=== PATIENT | male | born 1955 | race Caucasian/White ===

== ENCOUNTER 2016-05-04 16:26 | Inpatient (IN) | payer OTHER ==
[2016-05-04] VITALS (7 sets, daily range): BP systolic 156–194; BP diastolic 72–94; PULSE 95–110; RESP 16–32; TEMP 97.7–99.5; O2SAT 78–100
[~2016-05-04] VITALS: Ht 182.9 cm; Wt 89.9 kg
[~2016-05-04 16:26] MED LIST: BENA25TA3 PO; BUPR150CR PO; HYDR-2376 PO; IBUP-988 PO; NAPR220T95 PO; ZYRT10CA PO
--- NOTE | 2016-05-04 16:38 | PD ---
HPI Chief Complaint: Respiratory Distress Time Seen by Provider: 16:35 Travel History International Travel<30 days: No Contact w/Intl Traveler<30days: No History of Present Illness HPI This is a 60-year-old male who has an [id number] smoking history who presents to the emergency department with increasing shortness of breath over the past week, constant, severe, worse with exertion, improved with rest. He says he has some chest pain in the center of his chest. He denies any fevers or chills. He has had a cough that has been mostly dry. He says this feels similar to when he had pneumonia in the past. He tried to use his albuterol at home but it didn't help him. PFSH Past Medical History Arthritis: Yes Depression: Yes Cancer: Yes (AGE 3) Cardiovascular Problems: No Diminished Hearing: No Gastrointestinal Disorders: Yes Genitourinary: No Implanted Vascular Access Dvce: No Musculoskeletal: Yes (SEVERAL DISC'S INJURED) Neurologic: Yes Psychiatric: Yes Reproductive: No Respiratory: No Migraines: Yes Ulcer: Yes (DUODENAL ) Past Surgical History Abdominal Surgery: Yes (AT AGE 3 FOR CANCER MASS) Eye Surgery: Yes (METAL REMOVED) Other Surgery: Yes Social History Alcohol Use: No Tobacco Use: Yes (SMOKES C-CIGS) Substance Use: No Allergies-Medications (Allergen,Severity, Reaction): Coded Allergies: Novocain (Verified Allergy, Intermediate, VOMITING, 05/04/16) VOMITING AND DIZZINESS Reported Meds & Prescriptions Reported Meds & Active Scripts Active Reported Lisinopril 10 Mg Tab 10 Mg PO BID Sumatriptan (Sumatriptan Succinate) 50 Mg Tab 50 Mg PO ONCE PRN If a satisfactory response has not been obtained at 2 hours, a second dose may be administered Amoxicillin-Clavulanate 875-125 mg Tab 875 Mg PO BID not for use in CrCl <30 mL/minute Furosemide 20 Mg Tab 20 Mg PO DAILY Zofran (Ondansetron HCl) 4 Mg Tab 4 Mg PO Q12HR PRN Gabapentin 300 Mg Cap 300 Mg PO TID Omeprazole 40 Mg Cap 40 Mg PO DAILY Ferrous Sulfate 325 Mg Tab 325 Mg PO DAILY Tizanidine (Tizanidine HCl) 4 Mg Cap 4 Mg PO TID Folate (Folic Acid) 1 Mg Tab 1 Mg PO DAILY Ventolin Hfa 18 GM Inh (Albuterol Sulfate) 90 Mcg/Act Aer 1 Puff INH Q4H PRN Symbicort Inh (Budesonide/Formoterol Fumarate) 80-4.5 Mcg/Act Aero 2 Puff INH Q12HR Zyrtec Allergy (Cetirizine HCl) 10 Mg Cap 10 Mg PO DAILY Aleve (Naproxen Sodium) 220 Mg Tab 220 Mg PO BID PRN Hydrocodone-Acetaminophen 7.5-300 Mg Tab 1 Tab PO Q4H PRN Advil (Ibuprofen) 200 Mg Tab 200 Mg PO TID Benadryl Allergy (Diphenhydramine HCl) 25 Mg Tab 25 Mg PO Q6H PRN Wellbutrin SR 12 HR (Bupropion HCl) 150 Mg Tab 150 Mg PO Q12HR Review of Systems Except as stated in HPI: all other systems reviewed are Neg Physical Exam Narrative GENERAL: Uncomfortable appearing, moderate respiratory distress SKIN: Warm and dry. HEAD: Atraumatic. Normocephalic. EYES: Pupils equal and round. No injection or drainage. ENT: Moist mucous membranes NECK: Trachea midline. CARDIOVASCULAR: Regular rate and rhythm. No murmur appreciated. RESPIRATORY: Rales in the bilateral lung bases, tachypnea, increased work of breathing, speaking 3-4 word sentences GASTROINTESTINAL: Abdomen soft, non-tender, nondistended. MUSCULOSKELETAL: No obvious deformities. NEUROLOGICAL: Awake and alert. No obvious cranial nerve deficits. Moving all extremities. PSYCHIATRIC: Appropriate mood and affect; insight and judgment normal. Data Data Last Documented VS Vital Signs Date Time Temp Pulse Resp B/P Pulse Ox O2 Delivery O2 Flow Rate FiO2 05/04/16 17:03 95 182/86 184/87 05/04/16 16:50 93 Nasal Cannula 6.00 05/04/16 16:41 32 05/04/16 16:38 97.7 Orders Electrocardiogram (05/04/16 16:35) B-Type Natriuretic Peptide (05/04/16 16:35) Complete Blood Count With Diff (05/04/16 16:35) Comprehensive Metabolic Panel (05/04/16 16:35) Prothrombin Time / Inr (Pt) (05/04/16 16:35) Act Partial Throm Time (Ptt) (05/04/16 16:35) Troponin I (05/04/16 16:35) Chest, Single Ap (05/04/16 16:35) Ecg Monitoring (05/04/16 16:35) Bilateral Bp Monitoring (05/04/16 16:35) Iv Access Insert/Monitor (05/04/16 16:35) Oximetry (05/04/16 16:35) Oxygen Administration (05/04/16 16:35) Sodium Chloride 0.9% Flush (Ns Flush) (05/04/16 16:45) Methylprednisolone So Succ Inj (Solumedr (05/04/16 16:45) Albuterol-Ipratropium Neb (Duoneb Neb) (05/04/16 16:45) Lactic Acid (05/04/16 16:39) Aspirin Chew (Aspirin Chew) (05/04/16 17:45) Furosemide Inj (Lasix Inj) (05/04/16 17:45) Nitroglycerin-Dextrose Inj (Nitroglyceri (05/04/16 18:00) Nitroglycerin 2% Oint (Nitroglycerin 2% (05/04/16 18:00) Enoxaparin Inj (Lovenox Inj) (05/04/16 18:00) Consult Cardiology (05/04/16 ) Admit Order (Ed Use Only) (05/04/16 18:02) Labs Laboratory Tests Test 05/04/16 16:50 White Blood Count 8.6 TH/MM3 Red Blood Count 3.85 MIL/MM3 Hemoglobin 11.5 GM/DL Hematocrit 33.0 % Mean Corpuscular Volume 85.8 FL Mean Corpuscular Hemoglobin 29.8 PG Mean Corpuscular Hemoglobin 34.8 % Concent Red Cell Distribution Width 13.1 % Platelet Count 347 TH/MM3 Mean Platelet Volume 6.9 FL Neutrophils (%) (Auto) 81.0 % Lymphocytes (%) (Auto) 9.1 % Monocytes (%) (Auto) 5.6 % Eosinophils (%) (Auto) 3.8 % Basophils (%) (Auto) 0.5 % Neutrophils # (Auto) 7.0 TH/MM3 Lymphocytes # (Auto) 0.8 TH/MM3 Monocytes # (Auto) 0.5 TH/MM3 Eosinophils # (Auto) 0.3 TH/MM3 Basophils # (Auto) 0.0 TH/MM3 CBC Comment DIFF FINAL Differential Comment Prothrombin Time 10.1 SEC Prothromb Time International 0.9 RATIO Ratio Activated Partial 30.6 SEC Thromboplast Time Sodium Level 137 MEQ/L Potassium Level 3.5 MEQ/L Chloride Level 101 MEQ/L Carbon Dioxide Level 25.0 MEQ/L Anion Gap 11 MEQ/L Blood Urea Nitrogen 14 MG/DL Creatinine 1.00 MG/DL Estimat Glomerular Filtration 76 ML/MIN Rate Random Glucose 127 MG/DL Lactic Acid Level 1.6 mmol/L Calcium Level 8.5 MG/DL Total Bilirubin 0.3 MG/DL Aspartate Amino Transf 20 U/L (AST/SGOT) Alanine Aminotransferase 17 U/L (ALT/SGPT) Alkaline Phosphatase 121 U/L Troponin I 0.24 NG/ML B-Type Natriuretic Peptide 697 PG/ML Total Protein 7.5 GM/DL Albumin 3.5 GM/DL MDM Medical Decision Making Medical Screen Exam Complete: Yes Emergency Medical Condition: Yes Interpretation(s) Afebrile, tachycardic, tachypneic, hypertensive, hypoxic on room air Anemia Troponin is 0.24 BNP is 697 Lactic acid is 1.6 ABG: PO2 is 60 Differential Diagnosis Pneumonia, congestive heart failure, pulmonary embolism, pleural effusion No leukocytosis Anemia Electrolytes are reassuring Troponin is 0.24 BNP is 697 Lactic acid is 1.6 Hypoxia Chest x-ray: Congestive heart failure Narrative Course This is a 60-year-old male who presents to the emergency department with shortness of breath it's been progressing over the past week. He is placed on a monitor and an IV was established. He was hypoxic on room air to 70%. He was placed on supplemental oxygen. Labs demonstrate an elevated BNP and the troponin of .24. He was given 40 mg of IV Lasix. Chest x-ray is consistent with congestive heart failure. I spoke to Dr. Johnson who agrees with anticoagulating the patient and transferring him to the [facility] for possible catheterization tomorrow in the setting of a new diagnosis of congestive heart failure. I spoke to Dr. Allen regarding the patient initially. She was concerned about the patient's hypoxia and requested an ABG. ABG came back demonstrating a significant oxygen deficit. Patient was titrated up and tried on the 50% Ventimask that we could only maintain his oxygenation on a nonrebreather. I do think the patient requires placement and the intensive care unit for close monitoring overnight. I spoke to Dr. Dr. Marcum and Dr. Rowell. Dr. Rowell feels comfortable keeping the patient on the [facility] service with an store warehouse associate consultation. I think this is reasonable as the patient is not in respiratory distress and is actively diuresing here in the ER and I expect his respiratory status to improve significantly in the next 24 hours. Diagnosis Primary Impression: Congestive heart failure Qualified Code: I50.9 - Acute congestive heart failure, unspecified congestive heart failure type Admitting Information Admitting Physician Requests: Admit Freida Stephenson MD May 04, 2016 16:38
[2016-05-04] MEDS ORDERED: SODIUM CHLORIDE 0.9% FLUSH 5 ML FLUSH IVF PRN (16:45)
[2016-05-04] MEDS ORDERED: methylPREDNISolone SOD SUCC 125 MG/2 ML VIAL IV PUSH ONE (16:45)
[2016-05-04] MEDS: RESP: ALBUTEROL 2.5 MG/IPRATROPIUM 0.5 MG NEB (SCH) INH (16:50)
--- NOTE | 2016-05-04 17:00 | RADHPO ---
EXAM DATE/TIME: 05/04/2016 16:45 [place] COMPARISON: CHEST SINGLE AP, April 01, 2014, 17:54. INDICATIONS : Short of breath, chest pains MEDICAL HISTORY : None. SURGICAL HISTORY : None. ENCOUNTER: Initial ACUITY: 2 weeks PAIN SCORE: 1/10 LOCATION: Bilateral chest FINDINGS: The heart size is normal. The lungs demonstrate diffuse increased interstitial markings. A focal co nsolidation is not seen. A significant effusion is not seen. CONCLUSION: Diffuse increased interstitial markings likely representing diffuse processes such as pulmonary edema . Vito Cordova MD on May 04, 2016 at 16:56 Board Certified Radiologist. This report was verified electronically.
[2016-05-04 17:09] LABS: BASOPHIL % 0.5 % (0.0-2.0); EOSINOPHIL # 0.3 TH/MM3 (0-0.4); EOSINOPHIL % 3.8 % (0.0-4.0); HEMO FLAGS DIFF FINAL; LYMPH % 9.1 % (9.0-44.0); LYMPHOCYTE # 0.8 TH/MM3 (1.0-4.8); MEAN CELL VOLUME 85.8 FL (80.0-100.0); MEAN CORPUSCULAR HEMOGLOBIN 29.8 PG (27.0-34.0); MEAN CORPUSCULAR HGB CONC 34.8 % (32.0-36.0); MONO % 5.6 % (0.0-8.0); PLATELET COUNT 347 TH/MM3 (150-450); RED BLOOD COUNT 3.85 MIL/MM3 (4.50-5.90); RED CELL DISTRIBUTION WIDTH 13.1 % (11.6-17.2); WHITE BLOOD COUNT 8.6 TH/MM3 (4.0-11.0)
[2016-05-04 17:15] LABS: CHLORIDE 101 MEQ/L (98-107); POTASSIUM 3.5 MEQ/L (3.5-5.1); SODIUM (NA) 137 MEQ/L (136-145)
[2016-05-04] MEDS ORDERED: LISI10TA3 PO (17:15)
[2016-05-04] MEDS ORDERED: FURO20TA PO (17:15)
[2016-05-04] MEDS ORDERED: TIZA4CAP3 PO (17:15)
[2016-05-04] MEDS ORDERED: SUMA50TA2 PO (17:15)
[2016-05-04] MEDS ORDERED: FOLI1TAB4 PO (17:15)
[2016-05-04] MEDS ORDERED: OMEP40CA2 PO (17:15)
[2016-05-04] MEDS ORDERED: FERR325T PO (17:15)
[2016-05-04] MEDS ORDERED: AMOX875T2 PO (17:15)
[2016-05-04] MEDS ORDERED: GABA300C5 PO (17:15)
[2016-05-04] MEDS ORDERED: SYMB80AE INH (17:15)
[2016-05-04] MEDS ORDERED: ZOFR4TAB PO (17:15)
[2016-05-04] MEDS ORDERED: VENTAER INH (17:15)
[2016-05-04 17:18] LABS: ANION GAP 11 MEQ/L (5-15)
[2016-05-04 17:19] LABS: BLOOD UREA NITROGEN 14 MG/DL (7-18)
[2016-05-04 17:20] LABS: APTT (PATIENT) 30.6 SEC (24.3-30.1); INTERNATIONAL NORMALIZED RATIO 0.9 RATIO; PROTHROMBIN TIME - PATIENT 10.1 SEC (9.8-11.6)
[2016-05-04 17:22] LABS: ALT (GPT) 17 U/L (12-78); AST (GOT) 20 U/L (15-37); GLOMERULAR FILTRATION RATE 76 ML/MIN (>89)
[2016-05-04 17:23] LABS: TOTAL BILIRUBIN ADULT 0.3 MG/DL (0.2-1.0)
[2016-05-04 17:24] LABS: ALKALINE PHOSPHATASE 121 U/L (45-117)
[2016-05-04] MEDS ORDERED: FUROSEMIDE 40 MG/4 ML VIAL IV PUSH ONE (17:45)
[2016-05-04] MEDS ORDERED: ASPIRIN 81 MG CHEW TAB CHEW ONE (17:45)
[2016-05-04] MEDS ORDERED: NITROGLYCERIN 2% OINT 1 GM PACKET TOPICAL ONE (18:00)
[2016-05-04] MEDS ORDERED: NITROGLYCERIN-DEXTROSE INJ 250 ML IV ONE (18:00)
[2016-05-04] MEDS ORDERED: ENOXAPARIN SODIUM 100 MG/ML SYRINGE SQ ONE (18:00)
[2016-05-04 18:27] LABS: BLOOD GAS BASE EXCESS -1.3 mmol/L (-2-2); BLOOD GAS CARBOXYHEMOGLOBIN 2.3 % (0-4); BLOOD GAS HCO3 22 mmol/L (22-26); BLOOD GAS METHEMOGLOBIN 1.1 % (0-2); BLOOD GAS O2 HGB SATURATION 86 % (90-100); BLOOD GAS OXYGEN CONTENT 13.2 Vol % (12.0-20.0); BLOOD GAS PCO2 32 mmHG (38-42); BLOOD GAS PO2 60 mmHG (61-120); BLOOD GAS TOTAL HGB 10.9 G/DL (12.0-16.0); TEMP CORR TO 98.6
[2016-05-04 18:28] LABS: CRITICAL VALUE YES; DRAW SITE LT RADIAL; LITER FLOW 5 L/M; NUMBER OF ARTERIAL PUNCTURES 1; OXYGEN DEVICE NASAL CANNULA; STAT YES; ULNAR PULSE PRESENT
[2016-05-04] MEDS ORDERED: ACETAMINOPHEN 325 MG TAB PO PRN (19:15)
[2016-05-04] MEDS ORDERED: MISCELLANEOUS NURSING INFORMATION XX SCH (19:15)
[2016-05-04] MEDS ORDERED: CHLORHEXIDINE GLUCONATE 2 % 1 PACK (2 CLOTHS) TOP PRN (19:15)
[2016-05-04] MEDS ORDERED: BISACODYL 10 MG SUPP PR PRN (19:15)
[2016-05-04] MEDS ORDERED: ALBUTEROL SULFATE 90 MCG/ACT HFA 8 GM INHALER INH PRN (19:15)
[2016-05-04] MEDS ORDERED: SODIUM CHLORIDE 0.9% FLUSH 5 ML FLUSH FLUSH PRN (19:15)
[2016-05-04] MEDS ORDERED: ONDANSETRON HCL 4 MG/2 ML VIAL IVP PRN (19:15)
[2016-05-04] MEDS: ACETAMINOPHEN/HYDROcodone 325 MG/5 MG TAB PO PRN (22:24)
[2016-05-04] MEDS: buPROPion HCL 150 MG SUSTAINED RELEASE TAB PO SCH (22:25)
[2016-05-04] MEDS: BUDESONIDE-FORMOTEROL 80/4.5 MCG INHALER INH SCH (23:00)
[2016-05-04] MEDS: SODIUM CHLORIDE 0.9% FLUSH 5 ML FLUSH FLUSH SCH (23:01)
--- NOTE | 2016-05-04 23:49 | HHI.HP ---
[facility] Bhavin Schuster MD Admission Diagnosis congestive heart failure Diagnoses: Chief Complaint: Shortness of breath Travel History International Travel<30 Days: No Contact w/Intl Traveler <30 Da: No Traveled to Known Affected Are: No History of Present Illness 60-year-old male with a history of COPD, depression, neuropathy, chronic back pain, and hypertension presented to the emergency room with increasing shortness of breath over the last week. He states the shortness of breath has gotten so severe that even walking to the bathroom he is unable to breathe. He states he does have a slight chest pressure when he does have shortness of breath but it does not radiate to his jaw or arm. He is also complaining of fever and chills at home, with an unknown temperature. He stopped smoking 8 months ago and was just recently diagnosed with hypertension in late March. He states he has had a dry cough since starting on lisinopril 3 weeks ago. He denies any abdominal pain, nausea, vomiting, dysuria or diarrhea. No history of DVTs, MIs or strokes. Patient states he has also never been diagnosed with congestive heart failure. And no history of an echocardiogram. Past Family Social History Past Medical History COPD Chronic back pain due to herniated disks Iron deficiency anemia Hypertension Cancer at age 3 Depression/anxiety Past Surgical History Abdominal cancer mass removed Reported Medications Reported Meds & Active Scripts Active Reported Lisinopril 10 Mg Tab 10 Mg PO BID Sumatriptan (Sumatriptan Succinate) 50 Mg Tab 50 Mg PO ONCE PRN If a satisfactory response has not been obtained at 2 hours, a second dose may be administered Amoxicillin-Clavulanate 875-125 mg Tab 875 Mg PO BID not for use in CrCl <30 mL/minute Furosemide 20 Mg Tab 20 Mg PO DAILY Zofran (Ondansetron HCl) 4 Mg Tab 4 Mg PO Q12HR PRN Gabapentin 300 Mg Cap 300 Mg PO TID Omeprazole 40 Mg Cap 40 Mg PO DAILY Ferrous Sulfate 325 Mg Tab 325 Mg PO DAILY Tizanidine (Tizanidine HCl) 4 Mg Cap 4 Mg PO TID Folate (Folic Acid) 1 Mg Tab 1 Mg PO DAILY Ventolin Hfa 18 GM Inh (Albuterol Sulfate) 90 Mcg/Act Aer 1 Puff INH Q4H PRN Symbicort Inh (Budesonide/Formoterol Fumarate) 80-4.5 Mcg/Act Aero 2 Puff INH Q12HR Zyrtec Allergy (Cetirizine HCl) 10 Mg Cap 10 Mg PO DAILY Aleve (Naproxen Sodium) 220 Mg Tab 220 Mg PO BID PRN Hydrocodone-Acetaminophen 7.5-300 Mg Tab 1 Tab PO Q4H PRN Advil (Ibuprofen) 200 Mg Tab 200 Mg PO TID Benadryl Allergy (Diphenhydramine HCl) 25 Mg Tab 25 Mg PO Q6H PRN Wellbutrin SR 12 HR (Bupropion HCl) 150 Mg Tab 150 Mg PO Q12HR Allergies: Coded Allergies: Novocain (Verified Allergy, Intermediate, VOMITING, 05/04/16) VOMITING AND DIZZINESS Active Ordered Medications Current Medications Medications (Trade) Dose Ordered Sig/Misa Route Start Time Stop Time Status Last Admin Miscellaneous Information 1 [id number] XX 05/04/16 19:15 (Chlorhexidine 2% Cloth) 3 pack Taper DAILY@04 TOP 05/05/16 04:00 05/01/17 03:59 (Chlorhexidine 2% Cloth) 3 pack UNSCH PRN TOP 05/04/16 19:15 (NS Flush) 2 ml UNSCH PRN FLUSH 05/04/16 19:15 (NS Flush) 2 ml BID FLUSH 05/04/16 21:00 05/04/16 23:01 (Zofran Inj) 4 mg Q6H PRN IVP 05/04/16 19:15 (Dulcolax Supp) 10 mg DAILY PRN MN 05/04/16 19:15 (Tylenol) 650 mg Q6H PRN PO 05/04/16 19:15 ([place] 5-325 Mg) 1 tab Q4H PRN PO 05/04/16 19:15 05/04/16 22:24 (Morphine Inj) 2 mg Q3H PRN IV 05/04/16 19:15 (Lasix Inj) 40 mg BID@,18 IV PUSH 05/05/16 09:00 (Proair Hfa Inh) 1 puff Q4H PRN INH 05/04/16 19:15 (Symbicort 80-4.5 Mcg Inh) 2 puff Q12HR INH 05/04/16 21:00 05/04/16 23:00 (Wellbutrin Sr) 150 mg Q12HR PO 05/04/16 21:00 05/04/16 22:25 (Ferrous Sulfate) 325 mg DAILY PO 05/05/16 09:00 (Folate) 1 mg DAILY PO 05/05/16 09:00 (Neurontin) 300 mg TID PO 05/05/16 09:00 Family History Family history of significant heart disease and cancer Social History Tobacco use: Quit 8 months ago prior to this 2 ppd for 40 years Alcohol use: Denies Illicit drug use: Denies Physical Exam Vital Signs Vital Signs Date Time Temp Pulse Resp B/P Pulse Ox O2 Delivery O2 Flow Rate FiO2 05/04/16 22:19 99.5 95 28 164/86 100 05/04/16 21:39 92 16 156/80 100 Non-Rebreather 5 05/04/16 19:41 96 16 165/72 100 Non-Rebreather 5 05/04/16 19:41 100 Non-Rebreather 5 05/04/16 19:41 16 100 Non-Rebreather 5 05/04/16 17:03 95 182/86 184/87 05/04/16 16:50 93 Nasal Cannula 6.00 05/04/16 16:41 110 32 92 Nasal Cannula 4 05/04/16 16:41 93 Nasal Cannula 4 05/04/16 16:41 93 Nasal Cannula 4 05/04/16 16:38 97.7 110 32 194/94 78 Physical Exam GENERAL: This is a well-nourished, well-developed patient, with some breathing difficulty currently on a nonrebreather SKIN: No rashes, ecchymoses or lesions. Cool and dry. HEAD: Atraumatic. Normocephalic EYES: Pupils equal round and reactive. ENT: Nose without bleeding, purulent drainage or septal hematoma. Airway patent. NECK: Trachea midline. No JVD. CARDIOVASCULAR: Regular rate and rhythm without murmurs, gallops, or rubs. RESPIRATORY: Crackles noted bilateral bases worse and right lower lobe, no wheezes GASTROINTESTINAL: Abdomen soft, non-tender, nondistended. No guarding. MUSCULOSKELETAL: Extremities without clubbing, cyanosis, or edema. No joint tenderness, effusion, or edema noted. No calf tenderness. NEUROLOGICAL: Awake and alert. Motor and sensory grossly within normal limits. Normal speech. Laboratory Laboratory Tests Test 05/04/16 05/04/16 16:50 18:22 White Blood Count 8.6 Red Blood Count 3.85 Hemoglobin 11.5 Hematocrit 33.0 Mean Corpuscular Volume 85.8 Mean Corpuscular Hemoglobin 29.8 Mean Corpuscular Hemoglobin 34.8 Concent Red Cell Distribution Width 13.1 Platelet Count 347 Mean Platelet Volume 6.9 Neutrophils (%) (Auto) 81.0 Lymphocytes (%) (Auto) 9.1 Monocytes (%) (Auto) 5.6 Eosinophils (%) (Auto) 3.8 Basophils (%) (Auto) 0.5 Neutrophils # (Auto) 7.0 Lymphocytes # (Auto) 0.8 Monocytes # (Auto) 0.5 Eosinophils # (Auto) 0.3 Basophils # (Auto) 0.0 CBC Comment DIFF FINAL Differential Comment Prothrombin Time 10.1 Prothromb Time International 0.9 Ratio Activated Partial 30.6 Thromboplast Time Sodium Level 137 Potassium Level 3.5 Chloride Level 101 Carbon Dioxide Level 25.0 Anion Gap 11 Blood Urea Nitrogen 14 Creatinine 1.00 Estimat Glomerular Filtration 76 Rate Random Glucose 127 Lactic Acid Level 1.6 Calcium Level 8.5 Total Bilirubin 0.3 Aspartate Amino Transf 20 (AST/SGOT) Alanine Aminotransferase 17 (ALT/SGPT) Alkaline Phosphatase 121 Troponin I 0.24 B-Type Natriuretic Peptide 697 Total Protein 7.5 Albumin 3.5 Blood Gas Puncture Site LT RADIAL Blood Gas Patient Temperature 98.6 Blood Gas HCO3 22 Blood Gas Base Excess -1.3 Blood Gas Oxygen Saturation 86 Arterial Blood pH 7.45 Arterial Blood Partial 32 Pressure CO2 Arterial Blood Partial 60 Pressure O2 Arterial Blood Oxygen Content 13.2 Arterial Blood 2.3 Carboxyhemoglobin Arterial Blood Methemoglobin 1.1 Blood Gas Hemoglobin 10.9 Oxygen Delivery Device NASAL CANNULA Blood Gas Liter Flow 5 Result Diagram: 05/04/16 1650 05/04/16 1650 Imaging Last Impressions Chest X-Ray 05/04/16 1635 Signed Impressions: Service Date/Time: Wednesday, May 04, 2016 16:45 - CONCLUSION: Diffuse increased interstitial markings likely representing diffuse processes such as pulmonary edema. Vito Cordova MD Assessment and Plan Problem List: (1) Congestive heart failure ICD Code: I50.9 Status: Acute (2) HTN (hypertension) ICD Code: I10 Status: Chronic (3) COPD (chronic obstructive pulmonary disease) ICD Code: J44.9 Status: Chronic (4) Back pain ICD Code: M54.9 Status: Chronic Assessment and Plan 50-year-old male with a history of COPD, hypertension, neuropathy, depression presented with: Congestive heart failure, new onset Chest x-ray revealed diffuse increased interstitial markings likely representing pulmonary edema -Lasix 40 mg given an ED, additional 20 mg IV given upon assessment, then 40mg scheduled twice a day -Cardiac consult: Dr. Johnson is planning cardiac catheter in a.m. -2-D echo pending -DuoNeb's Q4 Hypertension, chronic -Hold lisinopril due to cough -Monitor vitals -Clonidine as needed COPD, chronic -Reorder home medications Symbicort Chronic back pain -Pain management with [place] PO, and IV morphine [id number] interaction performed by me at 2355 on 05/04/16 Discussed Condition With Patient and Dr. Osborne Attestation Pt seen and examined. Agree w/ above A/P 60yo male w/ PMH COPD and HTN, now w/ New-Onset CHF and elevated trop. Continue w/ diuresis, check Echo, serial cardiac enzymes, plan for Cardiac Cath in am by Dr. Johnson. Physician Certification 2 Midnight Certification Type: Admission for Inpatient Services Order for Inpatient Services The services are ordered in accordance with Medicare regulations or non- Medicare payer requirements, as applicable. In the case of services not specified as inpatient-only, they are appropriately provided as inpatient services in accordance with the 2-midnight benchmark. Estimated LOS (days): 3 days is the estimated time the patient will need to remain in the hospital, assuming treatment plan goals are met and no additional complications. Post-Hospital Plan: Home Problem Qualifiers (1) Congestive heart failure: Qualified Code: I50.9 - Acute congestive heart failure, unspecified congestive heart failure type Nakia Davalos May 04, 2016 23:49 Nani Osborne MD May 05, 2016 04:33
[2016-05-05] VITALS (21 sets, daily range): BP systolic 133–179; BP diastolic 65–87; PULSE 65–94; RESP 16–32; TEMP 98–99.7; O2SAT 89–100
[2016-05-05] MEDS: MORPHINE SULFATE 4 MG/ML INJ IV PRN ×5 (00:52→21:21)
[2016-05-05] MEDS ORDERED: RESP: ALBUTEROL 2.5 MG/IPRATROPIUM 0.5 MG NEB (PRN) NEB (01:00)
[2016-05-05] MEDS ORDERED: FUROSEMIDE 20 MG/2 ML VIAL IV PUSH ONE (01:15)
[2016-05-05] MEDS: CHLORHEXIDINE GLUCONATE 2 % 1 PACK (2 CLOTHS) TOP SCH (03:31)
[2016-05-05] MEDS: ACETAMINOPHEN/HYDROcodone 325 MG/5 MG TAB PO PRN ×3 (03:35→20:06)
[2016-05-05] MEDS: cloNIDine HCL 0.1 MG TAB PO PRN (03:35)
[2016-05-05 05:28] LABS: AUTOMATED NEUTROPHIL # 4.3 TH/MM3 (1.8-7.7); BASOPHIL % 0.5 % (0.0-2.0); EOSINOPHIL % 0.1 % (0.0-4.0); HEMATOCRIT 33.3 % (39.0-51.0); HEMO FLAGS DIFF FINAL; LYMPH % 9.1 % (9.0-44.0); LYMPHOCYTE # 0.5 TH/MM3 (1.0-4.8); MEAN CELL VOLUME 86.1 FL (80.0-100.0); MEAN CORPUSCULAR HEMOGLOBIN 28.6 PG (27.0-34.0); MEAN CORPUSCULAR HGB CONC 33.3 % (32.0-36.0); NEUT % 85.3 % (16.0-70.0); PLATELET COUNT 342 TH/MM3 (150-450); RED BLOOD COUNT 3.87 MIL/MM3 (4.50-5.90); RED CELL DISTRIBUTION WIDTH 13.7 % (11.6-17.2)
[2016-05-05 05:45] LABS: ALKALINE PHOSPHATASE 126 U/L (45-117); ALT (GPT) 19 U/L (12-78); ANION GAP 13 MEQ/L (5-15); AST (GOT) 18 U/L (15-37); BICARBONATE 25.2 MEQ/L (21.0-32.0); BLOOD UREA NITROGEN 12 MG/DL (7-18); CHLORIDE 97 MEQ/L (98-107); GLOMERULAR FILTRATION RATE 89 ML/MIN (>89); POTASSIUM 3.7 MEQ/L (3.5-5.1); SODIUM (NA) 135 MEQ/L (136-145); TOTAL BILIRUBIN ADULT 0.4 MG/DL (0.2-1.0)
[2016-05-05] MEDS: FOLIC ACID 1 MG TAB PO SCH (08:28)
[2016-05-05] MEDS: buPROPion HCL 150 MG SUSTAINED RELEASE TAB PO SCH ×2 (08:28→20:06)
[2016-05-05] MEDS: FERROUS SULFATE 325 MG (65 MG ELEMENTAL IRON) TAB PO SCH (08:28)
[2016-05-05] MEDS: GABAPENTIN 300 MG CAP PO SCH ×3 (08:28→18:00)
[2016-05-05] MEDS: FUROSEMIDE 40 MG/4 ML VIAL IV PUSH SCH ×2 (08:29→18:23)
[2016-05-05] MEDS: BUDESONIDE-FORMOTEROL 80/4.5 MCG INHALER INH SCH ×2 (08:40→20:07)
[2016-05-05] MEDS: SODIUM CHLORIDE 0.9% FLUSH 5 ML FLUSH FLUSH SCH ×2 (09:00→20:06)
--- NOTE | 2016-05-05 09:17 | HHI.PR ---
Subjective Remarks Follow up CHF, hypertension. Patient denies chest pain. States that his breathing is stable. No nausea or vomiting. Objective Vitals Vital Signs Date Time Temp Pulse Resp B/P Pulse Ox O2 Delivery O2 Flow Rate FiO2 05/05/16 08:00 98.0 82 26 156/82 99 05/05/16 06:00 94 05/05/16 04:00 79 05/05/16 04:00 98.5 81 17 155/77 100 05/05/16 02:00 85 05/05/16 00:00 90 05/05/16 00:00 98.9 90 29 159/74 99 05/04/16 22:19 99.5 95 28 164/86 100 05/04/16 21:39 92 16 156/80 100 Non-Rebreather 5 05/04/16 19:41 96 16 165/72 100 Non-Rebreather 5 05/04/16 19:41 100 Non-Rebreather 5 05/04/16 19:41 16 100 Non-Rebreather 5 05/04/16 17:03 95 182/86 184/87 05/04/16 16:50 93 Nasal Cannula 6.00 05/04/16 16:41 110 32 92 Nasal Cannula 4 05/04/16 16:41 93 Nasal Cannula 4 05/04/16 16:41 93 Nasal Cannula 4 05/04/16 16:38 97.7 110 32 194/94 78 I/O 05/04/16 05/04/16 05/04/16 05/05/16 05/05/16 05/05/16 07:00 15:00 23:00 07:00 15:00 23:00 Intake Total 480 ml Output Total 1700 ml 2600 ml Balance -1700 ml -2120 ml Intake Oral 480 ml Output Urine Total 1700 ml 2600 ml Stool Total 0 ml # Voids 5 Result Diagram: 05/05/16 0414 05/05/164 Imaging Last Impressions Chest X-Ray 05/04/16 1635 Signed Impressions: Service Date/Time: Wednesday, May 04, 2016 16:45 - CONCLUSION: Diffuse increased interstitial markings likely representing diffuse processes such as pulmonary edema. Vito Cordova MD Objective Remarks General: No acute distress. On non-rebreather. Heart: Regular rate and rhythm. No murmur. Lungs: Mild scattered wheeze. Breathing is nonlabored. Abdomen: Soft, nontender, nondistended. Extremities: No lower extremity edema. SCDs. Psych: Alert and oriented. Urinary Catheter: No Vascular Central Line Catheter: No A/P Problem List: (1) Congestive heart failure ICD Code: I50.9 Status: Acute (2) HTN (hypertension) ICD Code: I10 Status: Chronic (3) COPD (chronic obstructive pulmonary disease) ICD Code: J44.9 Status: Chronic (4) Back pain ICD Code: M54.9 Status: Chronic Assessment and Plan 1. New onset CHF: 2-D echocardiogram pending. Cardiology consult. Dr. Johnson planning for cardiac catheterization this morning. Continue diuresis with Lasix. 2. Hypertension: Chronic. Clonidine as needed. 3. COPD: Continue Symbicort. DuoNeb's as needed. Supplemental oxygen. 4. Chronic back pain: Continue pain control. 5. Elevated troponin: Cardiac catheterization today per Dr. Johnson. 6. DVT prophylaxis: Received Lovenox. Problem Qualifiers (1) Congestive heart failure: Qualified Code: I50.9 - Acute congestive heart failure, unspecified congestive heart failure type Kevin Madison MD May 05, 2016 09:17
[2016-05-05] MEDS ORDERED: diphenhydrAMINE HCL 50 MG/ML VIAL ONE (10:29)
[2016-05-05] MEDS ORDERED: HYDROCORTISONE SOD SUCCINATE 100 MG VIAL ONE (10:29)
[2016-05-05] MEDS ORDERED: HEPARIN-NS/PF INJ 500 ML ONE (10:30)
[2016-05-05] MEDS ORDERED: FAMOTIDINE 20 MG/2 ML VIAL ONE (10:34)
[2016-05-05] MEDS ORDERED: IOHEXOL 350 MG/ML 100 ML BTL (for Cath Lab) OTHER ONE (10:57)
[2016-05-05] MEDS ORDERED: HEPARIN SODIUM - IV 10,000 UNITS/10 ML VIAL ONE (11:16)
[2016-05-05] MEDS ORDERED: SODIUM NITROPRUSSIDE 50 MG/2 ML VIAL ONE (11:19)
[2016-05-05] MEDS ORDERED: NITROGLYCERIN 2% OINT 1 GM PACKET ONE (11:27)
[2016-05-05] MEDS ORDERED: PRASUGREL 10 MG TAB ONE (11:29)
[2016-05-05] MEDS ORDERED: TIROFIBAN INFUSION INJ 250 ML IV ONE (11:29)
[2016-05-05] MEDS ORDERED: FUROSEMIDE 40 MG/4 ML VIAL ONE (11:30)
[2016-05-05] MEDS: TIROFIBAN INFUSION INJ 250 ML IV SCH ×2 (11:34→23:31)
[2016-05-05] MEDS ORDERED: SODIUM CHLORIDE 0.9% FLUSH 5 ML FLUSH IVF PRN (11:45)
[2016-05-05] MEDS ORDERED: PRASUGREL 10 MG TAB PO ONE (11:45)
[2016-05-05] MEDS ORDERED: MISC INFORMATION XX ONE (11:45)
--- NOTE | 2016-05-05 14:02 | MB ---
cc: DUNCAN OTT M.D. DATE OF CONSULTATION: 05/05/2016. HISTORY OF PRESENT ILLNESS: Julio is a very pleasant 60-year-old gentleman admitted with congestive heart failure and chief complaint of shortness of breath. He was admitted to the intensive care unit. He has an 80 pack/year smoking history and has a diagnosis of COPD in the past. His chief complaint was shortness of breath occurring at rest and worse with exertion associated with chest pain in the center of the chest, dry cough. He otherwise denies any fevers, chills, GI or bleeding, paroxysmal nocturnal dyspnea, orthopnea, syncope or dizziness. PAST MEDICAL HISTORY: His past medical history is per the history of present illness. 1. Cervical disc injury. 2. Cancer at the age of 3. 3. Depression. 4. Arthritis. 5. Migraines. 6. Status post abdominal postsurgery for malignant mass in the abdomen. SOCIAL HISTORY: He smokes E-cigs. Denies alcohol use. ALLERGIES: Novocain. MEDICATIONS PRIOR TO ADMISSION: 1. Lisinopril. 2. Sumatriptan. 3. Amoxicillin. 4. . 5. Furosemide 20 daily. 6. Zofran. 7. Gabapentin. 8. Omeprazole. 9. Ferrous sulfate. 10. Tizanidine. 11. Folate. 12. Ventolin. 13. Symbicort. 14. Zyrtec. 15. Aleve. 16. Hydrocodone. 17. Acetaminophen. 18. Advil. 19. Benadryl. 20. Wellbutrin. MEDICATIONS IN THE HOSPITAL: 1. Lasix 40 IV twice a day. 2. Ferrous sulfate 325 daily. 3. Folic acid 1 milligram daily. 4. Gabapentin 300 three times a day. 5. Symbicort. 6. Wellbutrin. 7. Lovenox 100 milligrams subcutaneous x1. 8. One inch of nitro paste x1. 9. Methylprednisolone 125 x1 IV. PHYSICAL EXAMINATION: VITAL SIGNS: Blood pressure 156/82, pulse 94, temperature 98.0. GENERAL: He is alert and oriented times three and in mild distress with oxygen face mask in place. NECK: The neck is supple. No jugular venous distention. No bruits. CARDIOVASCULAR EXAM: S1 and S2. No murmurs, rubs or gallops. LUNGS: Notable for decreased air movement bilaterally. ABDOMEN: The abdomen is soft, nontender and nondistended with positive bowel sounds. EXTREMITIES: No lower extremity edema. IMAGING STUDIES: Chest x-ray shows diffuse increased interstitial markings likely representing diffuse process such as pulmonary edema. EKGS: An EKG shows normal sinus rhythm at 94 beats per minute, 4 to 5 mm of T wave inversion, which are symmetric T wave inversions, in V3, V4, V5, V6 and also in lead III. Prolonged Q-T interval. LABORATORY DATA: White count 5.0, hemoglobin 11.1, hematocrit 33.3, platelet count 342,000. Sodium 135, potassium 3.7, chloride 97, bicarbonate 25, BUN 12, creatinine 0.88. Troponin is 0.24, 0.19 and 0.19. BNP is 697. INR is 0.9. Blood gas shows pH 7.45, pC02 of 32, p02 of 60 on five liters nasal cannula. DIAGNOSES: He has the following diagnoses: 1. NSTEMI. 2. COPD. 3. Decompensated congestive heart failure. 4. COPD. 5. Tobacco use. 6. Hypoxia. 7. Hyponatremia. 8. Hyperglycemia. 9. Anemia. DISCUSSION: At this point time, the EKG suggests significant left anterior descending stenosis. Given the patient's decompensated congestive heart failure and elevated troponin, he is high risk for an ischemic etiology and is high risk for an ischemic outcome without revascularization. Therefore, I do think left heart catheterization is urgently indicated. I have explained to the patient the risk of heart catheterization / percutaneous coronary intervention has a 10% chance of , stroke, heart attack, bleeding, need for emergency bypass, need for emergency surgery, need for dialysis, need for blood transfusion, anaphylaxis, bleeding, infection, and arrhythmia. I strongly recommend smoking cessation. Further recommendations based on the coronary anatomy and physiology. MD LENORA Jensen/EMMANUEL /10:59 AM /1:49 PM
[2016-05-05] MEDS ORDERED: [UNRECOGNIZED DRUG - REMARK] XX PRN (16:15)
[2016-05-05] MEDS ORDERED: LORazepam 2 MG/ML VIAL IVP PRN (16:15)
[2016-05-05] MEDS ORDERED: ATROPINE SULFATE 1 MG/ML VIAL IV PUSH PRN (16:15)
[2016-05-05] MEDS ORDERED: ONDANSETRON HCL 4 MG/2 ML VIAL IVP PRN (16:15)
[2016-05-05] MEDS ORDERED: SODIUM CHLOR 0.9% 250 ML IV PRN (16:15)
[2016-05-05] MEDS: ATORVASTATIN 10 MG TAB PO SCH (20:06)
[2016-05-05] MEDS: SODIUM CHLORIDE 0.9% FLUSH 5 ML FLUSH IVF SCH (20:07)
[2016-05-06] VITALS (12 sets, daily range): BP systolic 123–155; BP diastolic 63–87; PULSE 67–91; RESP 15–25; TEMP 98–98.9; O2SAT 90–96
[2016-05-06] MEDS: CHLORHEXIDINE GLUCONATE 2 % 1 PACK (2 CLOTHS) TOP SCH (04:00)
[2016-05-06 05:09] LABS: AUTOMATED NEUTROPHIL # 7.3 TH/MM3 (1.8-7.7); BASOPHIL # 0.1 TH/MM3 (0-0.2); BASOPHIL % 0.8 % (0.0-2.0); EOSINOPHIL # 0.1 TH/MM3 (0-0.4); EOSINOPHIL % 0.9 % (0.0-4.0); HEMATOCRIT 35.6 % (39.0-51.0); HEMO FLAGS DIFF FINAL; LYMPH % 11.7 % (9.0-44.0); LYMPHOCYTE # 1.1 TH/MM3 (1.0-4.8); MEAN CELL VOLUME 86.2 FL (80.0-100.0); MEAN CORPUSCULAR HEMOGLOBIN 28.7 PG (27.0-34.0); MEAN CORPUSCULAR HGB CONC 33.3 % (32.0-36.0); MONO % 8.6 % (0.0-8.0); PLATELET COUNT 473 TH/MM3 (150-450); RED BLOOD COUNT 4.13 MIL/MM3 (4.50-5.90); RED CELL DISTRIBUTION WIDTH 13.7 % (11.6-17.2); WHITE BLOOD COUNT 9.4 TH/MM3 (4.0-11.0)
[2016-05-06 05:32] LABS: BICARBONATE 29.2 MEQ/L (21.0-32.0); POTASSIUM 3.3 MEQ/L (3.5-5.1)
[2016-05-06 05:36] LABS: HDL CHOLESTEROL 42.5 MG/DL (40.0-60.0)
[2016-05-06 05:54] LABS: CKMB 8.1 NG/ML (0.5-3.6)
[2016-05-06] MEDS: FUROSEMIDE 40 MG/4 ML VIAL IV PUSH SCH (08:41)
[2016-05-06] MEDS: FERROUS SULFATE 325 MG (65 MG ELEMENTAL IRON) TAB PO SCH (08:42)
[2016-05-06] MEDS: GABAPENTIN 300 MG CAP PO SCH ×3 (08:42→18:33)
[2016-05-06] MEDS: buPROPion HCL 150 MG SUSTAINED RELEASE TAB PO SCH ×2 (08:42→20:24)
[2016-05-06] MEDS: ASPIRIN 81 MG CHEW TAB PO SCH (08:42)
[2016-05-06] MEDS: FOLIC ACID 1 MG TAB PO SCH (08:43)
[2016-05-06] MEDS: SODIUM CHLORIDE 0.9% FLUSH 5 ML FLUSH FLUSH SCH (08:44)
[2016-05-06] MEDS: PRASUGREL 10 MG TAB PO SCH (08:44)
[2016-05-06] MEDS: SODIUM CHLORIDE 0.9% FLUSH 5 ML FLUSH IVF SCH ×2 (08:45→20:24)
[2016-05-06] MEDS: BUDESONIDE-FORMOTEROL 80/4.5 MCG INHALER INH SCH ×2 (08:45→20:23)
[2016-05-06] MEDS: MORPHINE SULFATE 4 MG/ML INJ IV PRN ×5 (08:54→23:11)
[2016-05-06] MEDS ORDERED: RAMIPRIL 2.5 MG CAP PO SCH (09:00)
[2016-05-06] MEDS ORDERED: POTASSIUM CHLORIDE 20 MEQ CONTROLLED RELEASE TAB PO ONE (09:15)
--- NOTE | 2016-05-06 09:16 | HHI.PR ---
Subjective Remarks Follow up CHF, hypertension, hypokalemia. He is refusing ramipril. He states that he was started on an SUMAN inhibitor or a couple weeks ago and developed a dry cough. Cough has now progressed and is productive today. Denies chest pain or dyspnea. Objective Vitals Vital Signs Date Time Temp Pulse Resp B/P Pulse Ox O2 Delivery O2 Flow Rate FiO2 05/06/16 04:00 67 05/06/16 04:00 98.7 67 15 136/75 96 05/06/16 00:00 98.9 71 19 123/63 95 05/06/16 00:00 71 05/05/16 20:58 93 Nasal Cannula 5.00 05/05/16 20:00 98.7 81 20 133/67 97 05/05/16 20:00 81 05/05/16 18:17 16 05/05/16 16:00 89 05/05/16 16:00 98.1 83 18 138/67 91 05/05/16 15:21 16 05/05/16 15:00 98.1 82 28 145/67 05/05/16 15:00 85 20 137/65 96 05/05/16 14:00 98.1 83 20 145/67 92 05/05/16 13:56 68 20 145/69 96 05/05/16 13:26 65 22 150/78 96 05/05/16 13:00 32 179/87 89 05/05/16 12:56 90 22 152/76 96 05/05/16 12:26 79 16 140/78 92 05/05/16 12:14 93 Nasal Cannula 5.00 05/05/16 12:11 172/86 05/05/16 12:00 82 05/05/16 12:00 98.0 82 18 156/82 99 05/05/16 12:00 98.0 65 20 172/86 96 05/05/16 11:56 99.7 84 22 138/73 91 05/05/16 11:50 80 140/78 98 05/05/16 10:00 82 05/05/16 10:00 94 I/O 05/05/16 05/05/16 05/05/16 05/06/16 05/06/16 05/06/16 07:00 15:00 23:00 07:00 15:00 23:00 Intake Total 480 ml 1086 ml 610 ml 300 ml Output Total 2600 ml 1325 ml 400 ml 850 ml Balance -2120 ml -239 ml 210 ml -550 ml Intake Oral 480 ml 480 ml 200 ml IV Total 1086 ml 130 ml 100 ml Output Urine Total 2600 ml 1325 ml 400 ml 850 ml Stool Total 0 ml 0 ml Result Diagram: 05/06/16 0418 05/06/16 0418 Imaging Last Impressions Chest X-Ray 05/04/16 1635 Signed Impressions: Service Date/Time: Wednesday, May 04, 2016 16:45 - CONCLUSION: Diffuse increased interstitial markings likely representing diffuse processes such as pulmonary edema. Vito Cordova MD Objective Remarks General: No acute distress. Heart: Regular rate and rhythm. No murmur. Lungs: Mild scattered wheeze. Breathing is nonlabored. Abdomen: Soft, nontender, nondistended. Extremities: No lower extremity edema. SCDs. Psych: Alert and oriented. Procedures 05/05/16 cardiac catheterization Urinary Catheter: No Vascular Central Line Catheter: No A/P Problem List: (1) Congestive heart failure ICD Code: I50.9 Status: Acute (2) HTN (hypertension) ICD Code: I10 Status: Chronic (3) COPD (chronic obstructive pulmonary disease) ICD Code: J44.9 Status: Chronic (4) Back pain ICD Code: M54.9 Status: Chronic Assessment and Plan 1. New onset CHF: 2-D echocardiogram pending. Continue diuresis with Lasix. Appreciate cardiology recommendations. Status post cardiac catheterization yesterday. Cardiology recommended SUMAN inhibitor. Patient states that he gets cough with SUMAN inhibitor, so we will switch to ARB. 2. Hypertension: Chronic. Clonidine as needed. 3. COPD: Continue Symbicort. DuoNeb's as needed. Supplemental oxygen. 4. Chronic back pain: Continue pain control. 5. Elevated troponin: Status post cardiac catheterization. Continue aspirin, Effient. 6. DVT prophylaxis: Received Lovenox. 7. Hypokalemia: Supplement potassium. 8. Cough: Stop SUMAN inhibitor. Start losartan. Check chest x-ray. Problem Qualifiers (1) Congestive heart failure: Qualified Code: I50.9 - Acute congestive heart failure, unspecified congestive heart failure type Kevin Madison MD May 06, 2016 09:16
[2016-05-06] MEDS: LOSARTAN 25 MG TAB PO SCH (10:09)
[2016-05-06] MEDS: ACETAMINOPHEN/HYDROcodone 325 MG/5 MG TAB PO PRN ×2 (10:21→14:36)
--- NOTE | 2016-05-06 11:27 | RADRPT ---
EXAM DATE/TIME: 05/06/2016 10:28 [facility] COMPARISON: CHEST SINGLE AP, May 04, 2016, 16:45. INDICATIONS : Cough. MEDICAL HISTORY : None. SURGICAL HISTORY : None. ENCOUNTER: Initial ACUITY: 2 days PAIN SCORE: 0/10 LOCATION: Bilateral chest FINDINGS: There has been interval improvement with less interstitial changes. The heart remains minimally enla rged. There is no evidence of consolidation, pleural effusion or pneumothorax. The portion of the [place] skeleton visualized is unremarkable. CONCLUSION: Interval improvement. Maldonado Sanabria MD FACR on May 06, 2016 at 11:25 Board Certified Radiologist. This report was verified electronically.
--- NOTE | 2016-05-06 14:49 | PD.CARD.PN ---
Subjective Subjective Remarks feels much better, down to 5l nc Objective Vital Signs / I&O Vital Signs Date Time Temp Pulse Resp B/P Pulse Ox O2 Delivery O2 Flow Rate FiO2 05/06/16 14:00 91 05/06/16 12:00 86 05/06/16 12:00 98.0 86 20 153/82 91 05/06/16 10:00 81 05/06/16 08:00 98.2 71 18 153/71 94 05/06/16 08:00 71 05/06/16 04:00 67 05/06/16 04:00 98.7 67 15 136/75 96 05/06/16 00:00 98.9 71 19 123/63 95 05/06/16 00:00 71 05/05/16 20:58 93 Nasal Cannula 5.00 05/05/16 20:00 98.7 81 20 133/67 97 05/05/16 20:00 81 05/05/16 18:17 16 05/05/16 16:00 89 05/05/16 16:00 98.1 83 18 138/67 91 05/05/16 15:21 16 05/05/16 15:00 98.1 82 28 145/67 05/05/16 15:00 85 20 137/65 96 I/O 05/05/16 05/05/16 05/05/16 05/06/16 05/06/16 05/06/16 07:00 15:00 23:00 07:00 15:00 23:00 Intake Total 480 ml 1086 ml 610 ml 300 ml 920 ml Output Total 2600 ml 1325 ml 400 ml 850 ml 1850 ml Balance -2120 ml -239 ml 210 ml -550 ml -930 ml Intake Oral 480 ml 480 ml 200 ml 920 ml IV Total 1086 ml 130 ml 100 ml Output Urine Total 2600 ml 1325 ml 400 ml 850 ml 1850 ml Stool Total 0 ml 0 ml # Voids 2 Laboratory GENERAL: SKIN: Warm and dry. HEAD: Normocephalic. EYES: No scleral icterus. No injection or drainage. NECK: Supple, trachea midline. No JVD or lymphadenopathy. CARDIOVASCULAR: Regular rate and rhythm without murmurs, gallops, or rubs. RESPIRATORY: Breath sounds equal bilaterally. No accessory muscle use. GASTROINTESTINAL: Abdomen soft, non-tender, nondistended. MUSCULOSKELETAL: No cyanosis, or edema. BACK: Nontender without obvious deformity. No CVA tenderness. Laboratory Tests Test 05/06/16 04:18 White Blood Count 9.4 TH/MM3 Red Blood Count 4.13 MIL/MM3 Hemoglobin 11.9 GM/DL Hematocrit 35.6 % Mean Corpuscular Volume 86.2 FL Mean Corpuscular Hemoglobin 28.7 PG Mean Corpuscular Hemoglobin 33.3 % Concent Red Cell Distribution Width 13.7 % Platelet Count 473 TH/MM3 Mean Platelet Volume 7.1 FL Neutrophils (%) (Auto) 78.0 % Lymphocytes (%) (Auto) 11.7 % Monocytes (%) (Auto) 8.6 % Eosinophils (%) (Auto) 0.9 % Basophils (%) (Auto) 0.8 % Neutrophils # (Auto) 7.3 TH/MM3 Lymphocytes # (Auto) 1.1 TH/MM3 Monocytes # (Auto) 0.8 TH/MM3 Eosinophils # (Auto) 0.1 TH/MM3 Basophils # (Auto) 0.1 TH/MM3 CBC Comment DIFF FINAL Differential Comment Sodium Level 137 MEQ/L Potassium Level 3.3 MEQ/L Chloride Level 99 MEQ/L Carbon Dioxide Level 29.2 MEQ/L Anion Gap 9 MEQ/L Blood Urea Nitrogen 22 MG/DL Creatinine 1.00 MG/DL Estimat Glomerular Filtration 76 ML/MIN Rate Random Glucose 119 MG/DL Calcium Level 8.9 MG/DL Total Creatine Kinase 318 U/L Creatine Kinase MB 8.1 NG/ML Creatine Kinase MB % 2.5 % B-Type Natriuretic Peptide 173 PG/ML Triglycerides Level 143 MG/DL Cholesterol Level 185 MG/DL LDL Cholesterol 114 MG/DL HDL Cholesterol 42.5 MG/DL Cholesterol/HDL Ratio 4.35 RATIO Assessment and Plan Problem List: (1) Tobacco abuse (2) HTN (hypertension) (3) CAD (coronary artery disease) (4) NSTEMI (non-ST elevated myocardial infarction) Assessment and Plan 1.) NSTEMI - much improved s/p pci bms mid to distal lad, continue aspirin, effient, altace. lipitor, ok to transfer to [facility] from cv standpoint, d/w patient, his and nurse at bedside Dionicio Johnson MD May 06, 2016 14:49
--- NOTE | 2016-05-06 16:37 | EC ---
Study Study Date:05/06/2016 STUDY CONCLUSIONS SUMMARY - Left ventricle: The cavity size was normal. Wall thickness was normal. Systolic function was mildly reduced. The estimated ejection fraction was 45%. Wall motion was normal; there were no regional wall motion abnormalities. - Mitral valve: Mild regurgitation. - Right ventricle: The cavity size was moderately dilated. Wall thickness was normal. If LV function is below 40, please consider prescribing an ACEI or ARB or document rationale for non-use. PROCEDURE DATA STUDY STATUS: Elective. Procedure: Transthoracic echocardiography. Image quality was good. Scanning was performed from the parasternal, apical, and subcostal acoustic windows. Study completion: The patient tolerated the procedure well. Transthoracic echocardiography. M-mode, complete 2D, complete spectral Doppler, and color Doppler. Patient status: Inpatient. CARDIAC ANATOMY LEFT VENTRICLE: The cavity size was normal. Wall thickness was normal. Systolic function was mildly reduced. The estimated ejection fraction was 45%. Wall motion was normal; there were no regional wall motion abnormalities. AORTIC VALVE: Trileaflet; normal thickness leaflets. Doppler: Transvalvular velocity was within the normal range. There was no stenosis. No regurgitation. AORTA: Aortic root: The aortic root was normal in size. MITRAL VALVE: Structurally normal valve. Doppler: Transvalvular velocity was within the normal range. There was no evidence for stenosis. Mild regurgitation. LEFT ATRIUM: The atrium was normal in size. RIGHT VENTRICLE: The cavity size was moderately dilated. Wall thickness was normal. PULMONIC VALVE: Doppler: Transvalvular velocity was within the normal range. There was no evidence for stenosis. No regurgitation. TRICUSPID VALVE: Structurally normal valve. Doppler: Transvalvular velocity was within the normal range. Trace regurgitation. PULMONARY ARTERY: The main pulmonary artery was normal-sized. Systolic pressure was within the normal range. RIGHT ATRIUM: The atrium was normal in size. PERICARDIUM: There was no pericardial effusion. SYSTEMIC VEINS: Inferior vena cava: The vessel was normal in size. BASIC MEASUREMENTS ADULT NORMAL Left ventricle LV internal dimension, ED, chordal level, 47.4 mm 43-52 PLAX LV internal dimension, ES, chordal level, *38.2 mm 23-38 PLAX Fractional shortening, chordal level, PLAX *19 % >29 LV posterior wall thickness, ED 8.5 mm IVS/LVPW ratio, ED 1.17 <1.3 Ventricular septum Septal thickness, ED 9.91 mm Aortic valve Leaflet separation 21 mm 15-26 Right ventricle RV internal dimension, ED, PLAX 34.4 mm 19-38 BASIC MEASUREMENTS ADULT NORMAL Aortic valve Leaflet separation 21 mm 15-26 Aorta Root diameter, ED *38 mm 20-37 Left atrium Anterior-posterior dimension, ES 39 mm 19-40 LA/aortic root ratio 1.03 LEGEND: Mean values are shown as u=mean value. Asterisk (*) toscano values outside specified normal range. Jaxon PenaJacquelyn interianobradley [id number]
--- NOTE | 2016-05-06 17:20 | EKG ---
Date Performed: 05/05/2016 Time Performed: 13:52:34 PTAGE: 60 years EKG: Sinus rhythm Prolonged QT interval Possible anterior infarct - age undetermined Inferior/lateral T wave changes a re nonspecific Compared to prior tracing no significant change Abnormal ECGPREVIOUS TRACING : 0 05/04/2016 16.43 DOCTOR: Nabil Harry Interpretating Date/Time 05/06/2016 17:19:06
--- NOTE | 2016-05-06 17:20 | EKG ---
Date Performed: 05/06/2016 Time Performed: 06:23:20 PTAGE: 60 years EKG: Sinus rhythm Prolonged QT interval Leftward axis Possible anterior infarct - age undetermined Inferior/lateral T wave changes may be due to myocardial ischemia Compared to prior tracing no significant change Abnorm al ECG PREVIOUS TRACING 05/05/16 @13.52.34 DOCTOR: Nabil Harry Interpretating Date/Time 05/06/2016 17:19:54
[2016-05-06] MEDS: ATORVASTATIN 10 MG TAB PO SCH (20:15)
[2016-05-06] MEDS: cloNIDine HCL 0.1 MG TAB PO PRN (21:16)
--- NOTE | 2016-05-06 21:16 | EKG ---
Date Performed: 05/04/2016 Time Performed: 16:43:44 PTAGE: 60 years EKG: Sinus rhythm Prolonged QT interval Possible left atrial abnormality Left axis deviation Incomplete RBBB Possible inferior infarct - age undetermined Possible anterior infarct - age undetermined Lateral T wave torres es may be due to myocardial ischemia Abnormal ECG PREVIOUS TRACING : 03/27/2016 21.42 Compared to the previous tracing, T wave changes laterally are new. DOCTOR: Roscoe Ponce Interpretating Date/Time 05/06/2016 21:16:09
[2016-05-07] VITALS (15 sets, daily range): BP systolic 115–160; BP diastolic 60–76; PULSE 62–92; RESP 14–24; TEMP 97.6–98.5; O2SAT 92–97
[2016-05-07] MEDS: ACETAMINOPHEN/HYDROcodone 325 MG/5 MG TAB PO PRN ×3 (01:11→11:07)
[2016-05-07] MEDS: CHLORHEXIDINE GLUCONATE 2 % 1 PACK (2 CLOTHS) TOP SCH (04:00)
[2016-05-07] MEDS: MORPHINE SULFATE 4 MG/ML INJ IV PRN ×5 (04:34→20:48)
[2016-05-07 04:42] LABS: BICARBONATE 29.4 MEQ/L (21.0-32.0); POTASSIUM 3.7 MEQ/L (3.5-5.1)
[2016-05-07] MEDS: ASPIRIN 81 MG CHEW TAB PO SCH (08:18)
[2016-05-07] MEDS: FUROSEMIDE 40 MG TAB PO SCH (08:19)
[2016-05-07] MEDS: FERROUS SULFATE 325 MG (65 MG ELEMENTAL IRON) TAB PO SCH (08:19)
[2016-05-07] MEDS: FOLIC ACID 1 MG TAB PO SCH (08:19)
[2016-05-07] MEDS: POTASSIUM CHLORIDE 20 MEQ CONTROLLED RELEASE TAB PO SCH (08:19)
[2016-05-07] MEDS: LOSARTAN 25 MG TAB PO SCH (08:19)
[2016-05-07] MEDS: GABAPENTIN 300 MG CAP PO SCH ×3 (08:19→17:04)
[2016-05-07] MEDS: buPROPion HCL 150 MG SUSTAINED RELEASE TAB PO SCH ×2 (08:20→20:49)
[2016-05-07] MEDS: SODIUM CHLORIDE 0.9% FLUSH 5 ML FLUSH IVF SCH ×2 (08:20→20:49)
[2016-05-07] MEDS: PRASUGREL 10 MG TAB PO SCH (08:20)
[2016-05-07] MEDS: BUDESONIDE-FORMOTEROL 80/4.5 MCG INHALER INH SCH (08:26)
--- NOTE | 2016-05-07 09:37 | HHI.PR ---
Subjective Remarks Follow up CHF, hypertension, hypokalemia. Patient denies chest pain. Did have some dyspnea when ambulating today. No nausea or vomiting. Objective Vitals Vital Signs Date Time Temp Pulse Resp B/P Pulse Ox O2 Delivery O2 Flow Rate FiO2 05/07/16 08:02 93 Nasal Cannula 6.00 05/07/16 08:00 68 05/07/16 08:00 98.2 68 18 134/65 92 05/07/16 06:00 69 05/07/16 04:00 98.0 62 16 115/60 97 05/07/16 04:00 62 05/07/16 02:00 66 05/07/16 00:00 66 05/07/16 00:00 98.4 66 14 119/60 97 05/06/16 23:30 96 Nasal Cannula 5.00 05/06/16 22:00 74 05/06/16 21:06 92 Nasal Cannula 5.00 05/06/16 20:00 98.2 84 25 155/87 90 05/06/16 20:00 84 05/06/16 18:00 80 05/06/16 16:00 98.5 73 16 130/75 95 05/06/16 16:00 73 05/06/16 14:00 91 05/06/16 12:00 86 05/06/16 12:00 98.0 86 20 153/82 91 05/06/16 10:00 81 I/O 05/06/16 05/06/16 05/06/16 05/07/16 05/07/16 05/07/16 07:00 15:00 23:00 07:00 15:00 23:00 Intake Total 300 ml 920 ml 480 ml 240 ml Output Total 850 ml 1850 ml 700 ml 500 ml Balance -550 ml -930 ml -220 ml -260 ml Intake Oral 200 ml 920 ml 480 ml 240 ml IV Total 100 ml 0 ml 0 ml Output Urine Total 850 ml 1850 ml 700 ml 500 ml Stool Total 0 ml # Voids 2 # Bowel Movements 0 0 Result Diagram: 05/06/16 0418 05/07/16 0325 Imaging Last Impressions Chest X-Ray 05/06/16 0000 Signed Impressions: Service Date/Time: Friday, May 06, 2016 10:28 - CONCLUSION: Interval improvement. Maldonado Sanabria MD FACR Objective Remarks General: No acute distress. Heart: Regular rate and rhythm. No murmur. Lungs: Mild scattered wheeze. Breathing is nonlabored. Abdomen: Soft, nontender, nondistended. Extremities: No lower extremity edema. SCDs. Psych: Alert and oriented. Procedures 05/05/16 cardiac catheterization Urinary Catheter: No Vascular Central Line Catheter: No A/P Problem List: (1) Congestive heart failure ICD Code: I50.9 Status: Acute (2) HTN (hypertension) ICD Code: I10 Status: Chronic (3) COPD (chronic obstructive pulmonary disease) ICD Code: J44.9 Status: Chronic (4) Back pain ICD Code: M54.9 Status: Chronic Assessment and Plan 1. New onset CHF: 2-D echocardiogram pending. Continue diuresis with Lasix. Appreciate cardiology recommendations. Status post cardiac catheterization yesterday. Cardiology recommended SUMAN inhibitor. Patient states that he gets cough with SUMAN inhibitor. Continue ARB. 2. Hypertension: Chronic. Clonidine as needed. 3. COPD: Patient refusing Symbicort. DuoNeb's as needed. Supplemental oxygen. Consult pulmonology. 4. Chronic back pain: Continue pain control. 5. Elevated troponin: Status post cardiac catheterization. Continue aspirin, Effient. 6. DVT prophylaxis: Received Lovenox. 7. Hypokalemia: Improved. 8. Cough: Stop SUMAN inhibitor. Start losartan. Chest x-ray shows improvement. Discharge Planning Transfer to [facility] when a bed is available. Problem Qualifiers (1) Congestive heart failure: Qualified Code: I50.9 - Acute congestive heart failure, unspecified congestive heart failure type Kevin Madison MD May 07, 2016 09:37
--- NOTE | 2016-05-07 14:34 | PD.CARD.PN ---
Subjective Subjective Remarks alert in nad Objective Vital Signs / I&O Vital Signs Date Time Temp Pulse Resp B/P Pulse Ox O2 Delivery O2 Flow Rate FiO2 05/07/16 13:00 98.5 66 14 127/73 97 05/07/16 12:00 72 05/07/16 10:00 92 05/07/16 08:02 93 Nasal Cannula 6.00 05/07/16 08:00 68 05/07/16 08:00 98.2 68 18 134/65 92 05/07/16 06:00 69 05/07/16 04:00 98.0 62 16 115/60 97 05/07/16 04:00 62 05/07/16 02:00 66 05/07/16 00:00 66 05/07/16 00:00 98.4 66 14 119/60 97 05/06/16 23:30 96 Nasal Cannula 5.00 05/06/16 22:00 74 05/06/16 21:06 92 Nasal Cannula 5.00 05/06/16 20:00 98.2 84 25 155/87 90 05/06/16 20:00 84 05/06/16 18:00 80 05/06/16 16:00 98.5 73 16 130/75 95 05/06/16 16:00 73 I/O 05/06/16 05/06/16 05/06/16 05/07/16 05/07/16 05/07/16 07:00 15:00 23:00 07:00 15:00 23:00 Intake Total 300 ml 920 ml 480 ml 240 ml 680 ml Output Total 850 ml 1850 ml 700 ml 500 ml 550 ml Balance -550 ml -930 ml -220 ml -260 ml 130 ml Intake Oral 200 ml 920 ml 480 ml 240 ml 680 ml IV Total 100 ml 0 ml 0 ml Output Urine Total 850 ml 1850 ml 700 ml 500 ml 550 ml Stool Total 0 ml # Voids 2 # Bowel Movements 0 0 0 Laboratory Laboratory Tests Test 05/07/16 03:25 Sodium Level 135 MEQ/L Potassium Level 3.7 MEQ/L Chloride Level 95 MEQ/L Carbon Dioxide Level 29.4 MEQ/L Anion Gap 11 MEQ/L Blood Urea Nitrogen 23 MG/DL Creatinine 0.91 MG/DL Estimat Glomerular Filtration 85 ML/MIN Rate Random Glucose 93 MG/DL Calcium Level 8.7 MG/DL B-Type Natriuretic Peptide 79 PG/ML Imaging GENERAL: SKIN: Warm and dry. HEAD: Normocephalic. EYES: No scleral icterus. No injection or drainage. NECK: Supple, trachea midline. No JVD or lymphadenopathy. CARDIOVASCULAR: Regular rate and rhythm without murmurs, gallops, or rubs. RESPIRATORY: Breath sounds equal bilaterally. No accessory muscle use. GASTROINTESTINAL: Abdomen soft, non-tender, nondistended. MUSCULOSKELETAL: No cyanosis, or edema. BACK: Nontender without obvious deformity. No CVA tenderness. Assessment and Plan Problem List: (1) Tobacco abuse (2) HTN (hypertension) (3) CAD (coronary artery disease) (4) NSTEMI (non-ST elevated myocardial infarction) Assessment and Plan 1.) NSTEMI - much improved s/p pci bms mid to distal lad, continue aspirin, effient, altace. lipitor, ok to transfer to [facility] from cv standpoint, Dionicio Johnson MD May 07, 2016 14:34
--- NOTE | 2016-05-07 17:09 | MB ---
cc: Emerson BUTLER DATE OF CONSULTATION: 05/07/2016 REASON FOR CONSULTATION: HISTORY Mr. Dugan is a 60 year-old white male who has had progressive dyspnea recently with some atypical chest pain, came into the emergency room and was noted to be hypoxic and a chest x-ray revealed heart failure. Troponins and CPKs were also elevated and he was taken to the garage laborer by Dr. Johnson and a stent was placed in his LAD. He was diuresed and was feeling better. I am asked to see him because he continues to be hypoxic requiring high flow oxygen. The patient was a former smoker of one to two packs per day for about 40 years. He quit smoking entirely 8 months ago. He denies using any tobacco products including the E-cigarette at this point. He is also a retired maintenance supervisor mechanical, used to do break linings, probably had some asbestos exposure at some point. He has been told he has COPD. He has a Symbicort inhaler but rarely uses it and until more recently had not really complained of shortness of breath. It does not sound like he had pulmonary functions. He has had prior pneumonia, the last time was in 2013 when he was hospitalized here, none since. He has had no purulent sputum. No hemoptysis but he has had cough associated with this shortness of breath. He does not wheeze. PRIOR HISTORY: 1. Chronic back pain due to herniated disc and degenerative arthritis particularly in the lumbosacral spine. 2. Hypertension. 3. 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 4. History of depression and anxiety. MEDICATIONS: Reviewed in the EMR. ALLERGIES: NOVOCAIN which caused nausea and vomiting. SOCIAL HISTORY: He is , living with his of 40 years. One of his daughter's is at the bedside. He has several children, all of whom were in good health. Smoking noted. He does not abuse alcohol or other drugs. FAMILY HISTORY: Positive for lung cancer and heart disease. REVIEW OF SYSTEMS: As noted above. He has had no nausea or vomiting recently. No change in bowel habits. No increased edema. PHYSICAL EXAMINATION: The patient is awake, alert, comfortable at rest. VITAL SIGNS: 98 degrees temperature, pulse 80, respiratory rate 16 to 18, sat 97% on six liters. HEENT: Sclerae anicteric. Mucous membranes are moist. Neck veins are flat. He has some very fine basilar rales dry. No congestion. No wheezes. Regular heart rhythm. No audible S3. No harsh murmur. Abdomen is soft. No peripheral edema. Extremities: No cyanosis or clubbing. LABORATORY DATA: Arterial blood gas on admission on 5 liters, his pO2 was 60. The pH 7.4, pCO2 32, BUN 23, creatinine 0.9. BNP was 700 on admission, it is down to 79. White count is 9400. DISCUSSION Mr. Dugan presents with dyspnea related to heart failure and ischemic heart disease. He is doing better. He remains hypoxic and probably does have underlying lung disease, maybe have some interstitial lung disease based on exam. I have ordered a noncontrast CT and when things are more stable we will do a spirometry to make an assessment of his lung capacities. In the meantime will leave him on aerosol treatments and oxygen. He prefers not to use the meter dose inhaler which is fine. Further diagnostic and/or therapeutic intervention will depend on his ongoing clinical course and response to therapy. RMD BRENDA Francois/BLAIRE /3:12 PM /4:43 PM
[2016-05-07] MEDS: RESP: ALBUTEROL 2.5 MG/IPRATROPIUM 0.5 MG NEB (SCH) INH (20:40)
[2016-05-07] MEDS: ATORVASTATIN 10 MG TAB PO SCH (20:49)
[2016-05-08] VITALS (19 sets, daily range): BP systolic 115–149; BP diastolic 67–81; PULSE 65–99; RESP 14–29; TEMP 96.8–98.3; O2SAT 92–98
[2016-05-08] MEDS: MORPHINE SULFATE 4 MG/ML INJ IV PRN ×4 (01:11→13:17)
[2016-05-08] MEDS: CHLORHEXIDINE GLUCONATE 2 % 1 PACK (2 CLOTHS) TOP SCH (04:00)
[2016-05-08] MEDS: ACETAMINOPHEN/HYDROcodone 325 MG/5 MG TAB PO PRN ×4 (05:50→21:06)
[2016-05-08] MEDS: RESP: ALBUTEROL 2.5 MG/IPRATROPIUM 0.5 MG NEB (SCH) INH ×2 (08:14→19:38)
[2016-05-08] MEDS: buPROPion HCL 150 MG SUSTAINED RELEASE TAB PO SCH ×2 (08:33→21:06)
[2016-05-08] MEDS: FUROSEMIDE 40 MG TAB PO SCH (08:34)
[2016-05-08] MEDS: PRASUGREL 10 MG TAB PO SCH (08:34)
[2016-05-08] MEDS: FERROUS SULFATE 325 MG (65 MG ELEMENTAL IRON) TAB PO SCH (08:34)
[2016-05-08] MEDS: LOSARTAN 25 MG TAB PO SCH (08:34)
[2016-05-08] MEDS: GABAPENTIN 300 MG CAP PO SCH ×3 (08:34→17:40)
[2016-05-08] MEDS: POTASSIUM CHLORIDE 20 MEQ CONTROLLED RELEASE TAB PO SCH (08:34)
[2016-05-08] MEDS: ASPIRIN 81 MG CHEW TAB PO SCH (08:34)
[2016-05-08] MEDS: SODIUM CHLORIDE 0.9% FLUSH 5 ML FLUSH IVF SCH ×2 (08:35→21:07)
[2016-05-08] MEDS: FOLIC ACID 1 MG TAB PO SCH (09:00)
--- NOTE | 2016-05-08 09:58 | HHI.PR ---
Subjective Remarks Follow up NSTEMI, dyspnea. Patient states that he feels much better today. No chest pain. Does get short of breath with activity. Objective Vitals Vital Signs Date Time Temp Pulse Resp B/P Pulse Ox O2 Delivery O2 Flow Rate FiO2 05/08/16 06:00 83 05/08/16 04:00 98.2 84 29 149/74 93 05/08/16 04:00 84 05/08/16 02:00 73 05/08/16 00:00 98.0 65 14 119/67 97 05/08/16 00:00 65 05/07/16 22:00 76 05/07/16 20:40 92 Nasal Cannula 6.00 05/07/16 20:00 78 05/07/16 20:00 98.4 78 24 160/76 94 05/07/16 18:00 79 05/07/16 16:00 70 05/07/16 16:00 97.6 70 18 120/68 96 05/07/16 14:00 82 05/07/16 13:00 98.5 66 14 127/73 97 05/07/16 12:00 72 05/07/16 10:00 92 I/O 05/07/16 05/07/16 05/07/16 05/08/16 05/08/16 05/08/16 07:00 15:00 23:00 07:00 15:00 23:00 Intake Total 240 ml 680 ml 480 ml 240 ml Output Total 500 ml 550 ml 600 ml 400 ml Balance -260 ml 130 ml -120 ml -160 ml Intake Oral 240 ml 680 ml 480 ml 240 ml IV Total 0 ml 0 ml 0 ml Output Urine Total 500 ml 550 ml 600 ml 400 ml # Bowel Movements 0 0 0 0 Result Diagram: 05/06/16 0418 05/07/16 0325 Imaging Last Impressions Chest X-Ray 05/06/16 0000 Signed Impressions: Service Date/Time: Friday, May 06, 2016 10:28 - CONCLUSION: Interval improvement. Maldonado Sanabria MD FACR Objective Remarks General: No acute distress. Heart: Regular rate and rhythm. No murmur. Lungs: Mild scattered wheeze. Breathing is nonlabored. Abdomen: Soft, nontender, nondistended. Extremities: No lower extremity edema. SCDs. Psych: Alert and oriented. Procedures 05/05/16 cardiac catheterization Urinary Catheter: No Vascular Central Line Catheter: No A/P Problem List: (1) Congestive heart failure ICD Code: I50.9 Status: Acute (2) HTN (hypertension) ICD Code: I10 Status: Chronic (3) COPD (chronic obstructive pulmonary disease) ICD Code: J44.9 Status: Chronic (4) Back pain ICD Code: M54.9 Status: Chronic Assessment and Plan 1. New onset CHF: 2-D echocardiogram shows EF of 45%. Continue diuresis with Lasix. Appreciate cardiology recommendations. Status post cardiac catheterization with stent placement. Cardiology recommended SUMAN inhibitor. Patient states that he gets cough with SUMAN inhibitor. Continue ARB. 2. Hypertension: Chronic. Clonidine as needed. 3. COPD: Patient refusing Symbicort. DuoNeb's as needed. Supplemental oxygen. Appreciate pulmonology recommendations. Symptoms possibly secondary to interstitial lung disease. Chest CT pending. 4. Chronic back pain: Continue pain control. 5. Elevated troponin: Status post cardiac catheterization. Continue aspirin, Effient, Lipitor. 6. DVT prophylaxis: Received Lovenox. 7. Hypokalemia: Improved. 8. Cough: SUMAN inhibitor discontinued. Continue losartan. Chest x-ray shows improvement. Discharge Planning Transfer to [facility] when a bed is available. Problem Qualifiers (1) Congestive heart failure: Qualified Code: I50.9 - Acute congestive heart failure, unspecified congestive heart failure type Kevin Madison MD May 08, 2016 09:58
--- NOTE | 2016-05-08 16:43 | PD.CARD.PN ---
Subjective Subjective Remarks alert in nad Objective Vital Signs / I&O Vital Signs Date Time Temp Pulse Resp B/P Pulse Ox O2 Delivery O2 Flow Rate FiO2 05/08/16 14:00 83 05/08/16 13:06 96.8 76 17 132/81 96 05/08/16 13:00 77 05/08/16 12:00 76 05/08/16 10:00 77 05/08/16 08:10 95 Nasal Cannula 5.00 05/08/16 08:00 83 05/08/16 06:00 83 05/08/16 04:00 98.2 84 29 149/74 93 05/08/16 04:00 84 05/08/16 02:00 73 05/08/16 00:00 98.0 65 14 119/67 97 05/08/16 00:00 65 05/07/16 22:00 76 05/07/16 20:40 92 Nasal Cannula 6.00 05/07/16 20:00 78 05/07/16 20:00 98.4 78 24 160/76 94 05/07/16 18:00 79 I/O 05/07/16 05/07/16 05/07/16 05/08/16 05/08/16 05/08/16 07:00 15:00 23:00 07:00 15:00 23:00 Intake Total 240 ml 680 ml 480 ml 240 ml 360 ml Output Total 500 ml 550 ml 600 ml 400 ml 1800 ml Balance -260 ml 130 ml -120 ml -160 ml -1440 ml Intake Oral 240 ml 680 ml 480 ml 240 ml 360 ml IV Total 0 ml 0 ml 0 ml Output Urine Total 500 ml 550 ml 600 ml 400 ml 1800 ml # Bowel Movements 0 0 0 0 Laboratory GENERAL: SKIN: Warm and dry. HEAD: Normocephalic. EYES: No scleral icterus. No injection or drainage. NECK: Supple, trachea midline. No JVD or lymphadenopathy. CARDIOVASCULAR: Regular rate and rhythm without murmurs, gallops, or rubs. RESPIRATORY: Breath sounds equal bilaterally. No accessory muscle use. GASTROINTESTINAL: Abdomen soft, non-tender, nondistended. MUSCULOSKELETAL: No cyanosis, or edema. BACK: Nontender without obvious deformity. No CVA tenderness. Assessment and Plan Problem List: (1) Tobacco abuse (2) HTN (hypertension) (3) CAD (coronary artery disease) (4) NSTEMI (non-ST elevated myocardial infarction) Assessment and Plan 1.) NSTEMI - much improved s/p pci bms mid to distal lad, continue aspirin, effient, altace. lipitor, ok to transfer to [facility] from cv standpoint, Dionicio Johnson MD May 08, 2016 16:42
--- NOTE | 2016-05-08 17:41 | RADRPT ---
EXAM DATE/TIME: 05/08/2016 16:03 [place] COMPARISON: No previous studies available for comparison. INDICATIONS: Shortness of breath and lung disease. RADIATION DOSE: 6.13 CTDIvol (mGy) MEDICAL HISTORY: Chronic obstructive pulmonary disease. Congestive heart failure. SURGICAL HISTORY: None. ENCOUNTER: Subsequent ACUITY: 2 days PAIN SCALE: 0/10 LOCATION: Chest TECHNIQUE: Volumetric scanning of the chest was performed. Using automated exposure control and adjustment of t he mA and/or kV according to patient size, radiation dose was kept as low as reasonably achievable to obtain optimal diagnostic quality images. FINDINGS: Coarse interstitial changes are present in both lungs with scattered bulla and blebs. There is no axillary adenopathy. There is no radiographically significant mediastinal adenopathy. Moderate coronary artery calcifications seen in the LAD and circumflex. Portion of the liver and spleen identified are free of focal defects. Bilateral renal cysts are note d with the largest on the left measuring 4.5 cm. 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 Maldonado Sanabria MD FACR on May 08, 2016 at 16:56 Board Certified Radiologist. This report was verified electronically.
[2016-05-08] MEDS: ATORVASTATIN 10 MG TAB PO SCH ×3 (21:00→21:08)
[2016-05-09] VITALS (25 sets, daily range): BP systolic 131–157; BP diastolic 66–89; PULSE 64–89; RESP 18–24; TEMP 98–98.8; O2SAT 92–95
[2016-05-09] MEDS: ACETAMINOPHEN/HYDROcodone 325 MG/5 MG TAB PO PRN ×4 (03:17→23:18)
[2016-05-09] MEDS: MORPHINE SULFATE 4 MG/ML INJ IV PRN ×3 (03:26→17:09)
[2016-05-09] MEDS: CHLORHEXIDINE GLUCONATE 2 % 1 PACK (2 CLOTHS) TOP SCH (04:00)
[2016-05-09] MEDS: RESP: ALBUTEROL 2.5 MG/IPRATROPIUM 0.5 MG NEB (SCH) INH ×2 (07:25→19:02)
--- NOTE | 2016-05-09 08:23 | HHI.PR ---
Subjective Remarks Follow up hypoxia, NSTEMI. The patient is having worsening neck and right shoulder pain this morning. Currently 8/10. Better after receiving morphine. Denies chest pain. Still requiring 4 L of oxygen. Reports large blood clots from his nose periodically. Objective Vitals Vital Signs Date Time Temp Pulse Resp B/P Pulse Ox O2 Delivery O2 Flow Rate FiO2 05/09/16 06:00 64 05/09/16 05:00 68 05/09/16 04:00 68 05/09/16 03:31 22 05/09/16 03:00 79 05/09/16 03:00 98.3 77 18 142/84 95 05/09/16 02:00 72 05/09/16 01:00 77 05/09/16 00:00 80 05/08/16 22:00 85 05/08/16 21:00 84 05/08/16 20:00 95 05/08/16 20:00 98.3 94 18 115/74 94 05/08/16 19:39 92 Nasal Cannula 5.00 05/08/16 19:00 93 05/08/16 18:00 99 05/08/16 17:00 83 05/08/16 16:59 98.1 81 17 123/74 98 05/08/16 14:00 83 05/08/16 13:06 96.8 76 17 132/81 96 05/08/16 13:00 77 05/08/16 12:00 76 05/08/16 10:00 77 I/O 05/08/16 05/08/16 05/08/16 05/09/16 05/09/16 05/09/16 07:00 15:00 23:00 07:00 15:00 23:00 Intake Total 240 ml 360 ml 480 ml Output Total 400 ml 1800 ml 700 ml Balance -160 ml -1440 ml -220 ml Intake Oral 240 ml 360 ml 480 ml IV Total 0 ml Output Urine Total 400 ml 1800 ml 700 ml # Bowel Movements 0 Result Diagram: 05/06/16 0418 05/07/16 0325 Imaging Last Impressions Chest CT 05/08/16 0900 Signed Impressions: Service Date/Time: Sunday, May 08, 2016 16:03 - CONCLUSION: Coarse interstitial changes with near complete honeycomb lung worse in the apices and the bases without significant ground glass opacity or adenopathy. Maldonado Sanabria MD FACR Chest X-Ray 05/06/16 0000 Signed Impressions: Service Date/Time: Friday, May 06, 2016 10:28 - CONCLUSION: Interval improvement. Maldonado Sanabria MD FACR Objective Remarks General: No acute distress. Heart: Regular rate and rhythm. No murmur. Lungs: Mild scattered wheeze. Breathing is nonlabored. Abdomen: Soft, nontender, nondistended. Extremities: No lower extremity edema. SCDs. Psych: Alert and oriented. Procedures 05/05/16 cardiac catheterization Urinary Catheter: No Vascular Central Line Catheter: No A/P Problem List: (1) Congestive heart failure ICD Code: I50.9 Status: Acute (2) HTN (hypertension) ICD Code: I10 Status: Chronic (3) COPD (chronic obstructive pulmonary disease) ICD Code: J44.9 Status: Chronic (4) Back pain ICD Code: M54.9 Status: Chronic Assessment and Plan 1. New onset CHF: 2-D echocardiogram shows EF of 45%. Continue diuresis with Lasix. Appreciate cardiology recommendations. Status post cardiac catheterization with stent placement. Cardiology recommended SUMAN inhibitor. Patient states that he gets cough with SUMAN inhibitor. Continue ARB. 2. Hypertension: Chronic. Clonidine as needed. 3. COPD: Patient refusing Symbicort. DuoNeb's as needed. Supplemental oxygen ( still requiring 4 L). Appreciate pulmonology recommendations. Chest CT shows coarse interstitial changes throughout. Add steroids. 4. Chronic back pain: Continue pain control. 5. Elevated troponin: Appreciate cardiology recommendations. Status post cardiac catheterization. Continue aspirin, Effient. Patient refusing Lipitor. He has a history of statin-induced liver disease. 6. DVT prophylaxis: On Effient. 7. Hypokalemia: Improved. 8. Cough: SUMAN inhibitor discontinued. Continue losartan. 9. Neck, right shoulder pain: Possible muscle spasm. Add Flexeril. Continue pain control. Problem Qualifiers (1) Congestive heart failure: Qualified Code: I50.9 - Acute congestive heart failure, unspecified congestive heart failure type Kevin Madison MD May 09, 2016 08:23
--- NOTE | 2016-05-09 08:43 | MA ---
cc: DUNCAN OTT M.D. DATE: 05/05/2016 PROCEDURE PERFORMED: 1. Right heart catheterization. 2. Left heart catheterization. 3. Left ventriculography. 4. Coronary angiography. 5. Direct PCI with bare metal stent of the mid to distal LAD. INDICATIONS: Decompensated congestive heart failure, coronary artery disease, non-STEMI, hypoxia. Tobacco use. Multiple cardiac risk factors. Ischemic EKG changes in the anterior precordial leads with 4-5-mm deep T-wave inversions in the anterior precordial leads on the resting EKG. [place] [employer] Class IV angina, resting angina. PROCEDURE: The patient was brought to the Cardiac Catheterization Laboratory, prepped and draped in the usual sterile fashion. 10 cc of 1% lidocaine was used to locally anesthetize the right common femoral artery. A 4-Bahamian sheath was placed in the right common femoral artery, a 7-Bahamian sheath in the right common femoral vein. Right heart catheterization was performed first with the following findings on 100% non-rebreather: The pulmonary capillary wedge pressure was 30/30-26. PA pressure 30/19-30. PA sat was 69.2%. RV pressure 39/2-9. RA pressure 8/5-3. RA sat was 72.5%. Femoral artery sat 97.4 % on 100% non-rebreather. The cardiac output by Cristina is 6.3 liters/minute. Cardiac index by Cristina is 2.9 liters/minute/meter-2. SVR is 1178 dynes. Left heart catheterization was then performed with a 4-Bahamian JR4 and JL4 catheter with the following findings - LV pressures were 140/5-7. EF was 45%. The posterior wall was at least moderately hypokinetic. CORONARY ANGIOGRAPHY The right coronary artery is dominant and has a long 70% stenosis in the proximal mid-segment and a long 70% stenosis in the distal segment. The left main coronary artery has no significant disease angiographically. The left circumflex vessel has a 90% stenosis up to the second obtuse marginal vessel. It is a small vessel at this point, probably 1 mm in diameter. There is a ramus intermedius vessel which is a small to medium-sized vessel, tortuous in the proximal segment. Mild disease in the proximal segment up to 10% angiographically. The first obtuse marginal vessel is a small to medium-sized vessel with an ostial 40-50% stenosis. The LAD has an ostial proximal 50% stenosis. The mid to distal segment has a long, tortuous 80% stenosis. This is best appreciated in the caudal views. The first diagonal artery is a small to medium-sized vessel with a proximal 50-60% stenosis. DISCUSSION: I kind of planned to do an FFR on the mid to distal LAD; however, the patient had deep ischemic T-wave inversions in the anterior precordial leads, severe COPD requiring 100% oxygen due to severe hypoxia disproportionate to the LVEDP pressure. Therefore I thought that the FFR would be high risk, was also concerned about the lack of sensitivity with Nipride. Again, given the ischemic changes, decompensated congestive heart failure, it was my clinical judgment that the mid and distal LAD was the culprit lesion. Certainly would have to consider the right coronary lesion significant as well due to the wall motion abnormality of the posterior wall. INTERVENTION: A 6-Bahamian sheath was exchanged for the 4-Bahamian sheath. An XB-3.5 guide, a 0.014 [place]ater guidewire and a 3.0/18 Integrity stent were used to directly stent the mid to distal LAD lesion with one inflation to 14 atmospheres for 20 seconds. The stent was still not completely deployed but I was concerned about perforation. The vessel was very noncompliant obviously and stenosis went from approximately 75-80% to residual 10% with CRISTINA-3 flow. The patient did experience infrascapular pain during stent deployment. CONCLUSION: 1. Non-STEMI, decompensated congestive heart failure, deep T-wave inversions in the anterior precordial leads consistent with anterior wall ischemic, culprit 80% mid to distal LAD lesion as detailed above with a large wraparound LAD supplying the distal one-third of the inferior wall. 2. Otherwise collectively moderate to severe three-vessel coronary artery disease in a right dominant system. 3. Mild LV systolic dysfunction, ejection fraction 45% with at least mild to moderate hypokinesis of the posterior wall. 4. Successful direct PCI with bare metal stent of the mid to distal LAD from 80% to 10% with CRISTINA-3 flow. RECOMMENDATIONS: 1. Recommend Prasugrel 60 mg p.o. load and then 10 mg daily for 12-15 months. 2. Aspirin 162 mg daily. 3. Aggrastat drip per protocol given the patient's 4. I have given the patient 20 mg Lasix in the [employer]. 5. Given his much higher wedge pressure compared to his LVDP, mitral stenosis had to be considered; however, this pulmonary capillary wedge pressure was inaccurate I believe. I cannot wedge the balloon into the wedge position. This is probably more of a partially dampened PA pressure. 6. He will also need follow-up with 2-D echo. 7. Recommend smoking cessation. Beta-blockers will have to be held due to severe COPD with severe hypoxia requiring 100% non-rebreather. We will start SUMAN inhibitor if hemodynamically tolerated. 8. Follow up daily BNP. 9. Also start statin. MD LENORA Jensen/SSB /11:34 AM /7:44 AM
--- NOTE | 2016-05-09 08:48 | PD.CARD.PN ---
Subjective Subjective Remarks alert in nad Objective Vital Signs / I&O Vital Signs Date Time Temp Pulse Resp B/P Pulse Ox O2 Delivery O2 Flow Rate FiO2 05/09/16 06:00 64 05/09/16 05:00 68 05/09/16 04:00 68 05/09/16 03:31 22 05/09/16 03:00 79 05/09/16 03:00 98.3 77 18 142/84 95 05/09/16 02:00 72 05/09/16 01:00 77 05/09/16 00:00 80 05/08/16 22:00 85 05/08/16 21:00 84 05/08/16 20:00 95 05/08/16 20:00 98.3 94 18 115/74 94 05/08/16 19:39 92 Nasal Cannula 5.00 05/08/16 19:00 93 05/08/16 18:00 99 05/08/16 17:00 83 05/08/16 16:59 98.1 81 17 123/74 98 05/08/16 14:00 83 05/08/16 13:06 96.8 76 17 132/81 96 05/08/16 13:00 77 05/08/16 12:00 76 05/08/16 10:00 77 I/O 05/08/16 05/08/16 05/08/16 05/09/16 05/09/16 05/09/16 07:00 15:00 23:00 07:00 15:00 23:00 Intake Total 240 ml 360 ml 480 ml Output Total 400 ml 1800 ml 700 ml Balance -160 ml -1440 ml -220 ml Intake Oral 240 ml 360 ml 480 ml IV Total 0 ml Output Urine Total 400 ml 1800 ml 700 ml # Bowel Movements 0 Laboratory GENERAL: SKIN: Warm and dry. HEAD: Normocephalic. EYES: No scleral icterus. No injection or drainage. NECK: Supple, trachea midline. No JVD or lymphadenopathy. CARDIOVASCULAR: Regular rate and rhythm without murmurs, gallops, or rubs. RESPIRATORY: Breath sounds equal bilaterally. No accessory muscle use. GASTROINTESTINAL: Abdomen soft, non-tender, nondistended. MUSCULOSKELETAL: No cyanosis, or edema. BACK: Nontender without obvious deformity. No CVA tenderness. Assessment and Plan Problem List: (1) Tobacco abuse (2) HTN (hypertension) (3) CAD (coronary artery disease) (4) NSTEMI (non-ST elevated myocardial infarction) Assessment and Plan 1.) NSTEMI - much improved s/p pci bms mid to distal lad, continue aspirin, effient, altace. lipitor, losarta, bete aissatou held d/t severe copd requiring oxygen Dionicio Johnson MD May 09, 2016 08:48
[2016-05-09] MEDS ORDERED: MORPHINE SULFATE 4 MG/ML INJ IV PUSH ONE (09:00)
[2016-05-09] MEDS ORDERED: methylPREDNISolone SOD SUCC 40 MG/1 ML VIAL IV PUSH SCH (10:00)
[2016-05-09] MEDS: FOLIC ACID 1 MG TAB PO SCH (10:12)
[2016-05-09] MEDS: SODIUM CHLORIDE 0.9% FLUSH 5 ML FLUSH IVF SCH ×2 (10:12→20:43)
[2016-05-09] MEDS: GABAPENTIN 300 MG CAP PO SCH ×3 (10:12→17:09)
[2016-05-09] MEDS: ASPIRIN 81 MG CHEW TAB PO SCH (10:12)
[2016-05-09] MEDS: PRASUGREL 10 MG TAB PO SCH (10:13)
[2016-05-09] MEDS: LOSARTAN 25 MG TAB PO SCH (10:13)
[2016-05-09] MEDS: FERROUS SULFATE 325 MG (65 MG ELEMENTAL IRON) TAB PO SCH (10:13)
[2016-05-09] MEDS: buPROPion HCL 150 MG SUSTAINED RELEASE TAB PO SCH ×2 (10:15→20:43)
[2016-05-09] MEDS: FUROSEMIDE 40 MG TAB PO SCH (10:15)
[2016-05-09] MEDS: POTASSIUM CHLORIDE 20 MEQ CONTROLLED RELEASE TAB PO SCH (10:15)
[2016-05-10] VITALS (17 sets, daily range): BP systolic 127–158; BP diastolic 79–87; PULSE 57–101; RESP 18–22; TEMP 97.1–98.3; O2SAT 92–96
[2016-05-10] MEDS: MORPHINE SULFATE 4 MG/ML INJ IV PRN ×6 (00:20→19:53)
[2016-05-10] MEDS: CHLORHEXIDINE GLUCONATE 2 % 1 PACK (2 CLOTHS) TOP SCH ×2 (03:41→18:52)
[2016-05-10] MEDS: ACETAMINOPHEN/HYDROcodone 325 MG/5 MG TAB PO PRN ×2 (06:11→20:49)
[2016-05-10 06:52] LABS: AUTOMATED NEUTROPHIL # 5.1 TH/MM3 (1.8-7.7); BASOPHIL % 0.5 % (0.0-2.0); EOSINOPHIL # 0.4 TH/MM3 (0-0.4); EOSINOPHIL % 5.7 % (0.0-4.0); HEMATOCRIT 34.6 % (39.0-51.0); HEMO FLAGS DIFF FINAL; LYMPH % 10.9 % (9.0-44.0); LYMPHOCYTE # 0.8 TH/MM3 (1.0-4.8); MEAN CELL VOLUME 84.8 FL (80.0-100.0); MEAN CORPUSCULAR HEMOGLOBIN 29.2 PG (27.0-34.0); MEAN CORPUSCULAR HGB CONC 34.5 % (32.0-36.0); MONO % 13.2 % (0.0-8.0); NEUT % 69.7 % (16.0-70.0); PLATELET COUNT 338 TH/MM3 (150-450); RED BLOOD COUNT 4.08 MIL/MM3 (4.50-5.90); RED CELL DISTRIBUTION WIDTH 13.3 % (11.6-17.2); WHITE BLOOD COUNT 7.4 TH/MM3 (4.0-11.0)
[2016-05-10 07:15] LABS: BICARBONATE 27.3 MEQ/L (21.0-32.0); POTASSIUM 4.2 MEQ/L (3.5-5.1)
--- NOTE | 2016-05-10 08:16 | HHI.PR ---
Subjective Remarks Follow up interstitial lung disease, hypoxia. The patient states that his breathing feels better today. He is still having right shoulder and neck pain, but less than yesterday. No chest pain. Has been minimally active, and relating from the bed to the bedside commode. States that his oxygen saturations dropped to the mid 80s instead of the 70s as they had been the last couple days. Objective Vitals Vital Signs Date Time Temp Pulse Resp B/P Pulse Ox O2 Delivery O2 Flow Rate FiO2 05/10/16 06:00 61 05/10/16 05:00 57 05/10/16 04:00 57 05/10/16 04:00 98.0 59 18 135/81 96 05/10/16 03:00 62 05/10/16 02:00 64 05/10/16 01:00 71 05/10/16 00:00 74 05/10/16 00:00 97.1 69 18 127/80 96 05/09/16 23:00 81 05/09/16 22:00 81 05/09/16 21:00 79 05/09/16 20:00 84 05/09/16 20:00 98.4 84 18 151/89 94 05/09/16 19:02 92 Nasal Cannula 5.00 05/09/16 19:00 88 05/09/16 18:00 78 05/09/16 17:00 86 05/09/16 16:00 79 05/09/16 16:00 98.8 89 24 131/82 94 05/09/16 15:00 80 05/09/16 14:00 75 05/09/16 13:00 77 05/09/16 12:00 80 05/09/16 12:00 98.1 88 20 141/66 94 05/09/16 11:00 74 05/09/16 10:00 69 05/09/16 09:00 75 I/O 05/09/16 05/09/16 05/09/16 05/10/16 05/10/16 05/10/16 07:00 15:00 23:00 07:00 15:00 23:00 Intake Total 480 ml 480 ml 750 ml Output Total 700 ml 650 ml Balance -220 ml -170 ml 750 ml Intake Oral 480 ml 480 ml 750 ml Output Urine Total 700 ml 650 ml # Voids 1 # Bowel Movements 0 0 Result Diagram: 05/10/16 0603 05/10/16 0603 Imaging Last Impressions Chest CT 05/08/16 0900 Signed Impressions: Service Date/Time: Sunday, May 08, 2016 16:03 - CONCLUSION: Coarse interstitial changes with near complete honeycomb lung worse in the apices and the bases without significant ground glass opacity or adenopathy. Maldonado Sanabria MD FACR Chest X-Ray 05/06/16 0000 Signed Impressions: Service Date/Time: Friday, May 06, 2016 10:28 - CONCLUSION: Interval improvement. Maldonado Sanabria MD FACR Objective Remarks General: No acute distress. Heart: Regular rate and rhythm. No murmur. Lungs: Mild scattered wheeze. Breathing is nonlabored. Abdomen: Soft, nontender, nondistended. Extremities: No lower extremity edema. SCDs. Psych: Alert and oriented. Procedures 05/05/16 cardiac catheterization Urinary Catheter: No Vascular Central Line Catheter: No A/P Problem List: (1) Congestive heart failure ICD Code: I50.9 Status: Acute (2) HTN (hypertension) ICD Code: I10 Status: Chronic (3) COPD (chronic obstructive pulmonary disease) ICD Code: J44.9 Status: Chronic (4) Back pain ICD Code: M54.9 Status: Chronic (5) Interstitial lung disease ICD Code: J84.9 Status: Acute (6) NSTEMI (non-ST elevated myocardial infarction) ICD Code: I21.4 Status: Acute (7) CAD (coronary artery disease) ICD Code: I25.10 Status: Chronic Assessment and Plan 1. New onset CHF: 2-D echocardiogram shows EF of 45%. Continue diuresis with Lasix. Appreciate cardiology recommendations. Status post cardiac catheterization with stent placement. Cardiology recommended SUMAN inhibitor. Patient states that he gets cough with SUMAN inhibitor. Continue ARB. 2. Hypertension: Chronic. Clonidine as needed. 3. COPD, interstitial lung disease: Patient refusing Symbicort. DuoNeb's as needed. Supplemental oxygen (still requiring 4 L). Appreciate pulmonology recommendations. Chest CT shows coarse interstitial changes throughout. Continue steroids. 4. Chronic back pain: Continue pain control. 5. Elevated troponin: Appreciate cardiology recommendations. Status post cardiac catheterization. Continue aspirin, Effient. Patient refusing Lipitor. He has a history of statin-induced liver disease. 6. DVT prophylaxis: On Effient. 7. Hypokalemia: Improved. 8. Cough: SUMAN inhibitor discontinued. Continue losartan. 9. Neck, right shoulder pain: Slightly improved. Decreased range of motion of the right upper extremity. Continue pain control. Check x-ray of the right shoulder. 10. Physical therapy evaluation. Problem Qualifiers (1) Congestive heart failure: Qualified Code: I50.9 - Acute congestive heart failure, unspecified congestive heart failure type Kevin Madison MD May 10, 2016 08:16
[2016-05-10] MEDS: RESP: ALBUTEROL 2.5 MG/IPRATROPIUM 0.5 MG NEB (SCH) INH ×2 (08:18→19:03)
[2016-05-10] MEDS ORDERED: methylPREDNISolone SOD SUCC 40 MG/1 ML VIAL IV PUSH SCH (09:00)
[2016-05-10] MEDS: POTASSIUM CHLORIDE 20 MEQ CONTROLLED RELEASE TAB PO SCH (09:38)
[2016-05-10] MEDS: GABAPENTIN 300 MG CAP PO SCH ×3 (09:38→17:10)
[2016-05-10] MEDS: ASPIRIN 81 MG CHEW TAB PO SCH (09:38)
[2016-05-10] MEDS: LOSARTAN 25 MG TAB PO SCH (09:38)
[2016-05-10] MEDS: SODIUM CHLORIDE 0.9% FLUSH 5 ML FLUSH IVF SCH ×2 (09:39→20:50)
[2016-05-10] MEDS: buPROPion HCL 150 MG SUSTAINED RELEASE TAB PO SCH ×2 (09:39→20:49)
[2016-05-10] MEDS: FERROUS SULFATE 325 MG (65 MG ELEMENTAL IRON) TAB PO SCH (09:39)
[2016-05-10] MEDS: FUROSEMIDE 40 MG TAB PO SCH (09:39)
[2016-05-10] MEDS: PRASUGREL 10 MG TAB PO SCH (09:39)
[2016-05-10] MEDS: FOLIC ACID 1 MG TAB PO SCH (09:39)
--- NOTE | 2016-05-10 12:44 | RADRPT ---
EXAM DATE/TIME: 05/10/2016 11:47 [facility] COMPARISON: No previous studies available for comparison. INDICATIONS : Severe pain in right shoulder, denies recent trauma but states many injuries in the past. MEDICAL HISTORY : Chronic obstructive pulmonary disease. Cardiovascular disease. Congestive heart failure. SURGICAL HISTORY : None. ENCOUNTER: Subsequent ACUITY: 3 days PAIN SCORE: 10/10 LOCATION: Right shoulder FINDINGS: Multiple view examination of the right shoulder demonstrates no evidence of fracture or dislocation. The glenohumeral and acromioclavicular joints are maintained. There is normal range of motion betwe en internal and external rotation. Bony mineralization is normal. CONCLUSION: Unremarkable examination of the right shoulder. Fernando Rubin MD on May 10, 2016 at 12:42 Board Certified Radiologist. This report was verified electronically.
[2016-05-10] MEDS ORDERED: CALCIUM CARBONATE 500 MG CHEWABLE TAB CHEW PRN (14:00)
[2016-05-10] MEDS: PANTOPRAZOLE SOD 40 MG DELAYED RELEASE TAB PO SCH (14:10)
[2016-05-11] VITALS (25 sets, daily range): BP systolic 128–148; BP diastolic 71–80; PULSE 58–90; RESP 20; TEMP 97.6–98.5; O2SAT 92–100
[2016-05-11] MEDS: MORPHINE SULFATE 4 MG/ML INJ IV PRN ×4 (04:56→21:04)
[2016-05-11] MEDS: RESP: ALBUTEROL 2.5 MG/IPRATROPIUM 0.5 MG NEB (SCH) INH (07:20)
[2016-05-11 07:22] LABS: BICARBONATE 27.6 MEQ/L (21.0-32.0); POTASSIUM 4.4 MEQ/L (3.5-5.1)
--- NOTE | 2016-05-11 08:45 | HHI.PR ---
Subjective Remarks Follow up hypoxia, hyponatremia. Patient still reporting pain in the right shoulder, worse with movement. No chest pain. Denies dyspnea. Objective Vitals Vital Signs Date Time Temp Pulse Resp B/P Pulse Ox O2 Delivery O2 Flow Rate FiO2 05/11/16 06:00 65 05/11/16 05:00 81 05/11/16 04:00 62 05/11/16 03:00 58 05/11/16 03:00 98.5 58 20 148/79 100 05/11/16 02:00 62 05/11/16 01:00 62 05/11/16 00:00 68 05/10/16 23:00 97.5 69 22 136/79 95 05/10/16 23:00 70 05/10/16 22:00 78 05/10/16 21:00 85 05/10/16 20:00 89 05/10/16 19:03 93 Nasal Cannula 3.00 05/10/16 19:00 101 05/10/16 19:00 97.9 90 20 158/82 93 05/10/16 16:00 95 05/10/16 16:00 95 05/10/16 16:00 97.9 82 18 143/79 94 05/10/16 12:00 98.3 85 18 137/82 95 05/10/16 12:00 88 05/10/16 09:45 75 05/10/16 09:45 75 I/O 05/10/16 05/10/16 05/10/16 05/11/16 05/11/16 05/11/16 07:00 15:00 23:00 07:00 15:00 23:00 Intake Total 750 ml 0 ml 400 ml Output Total 525 ml Balance 750 ml 0 ml -125 ml Intake Oral 750 ml 400 ml IV Total 0 ml Output Urine Total 525 ml # Voids 1 # Bowel Movements 0 Result Diagram: 05/10/16 0603 05/11/16 0636 Imaging Last Impressions Shoulder X-Ray 05/10/16 0000 Signed Impressions: Service Date/Time: Tuesday, May 10, 2016 11:47 - CONCLUSION: Unremarkable examination of the right shoulder. Fernando Rubin MD Chest CT 05/08/16 0900 Signed Impressions: Service Date/Time: Sunday, May 08, 2016 16:03 - CONCLUSION: Coarse interstitial changes with near complete honeycomb lung worse in the apices and the bases without significant ground glass opacity or adenopathy. Maldonado Sanabria MD FACR Chest X-Ray 05/06/16 0000 Signed Impressions: Service Date/Time: Friday, May 06, 2016 10:28 - CONCLUSION: Interval improvement. Maldonado Sanabria MD FACR Objective Remarks General: No acute distress. Heart: Regular rate and rhythm. No murmur. Lungs: Mild scattered wheeze. Breathing is nonlabored. Abdomen: Soft, nontender, nondistended. Extremities: No lower extremity edema. SCDs. Tenderness over the lateral right shoulder. Psych: Alert and oriented. Procedures 05/05/16 cardiac catheterization Urinary Catheter: No Vascular Central Line Catheter: No A/P Problem List: (1) Congestive heart failure ICD Code: I50.9 Status: Acute (2) HTN (hypertension) ICD Code: I10 Status: Chronic (3) COPD (chronic obstructive pulmonary disease) ICD Code: J44.9 Status: Chronic (4) Back pain ICD Code: M54.9 Status: Chronic (5) Interstitial lung disease ICD Code: J84.9 Status: Acute (6) NSTEMI (non-ST elevated myocardial infarction) ICD Code: I21.4 Status: Acute (7) CAD (coronary artery disease) ICD Code: I25.10 Status: Chronic (8) Hyponatremia ICD Code: E87.1 Status: Acute Assessment and Plan 1. New onset CHF: 2-D echocardiogram shows EF of 45%. Continue diuresis with Lasix. Appreciate cardiology recommendations. Status post cardiac catheterization with stent placement. Cardiology recommended SUMAN inhibitor. Patient states that he gets cough with SUMAN inhibitor. Continue ARB. 2. Hypertension: Chronic. Clonidine as needed. 3. COPD, interstitial lung disease: Patient refusing Symbicort. DuoNeb's as needed. Supplemental oxygen. Appreciate pulmonology recommendations. Chest CT shows coarse interstitial changes throughout. Continue steroids; transitioned to prednisone. Home O2 walk test. 4. Chronic back pain: Continue pain control. 5. Elevated troponin: Appreciate cardiology recommendations. Status post cardiac catheterization. Continue aspirin, Effient. Patient refusing Lipitor. He has a history of statin-induced liver disease. 6. DVT prophylaxis: On Effient. 7. Hypokalemia: Improved. 8. Cough: SUMAN inhibitor discontinued. Continue losartan. 9. Neck, right shoulder pain: Still painful. Decreased range of motion of the right upper extremity. Continue pain control. Xray is negative. OT eval. 10. Hyponatremia: Fluid restriction. Monitor labs. Problem Qualifiers (1) Congestive heart failure: Qualified Code: I50.9 - Acute congestive heart failure, unspecified congestive heart failure type Kevin Madison MD May 11, 2016 08:45
[2016-05-11] MEDS: FERROUS SULFATE 325 MG (65 MG ELEMENTAL IRON) TAB PO SCH (09:00)
[2016-05-11] MEDS: FUROSEMIDE 40 MG TAB PO SCH (09:00)
[2016-05-11] MEDS: predniSONE 10 MG TAB PO SCH (09:00)
[2016-05-11] MEDS: PRASUGREL 10 MG TAB PO SCH (09:00)
[2016-05-11] MEDS: SODIUM CHLORIDE 0.9% FLUSH 5 ML FLUSH IVF SCH ×2 (09:00→21:04)
[2016-05-11] MEDS: ASPIRIN 81 MG CHEW TAB PO SCH (09:00)
[2016-05-11] MEDS: FOLIC ACID 1 MG TAB PO SCH (09:00)
[2016-05-11] MEDS: GABAPENTIN 300 MG CAP PO SCH ×3 (09:00→16:34)
[2016-05-11] MEDS: buPROPion HCL 150 MG SUSTAINED RELEASE TAB PO SCH ×2 (09:00→21:04)
[2016-05-11] MEDS: PANTOPRAZOLE SOD 40 MG DELAYED RELEASE TAB PO SCH (09:00)
[2016-05-11] MEDS: LOSARTAN 25 MG TAB PO SCH (09:00)
[2016-05-11] MEDS: POTASSIUM CHLORIDE 20 MEQ CONTROLLED RELEASE TAB PO SCH (09:00)
[2016-05-11] MEDS: ACETAMINOPHEN/HYDROcodone 325 MG/5 MG TAB PO PRN (10:45)
[2016-05-12] VITALS (26 sets, daily range): BP systolic 138–158; BP diastolic 71–95; PULSE 62–97; RESP 18–20; TEMP 97.8–98; O2SAT 93–99
[2016-05-12] MEDS: CHLORHEXIDINE GLUCONATE 2 % 1 PACK (2 CLOTHS) TOP SCH (04:00)
[2016-05-12] MEDS: ACETAMINOPHEN/HYDROcodone 325 MG/5 MG TAB PO PRN ×4 (05:39→22:30)
--- NOTE | 2016-05-12 08:02 | HHI.PR ---
Subjective Remarks Follow up hypoxia/dyspnea, right shoulder pain. Shortness of breath is about the same. Still reporting significant pain in the right shoulder. Denies chest pain. Objective Vitals Vital Signs Date Time Temp Pulse Resp B/P Pulse Ox O2 Delivery O2 Flow Rate FiO2 05/12/16 06:00 97 05/12/16 05:00 96 05/12/16 04:00 67 05/12/16 04:00 97.8 62 20 144/71 97 05/12/16 03:00 62 05/12/16 02:00 66 05/12/16 01:00 87 05/12/16 00:00 68 05/12/16 00:00 98.0 67 20 148/80 97 05/11/16 23:00 75 05/11/16 22:00 75 05/11/16 21:00 76 05/11/16 20:00 85 05/11/16 19:00 83 05/11/16 19:00 97.6 85 20 148/80 97 05/11/16 18:00 89 05/11/16 17:00 74 05/11/16 16:47 20 05/11/16 16:00 69 05/11/16 15:00 97.9 72 20 128/71 96 05/11/16 15:00 70 05/11/16 14:00 78 05/11/16 13:09 18 05/11/16 13:00 90 05/11/16 12:00 90 05/11/16 11:00 98.5 81 20 142/77 95 05/11/16 11:00 75 05/11/16 10:00 85 05/11/16 09:00 76 I/O 05/11/16 05/11/16 05/11/16 05/12/16 05/12/16 05/12/16 07:00 15:00 23:00 07:00 15:00 23:00 Intake Total 400 ml 1440 ml 650 ml Output Total 525 ml 2100 ml 750 ml Balance -125 ml -660 ml -100 ml Intake Oral 400 ml 1440 ml 650 ml Output Urine Total 525 ml 2100 ml 750 ml # Bowel Movements 1 Result Diagram: 05/10/16 0603 05/11/16 0636 Imaging Last Impressions Shoulder X-Ray 05/10/16 0000 Signed Impressions: Service Date/Time: Tuesday, May 10, 2016 11:47 - CONCLUSION: Unremarkable examination of the right shoulder. Fernando Rubin MD Chest CT 05/08/16 0900 Signed Impressions: Service Date/Time: Sunday, May 08, 2016 16:03 - CONCLUSION: Coarse interstitial changes with near complete honeycomb lung worse in the apices and the bases without significant ground glass opacity or adenopathy. Maldonado Sanabria MD FACR Chest X-Ray 05/06/16 0000 Signed Impressions: Service Date/Time: Friday, May 06, 2016 10:28 - CONCLUSION: Interval improvement. Maldonado Sanabria MD FACR Objective Remarks General: No acute distress. Heart: Regular rate and rhythm. No murmur. Lungs: Mild scattered wheeze. Breathing is nonlabored. Abdomen: Soft, nontender, nondistended. Extremities: No lower extremity edema. SCDs. Psych: Alert and oriented. Procedures 05/05/16 cardiac catheterization Urinary Catheter: No Vascular Central Line Catheter: No A/P Problem List: (1) Congestive heart failure ICD Code: I50.9 Status: Acute (2) HTN (hypertension) ICD Code: I10 Status: Chronic (3) COPD (chronic obstructive pulmonary disease) ICD Code: J44.9 Status: Chronic (4) Back pain ICD Code: M54.9 Status: Chronic (5) Interstitial lung disease ICD Code: J84.9 Status: Acute (6) NSTEMI (non-ST elevated myocardial infarction) ICD Code: I21.4 Status: Acute (7) CAD (coronary artery disease) ICD Code: I25.10 Status: Chronic (8) Hyponatremia ICD Code: E87.1 Status: Acute Assessment and Plan 1. New onset CHF: 2-D echocardiogram shows EF of 45%. Continue diuresis with Lasix. Appreciate cardiology recommendations. Status post cardiac catheterization with stent placement. Cardiology recommended SUMAN inhibitor. Patient states that he gets cough with SUMAN inhibitor. Continue ARB. 2. Hypertension: Chronic. Clonidine as needed. 3. COPD, interstitial lung disease: Patient refusing Symbicort. DuoNeb's as needed. Supplemental oxygen. Appreciate pulmonology recommendations. Chest CT shows coarse interstitial changes throughout. Continue steroids; transitioned to prednisone. Home O2 walk test done. Patient will need home oxygen. 4. Chronic back pain: Continue pain control. 5. Elevated troponin: Appreciate cardiology recommendations. Status post cardiac catheterization. Continue aspirin, Effient. Patient refusing Lipitor. He has a history of statin-induced liver disease. 6. DVT prophylaxis: On Effient. 7. Hypokalemia: Improved. 8. Cough: SUMAN inhibitor discontinued. Continue losartan. 9. Neck, right shoulder pain: Still painful. Continue pain control. Xray is negative. Appreciate OT eval. 10. Hyponatremia: Fluid restriction. Labs are pending this morning. Problem Qualifiers (1) Congestive heart failure: Qualified Code: I50.9 - Acute congestive heart failure, unspecified congestive heart failure type Kevin Madison MD May 12, 2016 08:01
[2016-05-12] MEDS: buPROPion HCL 150 MG SUSTAINED RELEASE TAB PO SCH ×2 (08:05→22:26)
[2016-05-12] MEDS: LOSARTAN 25 MG TAB PO SCH (08:05)
[2016-05-12] MEDS: FOLIC ACID 1 MG TAB PO SCH (08:05)
[2016-05-12] MEDS: FUROSEMIDE 40 MG TAB PO SCH (08:05)
[2016-05-12] MEDS: predniSONE 10 MG TAB PO SCH (08:05)
[2016-05-12] MEDS: FERROUS SULFATE 325 MG (65 MG ELEMENTAL IRON) TAB PO SCH (08:05)
[2016-05-12] MEDS: GABAPENTIN 300 MG CAP PO SCH ×3 (08:06→17:12)
[2016-05-12] MEDS: POTASSIUM CHLORIDE 20 MEQ CONTROLLED RELEASE TAB PO SCH (08:06)
[2016-05-12] MEDS: PRASUGREL 10 MG TAB PO SCH (08:06)
[2016-05-12] MEDS: ASPIRIN 81 MG CHEW TAB PO SCH (08:11)
[2016-05-12] MEDS: MORPHINE SULFATE 4 MG/ML INJ IV PRN ×4 (08:12→22:30)
[2016-05-12 08:24] LABS: BICARBONATE 28.4 MEQ/L (21.0-32.0); POTASSIUM 4.2 MEQ/L (3.5-5.1)
[2016-05-12] MEDS: PANTOPRAZOLE SOD 40 MG DELAYED RELEASE TAB PO SCH (09:00)
[2016-05-12] MEDS: SODIUM CHLORIDE 0.9% FLUSH 5 ML FLUSH IVF SCH ×2 (09:00→22:26)
[2016-05-12] MEDS ORDERED: SODIUM CHLORID 0.9% 500 ML INJ 500 ML IV SCH (14:45)
[2016-05-12] MEDS: diphenhydrAMINE HCL 25 MG CAP PO PRN (14:55)
[2016-05-13] VITALS (24 sets, daily range): BP systolic 116–153; BP diastolic 68–81; PULSE 60–102; RESP 17–24; TEMP 96.9–98.7; O2SAT 91–95
[2016-05-13] MEDS: CHLORHEXIDINE GLUCONATE 2 % 1 PACK (2 CLOTHS) TOP SCH (04:00)
[2016-05-13] MEDS: MORPHINE SULFATE 4 MG/ML INJ IV PRN ×4 (04:23→19:51)
[2016-05-13] MEDS: ACETAMINOPHEN/HYDROcodone 325 MG/5 MG TAB PO PRN ×4 (04:23→19:52)
[2016-05-13] MEDS: diphenhydrAMINE HCL 25 MG CAP PO PRN ×4 (06:15→19:52)
[2016-05-13 07:17] LABS: BICARBONATE 29.1 MEQ/L (21.0-32.0)
--- NOTE | 2016-05-13 07:50 | HHI.PR ---
Subjective Remarks Follow up hypoxia, right shoulder pain. The patient states that he feels very tired today. Still having right shoulder pain. Denies chest pain. Still requiring oxygen up to 4 L per nasal cannula. Objective Vitals Vital Signs Date Time Temp Pulse Resp B/P Pulse Ox O2 Delivery O2 Flow Rate FiO2 05/13/16 04:15 83 20 146/81 93 05/13/16 03:00 60 05/13/16 02:00 81 05/13/16 01:00 69 05/13/16 00:00 64 05/12/16 23:00 65 05/12/16 23:00 63 18 145/79 99 05/12/16 22:00 99 Nasal Cannula 3.00 05/12/16 22:00 78 05/12/16 21:00 87 05/12/16 20:00 86 05/12/16 19:30 97.9 85 18 147/79 95 05/12/16 19:00 86 05/12/16 18:20 97 Nasal Cannula 2.00 05/12/16 18:00 90 05/12/16 17:00 96 05/12/16 16:00 94 05/12/16 15:00 70 20 152/95 94 05/12/16 15:00 94 05/12/16 14:20 97 Nasal Cannula 3.00 05/12/16 14:00 92 05/12/16 13:00 89 05/12/16 12:51 90 Nasal Cannula 4.00 05/12/16 12:00 81 05/12/16 11:05 93 Nasal Cannula 3.00 05/12/16 11:00 80 05/12/16 11:00 97.9 80 20 138/74 97 05/12/16 10:00 83 05/12/16 09:00 93 05/12/16 08:00 74 I/O 05/12/16 05/12/16 05/12/16 05/13/16 05/13/16 05/13/16 07:00 15:00 23:00 07:00 15:00 23:00 Intake Total 650 ml 240 ml 360 ml Output Total 750 ml 1000 ml Balance -100 ml 240 ml -640 ml Intake Oral 650 ml 240 ml 360 ml Output Urine Total 750 ml 1000 ml # Voids 3 # Bowel Movements 1 Result Diagram: 05/10/16 0603 05/13/16 0545 Imaging Last Impressions Shoulder X-Ray 05/10/16 0000 Signed Impressions: Service Date/Time: Tuesday, May 10, 2016 11:47 - CONCLUSION: Unremarkable examination of the right shoulder. Fernando Rubin MD Chest CT 05/08/16 0900 Signed Impressions: Service Date/Time: Sunday, May 08, 2016 16:03 - CONCLUSION: Coarse interstitial changes with near complete honeycomb lung worse in the apices and the bases without significant ground glass opacity or adenopathy. Maldonado Sanabria MD FACR Chest X-Ray 05/06/16 0000 Signed Impressions: Service Date/Time: Friday, May 06, 2016 10:28 - CONCLUSION: Interval improvement. Maldonado Sanabria MD FACR Objective Remarks General: No acute distress. Heart: Regular rate and rhythm. No murmur. Lungs: Mild scattered wheeze. Breathing is nonlabored. Abdomen: Soft, nontender, nondistended. Extremities: No lower extremity edema. SCDs. Psych: Sleeping, but awakens and answers questions. Procedures 05/05/16 cardiac catheterization Urinary Catheter: No Vascular Central Line Catheter: No A/P Problem List: (1) Congestive heart failure ICD Code: I50.9 Status: Acute (2) HTN (hypertension) ICD Code: I10 Status: Chronic (3) COPD (chronic obstructive pulmonary disease) ICD Code: J44.9 Status: Chronic (4) Back pain ICD Code: M54.9 Status: Chronic (5) Interstitial lung disease ICD Code: J84.9 Status: Acute (6) NSTEMI (non-ST elevated myocardial infarction) ICD Code: I21.4 Status: Acute (7) CAD (coronary artery disease) ICD Code: I25.10 Status: Chronic (8) Hyponatremia ICD Code: E87.1 Status: Acute Assessment and Plan 1. New onset CHF: 2-D echocardiogram shows EF of 45%. Continue diuresis with Lasix. Appreciate cardiology recommendations. Status post cardiac catheterization with stent placement. Cardiology recommended SUMAN inhibitor. Patient states that he gets cough with SUMAN inhibitor. Continue ARB. 2. Hypertension: Chronic. Clonidine as needed. 3. COPD, interstitial lung disease: Patient refusing Symbicort. DuoNeb's as needed. Supplemental oxygen. Appreciate pulmonology recommendations. Chest CT shows interstitial changes throughout. Continue steroids; transitioned to prednisone. Home O2 walk test done. Patient will need home oxygen. 4. Chronic back pain: Continue pain control. 5. Elevated troponin: Appreciate cardiology recommendations. Status post cardiac catheterization. Continue aspirin, Effient. Patient refusing Lipitor. He has a history of statin-induced liver disease. 6. DVT prophylaxis: On Effient. 7. Hypokalemia: Improved. 8. Cough: SUMAN inhibitor discontinued. Continue losartan. 9. Neck, right shoulder pain: Still painful. Continue pain control. Xray is negative. Appreciate OT eval. 10. Hyponatremia: Fluid restriction. Slightly improved today. Discharge Planning Possible discharge next 1-2 days pending clinical improvement. Problem Qualifiers (1) Congestive heart failure: Qualified Code: I50.9 - Acute congestive heart failure, unspecified congestive heart failure type Kevin Madison MD May 13, 2016 07:50
[2016-05-13] MEDS ORDERED: IPRASOL NEB ×2 (07:59→08:02)
[2016-05-13] MEDS ORDERED: COZA25TA PO (07:59)
[2016-05-13] MEDS ORDERED: HYDR-3516 PO (07:59)
[2016-05-13] MEDS ORDERED: OXYGENTANK NAS.CANULA (07:59)
[2016-05-13] MEDS ORDERED: FURO1TAB60 PO (07:59)
[2016-05-13] MEDS ORDERED: PRED10 PO (07:59)
[2016-05-13] MEDS ORDERED: Aspirin Chew PO (07:59)
[2016-05-13] MEDS ORDERED: POTA20TA5 PO (07:59)
[2016-05-13] MEDS ORDERED: NEBULIZER1 MI1 (07:59)
--- NOTE | 2016-05-13 08:00 | HHI.FF ---
Face to Face Verification Diagnosis: (1) COPD (chronic obstructive pulmonary disease) (2) Interstitial lung disease (3) CAD (coronary artery disease) (4) NSTEMI (non-ST elevated myocardial infarction) (5) Congestive heart failure Physical Therapy Order: Evaluate and Treat Home Health Nursing Order: Nursing assessment with vital signs I have seen patient Julio Dugan on 05/13/16. My clinical findings support the need for the requested home health care services because: Patient has SOB I certify that my clinical findings support that this patient is homebound because: Hx COPD- exertion dyspnea/weakness Kevin Madison MD May 13, 2016 08:00
[2016-05-13] MEDS: SODIUM CHLORIDE 0.9% FLUSH 5 ML FLUSH IVF SCH ×2 (10:40→19:52)
[2016-05-13] MEDS: LOSARTAN 25 MG TAB PO SCH (10:41)
[2016-05-13] MEDS: predniSONE 10 MG TAB PO SCH (10:41)
[2016-05-13] MEDS: FUROSEMIDE 40 MG TAB PO SCH (10:41)
[2016-05-13] MEDS: FOLIC ACID 1 MG TAB PO SCH (10:41)
[2016-05-13] MEDS: FERROUS SULFATE 325 MG (65 MG ELEMENTAL IRON) TAB PO SCH (10:41)
[2016-05-13] MEDS: PANTOPRAZOLE SOD 40 MG DELAYED RELEASE TAB PO SCH (10:42)
[2016-05-13] MEDS: ASPIRIN 81 MG CHEW TAB PO SCH (10:42)
[2016-05-13] MEDS: PRASUGREL 10 MG TAB PO SCH (10:42)
[2016-05-13] MEDS: buPROPion HCL 150 MG SUSTAINED RELEASE TAB PO SCH ×2 (10:42→19:52)
[2016-05-13] MEDS: POTASSIUM CHLORIDE 20 MEQ CONTROLLED RELEASE TAB PO SCH (10:42)
[2016-05-13] MEDS: GABAPENTIN 300 MG CAP PO SCH ×3 (10:42→19:16)
[2016-05-14] VITALS (24 sets, daily range): BP systolic 122–162; BP diastolic 70–84; PULSE 65–99; RESP 17–22; TEMP 97.5–98.4; O2SAT 92–96
[2016-05-14] MEDS: MORPHINE SULFATE 4 MG/ML INJ IV PRN ×5 (00:13→19:25)
[2016-05-14] MEDS: diphenhydrAMINE HCL 25 MG CAP PO PRN ×5 (00:13→20:27)
[2016-05-14] MEDS: ACETAMINOPHEN/HYDROcodone 325 MG/5 MG TAB PO PRN ×5 (00:14→20:28)
[2016-05-14] MEDS: CHLORHEXIDINE GLUCONATE 2 % 1 PACK (2 CLOTHS) TOP SCH (00:14)
[2016-05-14] MEDS: UMECLIDINIUM 62.5 MCG/VILANTEROL 25 MCG INHALER INH SCH (08:57)
[2016-05-14] MEDS: LOSARTAN 25 MG TAB PO SCH (08:59)
[2016-05-14] MEDS: POTASSIUM CHLORIDE 20 MEQ CONTROLLED RELEASE TAB PO SCH (08:59)
[2016-05-14] MEDS: PANTOPRAZOLE SOD 40 MG DELAYED RELEASE TAB PO SCH (08:59)
[2016-05-14] MEDS: predniSONE 10 MG TAB PO SCH (08:59)
[2016-05-14] MEDS: PRASUGREL 10 MG TAB PO SCH (08:59)
[2016-05-14] MEDS: FUROSEMIDE 40 MG TAB PO SCH ×2 (08:59→18:38)
[2016-05-14] MEDS: FOLIC ACID 1 MG TAB PO SCH (09:00)
[2016-05-14] MEDS: GABAPENTIN 300 MG CAP PO SCH ×3 (09:00→18:38)
[2016-05-14] MEDS: ASPIRIN 81 MG CHEW TAB PO SCH (09:00)
[2016-05-14] MEDS: buPROPion HCL 150 MG SUSTAINED RELEASE TAB PO SCH ×2 (09:00→20:27)
[2016-05-14] MEDS: FERROUS SULFATE 325 MG (65 MG ELEMENTAL IRON) TAB PO SCH (09:00)
[2016-05-14] MEDS: SODIUM CHLORIDE 0.9% FLUSH 5 ML FLUSH IVF SCH ×2 (09:01→20:28)
--- NOTE | 2016-05-14 10:51 | HHI.PR ---
Subjective Remarks Follow-up for shortness of breath next Shortness of breath about the same compared to yesterday, no nausea or vomiting. No chest pain, no palpitations. Minimal urine output. Cough is dry , better. Bilateral lower extremity swelling a lot better. Objective Vitals Vital Signs Date Time Temp Pulse Resp B/P Pulse Ox O2 Delivery O2 Flow Rate FiO2 05/14/16 10:00 71 05/14/16 09:00 70 05/14/16 08:03 97.5 75 17 133/76 96 05/14/16 08:00 65 05/14/16 07:00 70 05/14/16 07:00 96 Nasal Cannula 2.00 05/14/16 06:03 78 05/14/16 05:00 65 05/14/16 04:00 65 05/14/16 03:06 98.3 73 22 134/70 96 05/14/16 03:00 78 05/14/16 02:00 80 05/14/16 01:00 76 05/14/16 00:00 77 05/13/16 23:00 98.5 92 18 153/68 94 05/13/16 23:00 99 05/13/16 22:00 90 05/13/16 21:00 93 05/13/16 20:00 89 05/13/16 19:52 98.7 99 24 123/73 91 05/13/16 19:00 100 05/13/16 19:00 95 Nasal Cannula 2.00 05/13/16 18:00 82 05/13/16 17:00 102 05/13/16 16:00 93 05/13/16 15:00 97.7 89 17 116/81 94 05/13/16 15:00 100 05/13/16 14:00 85 05/13/16 13:58 93 Nasal Cannula 2.00 05/13/16 13:00 76 05/13/16 12:00 72 05/13/16 11:00 90 05/13/16 11:00 96.9 74 18 152/80 95 05/13/16 10:56 18 I/O 05/13/16 05/13/16 05/13/16 05/14/16 05/14/16 05/14/16 07:00 15:00 23:00 07:00 15:00 23:00 Intake Total 360 ml 710 ml 480 ml Output Total 1000 ml Balance -640 ml 710 ml 480 ml Intake Oral 360 ml 710 ml 480 ml Output Urine Total 1000 ml # Voids 5 2 Result Diagram: 05/10/16 0603 05/13/16 0545 Objective Remarks Not in distress, well-nourished, looks stated age PERRL, pink conjunctiva without injection, anicteric Nose without bleeding, airway patent, oropharynx clear Supple neck, no masses or thyromegaly, trachea midline Normal rate and regular rhythm, no murmurs gallops or rubs appreciated. Coarse crackles diffusely, no wheezing. Normal bowel sounds, soft, non-tender, nondistended, no guarding. Extremities without clubbing, cyanosis, trace edema. No rash of generalized distribution. Skin is warm and dry. AAO x3, no cranial nerve deficits, moves all 4 extremities, no focal neurologic deficits Normal mood, appropriate affect Procedures 05/05/16 cardiac catheterization A/P Problem List: (1) Congestive heart failure ICD Code: I50.9 Status: Acute (2) HTN (hypertension) ICD Code: I10 Status: Chronic (3) COPD (chronic obstructive pulmonary disease) ICD Code: J44.9 Status: Chronic (4) Back pain ICD Code: M54.9 Status: Chronic (5) Interstitial lung disease ICD Code: J84.9 Status: Acute (6) NSTEMI (non-ST elevated myocardial infarction) ICD Code: I21.4 Status: Acute (7) CAD (coronary artery disease) ICD Code: I25.10 Status: Chronic (8) Hyponatremia ICD Code: E87.1 Status: Acute Assessment and Plan 1. New onset CHF: 2-D echocardiogram shows EF of 45%. Continue diuresis with Lasix, increase to twice a day orally, check BMP tomorrow. Appreciate cardiology recommendations. Status post cardiac catheterization with stent placement with bare metal stent. Cardiology recommended SUMAN inhibitor. Patient states that he gets cough with SUMAN inhibitor. Continue losartan, Effient, aspirin, 2. Hypertension: Chronic. Controlled, continue losartan. 3. COPD, interstitial lung disease: Patient refusing Symbicort. DuoNeb's as needed. Supplemental oxygen. Appreciate pulmonology recommendations. Chest CT shows interstitial changes throughout. Continue oral prednisone, pulmonary following, will need oxygen on discharge, respiratory walk fit test. 4. Chronic back pain: Continue pain control. 5. Elevated troponin: Appreciate cardiology recommendations. Status post cardiac catheterization. Continue aspirin, Effient. Patient refusing Lipitor. He has a history of statin-induced liver disease. 6. DVT prophylaxis: On Effient. 9. Neck, right shoulder pain: Still painful. Continue pain control. Xray is negative, personally reviewed, pain control.. Appreciate OT eval. 10. Hyponatremia: Fluid restriction. Increase Lasix as above, patient previously has sodium chloride tablets Strict urine output monitoring.. Transfer to [facility] [place] Discharge Planning Possibly discharge tomorrow. Problem Qualifiers (1) Congestive heart failure: Qualified Code: I50.9 - Acute congestive heart failure, unspecified congestive heart failure type Liya Eric MD May 14, 2016 10:51
[2016-05-14] MEDS: RESP: ALBUTEROL 2.5 MG/IPRATROPIUM 0.5 MG NEB (SCH) NEB (15:08)
[2016-05-15] VITALS (11 sets, daily range): BP systolic 126–148; BP diastolic 58–85; PULSE 73–95; RESP 17–20; TEMP 97.4–98.1; O2SAT 92–96
[2016-05-15] MEDS: RESP: ALBUTEROL 2.5 MG/IPRATROPIUM 0.5 MG NEB (SCH) NEB ×4 (00:45→23:52)
[2016-05-15] MEDS: CHLORHEXIDINE GLUCONATE 2 % 1 PACK (2 CLOTHS) TOP SCH (02:08)
[2016-05-15] MEDS: diphenhydrAMINE HCL 25 MG CAP PO PRN ×2 (05:13→21:22)
[2016-05-15] MEDS: ACETAMINOPHEN/HYDROcodone 325 MG/5 MG TAB PO PRN ×3 (05:14→21:22)
[2016-05-15] MEDS: MORPHINE SULFATE 4 MG/ML INJ IV PRN ×3 (06:57→17:26)
[2016-05-15] MEDS: UMECLIDINIUM 62.5 MCG/VILANTEROL 25 MCG INHALER INH SCH (08:23)
[2016-05-15] MEDS: buPROPion HCL 150 MG SUSTAINED RELEASE TAB PO SCH ×2 (08:24→21:21)
[2016-05-15] MEDS: POTASSIUM CHLORIDE 20 MEQ CONTROLLED RELEASE TAB PO SCH (08:24)
[2016-05-15] MEDS: ASPIRIN 81 MG CHEW TAB PO SCH (08:24)
[2016-05-15] MEDS: LOSARTAN 25 MG TAB PO SCH (08:24)
[2016-05-15] MEDS: GABAPENTIN 300 MG CAP PO SCH ×3 (08:25→17:06)
[2016-05-15] MEDS: FOLIC ACID 1 MG TAB PO SCH (08:25)
[2016-05-15] MEDS: FERROUS SULFATE 325 MG (65 MG ELEMENTAL IRON) TAB PO SCH (08:25)
[2016-05-15] MEDS: predniSONE 10 MG TAB PO SCH (08:25)
[2016-05-15] MEDS: PANTOPRAZOLE SOD 40 MG DELAYED RELEASE TAB PO SCH (08:25)
[2016-05-15] MEDS: PRASUGREL 10 MG TAB PO SCH (08:25)
[2016-05-15] MEDS: FUROSEMIDE 40 MG TAB PO SCH ×3 (08:25→21:23)
[2016-05-15] MEDS: SODIUM CHLORIDE 0.9% FLUSH 5 ML FLUSH IVF SCH ×2 (08:26→21:23)
[2016-05-15 08:27] LABS: BICARBONATE 30.2 MEQ/L (21.0-32.0)
--- NOTE | 2016-05-15 13:47 | HHI.PR ---
Subjective Remarks Follow-up for congestive heart failure exacerbation Systolic blood pressure elevated, -1680 cc fluid balance overnight, denies any headache, chest pain. Still short of breath but better. Objective Vitals Vital Signs Date Time Temp Pulse Resp B/P Pulse Ox O2 Delivery O2 Flow Rate FiO2 05/15/16 12:06 98.1 95 18 144/85 92 05/15/16 11:35 Nasal Cannula 2.00 05/15/16 08:37 96 Nasal Cannula 2.00 05/15/16 08:07 97.4 78 18 133/67 96 05/15/16 06:26 2.00 05/15/16 04:00 97.8 79 20 126/58 94 05/15/16 00:45 96 Nasal Cannula 2.00 05/15/16 00:00 Nasal Cannula 2.00 05/15/16 00:00 98.0 73 20 145/64 95 05/14/16 20:24 75 05/14/16 20:00 Nasal Cannula 2.50 05/14/16 20:00 97.8 79 20 126/71 94 05/14/16 17:45 97.7 77 18 134/75 95 05/14/16 17:01 99 05/14/16 16:00 80 05/14/16 15:00 80 05/14/16 15:00 98.4 86 18 122/75 95 05/14/16 14:00 84 I/O 05/14/16 05/14/16 05/14/16 05/15/16 05/15/16 05/15/16 07:00 15:00 23:00 07:00 15:00 23:00 Intake Total 480 ml 420 ml 400 ml Output Total 800 ml 1700 ml Balance 480 ml -380 ml -1300 ml Intake Oral 480 ml 420 ml 400 ml Output Urine Total 800 ml 1700 ml # Voids 2 2 # Bowel Movements 0 Result Diagram: 05/15/16 0709 Objective Remarks Not in distress, well-nourished, looks stated age PERRL, pink conjunctiva without injection, anicteric Nose without bleeding, airway patent, oropharynx clear Supple neck, no masses or thyromegaly, trachea midline Normal rate and regular rhythm, no murmurs gallops or rubs appreciated. Coarse crackles diffusely, no wheezing. Normal bowel sounds, soft, non-tender, nondistended, no guarding. Extremities without clubbing, cyanosis, trace edema. No rash of generalized distribution. Skin is warm and dry. AAO x3, no cranial nerve deficits, moves all 4 extremities, no focal neurologic deficits Normal mood, appropriate affect Procedures 05/05/16 cardiac catheterization A/P Problem List: (1) Congestive heart failure ICD Code: I50.9 Status: Acute (2) HTN (hypertension) ICD Code: I10 Status: Chronic (3) COPD (chronic obstructive pulmonary disease) ICD Code: J44.9 Status: Chronic (4) Back pain ICD Code: M54.9 Status: Chronic (5) Interstitial lung disease ICD Code: J84.9 Status: Acute (6) NSTEMI (non-ST elevated myocardial infarction) ICD Code: I21.4 Status: Acute (7) CAD (coronary artery disease) ICD Code: I25.10 Status: Chronic (8) Hyponatremia ICD Code: E87.1 Status: Acute Assessment and Plan 1. New onset CHF: 2-D echocardiogram shows EF of 45%. Continue diuresis with Lasix twice a day. Appreciate cardiology recommendations. Status post cardiac catheterization with stent placement with bare metal stent. Cardiology recommended SUMAN inhibitor. Patient states that he gets cough with SUMAN inhibitor. Continue losartan, Effient, aspirin, recheck BMP tomorrow. 2. Hypertension: Chronic. Controlled, continue losartan. 3. COPD, interstitial lung disease: Patient refusing Symbicort. DuoNeb's as needed. Supplemental oxygen. Appreciate pulmonology recommendations. Chest CT shows interstitial changes throughout. Continue oral prednisone, pulmonary following, will need oxygen on discharge, respiratory walk fit test. 4. Chronic back pain: Continue pain control. 5. Elevated troponin: Appreciate cardiology recommendations. Status post cardiac catheterization. Continue aspirin, Effient. Patient refusing Lipitor. He has a history of statin-induced liver disease. 6. DVT prophylaxis: On Effient. 9. Neck, right shoulder pain: Still painful. Continue pain control. Xray is negative, personally reviewed, pain control.. Appreciate OT eval. 10. Hyponatremia: Fluid restriction. Continue Lasix, avoid sodium chloride tablets. Discharge Planning Possibly discharge tomorrow. He will need oxygen on discharge Problem Qualifiers (1) Congestive heart failure: Qualified Code: I50.9 - Acute congestive heart failure, unspecified congestive heart failure type Liya Eric MD May 15, 2016 13:47
[2016-05-16 00:01] VITALS: BP 126/64; PULSE 87; RESP 18; TEMP 97.1; O2SAT 96
[2016-05-16] MEDS: MORPHINE SULFATE 4 MG/ML INJ IV PRN ×2 (00:08→03:28)
[2016-05-16 04:00] VITALS: BP 141/70; PULSE 67; RESP 17; TEMP 97.4; O2SAT 97
[2016-05-16] MEDS: CHLORHEXIDINE GLUCONATE 2 % 1 PACK (2 CLOTHS) TOP SCH (04:00)
[2016-05-16] MEDS: FUROSEMIDE 40 MG TAB PO SCH (06:42)
[2016-05-16 07:27] LABS: BICARBONATE 28.2 MEQ/L (21.0-32.0)
[2016-05-16] MEDS: RESP: ALBUTEROL 2.5 MG/IPRATROPIUM 0.5 MG NEB (SCH) NEB ×2 (07:43→16:00)
[2016-05-16 07:55] VITALS: PULSE 81
[2016-05-16 08:00] VITALS: BP 146/79; PULSE 77; RESP 16; TEMP 98.1; O2SAT 96
[2016-05-16] MEDS: GABAPENTIN 300 MG CAP PO SCH ×2 (08:29→12:43)
[2016-05-16] MEDS: PRASUGREL 10 MG TAB PO SCH (08:29)
[2016-05-16] MEDS: ASPIRIN 81 MG CHEW TAB PO SCH (08:29)
[2016-05-16] MEDS: FOLIC ACID 1 MG TAB PO SCH (08:30)
[2016-05-16] MEDS: PANTOPRAZOLE SOD 40 MG DELAYED RELEASE TAB PO SCH (08:30)
[2016-05-16] MEDS: LOSARTAN 25 MG TAB PO SCH (08:30)
[2016-05-16] MEDS: FERROUS SULFATE 325 MG (65 MG ELEMENTAL IRON) TAB PO SCH (08:30)
[2016-05-16] MEDS: POTASSIUM CHLORIDE 20 MEQ CONTROLLED RELEASE TAB PO SCH (08:30)
[2016-05-16] MEDS: ACETAMINOPHEN/HYDROcodone 325 MG/5 MG TAB PO PRN ×3 (08:30→16:47)
[2016-05-16] MEDS: predniSONE 10 MG TAB PO SCH (08:30)
[2016-05-16] MEDS: buPROPion HCL 150 MG SUSTAINED RELEASE TAB PO SCH (08:30)
[2016-05-16] MEDS: SODIUM CHLORIDE 0.9% FLUSH 5 ML FLUSH IVF SCH (08:31)
[2016-05-16] MEDS ORDERED: FURO1TAB60 PO (08:41)
[2016-05-16] MEDS ORDERED: PRAS10TA PO (08:41)
--- NOTE | 2016-05-16 08:44 | HHI.DS ---
Discharge Summary Admission Date May 04, 2016 at 18:04 Discharge Date: May 16, 2016 Admitting Diagnosis congestive heart failure (1) Congestive heart failure ICD Code: I50.9 Diagnosis: Principal (2) HTN (hypertension) ICD Code: I10 Diagnosis: Secondary (3) COPD (chronic obstructive pulmonary disease) ICD Code: J44.9 Diagnosis: Secondary (4) Back pain ICD Code: M54.9 Diagnosis: Secondary (5) Interstitial lung disease ICD Code: J84.9 Diagnosis: Secondary (6) NSTEMI (non-ST elevated myocardial infarction) ICD Code: I21.4 Diagnosis: Secondary (7) CAD (coronary artery disease) ICD Code: I25.10 Diagnosis: Secondary (8) Hyponatremia ICD Code: E87.1 Diagnosis: Secondary Procedures 05/05/16 cardiac catheterization Brief History - From Admission 60-year-old male with a history of COPD, depression, neuropathy, chronic back pain, and hypertension presented to the emergency room with increasing shortness of breath over the last week. He states the shortness of breath has gotten so severe that even walking to the bathroom he is unable to breathe. He states he does have a slight chest pressure when he does have shortness of breath but it does not radiate to his jaw or arm. He is also complaining of fever and chills at home, with an unknown temperature. He stopped smoking 8 months ago and was just recently diagnosed with hypertension in late March. He states he has had a dry cough since starting on lisinopril 3 weeks ago. He denies any abdominal pain, nausea, vomiting, dysuria or diarrhea. No history of DVTs, MIs or strokes. Patient states he has also never been diagnosed with congestive heart failure. And no history of an echocardiogram. CBC/BMP: 05/16/16 0601 Significant Findings Laboratory Tests Test 05/15/16 05/16/16 07:09 06:01 Sodium Level 127 MEQ/L 129 MEQ/L (136-145) (136-145) Chloride Level 90 MEQ/L 89 MEQ/L (98-107) (98-107) Blood Urea Nitrogen 26 MG/DL (7-18) 25 MG/DL (7-18) Estimat Glomerular Filtration 57 ML/MIN (>89) 56 ML/MIN (>89) Rate Creatinine 1.31 MG/DL (0.60-1.30) PE at Discharge Not in distress, well-nourished, looks stated age PERRL, pink conjunctiva without injection, anicteric Nose without bleeding, airway patent, oropharynx clear Supple neck, no masses or thyromegaly, trachea midline Normal rate and regular rhythm, no murmurs gallops or rubs appreciated. Coarse crackles diffusely, no wheezing. Normal bowel sounds, soft, non-tender, nondistended, no guarding. Extremities without clubbing, cyanosis, trace edema. No rash of generalized distribution. Skin is warm and dry. AAO x3, no cranial nerve deficits, moves all 4 extremities, no focal neurologic deficits Normal mood, appropriate affect Pt update on day of discharge Follow-up for shortness of breath next Shortness of breath a lot better, ambulating, no chest pain, no palpitations. Hospital Course 60-year-old male with a history of COPD, depression, neuropathy, chronic back pain, and hypertension presented to the emergency room with increasing shortness of breath over the last week. Patient was told to have congestive heart failure exacerbation. Patient was started intravenously and Lasix. Patient was treated as a case of new onset congestive heart failure. 2-D echocardiogram shows EF of 45%. He will continue diuresis with Lasix twice a day. Her etiology was consulted, patient Status post cardiac catheterization with stent placement with bare metal stent. Cardiology recommended SUMAN inhibitor but had a cough cause of that. Patient will continue losartan, Effient, aspirin. He also had an allergic rash which he will finish prednisone for and a topical steroid. He also has mild interstitial lung disease, he will continue Symbicort. Patient is in the pulmonary.Chest CT shows interstitial changes throughout. Continue oral prednisone, pulmonary following, will need oxygen on discharge. Follow-up with pulmonary as outpatient. Patient refused Lipitor. Discussed with daughter prior to discharge Pt Condition on Discharge: Good Discharge Disposition: Disch w/ Home Health Serv Discharge Time: > 30 minutes Discharge Instructions DIET: Follow Instructions for: Heart Healthy Diet Fluid Restrictions: 1.5L Activities you can perform: Regular-No Restrictions Follow up Referrals: Cardiology - 1 Week with Dionicio Johnson MD PCP Follow-up - 2 Weeks Pulmonology - 1 Week with Emerson Moore MD New Medications: Nebulizer (Nebulizer) 1 Mis Mis 1 EA .ROUTE DIRECTED Breathing Treatment #1 Ref 0 EA Oxygen tank (Oxygen tank) 1 Ea Tank 2 LITER BLAIRE.CANULA CONTINUOUS Oxygen Concentrator Portable Gaseous 2 L/min via Nasal Cannula Continuous For 99 months HYPOXEMIA PREVENTION #1 CYLINDER Prednisone (Prednisone) 10 Mg Tab 10 MG PO DIRECTED Take 20mg daily for 4 days; 10mg daily for 4 days, then stop. Inflammation #12 Ref 0 TAB Furosemide (Lasix) 40 Mg Tab 40 MG PO BID CHF Days 30 TAB Hydrocodone-Acetaminophen (Hydrocodone-Acetaminophen) 5-325 mg Tab 1 TAB PO Q4H PRN PAIN SCALE 1 TO 10 #30 Ref 0 TAB Ipratropium-Albuterol Neb (Duoneb) 0.5-2.5 Mg/3 Ml Neb 1 AMPULE NEB Q6HR NEB PRN SOB/WHEEZING #100 Ref 0 ML Losartan (Cozaar) 25 Mg Tab 25 MG PO DAILY CHF #30 Ref 0 TAB Potassium Chloride Microencaps (Potassium Chloride Microencaps) 20 Meq Tab 20 MEQ PO DAILY Supplement #30 Ref 0 TAB Prasugrel (Effient) 10 Mg Tab 10 MG PO DAILY blood thinner #30 TAB ([Aspirin Chew]) 81 MG CHEW 162 MG PO DAILY heart #30 Ref 0 TAB.CHEW Continued Medications: Albuterol 18 GM Inh (Ventolin Hfa 18 GM Inh) 90 Mcg/Act Aer 1 PUFF INH Q4H PRN SHORTNESS OF BREATH #1 Ref 0 INHALER Budesonide-Formoterol Inh (Symbicort Inh) 80-4.5 Mcg/Act Aero 2 PUFF INH Q12HR Asthma Management #1 Ref 0 INHALER Bupropion HCl ER 12 HR (Wellbutrin SR 12 HR) 150 Mg Tab 150 MG PO Q12HR Control Depression Ref 0 TAB Cetirizine (Zyrtec Allergy) 10 Mg Cap 10 MG PO DAILY Allergies Ref 0 CAP Diphenhydramine (Benadryl Allergy) 25 Mg Tab 25 MG PO Q6H PRN ALLERGIES Ref 0 TAB Ferrous Sulfate (Ferrous Sulfate) 325 Mg Tab 325 MG PO DAILY Nutritional Supplement #30 Ref 0 TAB Folic Acid (Folate) 1 Mg Tab 1 MG PO DAILY Nutritional Supplement Ref 0 TAB Gabapentin (Gabapentin) 300 Mg Cap 300 MG PO TID #90 Ref 0 CAP Naproxen Sodium (Aleve) 220 Mg Tab 220 MG PO BID PRN Pain Management Ref 0 TAB Omeprazole (Omeprazole) 40 Mg Cap 40 MG PO DAILY #30 Ref 0 CAP Ondansetron (Zofran) 4 Mg Tab 4 MG PO Q12HR PRN NAUSEA OR VOMITING Ref 0 TAB Sumatriptan (Sumatriptan) 50 Mg Tab 50 MG PO ONCE If a satisfactory response has not been obtained at 2 hours, a second dose may be administered PRN MIGRAINE HEADACHE Ref 0 TAB Tizanidine (Tizanidine) 4 Mg Cap 4 MG PO TID Muscle Spasm Ref 0 CAP Discontinued Medications: Amoxicillin-Clavulanate (Amoxicillin-Clavulanate) 875-125 mg Tab 875 MG PO BID not for use in CrCl <30 mL/minute Infection Ref 0 TAB Furosemide (Furosemide) 20 Mg Tab 20 MG PO DAILY #30 Ref 0 TAB Hydrocodone-Acetaminophen (Hydrocodone-Acetaminophen) 7.5-300 Mg Tab 1 TAB PO Q4H PRN PAIN Ref 0 TAB Ibuprofen (Advil) 200 Mg Tab 200 MG PO TID Ref 0 TAB Lisinopril (Lisinopril) 10 Mg Tab 10 MG PO BID #30 Ref 0 TAB Liay Eric MD May 16, 2016 08:44
[2016-05-16] MEDS ORDERED: BETA0.052 TOPICAL (08:46)
--- NOTE | 2016-05-16 09:15 | RSPPFT ---
DATE OF PROCEDURE: 05/10/16 COMMENTS: VOLUMES DYNAMIC: FVC and FEV1 moderately reduced. FLOWS: FEV1% normal; FEF 25-75 moderately reduced. IMPRESSION: This appears to be predominantly a restrictive defect but full lung volumes would be helpful. There is no improvement post-bronchodilator.
[2016-05-16 12:00] VITALS: BP 118/61; PULSE 97; RESP 16; TEMP 97.9; O2SAT 94
[2016-05-16] MEDS ORDERED: FUROSEMIDE 40 MG TAB PO SCH (21:00)
--- NOTE | 2016-05-30 18:39 | PQ ---
Physician Query Response Document PATIENT: BETTY GARCAI : 1955 ADMIT DATE: 05/04/2016 6:04 PM DISCH DATE: 05/16/2016 6:10 PM RESPONDING PROVIDER #: munira QUERY TEXT: CHF Acuity and Type Congestive Heart Failure is documented in the Medical Record. Please document the type and acuity (in cludes probable or suspected) Such as: Type: -- Systolic -- Diastolic -- Combined -- Other, please specify Acuity: -- Acute -- Chronic -- Acute on chronic -- Other, please specify Also please document the underlying cause of the CHF (includes probable or suspected) Your prompt response is appreciated, please do not hesitate to contact the CDI/Coding Hotline with an y questions,comments, and/or concerns you may have at ext. [phone] The patient's Clinical Indicators include: per progress notes, new onset of CHF treated with Lasix Query created by: Nava Ariza on 05/20/2016 8:03 AM RESPONSE TEXT: Acute systolic CHF Electronically signed by: Liya Eric MD 05/30/2016 6:35 PM
== END 2016-05-16 18:10 | disposition home health service (06) | DRG 248 ==
LOC: PHED 16:26 → PHEDA 18:04 → HIMW 22:10 → HCIN 05-08 12:51 → N04A 05-14 17:23
PROVIDERS: ADMIT Hospitalist; ATTEND Hospitalist
PROC: 02703DZ Dilation of Coronary Artery, One Artery with Intraluminal Device, Percutaneous Approach (ICD-10-PCS; principal; 2016-05-05)
PROC: 4A023N8 Measurement of Cardiac Sampling and Pressure, Bilateral, Percutaneous Approach (ICD-10-PCS; 2016-05-05)
PROC: B2151ZZ Fluoroscopy of Left Heart using Low Osmolar Contrast (ICD-10-PCS; 2016-05-05)
PROC: B2111ZZ Fluoroscopy of Multiple Coronary Arteries using Low Osmolar Contrast (ICD-10-PCS; 2016-05-05)
DX: I21.4 Non-ST elevation (NSTEMI) myocardial infarction (principal); I50.21 Acute systolic (congestive) heart failure; E87.1 Hypo-osmolality and hyponatremia; J84.10 Pulmonary fibrosis, unspecified; J44.9 Chronic obstructive pulmonary disease, unspecified; I10 Essential (primary) hypertension; G89.29 Other chronic pain; R09.02 Hypoxemia; I25.119 Atherosclerotic heart disease of native coronary artery with unspecified angina pectoris; E87.6 Hypokalemia; M54.2 Cervicalgia; Z87.891 Personal history of nicotine dependence; D64.9 Anemia, unspecified; F32.9 Major depressive disorder, single episode, unspecified; G62.9 Polyneuropathy, unspecified; M25.511 Pain in right shoulder; Z85.89 Personal history of malignant neoplasm of other organs and systems
CPT/HCPCS: 36600; 71010; 71250; 73030; 80048; 80053; 80061; 82550; 82552; 82805; 82810; 83605; 83880; 84484; 85002; 85025; 85347; 85610; 85730; 87641; 92928; 93005; 93306; 93460; 94060; 94620; 94640; 94664; 96374; C1769; C1876; C1887; C1893; J1200; J1644; J1650; J1720; J1940; J2060; J2270; J2405; J2920; J2930; J3246; J7040; J7512; Q9967

== ENCOUNTER 2016-05-31 09:32 | Inpatient (IN) | payer OTHER ==
[~2016-05-31] VITALS: Ht 182.9 cm; Wt 87.1 kg
[~2016-05-31 09:32] MED LIST changes: +Aspirin Chew PO; +BETA0.052 TOPICAL; +COZA25TA PO; +FERR325T PO; +FOLI1TAB4 PO; +FURO1TAB60 PO; +GABA300C5 PO; -HYDR-2376 PO; +HYDR-3516 PO; -IBUP-988 PO; +IPRASOL NEB; +NEBULIZER1 MI1; +OMEP40CA2 PO; +OXYGENTANK NAS.CANULA; +POTA20TA5 PO; +PRAS10TA PO; +PRED10 PO; +SUMA50TA2 PO; +SYMB80AE INH; +TIZA4CAP3 PO; +VENTAER INH; +ZOFR4TAB PO
[2016-05-31 09:35] VITALS: BP 160/73; PULSE 87; RESP 18; TEMP 98.2; O2SAT 95
[2016-05-31 09:36] VITALS: BP 140/84; PULSE 84; RESP 16; O2SAT 99
[2016-05-31 10:35] LABS: AUTOMATED NEUTROPHIL # 7.8 TH/MM3 (1.8-7.7); BASOPHIL % 0.3 % (0.0-2.0); EOSINOPHIL % 0.3 % (0.0-4.0); HEMATOCRIT 33.4 % (39.0-51.0); HEMO FLAGS DIFF FINAL; LYMPH % 5.6 % (9.0-44.0); LYMPHOCYTE # 0.5 TH/MM3 (1.0-4.8); MEAN CELL VOLUME 84.9 FL (80.0-100.0); MEAN CORPUSCULAR HEMOGLOBIN 28.7 PG (27.0-34.0); MEAN CORPUSCULAR HGB CONC 33.8 % (32.0-36.0); MONO % 5.9 % (0.0-8.0); NEUT % 87.9 % (16.0-70.0); PLATELET COUNT 281 TH/MM3 (150-450); RED BLOOD COUNT 3.93 MIL/MM3 (4.50-5.90); RED CELL DISTRIBUTION WIDTH 13.3 % (11.6-17.2); WHITE BLOOD COUNT 8.8 TH/MM3 (4.0-11.0)
[2016-05-31 10:55] LABS: ALT (GPT) 41 U/L (12-78); ANION GAP 9 MEQ/L (5-15); AST (GOT) 23 U/L (15-37); BLOOD UREA NITROGEN 21 MG/DL (7-18); CHLORIDE 97 MEQ/L (98-107); GLOMERULAR FILTRATION RATE 69 ML/MIN (>89); POTASSIUM 4.3 MEQ/L (3.5-5.1); SODIUM (NA) 131 MEQ/L (136-145)
[2016-05-31 10:57] LABS: ALKALINE PHOSPHATASE 118 U/L (45-117); TOTAL BILIRUBIN ADULT 0.8 MG/DL (0.2-1.0)
[2016-05-31] MEDS ORDERED: ONDANSETRON HCL 4 MG/2 ML VIAL IVP ONE (11:15)
[2016-05-31] MEDS ORDERED: MORPHINE SULFATE 4 MG/ML INJ IV PUSH ONE (11:15)
--- NOTE | 2016-05-31 11:15 | PD ---
HPI Chief Complaint: GI Complaint Time Seen by Provider: 11:08 Travel History International Travel<30 days: No Contact w/Intl Traveler<30days: No Traveled to known affect area: No History of Present Illness HPI This is a 60-year-old male former smoker with history of COPD on 3 L oxygen overnight, coronary artery disease with stenting of the LAD on May 13, CHF with an ejection fraction of 45% on echocardiogram May 06, presents for evaluation of abdominal pain and nausea and vomiting. Symptoms started 2 days ago. He reports a crampy periumbilical abdominal pain that is constant with no active bleeding leading factors. He notes several episodes of primarily yellow nonbloody emesis over the past 2 days. Yesterday had several episodes of watery diarrhea but none today. He endorses a decreased appetite. Denies any chest pain or shortness of breath, fevers or chills, flank pain, testicular or scrotal pain, dysuria. Denies any recent dietary changes. Denies any history of abdominal surgery, diverticulosis, AAA. He has no other complaints at this time. PFSH Past Medical History Arthritis: Yes Depression: Yes Cancer: Yes (AGE 3) Cardiovascular Problems: No Diminished Hearing: No Gastrointestinal Disorders: Yes Genitourinary: No Implanted Vascular Access Dvce: No Musculoskeletal: Yes (SEVERAL DISC'S INJURED) Neurologic: Yes Psychiatric: Yes Reproductive: No Respiratory: No Migraines: Yes Ulcer: Yes (DUODENAL ) Past Surgical History Abdominal Surgery: Yes (AT AGE 3 FOR CANCER MASS) Coronary Stent: Yes Eye Surgery: Yes (METAL REMOVED) Other Surgery: Yes Social History Alcohol Use: No Tobacco Use: Yes Substance Use: No Allergies-Medications (Allergen,Severity, Reaction): Coded Allergies: Novocain (Verified Allergy, Intermediate, VOMITING, 05/31/16) VOMITING AND DIZZINESS Reported Meds & Prescriptions Reported Meds & Active Scripts Active Effient (Prasugrel) 10 Mg Tab 10 Mg PO DAILY Lasix (Furosemide) 40 Mg Tab 40 Mg PO BID 30 Days Duoneb (Ipratropium-Albuterol Neb) 0.5-2.5 Mg/3 Ml Neb 1 Ampule NEB Q6HR NEB PRN Potassium Chloride Microencaps 20 Meq Tab 20 Meq PO DAILY Cozaar (Losartan Potassium) 25 Mg Tab 25 Mg PO DAILY Hydrocodone-Acetaminophen 5-325 mg Tab 1 Tab PO Q4H PRN [Aspirin Chew] 81 MG Chew 162 Mg PO DAILY Nebulizer 1 Mis Mis 1 Ea .ROUTE DIRECTED Oxygen tank (Oxygen) 1 Ea Tank 2 Liter BLAIRE.CANULA CONTINUOUS Oxygen Concentrator Portable Gaseous 2 L/min via Nasal Cannula Continuous For 99 months Reported Sumatriptan (Sumatriptan Succinate) 50 Mg Tab 50 Mg PO ONCE PRN If a satisfactory response has not been obtained at 2 hours, a second dose may be administered Zofran (Ondansetron HCl) 4 Mg Tab 4 Mg PO Q12HR PRN Gabapentin 300 Mg Cap 300 Mg PO TID Omeprazole 40 Mg Cap 40 Mg PO DAILY Ferrous Sulfate 325 Mg Tab 325 Mg PO DAILY Tizanidine (Tizanidine HCl) 4 Mg Cap 4 Mg PO TID Folate (Folic Acid) 1 Mg Tab 1 Mg PO DAILY Ventolin Hfa 18 GM Inh (Albuterol Sulfate) 90 Mcg/Act Aer 1 Puff INH Q4H PRN Symbicort Inh (Budesonide/Formoterol Fumarate) 80-4.5 Mcg/Act Aero 2 Puff INH Q12HR Zyrtec Allergy (Cetirizine HCl) 10 Mg Cap 10 Mg PO DAILY Aleve (Naproxen Sodium) 220 Mg Tab 220 Mg PO BID PRN Benadryl Allergy (Diphenhydramine HCl) 25 Mg Tab 25 Mg PO Q6H PRN Wellbutrin SR 12 HR (Bupropion HCl) 150 Mg Tab 150 Mg PO Q12HR Review of Systems Except as stated in HPI: all other systems reviewed are Neg Physical Exam Narrative GENERAL: Well-developed well-nourished male in no acute distress SKIN: Warm and dry. HEAD: Atraumatic. Normocephalic. EYES: Pupils equal and round. No scleral icterus. No injection or drainage. ENT: No nasal bleeding or discharge. Mucous membranes pink and moist. NECK: Trachea midline. No JVD. CARDIOVASCULAR: Regular rate and rhythm. No murmur appreciated. RESPIRATORY: No accessory muscle use. Wheezing bilaterally. GASTROINTESTINAL: Abdomen soft, there is generalized tenderness to palpation in the mid and lower abdomen. There is no tenderness to palpation in the right upper quadrant or left upper quadrant. No palpable pulsatile masses. No guarding. MUSCULOSKELETAL: No obvious deformities. No clubbing. No cyanosis. No edema. NEUROLOGICAL: Awake and alert. No obvious cranial nerve deficits. Motor grossly within normal limits. Normal speech. PSYCHIATRIC: Appropriate mood and affect; insight and judgment normal. Data Data Last Documented VS Vital Signs Date Time Temp Pulse Resp B/P Pulse Ox O2 Delivery O2 Flow Rate FiO2 05/31/16 11:28 82 17 156/76 98 Nasal Cannula 2 05/31/16 09:35 98.2 Orders Complete Blood Count With Diff (05/31/16 09:38) Comprehensive Metabolic Panel (05/31/16 09:38) Lipase (05/31/16 09:38) Urinalysis - C+S If Indicated (05/31/16 11:11) Ct Abd/Pel W Iv Contrast(Rout) (05/31/16 11:11) Iv Access Insert/Monitor (05/31/16 11:11) Morphine Inj (Morphine Inj) (05/31/16 11:15) Ondansetron Inj (Zofran Inj) (05/31/16 11:15) Electrocardiogram (05/31/16 11:11) Iohexol 350 Inj (Omnipaque 350 Inj) (05/31/16 12:17) Sodium Chlorid 0.9% 500 Ml Inj (Ns 500 M (05/31/16 13:30) Labs Laboratory Tests Test 05/31/16 05/31/16 09:45 12:37 White Blood Count 8.8 TH/MM3 Red Blood Count 3.93 MIL/MM3 Hemoglobin 11.3 GM/DL Hematocrit 33.4 % Mean Corpuscular Volume 84.9 FL Mean Corpuscular Hemoglobin 28.7 PG Mean Corpuscular Hemoglobin 33.8 % Concent Red Cell Distribution Width 13.3 % Platelet Count 281 TH/MM3 Mean Platelet Volume 7.1 FL Neutrophils (%) (Auto) 87.9 % Lymphocytes (%) (Auto) 5.6 % Monocytes (%) (Auto) 5.9 % Eosinophils (%) (Auto) 0.3 % Basophils (%) (Auto) 0.3 % Neutrophils # (Auto) 7.8 TH/MM3 Lymphocytes # (Auto) 0.5 TH/MM3 Monocytes # (Auto) 0.5 TH/MM3 Eosinophils # (Auto) 0.0 TH/MM3 Basophils # (Auto) 0.0 TH/MM3 CBC Comment DIFF FINAL Differential Comment Sodium Level 131 MEQ/L Potassium Level 4.3 MEQ/L Chloride Level 97 MEQ/L Carbon Dioxide Level 25.0 MEQ/L Anion Gap 9 MEQ/L Blood Urea Nitrogen 21 MG/DL Creatinine 1.09 MG/DL Estimat Glomerular Filtration 69 ML/MIN Rate Random Glucose 98 MG/DL Calcium Level 8.5 MG/DL Total Bilirubin 0.8 MG/DL Aspartate Amino Transf 23 U/L (AST/SGOT) Alanine Aminotransferase 41 U/L (ALT/SGPT) Alkaline Phosphatase 118 U/L Total Protein 7.0 GM/DL Albumin 3.5 GM/DL Lipase 135 U/L Urine Color YELLOW Urine Turbidity CLEAR Urine pH 6.0 Urine Specific [place] 1.023 Urine Protein TRACE mg/dL Urine Glucose (UA) NEG mg/dL Urine Ketones 10 mg/dL Urine Occult Blood NEG Urine Nitrite NEG Urine Bilirubin NEG Urine Urobilinogen LESS THAN 2.0 MG/DL Urine Leukocyte Esterase NEG Urine RBC LESS THAN 1 /hpf Urine WBC LESS THAN 1 /hpf Urine Hyaline Casts 6 /lpf Microscopic Urinalysis Comment CULT NOT INDICATED MDM Medical Decision Making Medical Screen Exam Complete: Yes Emergency Medical Condition: Yes Medical Record Reviewed: Yes Interpretation(s) EKG normal sinus rhythm CBC hemoglobin 11.3, essentially stable from previous CMP sodium 131, chloride 97, BUN 21 CONCLUSION: 1. Abnormal bowel gas pattern of concern for a distal small bowel obstruction. 2. The pancreatic duct is at the upper limits of normal in size with no evidence of pancreatic mass. 3. Bilateral renal cysts. 4. Fatty infiltration of the liver. Differential Diagnosis Gastroenteritis, gastritis, dehydration, diverticulitis, appendicitis, perforation, small bowel obstruction, colitis Narrative Course 60-year-old male with 2 days of nausea, vomiting, crampy generalized abdominal pain, diarrhea yesterday but none today. Plan is for basic lab work, EKG, ECG monitoring, CT of the abdomen and pelvis. The patient will be given IV Zofran, morphine. Examination patient does feel improved. A CT of the abdomen and pelvis reveals a small bowel obstruction. The plan is to admit the patient. Discussed with Dr. Mendez. Procedures EKG Prior to Arrival: Yes Diagnosis Primary Impression: Small bowel obstruction Admitting Information Admitting Physician Requests: Admit Jose Echeverria May 31, 2016 11:15
[2016-05-31 11:28] VITALS: BP 156/76; PULSE 82; RESP 17; O2SAT 98
[2016-05-31] MEDS ORDERED: IOHEXOL 350 MG/ML 10 ML VIAL (for RAD DIAG) IV ONE (12:17)
--- NOTE | 2016-05-31 12:27 | RADRPT ---
EXAM DATE/TIME: 05/31/2016 12:03 [facility] COMPARISON: No previous studies available for comparison. INDICATIONS : Diffuse abdomen pain. IV CONTRAST: 92 cc Omnipaque 350 (iohexol) IV ORAL CONTRAST: No oral contrast ingested. RADIATION DOSE: 11.26 CTDIvol (mGy) MEDICAL HISTORY : Chronic obstructive pulmonary disease. Duodenal ulcer SURGICAL HISTORY : Coronary stent. ENCOUNTER: Initial ACUITY: 1 day PAIN SCALE: 6/10 LOCATION: Abdomen TECHNIQUE: Volumetric scanning of the abdomen and pelvis was performed. Using automated exposure control and ad justment of the mA and/or kV according to patient size, radiation dose was kept as low as reasonably achievable to obtain optimal diagnostic quality images. FINDINGS: LOWER LUNGS: The visualized lower lungs are clear. There is emphysema. LIVER: Homogeneous density without lesion. There is diffuse fatty infiltration of the liver. There is no dil ation of the biliary tree. No calcified gallstones. SPLEEN: Normal size without lesion. PANCREAS: 8 pancreatic duct is at the upper limits of normal measuring 3-4 mm in size with no focal mass or inf lammatory change. KIDNEYS: Normal in size and shape. There is no solid mass, stone or hydronephrosis. There are bilateral simpl e renal cysts. ADRENAL GLANDS: Within normal limits. VASCULAR: There is no aortic aneurysm. BOWEL/MESENTERY: There is an abnormal bowel gas pattern with multiple loops of dilated fluid containing small bowel wi th multiple air-fluid levels. The loops measure up to 5 cm in greatest diameter with no focal inflamm atory change. There is no free air or fluid. The colon is decompressed. ABDOMINAL WALL: Within normal limits. RETROPERITONEUM: There is no lymphadenopathy. BLADDER: No wall thickening or mass. REPRODUCTIVE: Within normal limits. INGUINAL: There is no lymphadenopathy or hernia. MUSCULOSKELETAL: Within normal limits for patient age. A cavernous hemangioma is noted in the T11 vertebral body. CONCLUSION: 1. Abnormal bowel gas pattern of concern for a distal small bowel obstruction. 2. The pancreatic duct is at the upper limits of normal in size with no evidence of pancreatic mass. 3. Bilateral renal cysts. 4. Fatty infiltration of the liver. 1. Adan Alegria MD on May 31, 2016 at 12:20 Board Certified Radiologist. This report was verified electronically.
[2016-05-31 12:50] LABS: BLOOD, URINE NEG (NEG); GLUCOSE,URINE NEG (NEG); HYALINE CAST, URINE 6 /lpf (RARE); KETONE, URINE 10 mg/dL (NEG); NITRITE,URINE NEG (NEG); URINE COLOR YELLOW (YELLW/STRAW)
[2016-05-31 12:52] LABS: COMMENT (UR) CULT NOT INDICATED; CULTURE IF INDICATED CULT NOT INDICATED
[2016-05-31] MEDS ORDERED: SODIUM CHLORID 0.9% 500 ML INJ 500 ML IV ONE (13:30)
[2016-05-31] MEDS ORDERED: NALOXONE HCL 0.4 MG/ML AMP IV PRN (13:45)
[2016-05-31] MEDS ORDERED: ONDANSETRON HCL 4 MG/2 ML VIAL IVP PRN (13:45)
[2016-05-31 14:00] VITALS: BP 141/70; PULSE 78; RESP 20; O2SAT 98
[2016-05-31] MEDS: MORPHINE SULFATE 4 MG/ML INJ IV PRN ×3 (14:26→21:34)
[2016-05-31] MEDS: SODIUM CHLOR 0.9% 1000 ML INJ 1,000 ML IV SCH (15:39)
[2016-05-31 16:59] VITALS: BP 144/68; PULSE 80; RESP 18; TEMP 95.6; O2SAT 98
[2016-05-31] MEDS ORDERED: RESP: ALBUTEROL 2.5 MG/IPRATROPIUM 0.5 MG NEB (PRN) NEB (17:15)
--- NOTE | 2016-05-31 17:15 | EKG ---
Date Performed: 05/31/2016 Time Performed: 10:19:29 PTAGE: 60 years EKG: Sinus rhythm NORMAL ECG INTERPRETATION BASED ON A DEFAULT AGE OF 40 YEARS PREVIOUS TRACING : 05/06/2016 06.[address]-T wave changes have improved. DOCTOR: Mingo Bar Interpretating Date/Time 05/31/2016 17:03:01
--- NOTE | 2016-05-31 17:19 | HHI.HP ---
HPI Service [facility] Primary Care Physician Bhavin Schuster MD Admission Diagnosis Small bowel obstruction Diagnoses: Chief Complaint: Vomiting Travel History International Travel<30 Days: No Contact w/Intl Traveler <30 Da: No Traveled to Known Affected Are: No History of Present Illness 60-year-old male with a past medical history of COPD, ideation, chronic back pain/PVD, HTN, CHF, anxiety/depression, CAD who presented with abdominal pain, nausea, vomiting. The patient states that since early yesterday morning he isn' t having intractable nausea and vomiting. He denies any bloody emesis or blood in stool. He states that he is having significant abdominal distention yesterday. Last night he began having uncontrollable liquid stools, but the abdominal distention did improve some after that. He does have a history of bowel blockage in the past, states he's had GI series which never showed anything. He states he is having a hard time initiating voiding. He has a chronic headache, unchanged. No chest pain or shortness of breath. Review of Systems Except as stated in HPI: all other systems reviewed are Neg Past Family Social History Past Medical History COPD, on home O2 Iron deficiency anemia History of childhood superficial abdominal wall cancer Systolic heart failure Chronic back pain/degenerative disc disease Hypertension Anxiety/depression Coronary artery disease Past Surgical History Abdominal wall cancer removed as a child Cardiac catheterization with stent placement 2016 Reported Medications Effient (Prasugrel) 10 Mg Tab 10 Mg PO DAILY Lasix (Furosemide) 40 Mg Tab 40 Mg PO BID 30 Days Duoneb (Ipratropium-Albuterol Neb) 0.5-2.5 Mg/3 Ml Neb 1 Ampule NEB Q6HR NEB PRN Potassium Chloride Microencaps 20 Meq Tab 20 Meq PO DAILY Cozaar (Losartan Potassium) 25 Mg Tab 25 Mg PO DAILY Hydrocodone-Acetaminophen 5-325 mg Tab 1 Tab PO Q4H PRN [Aspirin Chew] 81 MG Chew 162 Mg PO DAILY Nebulizer 1 Mis Mis 1 Ea .ROUTE DIRECTED Oxygen tank (Oxygen) 1 Ea Tank 2 Liter BLAIRE.CANULA CONTINUOUS Oxygen Concentrator Portable Gaseous 2 L/min via Nasal Cannula Continuous For 99 months Sumatriptan (Sumatriptan Succinate) 50 Mg Tab 50 Mg PO ONCE PRN If a satisfactory response has not been obtained at 2 hours, a second dose may be administered Zofran (Ondansetron HCl) 4 Mg Tab 4 Mg PO Q12HR PRN Gabapentin 300 Mg Cap 300 Mg PO TID Omeprazole 40 Mg Cap 40 Mg PO DAILY Ferrous Sulfate 325 Mg Tab 325 Mg PO DAILY Tizanidine (Tizanidine HCl) 4 Mg Cap 4 Mg PO TID Folate (Folic Acid) 1 Mg Tab 1 Mg PO DAILY Ventolin Hfa 18 GM Inh (Albuterol Sulfate) 90 Mcg/Act Aer 1 Puff INH Q4H PRN Symbicort Inh (Budesonide/Formoterol Fumarate) 80-4.5 Mcg/Act Aero 2 Puff INH Q12HR Zyrtec Allergy (Cetirizine HCl) 10 Mg Cap 10 Mg PO DAILY Aleve (Naproxen Sodium) 220 Mg Tab 220 Mg PO BID PRN Benadryl Allergy (Diphenhydramine HCl) 25 Mg Tab 25 Mg PO Q6H PRN Wellbutrin SR 12 HR (Bupropion HCl) 150 Mg Tab 150 Mg PO Q12HR Allergies: Coded Allergies: Novocain (Verified Allergy, Intermediate, VOMITING, 05/31/16) VOMITING AND DIZZINESS Lisinopril (Verified Adverse Reaction, Unknown, Cough, 05/31/16) Active Ordered Medications Current Medications Medications (Trade) Dose Ordered Sig/Misa Route Start Time Stop Time Status Last Admin (Zofran Inj) 4 mg Q6H PRN IVP 05/31/16 13:45 (Morphine Inj) 2 mg Q3H PRN IV 05/31/16 13:45 05/31/16 14:26 Naloxone HCl 0.4 mg 0.4 mg UNSCH PRN IV 05/31/16 13:45 (NS 1000 ml Inj) 1,000 ml @ 42 mls/hr [id number] IV 05/31/16 14:00 05/31/16 15:39 (Flu (Quadrivalent) Vaccine Inj) 0.5 ml ONCE ONCE IM 06/01/16 10:00 06/01/16 10:01 Family History Heart disease and cancer Social History Quit smoking about a year ago, prior to that smoked 2 packs per day for 40 years No alcohol or drug use Physical Exam Vital Signs Vital Signs Date Time Temp Pulse Resp B/P Pulse Ox O2 Delivery O2 Flow Rate FiO2 05/31/16 16:59 95.6 80 18 144/68 98 05/31/16 14:00 78 20 141/70 98 Room Air 05/31/16 11:28 82 17 156/76 98 Nasal Cannula 2 05/31/16 10:26 95 Nasal Cannula 2 05/31/16 09:36 84 16 140/84 99 05/31/16 09:35 98.2 87 18 160/73 95 Physical Exam GENERAL: Well-developed well-nourished. In no acute distress. SKIN: Warm and dry. Small superficial laceration on the forehead, from work per patient. HEENT: Normocephalic. Pupils equal and round. Mucous membranes pink and moist. CARDIOVASCULAR: Regular rate and rhythm. No murmur appreciated. RESPIRATORY: No accessory muscle use. Clear to auscultation. Breath sounds equal bilaterally. GASTROINTESTINAL: Abdomen soft, mild periumbilical TTP, nondistended. Decreased bowel sounds. MUSCULOSKELETAL: No obvious deformities. No clubbing or cyanosis. No edema. NEUROLOGICAL: Awake and alert. No focal neurological deficits. Moves upper and lower extremities spontaneously. Normal speech. PSYCHIATRIC: Appropriate mood and affect; insight and judgment normal. Laboratory Laboratory Tests Test 05/31/16 05/31/16 09:45 12:37 White Blood Count 8.8 Red Blood Count 3.93 Hemoglobin 11.3 Hematocrit 33.4 Mean Corpuscular Volume 84.9 Mean Corpuscular Hemoglobin 28.7 Mean Corpuscular Hemoglobin 33.8 Concent Red Cell Distribution Width 13.3 Platelet Count 281 Mean Platelet Volume 7.1 Neutrophils (%) (Auto) 87.9 Lymphocytes (%) (Auto) 5.6 Monocytes (%) (Auto) 5.9 Eosinophils (%) (Auto) 0.3 Basophils (%) (Auto) 0.3 Neutrophils # (Auto) 7.8 Lymphocytes # (Auto) 0.5 Monocytes # (Auto) 0.5 Eosinophils # (Auto) 0.0 Basophils # (Auto) 0.0 CBC Comment DIFF FINAL Differential Comment Sodium Level 131 Potassium Level 4.3 Chloride Level 97 Carbon Dioxide Level 25.0 Anion Gap 9 Blood Urea Nitrogen 21 Creatinine 1.09 Estimat Glomerular Filtration 69 Rate Random Glucose 98 Calcium Level 8.5 Total Bilirubin 0.8 Aspartate Amino Transf 23 (AST/SGOT) Alanine Aminotransferase 41 (ALT/SGPT) Alkaline Phosphatase 118 Total Protein 7.0 Albumin 3.5 Lipase 135 Urine Color YELLOW Urine Turbidity CLEAR Urine pH 6.0 Urine Specific [place] 1.023 Urine Protein TRACE Urine Glucose (UA) NEG Urine Ketones 10 Urine Occult Blood NEG Urine Nitrite NEG Urine Bilirubin NEG Urine Urobilinogen LESS THAN 2.0 Urine Leukocyte Esterase NEG Urine RBC LESS THAN 1 Urine WBC LESS THAN 1 Urine Hyaline Casts 6 Microscopic Urinalysis Comment CULT NOT INDICATED Result Diagram: 05/31/16 0945 05/31/16 0945 Imaging Last Impressions Abdomen/Pelvis CT 05/31/16 1111 Signed Impressions: Service Date/Time: Tuesday, May 31, 2016 12:03 - CONCLUSION: 1. Abnormal bowel gas pattern of concern for a distal small bowel obstruction. 2. The pancreatic duct is at the upper limits of normal in size with no evidence of pancreatic mass. 3. Bilateral renal cysts. 4. Fatty infiltration of the liver. 1. Adan Alegria MD Assessment and Plan Assessment and Plan 60-year-old male with a past medical history of COPD, ideation, chronic back pain/PVD, HTN, CHF, anxiety/depression, CAD who presented with abdominal pain, nausea, vomiting Small bowel obstruction: Abdominal CT shows a normal bowel gas pattern concerning for distal small bowel obstruction. Supportive care for now. Nothing by mouth, slowly advanced to liquid diet if symptoms continue to improve. Antiemetics. IVF, caution with CHF. NG tube if needed. IV morphine as needed for pain. COPD: Chronic respiratory failure on home O2. Continue home Symbicort, Zyrtec, Benadryl prn. O2 and nebs as needed. CAD/systolic CHF/HTN: Chronic, stable. Continue aspirin, Effient, losartan. Hold home Lasix for now with decreased oral intake. Chronic pain: IV morphine as above, hold home Norvasc for now. Continue home Gabapentin, Zanaflex, naproxen as needed. DVT prophylaxis: SCDs Written by Parth Varghese, acting as scribe for Dr. Madison on 05/31/16 at 17:19. Discussed Condition With Patient, ED RN Attending Statement The documentation accurately reflects the work performed [id number] by me on at 17:19. Parth Varghese May 31, 2016 17:19 Kevin Madison MD May 31, 2016 18:20
[2016-05-31] MEDS: GABAPENTIN 300 MG CAP PO SCH (17:52)
[2016-05-31 20:00] VITALS: BP 136/69; PULSE 84; RESP 20; TEMP 97.5; O2SAT 96
[2016-05-31] MEDS: BUDESONIDE-FORMOTEROL 80/4.5 MCG INHALER INH SCH (21:00)
[2016-05-31] MEDS: buPROPion HCL 150 MG SUSTAINED RELEASE TAB PO SCH (21:31)
[2016-06-01] VITALS: BP 152/70; PULSE 88; RESP 19; TEMP 96.2; O2SAT 95
[2016-06-01] MEDS: MORPHINE SULFATE 4 MG/ML INJ IV PRN ×7 (00:48→20:27)
[2016-06-01 04:00] VITALS: BP 144/74; PULSE 84; RESP 21; TEMP 96.6; O2SAT 98
[2016-06-01] MEDS ORDERED: SUMAtriptan SUCCINATE 50 MG TAB PO ONE (04:30)
[2016-06-01 05:07] LABS: HEMATOCRIT 32.4 % (39.0-51.0); HEMO FLAGS DIFF FINAL; MEAN CELL VOLUME 85.3 FL (80.0-100.0); MEAN CORPUSCULAR HEMOGLOBIN 28.7 PG (27.0-34.0); MEAN CORPUSCULAR HGB CONC 33.6 % (32.0-36.0); PLATELET COUNT 235 TH/MM3 (150-450); RED BLOOD COUNT 3.79 MIL/MM3 (4.50-5.90); RED CELL DISTRIBUTION WIDTH 13.2 % (11.6-17.2); WHITE BLOOD COUNT 5.5 TH/MM3 (4.0-11.0)
[2016-06-01 05:08] LABS: AUTOMATED NEUTROPHIL # 4.2 TH/MM3 (1.8-7.7); BASOPHIL % 0.4 % (0.0-2.0); EOSINOPHIL # 0.1 TH/MM3 (0-0.4); EOSINOPHIL % 1.1 % (0.0-4.0); LYMPH % 7.4 % (9.0-44.0); LYMPHOCYTE # 0.4 TH/MM3 (1.0-4.8); MONO % 15.3 % (0.0-8.0); NEUT % 75.8 % (16.0-70.0)
[2016-06-01 05:30] LABS: BICARBONATE 24.7 MEQ/L (21.0-32.0); POTASSIUM 4.1 MEQ/L (3.5-5.1)
[2016-06-01] MEDS: ASPIRIN 81 MG CHEW TAB PO SCH (07:24)
[2016-06-01] MEDS: CETIRIZINE HCL 10 MG TAB PO SCH (07:24)
[2016-06-01] MEDS: BUDESONIDE-FORMOTEROL 80/4.5 MCG INHALER INH SCH ×2 (07:24→20:27)
[2016-06-01] MEDS: buPROPion HCL 150 MG SUSTAINED RELEASE TAB PO SCH ×2 (07:25→20:26)
[2016-06-01] MEDS: LOSARTAN 25 MG TAB PO SCH (07:25)
[2016-06-01] MEDS: PANTOPRAZOLE SOD 40 MG DELAYED RELEASE TAB PO SCH (07:25)
[2016-06-01] MEDS: GABAPENTIN 300 MG CAP PO SCH ×3 (07:25→17:49)
[2016-06-01] MEDS: PRASUGREL 10 MG TAB PO SCH (07:31)
[2016-06-01 08:00] VITALS: BP 133/71; PULSE 75; PULSE 77; RESP 18; TEMP 96.7; O2SAT 99
[2016-06-01] MEDS ORDERED: INFLUENZA VIRUS VACCINE (QUADRIVALENT) 0.5 ML SYR IM ONE (10:00)
[2016-06-01] MEDS: NAPROXEN 250 MG TAB PO PRN ×2 (10:02→17:49)
[2016-06-01] MEDS: diphenhydrAMINE HCL 25 MG CAP PO PRN ×2 (10:12→16:02)
--- NOTE | 2016-06-01 11:29 | HHI.PR ---
Subjective Remarks Follow-up small bowel obstruction. Still with some nausea, but no vomiting. Has had 2 watery bowel movements. Abdominal pain is slightly better today. He is reporting sinus congestion and ongoing headache that has not responded to Imitrex, morphine, naproxen. Objective Vitals Vital Signs Date Time Temp Pulse Resp B/P Pulse Ox O2 Delivery O2 Flow Rate FiO2 06/01/16 10:13 18 06/01/16 08:00 96.7 77 18 133/71 99 06/01/16 07:00 18 06/01/16 04:00 96.6 84 21 144/74 98 06/01/16 00:00 96.2 88 19 152/70 95 05/31/16 20:00 97.5 84 20 136/69 96 05/31/16 16:59 95.6 80 18 144/68 98 05/31/16 14:00 78 20 141/70 98 Room Air 05/31/16 11:28 82 17 156/76 98 Nasal Cannula 2 I/O 05/31/16 05/31/16 05/31/16 06/01/16 06/01/16 06/01/16 07:00 15:00 23:00 07:00 15:00 23:00 Intake Total 0 ml 0 ml Balance 0 ml 0 ml Intake Oral 0 ml 0 ml # Voids 2 4 # Bowel Movements 2 0 Result Diagram: 06/01/16 0421 06/01/16 0421 Imaging Last Impressions Abdomen/Pelvis CT 05/31/16 1111 Signed Impressions: Service Date/Time: Tuesday, May 31, 2016 12:03 - CONCLUSION: 1. Abnormal bowel gas pattern of concern for a distal small bowel obstruction. 2. The pancreatic duct is at the upper limits of normal in size with no evidence of pancreatic mass. 3. Bilateral renal cysts. 4. Fatty infiltration of the liver. 1. Adan Alegria MD Objective Remarks General: No acute distress. Heart: Regular rate and rhythm. No murmur. Lungs: Clear to auscultation bilaterally. No wheezes, rales, or rhonchi. Breathing is nonlabored. Abdomen: Soft, mild periumbilical and midepigastric tenderness (improved from yesterday), nondistended. Extremities: No lower extremity edema. Psych: Alert and oriented. Procedures None Urinary Catheter: No Vascular Central Line Catheter: No A/P Problem List: (1) Small bowel obstruction ICD Code: K56.69 Status: Acute (2) COPD (chronic obstructive pulmonary disease) ICD Code: J44.9 Status: Chronic (3) CAD (coronary artery disease) ICD Code: I25.10 Status: Chronic (4) Interstitial lung disease ICD Code: J84.9 Status: Chronic (5) Chronic systolic congestive heart failure ICD Code: I50.22 Status: Chronic Assessment and Plan 1. Small bowel obstruction: Continue bowel rest, IV fluids, antiemetics. Will need to be cautious with IV hydration secondary to CHF history. Consult GI. 2. COPD, interstitial lung disease: Chronic respiratory failure on home oxygen. Continue Symbicort. Continue nebs as needed. 3. CAD, chronic systolic CHF, hypertension: Stable, asymptomatic. Continue aspirin, Effient, losartan. Lasix on hold. 4. Chronic pain: Continue pain control. 5. Mild hyponatremia: Sodium improving. 6. DVT prophylaxis: SCDs. 7. Headache, sinus congestion: Add Flonase. Kevin Madison MD Jun 01, 2016 11:28
[2016-06-01 12:00] VITALS: BP 115/62; PULSE 71; RESP 16; TEMP 95.6; O2SAT 100
[2016-06-01] MEDS: FLUTICASONE PROPIONATE 50 MCG/ACT 16 GM NASAL SPRAY EACH NARE SCH (12:51)
--- NOTE | 2016-06-01 14:15 | PD.CONS ---
HPI History of Present Illness This is a 60 year old male with a past medical history of COPD, chronic back pain, PVD, HTN, CHF, anxiety/depression, CAD with recent cardiac stent on Eliquis who presented to [facility] [place] with acute onset of abdominal pain, nausea, vomiting. The patient states, symptoms happened few days ago, he woke up form sleep with vomiting, denies bloody emesis, shortly after he felt like he has to use the bathroom but nothing would come out, but he did have watery stools, non bloody.His dinner that night was a bowel of fresh fruit salad. He did have abdomen distension but that improved markedly after diarrhea and vomiting. States he always had bowel issues even as a kid, he had GI series but never had EGD/colonoscopy. States it is normal for him to go for a week or 2 without having BM, he just gets busy and forgets about it. He reports chronic GERD fairly controlled with omeprazole and Zantac for break through symptoms. CT showed Abnormal bowel gas pattern of concern for a distal small bowel obstruction, fatty liver.The patient currently is comfortable in bed, abd soft non distended, some nausea but no vomiting, he had a small mount of stool today. (Liza Chan) PFSH Past Medical History COPD, on home O2 Iron deficiency anemia History of childhood superficial abdominal wall cancer Systolic heart failure Chronic back pain/degenerative disc disease Hypertension Anxiety/depression Coronary artery disease Past Surgical History Abdominal wall cancer removed as a child Cardiac catheterization with stent placement 2016 (Liza Chan) Coded Allergies: Novocain (Verified Allergy, Intermediate, VOMITING, 05/31/16) VOMITING AND DIZZINESS Lisinopril (Verified Adverse Reaction, Unknown, Cough, 05/31/16) Medications Current Medications Medications (Trade) Dose Ordered Sig/Misa Route Start Time Stop Time Status Last Admin (Zofran Inj) 4 mg Q6H PRN IVP 05/31/16 13:45 (Morphine Inj) 2 mg Q3H PRN IV 05/31/16 13:45 06/01/16 12:52 Naloxone HCl 0.4 mg 0.4 mg UNSCH PRN IV 05/31/16 13:45 (NS 1000 ml Inj) 1,000 ml @ 42 mls/hr [id number] IV 05/31/16 14:00 05/31/16 15:39 (Symbicort 80-4.5 Mcg Inh) 2 puff Q12HR INH 05/31/16 21:00 06/01/16 07:24 (Wellbutrin Sr) 150 mg Q12HR PO 05/31/16 21:00 06/01/16 07:25 (ZyrTEC) 10 mg DAILY PO 06/01/16 09:00 06/01/16 07:24 (Neurontin) 300 mg TID PO 05/31/16 18:00 06/01/16 12:52 (Cozaar) 25 mg DAILY PO 06/01/16 09:00 06/01/16 07:25 (Protonix) 40 mg DAILY PO 06/01/16 09:00 06/01/16 07:25 (Effient) 10 mg DAILY PO 06/01/16 09:00 06/01/16 07:31 (Zanaflex) 4 mg TID PO 05/31/16 18:00 06/01/16 12:52 (Benadryl) 25 mg Q6H PRN PO 05/31/16 17:15 06/01/16 10:12 (Naprosyn) 250 mg BID PRN PO 05/31/16 17:15 06/01/16 10:02 (Aspirin Chew) 162 mg DAILY PO 06/01/16 09:00 06/01/16 07:24 (Flonase [place] Spr) 2 spray DAILY EACH NARE 06/01/16 13:00 06/01/16 12:51 Family History Heart disease and cancer Social History Quit smoking about a year ago, prior to that smoked 2 packs per day for 40 years No alcohol or drug use (Liza Chan) Review of Systems Constitutional: DENIES: Fever Endocrine: DENIES: Polyuria Eyes: DENIES: Double Vision Ears, nose, mouth, throat: DENIES: Hoarseness Respiratory: DENIES: Shortness of breath Cardiovascular: DENIES: Lower Extremity Edema Gastrointestinal: COMPLAINS OF: Abdominal pain, Constipation, Nausea, Vomiting , DENIES: Black stools, Bloody stools, Difficulty Swallowing, Swelling of Abdomen, Heartburn, Hematemesis Genitourinary: DENIES: Hematuria Musculoskeletal: DENIES: Neck pain Integumentary: DENIES: Jaundice Immunologic/allergic: DENIES: Eczema Neurologic: DENIES: Abnormal gait Psychiatric: DENIES: Confusion (Liza Chan) GI Exam Vitals I&O Vital Signs Date Time Temp Pulse Resp B/P Pulse Ox O2 Delivery O2 Flow Rate FiO2 06/01/16 12:00 95.6 71 16 115/62 100 06/01/16 10:13 18 06/01/16 08:00 96.7 77 18 133/71 99 06/01/16 07:00 18 06/01/16 04:00 96.6 84 21 144/74 98 06/01/16 00:00 96.2 88 19 152/70 95 05/31/16 20:00 97.5 84 20 136/69 96 05/31/16 16:59 95.6 80 18 144/68 98 05/31/16 14:00 78 20 141/70 98 Room Air I/O 05/31/16 05/31/16 05/31/16 06/01/16 06/01/16 06/01/16 07:00 15:00 23:00 07:00 15:00 23:00 Intake Total 0 ml 0 ml Balance 0 ml 0 ml Intake Oral 0 ml 0 ml # Voids 2 4 # Bowel Movements 2 0 Imaging Last Impressions Abdomen/Pelvis CT 05/31/16 1111 Signed Impressions: Service Date/Time: Tuesday, May 31, 2016 12:03 - CONCLUSION: 1. Abnormal bowel gas pattern of concern for a distal small bowel obstruction. 2. The pancreatic duct is at the upper limits of normal in size with no evidence of pancreatic mass. 3. Bilateral renal cysts. 4. Fatty infiltration of the liver. 1. Adan Alegria MD Laboratory Test 06/01/16 04:21 White Blood Count 5.5 TH/MM3 Red Blood Count 3.79 MIL/MM3 Hemoglobin 10.9 GM/DL Hematocrit 32.4 % Mean Corpuscular Volume 85.3 FL Mean Corpuscular Hemoglobin 28.7 PG Mean Corpuscular Hemoglobin 33.6 % Concent Red Cell Distribution Width 13.2 % Platelet Count 235 TH/MM3 Mean Platelet Volume 7.0 FL Neutrophils (%) (Auto) 75.8 % Lymphocytes (%) (Auto) 7.4 % Monocytes (%) (Auto) 15.3 % Eosinophils (%) (Auto) 1.1 % Basophils (%) (Auto) 0.4 % Neutrophils # (Auto) 4.2 TH/MM3 Lymphocytes # (Auto) 0.4 TH/MM3 Monocytes # (Auto) 0.8 TH/MM3 Eosinophils # (Auto) 0.1 TH/MM3 Basophils # (Auto) 0.0 TH/MM3 CBC Comment DIFF FINAL Differential Comment Sodium Level 134 MEQ/L Potassium Level 4.1 MEQ/L Chloride Level 99 MEQ/L Carbon Dioxide Level 24.7 MEQ/L Anion Gap 10 MEQ/L Blood Urea Nitrogen 21 MG/DL Creatinine 1.09 MG/DL Estimat Glomerular Filtration 69 ML/MIN Rate Random Glucose 96 MG/DL Calcium Level 8.6 MG/DL Physical Examination HEENT: normocephalic; atraumatic; no jaundice. NECK: Neck is supple, no JVD, no lymphadenopathy. CHEST: Chest is clear to auscultation and percussion. CARDIAC: Regular rate and rhythm with no murmur gallop or rubs. ABDOMEN: Soft, nondistended, nontender; no hepatosplenomegaly; bowel sounds are hypoactive EXTREMITIES: No clubbing, cyanosis, or edema. SKIN: Normal; no rash; no jaundice. C ENGINEER: No focal deficits; alert and oriented times three. (Liza Chan) Assessment and Plan Plan - Small bowel obstruction- Nausea, vomiting, watery stools few days ago, He did have abdomen distension but that improved some after diarrhea and vomiting. States he always had bowel issues even as a kid, he had GI series but never had EGD/colonoscopy. States it is normal for him to go for a week or 2 with out having BM, he just gets busy and forgets about it. CT showed Abnormal bowel gas pattern of concern for a distal small bowel obstruction, fatty liver.The patient currently is comfortable in bed, abd soft non distended, some nausea but no vomiting, he had a small mount of stool today. - chronic GERD fairly controlled with omeprazole and Zantac for break through symptoms. - Anemia- hgb 10.9 no active bleeding reported, no previous EGD/colonoscopy - HTN. CAD, recent cardiac stent on Elequis per attending Plan: - NPO - SBFT - Consider EGD/colonoscopy pending results above - Protonix - Monitor labs - supportive care - Patient seen and examined by Dr. Hopper and myself and this note is written on her behalf. (Liza Chan) Physician Comments seen, examined agree with about fu sbft egd/colon next week depending on sbft if not better consider surgical consult (Veronica Hopper MD) Liza Chan Jun 01, 2016 14:15 Veronica Hopper MD Jun 01, 2016 15:26
[2016-06-01] MEDS: SODIUM CHLOR 0.9% 1000 ML INJ 1,000 ML IV SCH (14:41)
[2016-06-01] MEDS ORDERED: DIATRIZOATE MEGLUM/DIATRIZOATE SOD 120 ML BTL (for RAD DIAG) PO ONE (16:12)
--- NOTE | 2016-06-01 18:48 | RADRPT ---
EXAM DATE/TIME: 06/01/2016 14:47 [place] COMPARISON: No previous studies available for comparison. INDICATIONS : Abdominal pain. FLUORO TIME: 0 minutes IMAGE COUNT: 9 CONTRAST: MD Davis IMAGING TIME(S): 15 min, 30 min, 45 min, 1 hr, 2 hr MEDICAL HISTORY : Chronic obstructive pulmonary disease. Duodenal ulcer SURGICAL HISTORY : Coronary artery stent. ENCOUNTER: Initial ACUITY: 4 - 6 days PAIN SCORE: 4/10 LOCATION: Bilateral abdomen FINDINGS: Gastrografin small bowel series was performed. Small bowel loops are dilated proximally. However ther e is progression of contrast through the small bowel into the colon by 2 hours. CONCLUSION: 1. Transit time through small bowel is within normal limits. Differential diagnosis includes an ileus or very low grade partial obstruction. Ibrahima Reynolds MD on June 01, 2016 at 18:45 Board Certified Radiologist. This report was verified electronically.
[2016-06-01 20:00] VITALS: BP 130/61; PULSE 74; RESP 18; TEMP 96.7; O2SAT 100
[2016-06-01 20:42] VITALS: PULSE 73
[2016-06-02] VITALS: BP 122/62; PULSE 74; RESP 18; TEMP 97.5; O2SAT 100
[2016-06-02] MEDS: MORPHINE SULFATE 4 MG/ML INJ IV PRN ×7 (00:05→21:23)
[2016-06-02] MEDS: diphenhydrAMINE HCL 25 MG CAP PO PRN ×3 (00:05→16:55)
[2016-06-02 05:49] LABS: AUTOMATED NEUTROPHIL # 2.5 TH/MM3 (1.8-7.7); BASOPHIL % 0.6 % (0.0-2.0); EOSINOPHIL # 0.2 TH/MM3 (0-0.4); EOSINOPHIL % 5.5 % (0.0-4.0); HEMATOCRIT 29.2 % (39.0-51.0); HEMO FLAGS DIFF FINAL; LYMPH % 14.2 % (9.0-44.0); LYMPHOCYTE # 0.6 TH/MM3 (1.0-4.8); MEAN CELL VOLUME 85.5 FL (80.0-100.0); MEAN CORPUSCULAR HEMOGLOBIN 28.7 PG (27.0-34.0); MEAN CORPUSCULAR HGB CONC 33.6 % (32.0-36.0); MONO % 15.4 % (0.0-8.0); NEUT % 64.3 % (16.0-70.0); PLATELET COUNT 225 TH/MM3 (150-450); RED BLOOD COUNT 3.42 MIL/MM3 (4.50-5.90); RED CELL DISTRIBUTION WIDTH 13.2 % (11.6-17.2)
[2016-06-02 06:37] LABS: POTASSIUM 3.8 MEQ/L (3.5-5.1)
[2016-06-02] MEDS: GABAPENTIN 300 MG CAP PO SCH ×3 (07:43→16:49)
[2016-06-02] MEDS: PANTOPRAZOLE SOD 40 MG DELAYED RELEASE TAB PO SCH (07:43)
[2016-06-02] MEDS: buPROPion HCL 150 MG SUSTAINED RELEASE TAB PO SCH ×2 (07:43→21:23)
[2016-06-02] MEDS: ASPIRIN 81 MG CHEW TAB PO SCH (07:43)
[2016-06-02] MEDS: PRASUGREL 10 MG TAB PO SCH (07:43)
[2016-06-02] MEDS: CETIRIZINE HCL 10 MG TAB PO SCH (07:43)
[2016-06-02] MEDS: LOSARTAN 25 MG TAB PO SCH (07:43)
[2016-06-02] MEDS: BUDESONIDE-FORMOTEROL 80/4.5 MCG INHALER INH SCH ×2 (07:45→21:23)
[2016-06-02] MEDS: FLUTICASONE PROPIONATE 50 MCG/ACT 16 GM NASAL SPRAY EACH NARE SCH (07:45)
[2016-06-02 08:00] VITALS: BP 134/62; PULSE 65; RESP 18; TEMP 95.1; O2SAT 99
--- NOTE | 2016-06-02 11:48 | HHI.GIFU ---
GI Follow-up Note Consult Follow-up Subjective: Patient laying in bed comfortably,feeling better. Had multiple bowel movements, watery after SBFT.We will schedule egd/colon in am Objective: PHYSICAL EXAMINATION: Vitals signs stable No fever Vital Signs Date Time Temp Pulse Resp B/P Pulse Ox O2 Delivery O2 Flow Rate FiO2 06/02/16 08:00 95.1 65 18 134/62 99 HEENT: Pupils round and reactive to light; normocephalic; atraumatic; no jaundice. Throat is clear. NECK: Neck is supple, no JVD, no lymphadenopathy. CHEST: Chest is clear to auscultation and percussion. CARDIAC: Regular rate and rhythm with no murmur gallop or rubs. ABDOMEN: Soft, distended, nontender; no hepatosplenomegaly; bowel sounds are present in all four quadrants. EXTREMITIES: No clubbing, cyanosis, or edema. SKIN: Normal; no rash; no jaundice. DISPLAY ARTIST: No focal deficits; alert and oriented times three. Available Data (labs, X- Rays, Procedues) : Laboratory Tests Test 05/31/16 06/01/16 06/02/16 12:37 04:21 05:00 Urine Color YELLOW Urine Turbidity CLEAR Urine pH 6.0 Urine Specific [place] 1.023 Urine Protein TRACE mg/dL Urine Glucose (UA) NEG mg/dL Urine Ketones 10 mg/dL Urine Occult Blood NEG Urine Nitrite NEG Urine Bilirubin NEG Urine Urobilinogen LESS THAN 2.0 MG/DL Urine Leukocyte Esterase NEG Urine RBC LESS THAN 1 /hpf Urine WBC LESS THAN 1 /hpf Urine Hyaline Casts 6 /lpf Microscopic Urinalysis Comment CULT NOT INDICATED White Blood Count 5.5 TH/MM3 4.0 TH/MM3 Red Blood Count 3.79 MIL/MM3 3.42 MIL/MM3 Hemoglobin 10.9 GM/DL 9.8 GM/DL Hematocrit 32.4 % 29.2 % Mean Corpuscular Volume 85.3 FL 85.5 FL Mean Corpuscular Hemoglobin 28.7 PG 28.7 PG Mean Corpuscular Hemoglobin 33.6 % 33.6 % Concent Red Cell Distribution Width 13.2 % 13.2 % Platelet Count 235 TH/MM3 225 TH/MM3 Mean Platelet Volume 7.0 FL 7.1 FL Neutrophils (%) (Auto) 75.8 % 64.3 % Lymphocytes (%) (Auto) 7.4 % 14.2 % Monocytes (%) (Auto) 15.3 % 15.4 % Eosinophils (%) (Auto) 1.1 % 5.5 % Basophils (%) (Auto) 0.4 % 0.6 % Neutrophils # (Auto) 4.2 TH/MM3 2.5 TH/MM3 Lymphocytes # (Auto) 0.4 TH/MM3 0.6 TH/MM3 Monocytes # (Auto) 0.8 TH/MM3 0.6 TH/MM3 Eosinophils # (Auto) 0.1 TH/MM3 0.2 TH/MM3 Basophils # (Auto) 0.0 TH/MM3 0.0 TH/MM3 CBC Comment DIFF FINAL DIFF FINAL Differential Comment Sodium Level 134 MEQ/L 141 MEQ/L Potassium Level 4.1 MEQ/L 3.8 MEQ/L Chloride Level 99 MEQ/L 107 MEQ/L Carbon Dioxide Level 24.7 MEQ/L 23.0 MEQ/L Anion Gap 10 MEQ/L 11 MEQ/L Blood Urea Nitrogen 21 MG/DL 21 MG/DL Creatinine 1.09 MG/DL 1.00 MG/DL Estimat Glomerular Filtration 69 ML/MIN 76 ML/MIN Rate Random Glucose 96 MG/DL 68 MG/DL Calcium Level 8.6 MG/DL 8.5 MG/DL ASSESSMENT/PLAN: recurrent sbo , point of recurrent obstruction seems to be right lower quadrant Recommendations clear liquid diet egd/colonoscopy in am general surgery evaluation It was a pleasure seeing Julio Dugan Thank you for this consult. Entered by: Veronica Newman MD Jun 02, 2016 11:48
[2016-06-02 12:00] VITALS: BP 128/64; PULSE 68; RESP 16; TEMP 96.9; O2SAT 98
--- NOTE | 2016-06-02 12:27 | PD.CAR.PN ---
CVT Progress Note Subjective/Hospital Course: Referral received Full consult to pamela Aguirre Objective: Vital Signs Date Time Temp Pulse Resp B/P Pulse Ox O2 Delivery O2 Flow Rate FiO2 06/02/16 12:00 96.9 68 16 128/64 98 06/02/16 08:00 95.1 65 18 134/62 99 06/02/16 00:00 97.5 74 18 122/62 100 06/01/16 20:42 73 06/01/16 20:00 96.7 74 18 130/61 100 06/01/16 12:57 18 Labs: Laboratory Tests Test 06/02/16 05:00 White Blood Count 4.0 TH/MM3 (4.0-11.0) Red Blood Count 3.42 MIL/MM3 (4.50-5.90) Hemoglobin 9.8 GM/DL (13.0-17.0) Hematocrit 29.2 % (39.0-51.0) Mean Corpuscular Volume 85.5 FL (80.0-100.0) Mean Corpuscular Hemoglobin 28.7 PG (27.0-34.0) Mean Corpuscular Hemoglobin 33.6 % Concent (32.0-36.0) Red Cell Distribution Width 13.2 % (11.6-17.2) Platelet Count 225 TH/MM3 (150-450) Mean Platelet Volume 7.1 FL (7.0-11.0) Neutrophils (%) (Auto) 64.3 % (16.0-70.0) Lymphocytes (%) (Auto) 14.2 % (9.0-44.0) Monocytes (%) (Auto) 15.4 % (0.0-8.0) Eosinophils (%) (Auto) 5.5 % (0.0-4.0) Basophils (%) (Auto) 0.6 % (0.0-2.0) Neutrophils # (Auto) 2.5 TH/MM3 (1.8-7.7) Lymphocytes # (Auto) 0.6 TH/MM3 (1.0-4.8) Monocytes # (Auto) 0.6 TH/MM3 (0-0.9) Eosinophils # (Auto) 0.2 TH/MM3 (0-0.4) Basophils # (Auto) 0.0 TH/MM3 (0-0.2) CBC Comment DIFF FINAL Differential Comment Sodium Level 141 MEQ/L (136-145) Potassium Level 3.8 MEQ/L (3.5-5.1) Chloride Level 107 MEQ/L (98-107) Carbon Dioxide Level 23.0 MEQ/L (21.0-32.0) Anion Gap 11 MEQ/L (5-15) Blood Urea Nitrogen 21 MG/DL (7-18) Creatinine 1.00 MG/DL (0.60-1.30) Estimat Glomerular Filtration 76 ML/MIN (>89) Rate Random Glucose 68 MG/DL (74-106) Calcium Level 8.5 MG/DL (8.5-10.1) Result Diagram: 06/02/16 0500 06/02/16 0500 Robert Pimentel MD Jun 02, 2016 12:27
[2016-06-02] MEDS: SODIUM CHLOR 0.9% 1000 ML INJ 1,000 ML IV SCH (12:28)
--- NOTE | 2016-06-02 14:54 | HHI.PR ---
Subjective Remarks Follow-up small bowel obstruction. The patient states that he feels a little better today. He was advanced to clear liquid diet by GI. Abdominal pain is improving. Headache is improving as well. Objective Vitals Vital Signs Date Time Temp Pulse Resp B/P Pulse Ox O2 Delivery O2 Flow Rate FiO2 06/02/16 12:00 96.9 68 16 128/64 98 06/02/16 08:00 95.1 65 18 134/62 99 06/02/16 00:00 97.5 74 18 122/62 100 06/01/16 20:42 73 06/01/16 20:00 96.7 74 18 130/61 100 I/O 06/01/16 06/01/16 06/01/16 06/02/16 06/02/16 06/02/16 07:00 15:00 23:00 07:00 15:00 23:00 Intake Total 0 ml 1684 ml 310 ml 320 ml 288 ml Output Total 600 ml Balance 0 ml 1084 ml 310 ml 320 ml 288 ml Intake Oral 0 ml 0 ml 0 ml 0 ml IV Total 1684 ml 310 ml 320 ml 288 ml Output Urine Total 600 ml # Voids 4 1 3 # Bowel Movements 0 4 0 2 Result Diagram: 06/02/16 0500 06/02/16 0500 Imaging Last Impressions Small Bowel X-Ray 06/01/16 0000 Signed Impressions: Service Date/Time: Wednesday, June 01, 2016 14:47 - CONCLUSION: 1. Transit time through small bowel is within normal limits. Differential diagnosis includes an ileus or very low grade partial obstruction. Ibrahima Reynolds MD Abdomen/Pelvis CT 05/31/16 1111 Signed Impressions: Service Date/Time: Tuesday, May 31, 2016 12:03 - CONCLUSION: 1. Abnormal bowel gas pattern of concern for a distal small bowel obstruction. 2. The pancreatic duct is at the upper limits of normal in size with no evidence of pancreatic mass. 3. Bilateral renal cysts. 4. Fatty infiltration of the liver. 1. Adan Alegria MD Objective Remarks General: No acute distress. Heart: Regular rate and rhythm. No murmur. Lungs: Clear to auscultation bilaterally. No wheezes, rales, or rhonchi. Breathing is nonlabored. Abdomen: Soft, nontender, nondistended. Extremities: No lower extremity edema. Psych: Alert and oriented. Procedures None Urinary Catheter: No Vascular Central Line Catheter: No A/P Problem List: (1) Small bowel obstruction ICD Code: K56.69 Status: Acute (2) COPD (chronic obstructive pulmonary disease) ICD Code: J44.9 Status: Chronic (3) CAD (coronary artery disease) ICD Code: I25.10 Status: Chronic (4) Interstitial lung disease ICD Code: J84.9 Status: Chronic (5) Chronic systolic congestive heart failure ICD Code: I50.22 Status: Chronic Assessment and Plan 1. Small bowel obstruction: Continue IV fluids, antiemetics. Clear liquid diet. Will need to be cautious with IV hydration secondary to CHF history. Appreciate gastroenterology recommendations. General surgery consultation requested. 2. COPD, interstitial lung disease: Chronic respiratory failure on home oxygen. Continue Symbicort. Continue nebs as needed. The patient has been stable on room air much of the day today. 3. CAD, chronic systolic CHF, hypertension: Stable, asymptomatic. Continue aspirin, Effient, losartan. Lasix on hold. 4. Chronic pain: Continue pain control. 5. Mild hyponatremia: Resolved. 6. DVT prophylaxis: SCDs. 7. Headache, sinus congestion: Continue Flonase. Kevin Madison MD Jun 02, 2016 14:54
[2016-06-02] MEDS ORDERED: MAGNESIUM CITRATE SOLN 300 ML BTL PO ONE ×2 (15:00→20:00)
[2016-06-02 16:00] VITALS: BP 147/72; PULSE 92; RESP 18; TEMP 97.2; O2SAT 92
[2016-06-02 20:00] VITALS: BP 161/80; PULSE 94; RESP 24; TEMP 96.8; O2SAT 96
[2016-06-02] MEDS: SODIUM CHLORID 0.9% 500 ML IV SCH (23:45)
[2016-06-02] MEDS: LACTATED RINGER'S 1000 ML IV SCH (23:45)
[2016-06-03] VITALS (7 sets, daily range): BP systolic 125–150; BP diastolic 62–72; PULSE 65–82; RESP 16–22; TEMP 96.5–97.4; O2SAT 92–100
[2016-06-03] MEDS: MORPHINE SULFATE 4 MG/ML INJ IV PRN ×5 (05:42→19:54)
[2016-06-03 06:11] LABS: AUTOMATED NEUTROPHIL # 2.8 TH/MM3 (1.8-7.7); BASOPHIL % 0.6 % (0.0-2.0); EOSINOPHIL # 0.3 TH/MM3 (0-0.4); EOSINOPHIL % 5.9 % (0.0-4.0); HEMATOCRIT 29.9 % (39.0-51.0); HEMO FLAGS DIFF FINAL; LYMPH % 17.7 % (9.0-44.0); LYMPHOCYTE # 0.8 TH/MM3 (1.0-4.8); MEAN CORPUSCULAR HEMOGLOBIN 28.7 PG (27.0-34.0); MEAN CORPUSCULAR HGB CONC 33.8 % (32.0-36.0); MONO % 12.6 % (0.0-8.0); NEUT % 63.2 % (16.0-70.0); PLATELET COUNT 234 TH/MM3 (150-450); RED BLOOD COUNT 3.52 MIL/MM3 (4.50-5.90); RED CELL DISTRIBUTION WIDTH 13.2 % (11.6-17.2); WHITE BLOOD COUNT 4.5 TH/MM3 (4.0-11.0)
[2016-06-03 06:37] LABS: BICARBONATE 26.6 MEQ/L (21.0-32.0)
--- NOTE | 2016-06-03 07:46 | HHI.PR ---
Subjective Remarks Follow up SBO. Patient still reporting watery stools. No abdominal pain, nausea , vomiting. Objective Vitals Vital Signs Date Time Temp Pulse Resp B/P Pulse Ox O2 Delivery O2 Flow Rate FiO2 06/03/16 00:00 96.6 78 22 125/67 100 06/02/16 20:00 96.8 94 24 161/80 96 06/02/16 16:00 97.2 92 18 147/72 92 06/02/16 12:00 96.9 68 16 128/64 98 06/02/16 08:00 95.1 65 18 134/62 99 I/O 06/02/16 06/02/16 06/02/16 06/03/16 06/03/16 06/03/16 07:00 15:00 23:00 07:00 15:00 23:00 Intake Total 320 ml 888 ml 820 ml 315 ml Balance 320 ml 888 ml 820 ml 315 ml Intake Oral 0 ml 600 ml 480 ml 0 ml IV Total 320 ml 288 ml 340 ml 315 ml # Voids 3 4 3 4 # Bowel Movements 2 3 3 4 Result Diagram: 06/03/16 0515 06/03/16 0515 Imaging Last Impressions Small Bowel X-Ray 06/01/16 0000 Signed Impressions: Service Date/Time: Wednesday, June 01, 2016 14:47 - CONCLUSION: 1. Transit time through small bowel is within normal limits. Differential diagnosis includes an ileus or very low grade partial obstruction. Ibrahima Reynolds MD Abdomen/Pelvis CT 05/31/16 1111 Signed Impressions: Service Date/Time: Tuesday, May 31, 2016 12:03 - CONCLUSION: 1. Abnormal bowel gas pattern of concern for a distal small bowel obstruction. 2. The pancreatic duct is at the upper limits of normal in size with no evidence of pancreatic mass. 3. Bilateral renal cysts. 4. Fatty infiltration of the liver. 1. Adan Alegria MD Objective Remarks General: No acute distress. Heart: Regular rate and rhythm. No murmur. Lungs: Clear to auscultation bilaterally. No wheezes, rales, or rhonchi. Breathing is nonlabored. Abdomen: Soft, nontender, nondistended. Extremities: No lower extremity edema. Psych: Alert and oriented. Procedures None Urinary Catheter: No Vascular Central Line Catheter: No A/P Problem List: (1) Small bowel obstruction ICD Code: K56.69 Status: Acute (2) COPD (chronic obstructive pulmonary disease) ICD Code: J44.9 Status: Chronic (3) CAD (coronary artery disease) ICD Code: I25.10 Status: Chronic (4) Interstitial lung disease ICD Code: J84.9 Status: Chronic (5) Chronic systolic congestive heart failure ICD Code: I50.22 Status: Chronic Assessment and Plan 1. Small bowel obstruction: Continue IV fluids, antiemetics. Clear liquid diet. Will need to be cautious with IV hydration secondary to CHF history. Appreciate gastroenterology recommendations. EGD/colonoscopy today. General surgery consultation is pending. 2. COPD, interstitial lung disease: Chronic respiratory failure on home oxygen. Continue Symbicort. Continue nebs as needed. The patient has been requiring less oxygen and even tolerating room air for extended periods of time. 3. CAD, chronic systolic CHF, hypertension: Stable, asymptomatic. Continue aspirin, Effient, losartan. Lasix on hold. 4. Chronic pain: Continue pain control. 5. Mild hyponatremia: Resolved. 6. DVT prophylaxis: SCDs. 7. Headache, sinus congestion: Continue Flonase. Kevin Madison MD Jun 03, 2016 07:46
[2016-06-03] MEDS: BUDESONIDE-FORMOTEROL 80/4.5 MCG INHALER INH SCH ×2 (09:22→19:52)
[2016-06-03] MEDS: FLUTICASONE PROPIONATE 50 MCG/ACT 16 GM NASAL SPRAY EACH NARE SCH (09:23)
[2016-06-03] MEDS: PANTOPRAZOLE SOD 40 MG DELAYED RELEASE TAB PO SCH (09:24)
[2016-06-03] MEDS: buPROPion HCL 150 MG SUSTAINED RELEASE TAB PO SCH ×2 (09:24→19:51)
[2016-06-03] MEDS: CETIRIZINE HCL 10 MG TAB PO SCH (09:24)
[2016-06-03] MEDS: GABAPENTIN 300 MG CAP PO SCH ×3 (09:24→16:58)
[2016-06-03] MEDS: ASPIRIN 81 MG CHEW TAB PO SCH (09:24)
[2016-06-03] MEDS: LOSARTAN 25 MG TAB PO SCH (09:24)
[2016-06-03] MEDS ORDERED: PROPOFOL 200 MG/20 ML AMP IV ONE (12:09)
[2016-06-03] MEDS: SODIUM CHLOR 0.9% 1000 ML INJ 1,000 ML IV SCH (13:27)
[2016-06-03] MEDS: SODIUM CHLORID 0.9% 500 ML IV SCH (16:25)
[2016-06-03] MEDS: diphenhydrAMINE HCL 25 MG CAP PO PRN ×2 (17:08→23:58)
[2016-06-03] MEDS: LACTATED RINGER'S 1000 ML IV SCH (23:37)
[2016-06-04] VITALS: BP 136/67; PULSE 80; RESP 18; TEMP 97; O2SAT 95
[2016-06-04] MEDS: MORPHINE SULFATE 4 MG/ML INJ IV PRN ×6 (03:44→19:49)
[2016-06-04] MEDS: CETIRIZINE HCL 10 MG TAB PO SCH (07:58)
[2016-06-04] MEDS: GABAPENTIN 300 MG CAP PO SCH ×3 (07:58→16:16)
[2016-06-04] MEDS: PANTOPRAZOLE SOD 40 MG DELAYED RELEASE TAB PO SCH (07:58)
[2016-06-04] MEDS: LOSARTAN 25 MG TAB PO SCH (07:59)
[2016-06-04] MEDS: buPROPion HCL 150 MG SUSTAINED RELEASE TAB PO SCH ×2 (07:59→22:16)
[2016-06-04] MEDS: ASPIRIN 81 MG CHEW TAB PO SCH (07:59)
[2016-06-04 08:00] VITALS: BP 150/70; PULSE 72; RESP 18; TEMP 97.5; O2SAT 97
--- NOTE | 2016-06-04 08:36 | HHI.PR ---
Subjective Remarks Follow-up small bowel obstruction. The patient denies abdominal pain at this time, but does feel bloated following the procedures yesterday. No nausea or vomiting. He also states that he is having pain in his right upper arm again. This occurred during his last hospitalization, but resolved on its own. He believes that it is related to how he is sleeping in this bed. Objective Vitals Vital Signs Date Time Temp Pulse Resp B/P Pulse Ox O2 Delivery O2 Flow Rate FiO2 06/04/16 00:00 97.0 80 18 136/67 95 06/03/16 20:00 81 06/03/16 20:00 97.4 82 16 135/72 92 06/03/16 16:00 96.6 73 20 150/66 95 06/03/16 13:05 98 Nasal Cannula 1.00 06/03/16 13:05 96.7 70 20 147/68 98 06/03/16 12:45 67 18 134/66 93 06/03/16 12:35 80 18 129/65 93 06/03/16 12:25 98.6 69 18 117/69 98 06/03/16 11:38 96.5 65 18 133/62 99 06/03/16 09:59 99 Nasal Cannula 4.00 I/O 06/03/16 06/03/16 06/03/16 06/04/16 06/04/16 06/04/16 07:00 15:00 23:00 07:00 15:00 23:00 Intake Total 315 ml 780 ml 1008 ml 690 ml Balance 315 ml 780 ml 1008 ml 690 ml Intake Oral 0 ml 480 ml 840 ml 360 ml IV Total 315 ml 168 ml 330 ml Other 300 ml # Voids 4 2 4 3 # Bowel Movements 4 1 2 0 Result Diagram: 06/03/16 0515 06/03/16 0515 Imaging Last Impressions Small Bowel X-Ray 06/01/16 0000 Signed Impressions: Service Date/Time: Wednesday, June 01, 2016 14:47 - CONCLUSION: 1. Transit time through small bowel is within normal limits. Differential diagnosis includes an ileus or very low grade partial obstruction. Ibrahima Reynolds MD Abdomen/Pelvis CT 05/31/16 1111 Signed Impressions: Service Date/Time: Tuesday, May 31, 2016 12:03 - CONCLUSION: 1. Abnormal bowel gas pattern of concern for a distal small bowel obstruction. 2. The pancreatic duct is at the upper limits of normal in size with no evidence of pancreatic mass. 3. Bilateral renal cysts. 4. Fatty infiltration of the liver. 1. Adan Alegria MD Objective Remarks General: No acute distress. Heart: Regular rate and rhythm. No murmur. Lungs: Clear to auscultation bilaterally. No wheezes, rales, or rhonchi. Breathing is nonlabored. Abdomen: Soft, nontender, mildly distended. Extremities: No lower extremity edema. Psych: Alert and oriented. Procedures 06/03/16 EGD/colonoscopy Urinary Catheter: No Vascular Central Line Catheter: No A/P Problem List: (1) Small bowel obstruction ICD Code: K56.69 Status: Acute (2) COPD (chronic obstructive pulmonary disease) ICD Code: J44.9 Status: Chronic (3) CAD (coronary artery disease) ICD Code: I25.10 Status: Chronic (4) Interstitial lung disease ICD Code: J84.9 Status: Chronic (5) Chronic systolic congestive heart failure ICD Code: I50.22 Status: Chronic Assessment and Plan 1. Small bowel obstruction: Improving. Will need to be cautious with IV hydration secondary to CHF history. Appreciate gastroenterology recommendations. Status post EGD/colonoscopy. General surgery consultation is pending. Advance to full liquid diet. 2. COPD, interstitial lung disease: Chronic respiratory failure on home oxygen. Continue Symbicort. Continue nebs as needed. The patient has been requiring less oxygen and even tolerating room air for extended periods of time. 3. CAD, chronic systolic CHF, hypertension: Stable, asymptomatic. Continue aspirin, Effient, losartan. Lasix on hold. 4. Chronic pain: Continue pain control. 5. Mild hyponatremia: Resolved. 6. DVT prophylaxis: SCDs. 7. Headache, sinus congestion: Continue Flonase. Kevin Madison MD Jun 04, 2016 08:35
[2016-06-04] MEDS: FLUTICASONE PROPIONATE 50 MCG/ACT 16 GM NASAL SPRAY EACH NARE SCH (09:00)
[2016-06-04] MEDS: BUDESONIDE-FORMOTEROL 80/4.5 MCG INHALER INH SCH ×2 (09:00→22:16)
[2016-06-04] MEDS: diphenhydrAMINE HCL 25 MG CAP PO PRN ×2 (09:56→16:21)
[2016-06-04 12:00] VITALS: BP 134/66; PULSE 70; RESP 18; TEMP 97.9; O2SAT 96
--- NOTE | 2016-06-04 16:42 | HHI.GIFU ---
Subjective Remarks Patient is resting in bed, accompanied by family, tolerating fulls okay, he is still with chronic lower abdomen pain, he always has this pain. He denies nausea , vomiting or gi bleeding, according to daughter, his abdomen looks more distended and swollen today compared to yesterday Objective Vitals I&O Vital Signs Date Time Temp Pulse Resp B/P Pulse Ox O2 Delivery O2 Flow Rate FiO2 06/04/16 12:00 97.9 70 18 134/66 96 06/04/16 08:00 97.5 72 18 150/70 97 06/04/16 00:00 97.0 80 18 136/67 95 06/03/16 20:00 81 06/03/16 20:00 97.4 82 16 135/72 92 I/O 06/03/16 06/03/16 06/03/16 06/04/16 06/04/16 06/04/16 07:00 15:00 23:00 07:00 15:00 23:00 Intake Total 315 ml 780 ml 1008 ml 690 ml 120 ml Output Total 200 ml Balance 315 ml 780 ml 1008 ml 690 ml -80 ml Intake Oral 0 ml 480 ml 840 ml 360 ml 120 ml IV Total 315 ml 168 ml 330 ml Other 300 ml Output Urine Total 200 ml # Voids 4 2 4 3 # Bowel Movements 4 1 2 0 0 Laboratory Laboratory Tests Test 06/03/16 05:15 White Blood Count 4.5 TH/MM3 Red Blood Count 3.52 MIL/MM3 Hemoglobin 10.1 GM/DL Hematocrit 29.9 % Mean Corpuscular Volume 85.0 FL Mean Corpuscular Hemoglobin 28.7 PG Mean Corpuscular Hemoglobin 33.8 % Concent Red Cell Distribution Width 13.2 % Platelet Count 234 TH/MM3 Mean Platelet Volume 7.0 FL Neutrophils (%) (Auto) 63.2 % Lymphocytes (%) (Auto) 17.7 % Monocytes (%) (Auto) 12.6 % Eosinophils (%) (Auto) 5.9 % Basophils (%) (Auto) 0.6 % Neutrophils # (Auto) 2.8 TH/MM3 Lymphocytes # (Auto) 0.8 TH/MM3 Monocytes # (Auto) 0.6 TH/MM3 Eosinophils # (Auto) 0.3 TH/MM3 Basophils # (Auto) 0.0 TH/MM3 CBC Comment DIFF FINAL Differential Comment Sodium Level 138 MEQ/L Potassium Level 4.0 MEQ/L Chloride Level 102 MEQ/L Carbon Dioxide Level 26.6 MEQ/L Anion Gap 9 MEQ/L Blood Urea Nitrogen 14 MG/DL Creatinine 0.97 MG/DL Estimat Glomerular Filtration 79 ML/MIN Rate Random Glucose 82 MG/DL Calcium Level 8.6 MG/DL Imaging Last Impressions Small Bowel X-Ray 06/01/16 0000 Signed Impressions: Service Date/Time: Wednesday, June 01, 2016 14:47 - CONCLUSION: 1. Transit time through small bowel is within normal limits. Differential diagnosis includes an ileus or very low grade partial obstruction. Ibrahima Reynolds MD Abdomen/Pelvis CT 05/31/16 1111 Signed Impressions: Service Date/Time: Tuesday, May 31, 2016 12:03 - CONCLUSION: 1. Abnormal bowel gas pattern of concern for a distal small bowel obstruction. 2. The pancreatic duct is at the upper limits of normal in size with no evidence of pancreatic mass. 3. Bilateral renal cysts. 4. Fatty infiltration of the liver. 1. Adan Alegria MD Physical Exam HEENT: normocephalic; atraumatic; no jaundice. Throat is clear. NECK: Neck is supple, no JVD, no lymphadenopathy. CHEST: Chest is clear to auscultation and percussion. CARDIAC: Regular rate and rhythm with no murmur gallop or rubs. ABDOMEN: Soft, nondistended, lower abd tenderness; no hepatosplenomegaly; bowel sounds are present in all four quadrants. EXTREMITIES: No clubbing, cyanosis, or edema. SKIN: Normal; no rash; no jaundice. CERTIFIED COURT/MEDICAL INTERPRETER: No focal deficits; alert and oriented times three. Assessment and Plan Plan - Small bowel obstruction- Resolved. CT showed Abnormal bowel gas pattern of concern for a distal small bowel obstruction, fatty liver. SBFT suggesting ileus vs very low grade small bowel obstruction - chronic GERD fairly controlled with omeprazole and Zantac for break through symptoms. - Anemia- HH stable, no active bleeding reported, S/p EGD/colonoscopy on ()---> colonic mucosa appeared normal, no abnormalities on the EGD, no signs of active bleeding, - HTN. CAD, recent cardiac stent on Efient per attending Plan: - full liquid, okay to advance if KUB ok - KUB - CE as an OP - Protonix - Monitor labs - supportive care - Patient seen and examined by and myself and this note is written on his behalf. Liza Chan Jun 04, 2016 16:42
--- NOTE | 2016-06-04 17:28 | RADRPT ---
EXAM DATE/TIME: 06/04/2016 17:16 [facility] COMPARISON: No previous studies available for comparison. INDICATIONS : Abdominal pain. MEDICAL HISTORY : Chronic obstructive pulmonary disease. Duodenal ulcer SURGICAL HISTORY : Coronary artery stent. ENCOUNTER: Subsequent ACUITY: 1 week PAIN SCORE: 2/10 LOCATION: Bilateral abdomen FINDINGS: Supine view of the abdomen was performed. Gaseous distention of multiple bowel loops. No abnormal m asses, calcifications, or organomegaly is seen. The osseous structures are unremarkable. CONCLUSION: Gaseous distention of multiple bowel loops. Ethan Cannon MD on June 04, 2016 at 17:26 Board Certified Radiologist. This report was verified electronically.
[2016-06-04 20:00] VITALS: BP 114/63; PULSE 76; RESP 18; TEMP 97.6; O2SAT 97
[2016-06-04 21:46] VITALS: PULSE 97
[2016-06-04] MEDS: NAPROXEN 250 MG TAB PO PRN (22:18)
[2016-06-04] MEDS: LACTATED RINGER'S 1000 ML IV SCH (23:45)
[2016-06-05] VITALS: BP 122/72; PULSE 68; RESP 20; TEMP 97.4; O2SAT 97
[2016-06-05] MEDS: MORPHINE SULFATE 4 MG/ML INJ IV PRN ×3 (00:03→08:33)
[2016-06-05] MEDS: diphenhydrAMINE HCL 25 MG CAP PO PRN ×4 (00:03→20:38)
[2016-06-05 08:00] VITALS: BP 129/59; PULSE 66; RESP 18; TEMP 97.5; O2SAT 97
[2016-06-05] MEDS: LOSARTAN 25 MG TAB PO SCH (08:32)
[2016-06-05] MEDS: CETIRIZINE HCL 10 MG TAB PO SCH (08:32)
[2016-06-05] MEDS: ASPIRIN 81 MG CHEW TAB PO SCH (08:32)
[2016-06-05] MEDS: NAPROXEN 250 MG TAB PO PRN ×2 (08:32→20:37)
[2016-06-05] MEDS: PANTOPRAZOLE SOD 40 MG DELAYED RELEASE TAB PO SCH (08:33)
[2016-06-05] MEDS: PRASUGREL 10 MG TAB PO SCH (08:33)
[2016-06-05] MEDS: buPROPion HCL 150 MG SUSTAINED RELEASE TAB PO SCH ×2 (08:33→20:37)
[2016-06-05] MEDS: GABAPENTIN 300 MG CAP PO SCH ×3 (08:33→16:51)
[2016-06-05] MEDS: BUDESONIDE-FORMOTEROL 80/4.5 MCG INHALER INH SCH ×2 (08:34→20:37)
[2016-06-05] MEDS: FLUTICASONE PROPIONATE 50 MCG/ACT 16 GM NASAL SPRAY EACH NARE SCH (08:34)
[2016-06-05] MEDS ORDERED: FLUT50SP EACH NARE (09:25)
--- NOTE | 2016-06-05 09:26 | HHI.DCPOC ---
Discharge Care Plan Diagnosis: (1) Small bowel obstruction (2) Chronic systolic congestive heart failure (3) CAD (coronary artery disease) (4) HTN (hypertension) (5) Interstitial lung disease Goals to Promote Your Health * To prevent worsening of your condition and complications * To maintain your health at the optimal level Directions to Meet Your Goals Take your medications as prescribed Follow your dietary instruction Follow activity as directed Keep your appointments as scheduled Take your immunizations and boosters as scheduled If your symptoms worsen call your PCP, if no PCP go to Urgent Care Center or Emergency Room Smoking is Dangerous to Your Health. Avoid second hand smoke Call the 24-hour hour crisis hotline for domestic abuse at Kevin Madison MD Jun 05, 2016 09:26
--- NOTE | 2016-06-05 09:56 | HHI.PR ---
Subjective Remarks Follow-up small bowel obstruction. Patient states that he had abdominal pain after he ate last night. He required multiple doses of IV morphine overnight. No nausea or vomiting. No abdominal pain at this time. Reports that he is still having loose stools. Had an episode of shortness of breath overnight. No chest pain. Objective Vitals Vital Signs Date Time Temp Pulse Resp B/P Pulse Ox O2 Delivery O2 Flow Rate FiO2 06/05/16 08:00 97.5 66 18 129/59 97 06/05/16 06:16 18 06/05/16 00:00 97.4 68 20 122/72 97 06/04/16 21:46 97 06/04/16 20:00 97.6 76 18 114/63 97 06/04/16 12:00 97.9 70 18 134/66 96 I/O 06/04/16 06/04/16 06/04/16 06/05/16 06/05/16 06/05/16 07:00 15:00 23:00 07:00 15:00 23:00 Intake Total 690 ml 120 ml 1118 ml 545 ml Output Total 200 ml 500 ml 400 ml Balance 690 ml -80 ml 618 ml 145 ml Intake Oral 360 ml 120 ml 440 ml 240 ml IV Total 330 ml 678 ml 305 ml Output Urine Total 200 ml 500 ml 400 ml # Voids 3 # Bowel Movements 0 0 0 0 Result Diagram: 06/03/16 0515 06/03/16 0515 Imaging Last Impressions Abdomen X-Ray 06/04/16 0000 Signed Impressions: Service Date/Time: Saturday, June 04, 2016 17:16 - CONCLUSION: Gaseous distention of multiple bowel loops. Ethan Cannon MD Small Bowel X-Ray 06/01/16 0000 Signed Impressions: Service Date/Time: Wednesday, June 01, 2016 14:47 - CONCLUSION: 1. Transit time through small bowel is within normal limits. Differential diagnosis includes an ileus or very low grade partial obstruction. Ibrahima Reynolds MD Abdomen/Pelvis CT 05/31/16 1111 Signed Impressions: Service Date/Time: Tuesday, May 31, 2016 12:03 - CONCLUSION: 1. Abnormal bowel gas pattern of concern for a distal small bowel obstruction. 2. The pancreatic duct is at the upper limits of normal in size with no evidence of pancreatic mass. 3. Bilateral renal cysts. 4. Fatty infiltration of the liver. 1. Adan Alegria MD Objective Remarks General: No acute distress. Heart: Regular rate and rhythm. No murmur. Lungs: Clear to auscultation bilaterally. No wheezes, rales, or rhonchi. Breathing is nonlabored. Abdomen: Soft, nontender, mildly distended. Extremities: No lower extremity edema. Psych: Alert and oriented. Procedures 06/03/16 EGD/colonoscopy Urinary Catheter: No Vascular Central Line Catheter: No A/P Problem List: (1) Small bowel obstruction ICD Code: K56.69 Status: Acute (2) COPD (chronic obstructive pulmonary disease) ICD Code: J44.9 Status: Chronic (3) CAD (coronary artery disease) ICD Code: I25.10 Status: Chronic (4) Interstitial lung disease ICD Code: J84.9 Status: Chronic (5) Chronic systolic congestive heart failure ICD Code: I50.22 Status: Chronic Assessment and Plan 1. Small bowel obstruction: Improving. Will need to be cautious with IV hydration secondary to CHF history. Appreciate gastroenterology recommendations. Status post EGD/colonoscopy. Advanced to regular diet by GI. Patient continued to have abdominal pain after eating. Required IV pain medications multiple times overnight. Continue regular diet. Adjust pain medications. 2. COPD, interstitial lung disease: Chronic respiratory failure on home oxygen. Continue Symbicort. Continue nebs as needed. The patient has been requiring less oxygen and even tolerating room air for extended periods of time. 3. CAD, chronic systolic CHF, hypertension: Stable, asymptomatic. Continue aspirin, Effient, losartan. Lasix on hold. 4. Chronic pain: Continue pain control. 5. Mild hyponatremia: Resolved. 6. DVT prophylaxis: SCDs. 7. Headache, sinus congestion: Continue Flonase. Discharge Planning Possible discharge home next 1-2 days if clinically improved. Kevin Madison MD Jun 05, 2016 09:56
[2016-06-05] MEDS ORDERED: ACETAMINOPHEN/HYDROcodone 325 MG/5 MG TAB PO PRN (10:00)
[2016-06-05] MEDS: ACETAMINOPHEN/HYDROcodone 325 MG/7.5 MG TAB PO PRN ×2 (11:44→16:51)
[2016-06-05 12:00] VITALS: BP 127/60; PULSE 68; RESP 18; TEMP 98.6; O2SAT 98
--- NOTE | 2016-06-05 13:39 | HHI.GIFU ---
Subjective Remarks Ambulating around room. Tolerating regular diet. + BM. States mild abdominal cramping, much improved. Objective Vitals I&O Vital Signs Date Time Temp Pulse Resp B/P Pulse Ox O2 Delivery O2 Flow Rate FiO2 06/05/16 12:00 98.6 68 18 127/60 98 06/05/16 08:00 97.5 66 18 129/59 97 06/05/16 06:16 18 06/05/16 00:00 97.4 68 20 122/72 97 06/04/16 21:46 97 06/04/16 20:00 97.6 76 18 114/63 97 I/O 06/04/16 06/04/16 06/04/16 06/05/16 06/05/16 06/05/16 07:00 15:00 23:00 07:00 15:00 23:00 Intake Total 690 ml 120 ml 1118 ml 545 ml Output Total 200 ml 500 ml 400 ml Balance 690 ml -80 ml 618 ml 145 ml Intake Oral 360 ml 120 ml 440 ml 240 ml IV Total 330 ml 678 ml 305 ml Output Urine Total 200 ml 500 ml 400 ml # Voids 3 # Bowel Movements 0 0 0 0 Imaging Last Impressions Abdomen X-Ray 06/04/16 0000 Signed Impressions: Service Date/Time: Saturday, June 04, 2016 17:16 - CONCLUSION: Gaseous distention of multiple bowel loops. Ethan Cannon MD Small Bowel X-Ray 06/01/16 0000 Signed Impressions: Service Date/Time: Wednesday, June 01, 2016 14:47 - CONCLUSION: 1. Transit time through small bowel is within normal limits. Differential diagnosis includes an ileus or very low grade partial obstruction. Ibrahima Reynolds MD Abdomen/Pelvis CT 05/31/16 1111 Signed Impressions: Service Date/Time: Tuesday, May 31, 2016 12:03 - CONCLUSION: 1. Abnormal bowel gas pattern of concern for a distal small bowel obstruction. 2. The pancreatic duct is at the upper limits of normal in size with no evidence of pancreatic mass. 3. Bilateral renal cysts. 4. Fatty infiltration of the liver. 1. Adan Alegria MD Physical Exam HEENT: Normocephalic; atraumatic; no jaundice. CHEST: CTA CARDIAC: RRR ABDOMEN: Soft, nondistended, lower abd tenderness; no hepatosplenomegaly; bowel sounds are present in all four quadrants. EXTREMITIES: No clubbing, cyanosis, or edema. SKIN: Normal; no rash; no jaundice. REHABILITATION CLERK: No focal deficits; alert and oriented times three. Assessment and Plan Plan - Ileus vs. low grade PSBO. Resolved. Abdomen/Pelvis CT (05/31/16)----> 1. Abnormal bowel gas pattern of concern for a distal small bowel obstruction. 2. The pancreatic duct is at the upper limits of normal in size with no evidence of pancreatic mass. 3. Bilateral renal cysts. 4. Fatty infiltration of the liver. Small Bowel X-Ray (06/01/16)-----> 1. Transit time through small bowel is within normal limits. Differential diagnosis includes an ileus or very low grade partial obstruction. - chronic GERD fairly controlled with omeprazole and Zantac for break through symptoms. - Anemia- HH stable, no active bleeding reported, S/p EGD/colonoscopy on ()---> colonic mucosa appeared normal, no abnormalities on the EGD, no signs of active bleeding, - HTN. CAD, recent cardiac stent on Efient per attending Plan: - JENNIFER - PPI - CE as an OP - Monitor labs - Supportive care - Patient seen and examined by and myself and this note is written on his behalf. Fawn English Jun 05, 2016 13:39
[2016-06-05 16:00] VITALS: BP 132/63; PULSE 68; RESP 18; TEMP 97.3; O2SAT 98
[2016-06-05 20:00] VITALS: BP 140/73; PULSE 79; RESP 16; TEMP 97.2; O2SAT 97
[2016-06-05] MEDS: LACTATED RINGER'S 1000 ML IV SCH (20:37)
[2016-06-06] VITALS: BP 161/84; PULSE 70; RESP 20; TEMP 97.4; O2SAT 98
[2016-06-06 04:00] VITALS: BP 138/72; PULSE 68; RESP 18; TEMP 96.6; O2SAT 97
[2016-06-06] MEDS: ACETAMINOPHEN/HYDROcodone 325 MG/7.5 MG TAB PO PRN ×5 (04:27→21:43)
[2016-06-06 08:00] VITALS: BP 138/73; PULSE 71; RESP 16; TEMP 96.2; O2SAT 99
[2016-06-06] MEDS: BUDESONIDE-FORMOTEROL 80/4.5 MCG INHALER INH SCH ×2 (09:00→21:43)
[2016-06-06] MEDS: CETIRIZINE HCL 10 MG TAB PO SCH (09:00)
[2016-06-06] MEDS: FLUTICASONE PROPIONATE 50 MCG/ACT 16 GM NASAL SPRAY EACH NARE SCH (09:00)
[2016-06-06] MEDS: diphenhydrAMINE HCL 25 MG CAP PO PRN ×2 (09:11→16:48)
[2016-06-06] MEDS: LOSARTAN 25 MG TAB PO SCH (09:12)
[2016-06-06] MEDS: buPROPion HCL 150 MG SUSTAINED RELEASE TAB PO SCH ×2 (09:12→21:42)
[2016-06-06] MEDS: PANTOPRAZOLE SOD 40 MG DELAYED RELEASE TAB PO SCH (09:12)
[2016-06-06] MEDS: PRASUGREL 10 MG TAB PO SCH (09:13)
[2016-06-06] MEDS: ASPIRIN 81 MG CHEW TAB PO SCH (09:13)
[2016-06-06] MEDS: GABAPENTIN 300 MG CAP PO SCH ×3 (09:13→16:49)
[2016-06-06 12:00] VITALS: BP 134/73; PULSE 87; RESP 20; TEMP 95.8; O2SAT 93
[2016-06-06 16:00] VITALS: BP 117/63; PULSE 68; RESP 18; TEMP 96.3; O2SAT 98
--- NOTE | 2016-06-06 16:00 | HHI.GIFU ---
Subjective Remarks Resting in bed. + multiple liquid stools. States he can't eat, because it causes more nausea and pain. He states he did fine with the scrambled eggs yesterday, but had pain and nausea after eating croatian fries and chicken fingers last night for dinner. States he has not had anything to eat today because he does not feel good. States that whenever he has to move his bowels, he has some distention in the RLQ that subsides after moving his bowels- this has been going on for years. (Fawn English) Objective Vitals I&O Vital Signs Date Time Temp Pulse Resp B/P Pulse Ox O2 Delivery O2 Flow Rate FiO2 06/06/16 12:00 95.8 87 20 134/73 93 06/06/16 08:00 96.2 71 16 138/73 99 06/06/16 05:40 16 06/06/16 04:00 96.6 68 18 138/72 97 06/06/16 00:00 97.4 70 20 161/84 98 06/05/16 20:00 97.2 79 16 140/73 97 06/05/16 16:00 97.3 68 18 132/63 98 I/O 06/05/16 06/05/16 06/05/16 06/06/16 06/06/16 06/06/16 07:00 15:00 23:00 07:00 15:00 23:00 Intake Total 545 ml 585 ml 532 ml 240 ml Output Total 400 ml 350 ml 3 ml Balance 145 ml 235 ml 529 ml 240 ml Intake Oral 240 ml 240 ml 240 ml 240 ml IV Total 305 ml 345 ml 292 ml Output Urine Total 400 ml 350 ml 3 ml # Voids 2 # Bowel Movements 0 3 0 0 Imaging Last Impressions Abdomen X-Ray 06/04/16 0000 Signed Impressions: Service Date/Time: Saturday, June 04, 2016 17:16 - CONCLUSION: Gaseous distention of multiple bowel loops. Ethan Cannon MD Small Bowel X-Ray 06/01/16 0000 Signed Impressions: Service Date/Time: Wednesday, June 01, 2016 14:47 - CONCLUSION: 1. Transit time through small bowel is within normal limits. Differential diagnosis includes an ileus or very low grade partial obstruction. Ibrahima Reynolds MD Abdomen/Pelvis CT 05/31/16 1111 Signed Impressions: Service Date/Time: Tuesday, May 31, 2016 12:03 - CONCLUSION: 1. Abnormal bowel gas pattern of concern for a distal small bowel obstruction. 2. The pancreatic duct is at the upper limits of normal in size with no evidence of pancreatic mass. 3. Bilateral renal cysts. 4. Fatty infiltration of the liver. 1. Adan Alegria MD Physical Exam HEENT: Normocephalic; atraumatic; no jaundice. CHEST: CTA CARDIAC: RRR ABDOMEN: Soft, mildly distended, lower abd tenderness; no hepatosplenomegaly; bowel sounds are present in all four quadrants. EXTREMITIES: No clubbing, cyanosis, or edema. SKIN: Normal; no rash; no jaundice. MEASURING CLERK: No focal deficits; alert and oriented times three. (Fawn English) Assessment and Plan Plan - Ileus vs. low grade PSBO. Resolved. Abdomen/Pelvis CT (05/31/16)----> 1. Abnormal bowel gas pattern of concern for a distal small bowel obstruction. 2. The pancreatic duct is at the upper limits of normal in size with no evidence of pancreatic mass. 3. Bilateral renal cysts. 4. Fatty infiltration of the liver. Small Bowel X-Ray (06/04/16)-----> 1. Transit time through small bowel is within normal limits. Differential diagnosis includes an ileus or very low grade partial obstruction. Today's KUB pending. States that he cannot tolerate diet and therefore did not eat today. States he did tolerate the scrambled eggs yesterday, but then had worsening symptoms after eating croatian fries and chicken tenders. Pt has mild distention. Nausea. Multiple loose stools. Will add bethanechol, await today's KUB. - Chronic GERD fairly controlled with omeprazole and Zantac for break through symptoms. - Anemia- HH stable, no active bleeding reported, S/p EGD/colonoscopy on ()---> colonic mucosa appeared normal, no abnormalities on the EGD, no signs of active bleeding, - HTN. CAD, recent cardiac stent on Efient per attending Plan: - JENNIFER- Soft - PPI - Trial of Bethanechol - Await KUB - Monitor labs - Supportive care - Patient seen and examined by and myself and this note is written on his behalf. (Fawn English) Physician Comments patient was seen and examined, agree with above note, plan GES in am (Saulo Yates MD) Fawn English Jun 06, 2016 16:00 Saulo Yates MD Jun 06, 2016 19:04
[2016-06-06 16:11] LABS: BASOPHIL % 0.6 % (0.0-2.0); EOSINOPHIL # 0.3 TH/MM3 (0-0.4); EOSINOPHIL % 5.3 % (0.0-4.0); HEMATOCRIT 30.8 % (39.0-51.0); HEMO FLAGS DIFF FINAL; LYMPH % 11.2 % (9.0-44.0); LYMPHOCYTE # 0.7 TH/MM3 (1.0-4.8); MEAN CELL VOLUME 85.5 FL (80.0-100.0); MEAN CORPUSCULAR HEMOGLOBIN 28.6 PG (27.0-34.0); MEAN CORPUSCULAR HGB CONC 33.5 % (32.0-36.0); MONO % 6.7 % (0.0-8.0); NEUT % 76.2 % (16.0-70.0); PLATELET COUNT 232 TH/MM3 (150-450); RED CELL DISTRIBUTION WIDTH 13.3 % (11.6-17.2); WHITE BLOOD COUNT 6.6 TH/MM3 (4.0-11.0)
--- NOTE | 2016-06-06 16:17 | RADRPT ---
EXAM DATE/TIME: 06/06/2016 15:30 [facility] COMPARISON: ABDOMEN KUB ONLY, June 04, 2016, 17:16. INDICATIONS : Abdominal pain. MEDICAL HISTORY : Chronic obstructive pulmonary disease. Duodenal ulcer SURGICAL HISTORY : Coronary artery stent. ENCOUNTER: Initial ACUITY: 1 day PAIN SCORE: 5/10 LOCATION: Bilateral abdomen FINDINGS: 2 supine frontal views of the abdomen reveal an overall reduction in the volume of bowel gas when com pared to the prior study. Some mildly distended gas-filled loops of small bowel remain. Gas is seen w ithin the colon which is normal in caliber. No abnormal calcifications or organomegaly. Lung bases ar e clear. A scoliotic spine noted. CONCLUSION: Some improvement within the gaseous distention of the bowel as detailed above. Jorden Chakraborty Jr., MD on June 06, 2016 at 16:07 Board Certified Radiologist. This report was verified electronically.
[2016-06-06 16:22] LABS: ALT (GPT) 33 U/L (12-78); ANION GAP 7 MEQ/L (5-15); AST (GOT) 15 U/L (15-37); BICARBONATE 26.9 MEQ/L (21.0-32.0); BLOOD UREA NITROGEN 7 MG/DL (7-18); CHLORIDE 106 MEQ/L (98-107); GLOMERULAR FILTRATION RATE 84 ML/MIN (>89); POTASSIUM 3.9 MEQ/L (3.5-5.1); SODIUM (NA) 140 MEQ/L (136-145)
[2016-06-06 16:24] LABS: ALKALINE PHOSPHATASE 90 U/L (45-117); TOTAL BILIRUBIN ADULT 0.3 MG/DL (0.2-1.0)
[2016-06-06] MEDS: NAPROXEN 250 MG TAB PO PRN (16:49)
[2016-06-06 20:00] VITALS: BP 131/69; PULSE 69; PULSE 86; RESP 20; TEMP 97.3; O2SAT 97
[2016-06-06] MEDS: BETHANECHOL CHL 25 MG TAB PO SCH (21:42)
[2016-06-06] MEDS: LACTATED RINGER'S 1000 ML IV SCH (22:55)
--- NOTE | 2016-06-06 23:38 | HHI.PR ---
Subjective Remarks patient seen this morning around 10:30 AM. He reports that abdominal pain is worse, however still not as bad as on admission. He reports nausea, does not feel that he can eat today.. Objective Vital Signs Date Time Temp Pulse Resp B/P Pulse Ox O2 Delivery O2 Flow Rate FiO2 06/06/16 20:00 97.3 69 20 131/69 97 06/06/16 16:00 96.3 68 18 117/63 98 06/06/16 12:00 95.8 87 20 134/73 93 06/06/16 08:00 96.2 71 16 138/73 99 06/06/16 05:40 16 06/06/16 04:00 96.6 68 18 138/72 97 06/06/16 00:00 97.4 70 20 161/84 98 I/O 06/05/16 06/05/16 06/05/16 06/06/16 06/06/16 06/06/16 07:00 15:00 23:00 07:00 15:00 23:00 Intake Total 545 ml 585 ml 532 ml 240 ml 450 ml 360 ml Output Total 400 ml 350 ml 3 ml Balance 145 ml 235 ml 529 ml 240 ml 450 ml 360 ml Intake Oral 240 ml 240 ml 240 ml 240 ml 450 ml 360 ml IV Total 305 ml 345 ml 292 ml Output Urine Total 400 ml 350 ml 3 ml # Voids 2 4 1 # Bowel Movements 0 3 0 0 2 1 Result Diagram: 06/06/16 1540 06/06/16 1540 Objective Remarks GENERAL: sitting up in bed. Appears uncomfortable. Alert and oriented 3. SKIN: Warm and dry. HEAD: Normocephalic. EYES: No scleral icterus. No injection or drainage. NECK: Supple, trachea midline. No JVD CARDIOVASCULAR: Regular rate and rhythm without murmurs, gallops, or rubs. RESPIRATORY: Breath sounds equal bilaterally. No accessory muscle use. GASTROINTESTINAL: Abdomen tender to moderate palpation diffusely. No rebound or guarding MUSCULOSKELETAL: No cyanosis, or edema. BACK: Nontender without obvious deformity. No CVA tenderness. A/P Assessment and Plan //small bowel obstruction: Improving. Will need to be cautious with IV hydration secondary to CHF history. Appreciate gastroenterology recommendations. Status post EGD/colonoscopy. Advanced to regular diet by GI. Patient continued to have abdominal pain after eating. Required IV pain medications multiple times overnight. Continue regular diet. Adjust pain medications. -06/06. Worsening abdominal pain, nausea. AP abdomen with no acute findings. Appreciate gastroenterology assistance. Gastric emptying study planned for tomorrow. // COPD, interstitial lung disease: Chronic respiratory failure on home oxygen. Continue Symbicort. Continue nebs as needed. The patient has been requiring less oxygen and even tolerating room air for extended periods of time. -06/06. Respiratory status stable. Continue to monitor. Continue duo nebs and Symbicort. //CAD, chronic systolic CHF, hypertension: Stable, asymptomatic. Continue aspirin, Effient, losartan. Lasix on hold. //Chronic pain: Continue pain control. /Elevated lipase. Likely secondary to nausea and vomiting. No specific epigastric tenderness. Plan per GI./ //Mild hyponatremia: Resolved. // Headache, sinus congestion: Continue Flonase. //DVT prophylaxis: SCDs. Discharge Planning continues on IV pain meds Cyrus Wilson MD Jun 06, 2016 23:38
[2016-06-07] VITALS (7 sets, daily range): BP systolic 120–159; BP diastolic 59–85; PULSE 60–88; RESP 17–20; TEMP 96.1–97.8; O2SAT 95–98
[2016-06-07] MEDS: diphenhydrAMINE HCL 25 MG CAP PO PRN ×2 (03:01→19:49)
[2016-06-07] MEDS: ACETAMINOPHEN/HYDROcodone 325 MG/7.5 MG TAB PO PRN ×5 (03:02→22:20)
[2016-06-07 05:38] LABS: AUTOMATED NEUTROPHIL # 2.7 TH/MM3 (1.8-7.7); BASOPHIL % 0.7 % (0.0-2.0); EOSINOPHIL # 0.4 TH/MM3 (0-0.4); EOSINOPHIL % 9.2 % (0.0-4.0); HEMATOCRIT 30.1 % (39.0-51.0); HEMO FLAGS DIFF FINAL; LYMPH % 20.4 % (9.0-44.0); LYMPHOCYTE # 0.9 TH/MM3 (1.0-4.8); MEAN CELL VOLUME 85.5 FL (80.0-100.0); MEAN CORPUSCULAR HEMOGLOBIN 28.6 PG (27.0-34.0); MEAN CORPUSCULAR HGB CONC 33.5 % (32.0-36.0); MONO % 9.7 % (0.0-8.0); PLATELET COUNT 228 TH/MM3 (150-450); RED BLOOD COUNT 3.52 MIL/MM3 (4.50-5.90); RED CELL DISTRIBUTION WIDTH 13.2 % (11.6-17.2); WHITE BLOOD COUNT 4.5 TH/MM3 (4.0-11.0)
[2016-06-07 05:57] LABS: POTASSIUM 3.7 MEQ/L (3.5-5.1)
[2016-06-07] MEDS: NAPROXEN 250 MG TAB PO PRN ×2 (06:13→19:49)
[2016-06-07] MEDS: BETHANECHOL CHL 25 MG TAB PO SCH ×3 (06:13→19:45)
[2016-06-07] MEDS: PRASUGREL 10 MG TAB PO SCH (09:00)
[2016-06-07] MEDS: BUDESONIDE-FORMOTEROL 80/4.5 MCG INHALER INH SCH ×2 (09:00→19:44)
[2016-06-07] MEDS: CETIRIZINE HCL 10 MG TAB PO SCH (09:04)
[2016-06-07] MEDS: ASPIRIN 81 MG CHEW TAB PO SCH (09:04)
[2016-06-07] MEDS: buPROPion HCL 150 MG SUSTAINED RELEASE TAB PO SCH ×2 (09:04→19:44)
[2016-06-07] MEDS: PANTOPRAZOLE SOD 40 MG DELAYED RELEASE TAB PO SCH (09:04)
[2016-06-07] MEDS: LOSARTAN 25 MG TAB PO SCH (09:04)
[2016-06-07] MEDS: GABAPENTIN 300 MG CAP PO SCH ×3 (09:04→17:51)
[2016-06-07] MEDS: SUMAtriptan SUCCINATE 25 MG TAB PO PRN (09:05)
[2016-06-07] MEDS: FLUTICASONE PROPIONATE 50 MCG/ACT 16 GM NASAL SPRAY EACH NARE SCH (09:08)
[2016-06-07] MEDS ORDERED: METOCLOPRAMIDE HCL 10 MG/2 ML VIAL ONE (12:58)
--- NOTE | 2016-06-07 14:13 | RADRPT ---
EXAM DATE/TIME: 06/07/2016 11:24 [facility] COMPARISON: No previous studies available for comparison. INDICATIONS : Abdominal pain with nausea vomiting. DOSE: 1.1 mCi Tc99m Sulfur Colloid Labeled Whole egg PO MEDICATONS: 1.) 5 mg Reglan IV at 90 minutes IMAGIN hrs MEDICAL HISTORY : Chronic obstructive pulmonary disease. Myocardial infarction. Peripheral vascular disease. Congestive heart failure, coronary artery disease and hypertension. SURGICAL HISTORY : Metal removed from eyes and grape cluster growth removed. ENCOUNTER: Initial ACUITY: 3 days PAIN SCALE: 5/10 LOCATION: Abdomen. TECHNIQUE: Following the oral ingestion of radiotracer-labeled meal, dynamic sequential images in the MALAY projec tion were acquired with simultaneous computer acquisition. The data set was decay-corrected. FINDINGS: LAG PHASE: There is pronounced delay in initiation of emptying with onset of bonafide emptying only after about 60 minutes. EMPTYING: Gastric emptying kinetics are then linear. The decay-corrected, back-extrapolated half-time of empty ing is just under 90 minutes. (Normal for this lab is 45- 90 minutes.) INTERVENTION: Reglan was administered at 90 minutes with prompt acceleration of emptying to a corrected half-time o f less than 50 minutes. CONCLUSION: Borderline gastric emptying kinetics. Markedly prolonged lag phase. Significant correction with Viki n Vito Manning MD on June 07, 2016 at 13:40 Board Certified Radiologist. This report was verified electronically.
--- NOTE | 2016-06-07 15:45 | HHI.GIFU ---
Subjective Remarks Pt resting in bed. No abd pain, n/v. had 7 loose BM yesterday. Today none, he says he feels like he has to go but can't. Objective Vitals I&O Vital Signs Date Time Temp Pulse Resp B/P Pulse Ox O2 Delivery O2 Flow Rate FiO2 06/07/16 12:00 97.8 75 19 135/85 96 06/07/16 08:00 97.6 60 17 130/59 95 06/07/16 04:00 96.1 63 20 128/64 96 06/07/16 00:00 96.3 66 20 121/64 97 06/06/16 20:00 97.3 69 20 131/69 97 06/06/16 20:00 86 06/06/16 16:00 96.3 68 18 117/63 98 I/O 06/06/16 06/06/16 06/06/16 06/07/16 06/07/16 06/07/16 07:00 15:00 23:00 07:00 15:00 23:00 Intake Total 240 ml 450 ml 694 ml 672 ml 120 ml Output Total 600 ml Balance 240 ml 450 ml 694 ml 672 ml -480 ml Intake Oral 240 ml 450 ml 360 ml 320 ml 120 ml IV Total 334 ml 352 ml Output Urine Total 600 ml # Voids 2 4 1 3 # Bowel Movements 0 2 1 0 0 Laboratory Laboratory Tests Test 06/06/16 06/07/16 06/07/16 15:40 04:42 04:46 White Blood Count 6.6 4.5 Red Blood Count 3.60 3.52 Hemoglobin 10.3 10.1 Hematocrit 30.8 30.1 Mean Corpuscular Volume 85.5 85.5 Mean Corpuscular Hemoglobin 28.6 28.6 Mean Corpuscular Hemoglobin 33.5 33.5 Concent Red Cell Distribution Width 13.3 13.2 Platelet Count 232 228 Mean Platelet Volume 7.0 7.0 Neutrophils (%) (Auto) 76.2 60.0 Lymphocytes (%) (Auto) 11.2 20.4 Monocytes (%) (Auto) 6.7 9.7 Eosinophils (%) (Auto) 5.3 9.2 Basophils (%) (Auto) 0.6 0.7 Neutrophils # (Auto) 5.0 2.7 Lymphocytes # (Auto) 0.7 0.9 Monocytes # (Auto) 0.4 0.4 Eosinophils # (Auto) 0.3 0.4 Basophils # (Auto) 0.0 0.0 CBC Comment DIFF FINAL DIFF FINAL Differential Comment Sodium Level 140 140 Potassium Level 3.9 3.7 Chloride Level 106 104 Carbon Dioxide Level 26.9 29.0 Anion Gap 7 7 Blood Urea Nitrogen 7 5 Creatinine 0.92 0.90 Estimat Glomerular Filtration 84 86 Rate Random Glucose 93 86 Calcium Level 8.2 8.1 Total Bilirubin 0.3 Aspartate Amino Transf 15 (AST/SGOT) Alanine Aminotransferase 33 (ALT/SGPT) Alkaline Phosphatase 90 Total Protein 5.9 Albumin 3.0 Lipase 415 Imaging Last Impressions Gastric Emptying Nuclear Medicine 06/07/16 0600 Signed Impressions: Service Date/Time: Tuesday, June 07, 2016 11:24 - CONCLUSION: Borderline gastric emptying kinetics. Markedly prolonged lag phase. Significant correction with Reglan Vito Manning MD Abdomen X-Ray 06/06/16 0000 Signed Impressions: Service Date/Time: May 15:30 - CONCLUSION: Some improvement within the gaseous distention of the bowel as detailed above. Jorden Chakraborty Jr., MD Small Bowel X-Ray 06/01/16 0000 Signed Impressions: Service Date/Time: Wednesday, June 01, 2016 14:47 - CONCLUSION: 1. Transit time through small bowel is within normal limits. Differential diagnosis includes an ileus or very low grade partial obstruction. Ibrahima Reynolds MD Abdomen/Pelvis CT 05/31/16 1111 Signed Impressions: Service Date/Time: Tuesday, May 31, 2016 12:03 - CONCLUSION: 1. Abnormal bowel gas pattern of concern for a distal small bowel obstruction. 2. The pancreatic duct is at the upper limits of normal in size with no evidence of pancreatic mass. 3. Bilateral renal cysts. 4. Fatty infiltration of the liver. 1. Adan Alegria MD Physical Exam HEENT: Normocephalic; atraumatic; no jaundice. CHEST: CTA CARDIAC: RRR ABDOMEN: Soft, nontender; no hepatosplenomegaly; bowel sounds are present in all four quadrants. EXTREMITIES: No clubbing, cyanosis, or edema. SKIN: Normal; no rash; no jaundice. UROLOGIST MD: No focal deficits; alert and oriented times three. Assessment and Plan Plan - Gastroparesis. GES 06/07 showed borderline gastric emptying, markedly prolonged lag phase and significant correction with Reglan so will do reglan trial and counseled pt on gastroparesis diet. Cont. Bethanechol - Ileus vs. low grade PSBO. Resolved. Abdomen/Pelvis CT (05/31/16)----> 1. Abnormal bowel gas pattern of concern for a distal small bowel obstruction. 2. The pancreatic duct is at the upper limits of normal in size with no evidence of pancreatic mass. 3. Bilateral renal cysts. 4. Fatty infiltration of the liver. Small Bowel X-Ray (06/04/16)-----> 1. Transit time through small bowel is within normal limits. Differential diagnosis includes an ileus or very low grade partial obstruction. KUB (06/06/16)----> reduction volume of bowel gas, some mildly distended gas filled loops of bowel remain. States that he cannot tolerate diet and therefore did not eat today. - Chronic GERD fairly controlled with omeprazole and Zantac for break through symptoms. - Anemia- HH stable, no active bleeding reported, S/p EGD/colonoscopy on ()---> colonic mucosa appeared normal, no abnormalities on the EGD, no signs of active bleeding, - HTN. CAD, recent cardiac stent on Efient per attending Plan: - JENNIFER - PPI - Trial of Reglan - Cont. Bethanechol - Monitor labs - D/W patient gastroparesis diet - Supportive care - Patient seen and examined by and myself and this note is written on his behalf. Fawn English Jun 07, 2016 15:45
[2016-06-07] MEDS: METOCLOPRAMIDE HCL 10 MG TAB PO SCH ×2 (15:53→19:44)
--- NOTE | 2016-06-07 19:11 | HHI.PR ---
Subjective Remarks Patient seen this afternoon around 3 PM after gastric emptying study. Patient says he is feeling better after gastric emptying study. Emptying study was positive, however showed marked response to Reglan. Objective Vital Signs Date Time Temp Pulse Resp B/P Pulse Ox O2 Delivery O2 Flow Rate FiO2 06/07/16 16:00 97.5 65 20 159/72 98 06/07/16 15:07 16 06/07/16 12:00 97.8 75 19 135/85 96 06/07/16 10:05 16 06/07/16 08:00 97.6 60 17 130/59 95 06/07/16 04:00 96.1 63 20 128/64 96 06/07/16 00:00 96.3 66 20 121/64 97 06/06/16 20:00 97.3 69 20 131/69 97 06/06/16 20:00 86 I/O 06/06/16 06/06/16 06/06/16 06/07/16 06/07/16 06/07/16 07:00 15:00 23:00 07:00 15:00 23:00 Intake Total 240 ml 450 ml 694 ml 672 ml 120 ml Output Total 600 ml Balance 240 ml 450 ml 694 ml 672 ml -480 ml Intake Oral 240 ml 450 ml 360 ml 320 ml 120 ml IV Total 334 ml 352 ml Output Urine Total 600 ml # Voids 2 4 1 3 # Bowel Movements 0 2 1 0 0 Result Diagram: 06/07/1644106/07/16445 Objective Remarks GENERAL: sitting up in bed. Appears febrile today. Alert and oriented 3. SKIN: Warm and dry. HEAD: Normocephalic. EYES: No scleral icterus. No injection or drainage. NECK: Supple, trachea midline. No JVD CARDIOVASCULAR: Regular rate and rhythm without murmurs, gallops, or rubs. RESPIRATORY: Breath sounds equal bilaterally. No accessory muscle use. GASTROINTESTINAL: Abdomen nontender. No rebound or guarding MUSCULOSKELETAL: No cyanosis, or edema. BACK: Nontender without obvious deformity. No CVA tenderness. A/P Assessment and Plan //small bowel obstruction: Improving. Will need to be cautious with IV hydration secondary to CHF history. Appreciate gastroenterology recommendations. Status post EGD/colonoscopy. Advanced to regular diet by GI. Patient continued to have abdominal pain after eating. Required IV pain medications multiple times overnight. Continue regular diet. Adjust pain medications. -06/06. Worsening abdominal pain, nausea. AP abdomen with no acute findings. Appreciate gastroenterology assistance. Gastric emptying study planned for tomorrow. -06/07. Positive gastric emptying study for gastroparesis, however marketed improvement with Reglan. Continue Reglan. Appreciate gastroenterology assistance. // COPD, interstitial lung disease: Chronic respiratory failure on home oxygen. Continue Symbicort. Continue nebs as needed. The patient has been requiring less oxygen and even tolerating room air for extended periods of time. -06/06. Respiratory status stable. Continue to monitor. Continue duo nebs and Symbicort. //CAD, chronic systolic CHF, hypertension: Stable, asymptomatic. Continue aspirin, Effient, losartan. Lasix continues on hold. //Chronic pain: Continue pain control. /Elevated lipase. Likely secondary to nausea and vomiting. No specific epigastric tenderness. Plan per GI./ //Mild hyponatremia: Resolved. // Headache, sinus congestion: Continue Flonase. //DVT prophylaxis: SCDs.Ds. Discharge Planning Pain improved with Reglan. If abdominal pain continues to be resolved, and tolerating diet,, possible discharge tomorrow. Cyrus Wilson MD Jun 07, 2016 19:11
[2016-06-07] MEDS: LACTATED RINGER'S 1000 ML IV SCH (19:45)
[2016-06-08] VITALS: BP 112/69; PULSE 77; RESP 20; TEMP 96.9; O2SAT 96
[2016-06-08] MEDS: ACETAMINOPHEN/HYDROcodone 325 MG/7.5 MG TAB PO PRN ×3 (02:25→11:23)
[2016-06-08] MEDS: SUMAtriptan SUCCINATE 25 MG TAB PO PRN (04:13)
[2016-06-08] MEDS: NAPROXEN 250 MG TAB PO PRN (04:13)
[2016-06-08 04:54] LABS: BASOPHIL % 0.8 % (0.0-2.0); EOSINOPHIL # 0.5 TH/MM3 (0-0.4); EOSINOPHIL % 9.5 % (0.0-4.0); HEMO FLAGS DIFF FINAL; LYMPH % 20.5 % (9.0-44.0); MEAN CORPUSCULAR HEMOGLOBIN 28.5 PG (27.0-34.0); MEAN CORPUSCULAR HGB CONC 33.6 % (32.0-36.0); NEUT % 60.2 % (16.0-70.0); PLATELET COUNT 248 TH/MM3 (150-450); RED BLOOD COUNT 3.53 MIL/MM3 (4.50-5.90); RED CELL DISTRIBUTION WIDTH 13.2 % (11.6-17.2)
[2016-06-08 05:13] LABS: BICARBONATE 27.7 MEQ/L (21.0-32.0); MAGNESIUM 1.8 MG/DL (1.5-2.5); POTASSIUM 3.6 MEQ/L (3.5-5.1)
[2016-06-08] MEDS: BETHANECHOL CHL 25 MG TAB PO SCH ×2 (06:02→13:23)
[2016-06-08] MEDS: METOCLOPRAMIDE HCL 10 MG TAB PO SCH ×2 (06:02→11:23)
[2016-06-08 08:00] VITALS: BP 153/74; PULSE 61; RESP 17; TEMP 97.4; O2SAT 98
[2016-06-08] MEDS: BUDESONIDE-FORMOTEROL 80/4.5 MCG INHALER INH SCH (09:00)
[2016-06-08] MEDS: ASPIRIN 81 MG CHEW TAB PO SCH (09:31)
[2016-06-08] MEDS: PANTOPRAZOLE SOD 40 MG DELAYED RELEASE TAB PO SCH (09:31)
[2016-06-08] MEDS: PRASUGREL 10 MG TAB PO SCH (09:32)
[2016-06-08] MEDS: CETIRIZINE HCL 10 MG TAB PO SCH (09:32)
[2016-06-08] MEDS: FLUTICASONE PROPIONATE 50 MCG/ACT 16 GM NASAL SPRAY EACH NARE SCH (09:32)
[2016-06-08] MEDS: buPROPion HCL 150 MG SUSTAINED RELEASE TAB PO SCH (09:32)
[2016-06-08] MEDS: GABAPENTIN 300 MG CAP PO SCH ×2 (09:32→11:23)
[2016-06-08] MEDS: LOSARTAN 25 MG TAB PO SCH (09:32)
[2016-06-08 12:00] VITALS: BP 148/75; PULSE 73; RESP 18; TEMP 97.5; O2SAT 96
[2016-06-08] MEDS: diphenhydrAMINE HCL 25 MG CAP PO PRN (12:19)
[2016-06-08] MEDS ORDERED: HYDR-3516 PO (13:13)
[2016-06-08] MEDS ORDERED: METO10TA PO (13:15)
--- NOTE | 2016-06-08 13:30 | HHI.GIFU ---
Subjective Remarks Ambulating about in room. Feeling much better. Tolerating diet. No n/v. Abdominal pain much improved. Objective Vitals I&O Vital Signs Date Time Temp Pulse Resp B/P Pulse Ox O2 Delivery O2 Flow Rate FiO2 06/08/16 12:00 97.5 73 18 148/75 96 06/08/16 08:00 97.4 61 17 153/74 98 06/08/16 00:00 96.9 77 20 112/69 96 06/07/16 20:00 96.9 88 20 120/67 98 06/07/16 19:57 85 06/07/16 16:00 97.5 65 20 159/72 98 06/07/16 15:07 16 I/O 06/07/16 06/07/16 06/07/16 06/08/16 06/08/16 06/08/16 07:00 15:00 23:00 07:00 15:00 23:00 Intake Total 672 ml 120 ml 320 ml 240 ml 120 ml Output Total 600 ml Balance 672 ml -480 ml 320 ml 240 ml 120 ml Intake Oral 320 ml 120 ml 320 ml 240 ml 120 ml IV Total 352 ml Output Urine Total 600 ml # Voids 3 2 3 # Bowel Movements 0 0 0 2 Laboratory Laboratory Tests Test 06/08/16 04:04 White Blood Count 5.0 Red Blood Count 3.53 Hemoglobin 10.1 Hematocrit 30.0 Mean Corpuscular Volume 85.0 Mean Corpuscular Hemoglobin 28.5 Mean Corpuscular Hemoglobin 33.6 Concent Red Cell Distribution Width 13.2 Platelet Count 248 Mean Platelet Volume 7.2 Neutrophils (%) (Auto) 60.2 Lymphocytes (%) (Auto) 20.5 Monocytes (%) (Auto) 9.0 Eosinophils (%) (Auto) 9.5 Basophils (%) (Auto) 0.8 Neutrophils # (Auto) 3.0 Lymphocytes # (Auto) 1.0 Monocytes # (Auto) 0.5 Eosinophils # (Auto) 0.5 Basophils # (Auto) 0.0 CBC Comment DIFF FINAL Differential Comment Sodium Level 139 Potassium Level 3.6 Chloride Level 102 Carbon Dioxide Level 27.7 Anion Gap 9 Blood Urea Nitrogen 9 Creatinine 0.99 Estimat Glomerular Filtration 77 Rate Random Glucose 86 Calcium Level 8.5 Phosphorus Level 3.2 Magnesium Level 1.8 Albumin 3.3 Imaging Last Impressions Gastric Emptying Nuclear Medicine 06/07/16 0600 Signed Impressions: Service Date/Time: Tuesday, June 07, 2016 11:24 - CONCLUSION: Borderline gastric emptying kinetics. Markedly prolonged lag phase. Significant correction with Reglan Vito Manning MD Abdomen X-Ray 06/06/16 0000 Signed Impressions: Service Date/Time: May 15:30 - CONCLUSION: Some improvement within the gaseous distention of the bowel as detailed above. Jorden Chakraborty Jr., MD Small Bowel X-Ray 06/01/16 0000 Signed Impressions: Service Date/Time: Wednesday, June 01, 2016 14:47 - CONCLUSION: 1. Transit time through small bowel is within normal limits. Differential diagnosis includes an ileus or very low grade partial obstruction. Ibrahima Reynolds MD Abdomen/Pelvis CT 05/31/16 1111 Signed Impressions: Service Date/Time: Tuesday, May 31, 2016 12:03 - CONCLUSION: 1. Abnormal bowel gas pattern of concern for a distal small bowel obstruction. 2. The pancreatic duct is at the upper limits of normal in size with no evidence of pancreatic mass. 3. Bilateral renal cysts. 4. Fatty infiltration of the liver. 1. Adan Alegria MD Physical Exam HEENT: Normocephalic; atraumatic; no jaundice. CHEST: CTA CARDIAC: RRR ABDOMEN: Soft, nontender; no hepatosplenomegaly; bowel sounds are present in all four quadrants. EXTREMITIES: No clubbing, cyanosis, or edema. SKIN: Normal; no rash; no jaundice. HURL SHAKER: No focal deficits; alert and oriented times three. Assessment and Plan Plan - Gastroparesis. GES 06/07 showed borderline gastric emptying, markedly prolonged lag phase and significant correction with Reglan so will do reglan trial and counseled pt on gastroparesis diet. Much improved with bethanechol/reglan. Tolerating diet. - Ileus vs. low grade PSBO. Resolved. Abdomen/Pelvis CT (05/31/16)----> 1. Abnormal bowel gas pattern of concern for a distal small bowel obstruction. 2. The pancreatic duct is at the upper limits of normal in size with no evidence of pancreatic mass. 3. Bilateral renal cysts. 4. Fatty infiltration of the liver. Small Bowel X-Ray (06/04/16)-----> 1. Transit time through small bowel is within normal limits. Differential diagnosis includes an ileus or very low grade partial obstruction. KUB (06/06/16)----> reduction volume of bowel gas, some mildly distended gas filled loops of bowel remain. States that he cannot tolerate diet and therefore did not eat today. - Chronic GERD fairly controlled with omeprazole and Zantac for break through symptoms. - Anemia- HH stable, no active bleeding reported, S/p EGD/colonoscopy on ()---> colonic mucosa appeared normal, no abnormalities on the EGD, no signs of active bleeding, - HTN. CAD, recent cardiac stent on Efient per attending Plan: - JENNIFER - PPI - Cont trial of Reglan - Cont. Bethanechol - D/W patient gastroparesis diet - FU MEGGAN in 2 weeks - GI will sign off, please reconsult as needed - Patient seen and examined by and myself and this note is written on his behalf. Fawn English Jun 08, 2016 13:30
--- NOTE | 2016-06-09 00:12 | HHI.DS ---
Discharge Summary Admission Date May 31, 2016 at 13:35 Discharge Date: Jun 08, 2016 Admitting Diagnosis Small bowel obstruction (1) Small bowel obstruction ICD Code: K56.69 (2) COPD (chronic obstructive pulmonary disease) ICD Code: J44.9 (3) CAD (coronary artery disease) ICD Code: I25.10 (4) Interstitial lung disease ICD Code: J84.9 (5) Chronic systolic congestive heart failure ICD Code: I50.22 Procedures 06/03/16 EGD/colonoscopy Brief History - From Admission 60-year-old male with a past medical history of COPD, ideation, chronic back pain/PVD, HTN, CHF, anxiety/depression, CAD who presented with abdominal pain, nausea, vomiting. The patient states that since early yesterday morning he isn' t having intractable nausea and vomiting. He denies any bloody emesis or blood in stool. He states that he is having significant abdominal distention yesterday. Last night he began having uncontrollable liquid stools, but the abdominal distention did improve some after that. He does have a history of bowel blockage in the past, states he's had GI series which never showed anything. He states he is having a hard time initiating voiding. He has a chronic headache, unchanged. No chest pain or shortness of breath. CBC/BMP: 06/08/16 0404 06/08/16 0404 Significant Findings Laboratory Tests Test 06/06/16 06/07/16 06/07/16 06/08/16 15:40 04:42 04:46 04:04 Red Blood Count 3.60 MIL/MM3 3.52 MIL/MM3 3.53 MIL/MM3 (4.50-5.90) (4.50-5.90) (4.50-5.90) Hemoglobin 10.3 GM/DL 10.1 GM/DL 10.1 GM/DL (13.0-17.0) (13.0-17.0) (13.0-17.0) Hematocrit 30.8 % 30.1 % 30.0 % (39.0-51.0) (39.0-51.0) (39.0-51.0) Neutrophils (%) (Auto) 76.2 % (16.0-70.0) Eosinophils (%) (Auto) 5.3 % (0.0-4.0) 9.2 % (0.0-4.0) 9.5 % (0.0-4.0) Lymphocytes # (Auto) 0.7 TH/MM3 0.9 TH/MM3 (1.0-4.8) (1.0-4.8) Estimat Glomerular Filtration 84 ML/MIN (>89) 86 ML/MIN (>89) 77 ML/MIN (>89) Rate Calcium Level 8.2 MG/DL 8.1 MG/DL (8.5-10.1) (8.5-10.1) Total Protein 5.9 GM/DL (6.4-8.2) Albumin 3.0 GM/DL 3.3 GM/DL (3.4-5.0) (3.4-5.0) Lipase 415 U/L (73-393) Monocytes (%) (Auto) 9.7 % (0.0-8.0) 9.0 % (0.0-8.0) Blood Urea Nitrogen 5 MG/DL (7-18) Eosinophils # (Auto) 0.5 TH/MM3 (0-0.4) Imaging Last Impressions Gastric Emptying Nuclear Medicine 06/07/16 0600 Signed Impressions: Service Date/Time: Tuesday, June 07, 2016 11:24 - CONCLUSION: Borderline gastric emptying kinetics. Markedly prolonged lag phase. Significant correction with Reglan Vito Manning MD Abdomen X-Ray 06/06/16 0000 Signed Impressions: Service Date/Time: May 15:30 - CONCLUSION: Some improvement within the gaseous distention of the bowel as detailed above. Jorden Chakraborty Jr., MD Small Bowel X-Ray 06/01/16 0000 Signed Impressions: Service Date/Time: Wednesday, June 01, 2016 14:47 - CONCLUSION: 1. Transit time through small bowel is within normal limits. Differential diagnosis includes an ileus or very low grade partial obstruction. Ibrahima Reynolds MD Abdomen/Pelvis CT 05/31/16 1111 Signed Impressions: Service Date/Time: Tuesday, May 31, 2016 12:03 - CONCLUSION: 1. Abnormal bowel gas pattern of concern for a distal small bowel obstruction. 2. The pancreatic duct is at the upper limits of normal in size with no evidence of pancreatic mass. 3. Bilateral renal cysts. 4. Fatty infiltration of the liver. 1. Adan Alegria MD PE at Discharge GENERAL: lying in bed. Appears comfortable. Alert and oriented 3. SKIN: Warm and dry. HEAD: Normocephalic. EYES: No scleral icterus. No injection or drainage. NECK: Supple, trachea midline. No JVD. CARDIOVASCULAR: Regular rate and rhythm without murmurs, gallops, or rubs. RESPIRATORY: Breath sounds equal bilaterally. No accessory muscle use. GASTROINTESTINAL: Abdomen soft, non-tender, nondistended. MUSCULOSKELETAL: No cyanosis, or edema. BACK: Nontender without obvious deformity. No CVA tenderness. Pt update on day of discharge patient says he is feeling well. Reports abdominal pain is gone. Denies any chest pain or shortness of breath. Hospital Course Patient was treated for small bowel obstruction with IV fluids. Gastroenterology consultation. Gastric emptying study positive, however markedly improves of the Reglan. Symptoms resolved with Reglan. Discharged home with Reglan. small bowel obstruction: Improving. Will need to be cautious with IV hydration secondary to CHF history. Appreciate gastroenterology recommendations. Status post EGD/colonoscopy. Advanced to regular diet by GI. Patient continued to have abdominal pain after eating. Required IV pain medications multiple times overnight. Continue regular diet. Adjust pain medications. -06/06. Worsening abdominal pain, nausea. AP abdomen with no acute findings. Appreciate gastroenterology assistance. Gastric emptying study planned for tomorrow. -06/07. Positive gastric emptying study for gastroparesis, however marketed improvement with Reglan. Continue Reglan. Appreciate gastroenterology assistance. // COPD, interstitial lung disease: Chronic respiratory failure on home oxygen. Continue Symbicort. Continue nebs as needed. The patient has been requiring less oxygen and even tolerating room air for extended periods of time. -06/06. Respiratory status stable. Continue to monitor. Continue duo nebs and Symbicort. //CAD, chronic systolic CHF, hypertension: Stable, asymptomatic. Continue aspirin, Effient, losartan. Lasix continues on hold. //Chronic pain: Continue pain control. /Elevated lipase. Likely secondary to nausea and vomiting. No specific epigastric tenderness. Plan per GI./ //Mild hyponatremia: Resolved. // Headache, sinus congestion: Continue Flonase. //DVT prophylaxis: SCDs.Ds. Pt Condition on Discharge: Good Discharge Disposition: Discharge Home Discharge Time: <= 30 minutes Discharge Instructions DIET: Follow Instructions for: Heart Healthy Diet Fluid Restrictions: 2Liters Activities you can perform: Regular-No Restrictions Follow up Referrals: Gastroenterology - 1 Week with Veronica Hopper MD PCP Follow-up - [address] Schuster New Medications: Fluticasone Nasal [place] (Fluticasone Nasal [place]) 50 Mcg/Act Naspr 2 SPRAY EACH NARE DAILY sinus congestion #1 BOTTLE Metoclopramide (Metoclopramide) 10 Mg Tab 10 MG PO ACHS gastroparesis Days 30 TAB Continued Medications: Albuterol 18 GM Inh (Ventolin Hfa 18 GM Inh) 90 Mcg/Act Aer 1 PUFF INH Q4H PRN SHORTNESS OF BREATH #1 Ref 0 INHALER Budesonide-Formoterol Inh (Symbicort Inh) 80-4.5 Mcg/Act Aero 2 PUFF INH Q12HR Asthma Management #1 Ref 0 INHALER Bupropion HCl ER 12 HR (Wellbutrin SR 12 HR) 150 Mg Tab 150 MG PO Q12HR Control Depression Ref 0 TAB Cetirizine (Zyrtec Allergy) 10 Mg Cap 10 MG PO DAILY Allergies Ref 0 CAP Diphenhydramine (Benadryl Allergy) 25 Mg Tab 25 MG PO Q6H PRN ALLERGIES Ref 0 TAB Folic Acid (Folate) 1 Mg Tab 1 MG PO DAILY Nutritional Supplement Ref 0 TAB Gabapentin (Gabapentin) 300 Mg Cap 300 MG PO TID #90 Ref 0 CAP Hydrocodone-Acetaminophen (Hydrocodone-Acetaminophen) 5-325 mg Tab 1 TAB PO Q4H PRN PAIN SCALE 1 TO 10 #20 Ref 0 TAB (This prescription has been renewed) Ipratropium-Albuterol Neb (Duoneb) 0.5-2.5 Mg/3 Ml Neb 1 AMPULE NEB Q6HR NEB PRN SOB/WHEEZING #100 Ref 0 ML Losartan (Cozaar) 25 Mg Tab 25 MG PO DAILY CHF #30 Ref 0 TAB Naproxen Sodium (Aleve) 220 Mg Tab 220 MG PO BID PRN Pain Management Ref 0 TAB Nebulizer (Nebulizer) 1 Mis Mis 1 EA .ROUTE DIRECTED Breathing Treatment #1 Ref 0 EA Omeprazole (Omeprazole) 40 Mg Cap 40 MG PO DAILY #30 Ref 0 CAP Ondansetron (Zofran) 4 Mg Tab 4 MG PO Q12HR PRN NAUSEA OR VOMITING Ref 0 TAB Oxygen tank (Oxygen tank) 1 Ea Tank 2 LITER BLAIRE.CANULA CONTINUOUS Oxygen Concentrator Portable Gaseous 2 L/min via Nasal Cannula Continuous For 99 months HYPOXEMIA PREVENTION #1 CYLINDER Prasugrel (Effient) 10 Mg Tab 10 MG PO DAILY blood thinner #30 TAB Sumatriptan (Sumatriptan) 50 Mg Tab 50 MG PO ONCE If a satisfactory response has not been obtained at 2 hours, a second dose may be administered PRN MIGRAINE HEADACHE Ref 0 TAB Tizanidine (Tizanidine) 4 Mg Cap 4 MG PO TID Muscle Spasm Ref 0 CAP ([Aspirin Chew]) 81 MG CHEW 162 MG PO DAILY heart #30 Ref 0 TAB.CHEW Discontinued Medications: Ferrous Sulfate (Ferrous Sulfate) 325 Mg Tab 325 MG PO DAILY Nutritional Supplement #30 Ref 0 TAB Furosemide (Lasix) 40 Mg Tab 40 MG PO BID CHF Days 30 TAB Potassium Chloride Microencaps (Potassium Chloride Microencaps) 20 Meq Tab 20 MEQ PO DAILY Supplement #30 Ref 0 TAB Cyrus Wilson MD Jun 09, 2016 00:12
== END 2016-06-08 14:29 | disposition home or self-care (01) | DRG 389 ==
LOC: NEPC 09:32 → NEDA 13:35 → N07B 16:49
PROVIDERS: ADMIT Internal Medicine; ATTEND Internal Medicine
PROC: 0DJD8ZZ Inspection of Lower Intestinal Tract, Via Natural or Artificial Opening Endoscopic (ICD-10-PCS; principal; 2016-06-03 11:44)
PROC: 0DJ08ZZ Inspection of Upper Intestinal Tract, Via Natural or Artificial Opening Endoscopic (ICD-10-PCS; 2016-06-03 11:44)
DX: K56.60 Unspecified intestinal obstruction (principal); E87.1 Hypo-osmolality and hyponatremia; J96.10 Chronic respiratory failure, unspecified whether with hypoxia or hypercapnia; J84.9 Interstitial pulmonary disease, unspecified; I50.22 Chronic systolic (congestive) heart failure; I11.0 Hypertensive heart disease with heart failure; K76.0 Fatty (change of) liver, not elsewhere classified; K31.84 Gastroparesis; Z99.81 Dependence on supplemental oxygen; I25.10 Atherosclerotic heart disease of native coronary artery without angina pectoris; Z95.5 Presence of coronary angioplasty implant and graft; G43.909 Migraine, unspecified, not intractable, without status migrainosus; F41.9 Anxiety disorder, unspecified; F32.9 Major depressive disorder, single episode, unspecified; Z87.891 Personal history of nicotine dependence; D50.9 Iron deficiency anemia, unspecified; G89.29 Other chronic pain; J44.9 Chronic obstructive pulmonary disease, unspecified; K21.9 Gastro-esophageal reflux disease without esophagitis
CPT/HCPCS: 74000; 74177; 74250; 78264; 80048; 80053; 80069; 81001; 83690; 83735; 85025; 90686; 93005; 96374; 96375; A9541; J2270; J2405; J2765; J7030; J7040; Q2038; Q9963; Q9967

== ENCOUNTER → 2016-08-29 | Outpatient (CLI) | payer OTHER ==
[~2016-08-29] MED LIST changes: -BETA0.052 TOPICAL; -FERR325T PO; +FLUT50SP EACH NARE; -FURO1TAB60 PO; +METO10TA PO; -POTA20TA5 PO; -PRED10 PO
--- NOTE | 2016-09-02 09:32 | RSPPFT ---
DATE OF PROCEDURE: 08/29/16 COMMENTS: VOLUMES DYNAMIC: FVC low normal; FEV1 mildly reduced. STATIC: FRC, RV and TLC normal. FLOWS: FEV1% mildly reduced; FEF 25-75 moderately reduced. DIFFUSION: Severely reduced. FLOW VOLUME LOOP: Pattern of variable intrathoracic airways obstruction. IMPRESSION: Mild to moderate obstructive ventilatory defect with reduction in diffusion consistent with emphysema. No significant hyperinflation noted. Minimal change post-bronchodilator noted.
== END ==
LOC: HRSP 11:58
PROVIDERS: ATTEND Internal Medicine
DX: J44.9 Chronic obstructive pulmonary disease, unspecified (principal)
CPT/HCPCS: 94060; 94620; 94726; 94729

== ENCOUNTER 2017-08-11 16:32 | Emergency (ER) | payer OTHER ==
[~2017-08-11] VITALS: Ht 182.9 cm; Wt 88.9 kg
[2017-08-11 16:38] VITALS: BP 159/81; PULSE 80; RESP 20; TEMP 98.3; O2SAT 95
[2017-08-11] MEDS ORDERED: methylPREDNISolone SOD SUCC 125 MG/2 ML VIAL IV PUSH ONE (17:30)
[2017-08-11] MEDS: RESP: ALBUTEROL 2.5 MG/IPRATROPIUM 0.5 MG NEB (SCH) INH ×2 (17:37→17:38)
--- NOTE | 2017-08-11 17:38 | PD ---
HPI Chief Complaint: Cold / Flu Symptoms Time Seen by Provider: 17:18 Travel History International Travel<30 days: No Contact w/Intl Traveler<30days: No Traveled to known affect area: No History of Present Illness HPI 61-year-old male here with fever, cough, congestion 3 days. He reports yellow colored sputum. Patient also reports mild shortness of breath. Denies chest pain or palpitations. Patient has history of COPD and CHF. He reports compliance with his medications. Denies weight gain or lower extremity swelling. He believes he may have pneumonia as he has had similar symptoms in the past. Symptom severity is moderate. Dyspnea is exacerbated with coughing episodes. No alleviating factors. PFSH Past Medical History Narrative Medical Significant for COPD, CHF, hypertension Hx Anticoagulant Therapy: Yes (ASA 162MG , EFFIENT) Arthritis: Yes Autoimmune Disease: No Depression: Yes Cancer: Yes (questionable, grape cluster growth removed age 3) Cardiovascular Problems: No Congestive Heart Failure: Yes (EF 45% Echo Apr 2016) COPD: Yes Diminished Hearing: No Endocrine: No Gastrointestinal Disorders: Yes Genitourinary: No Immune Disorder: No Implanted Vascular Access Dvce: No Musculoskeletal: Yes (SEVERAL DISC'S INJURED) Neurologic: Yes Psychiatric: Yes Reproductive: No Respiratory: No Migraines: Yes Ulcer: Yes (DUODENAL ) Tetanus Vaccination: < 5 Years Influenza Vaccination: No Past Surgical History Abdominal Surgery: Yes (AT AGE 3 FOR CANCER MASS) Coronary Stent: Yes Eye Surgery: Yes (METAL REMOVED) Other Surgery: Yes Social History Alcohol Use: No Tobacco Use: Yes Substance Use: No Allergies-Medications (Allergen,Severity, Reaction): Coded Allergies: diatrizoate meglumine (Unverified Allergy, Severe, Hives, 08/11/17) gadobenic acid (Unverified Allergy, Severe, Hives, 08/11/17) gadodiamide (Unverified Allergy, Severe, Hives, 08/11/17) gadoteridol (Unverified Allergy, Severe, Hives, 08/11/17) iodixanol (Unverified Allergy, Severe, Hives, 08/11/17) iohexol (Unverified Allergy, Severe, Hives, 08/11/17) procaine (Unverified Allergy, Intermediate, VOMITING, 08/11/17) VOMITING AND DIZZINESS lisinopril (Unverified Adverse Reaction, Unknown, Cough, 08/11/17) Reported Meds & Prescriptions Reported Meds & Active Scripts Active Prednisone 20 Mg Tab 40 Mg PO DAILY Take 40 mg (2 tablets) daily for 5 days Levaquin (Levofloxacin) 500 Mg Tablet 500 Mg PO DAILY 7 Days Metoclopramide (Metoclopramide HCl) 10 Mg Tab 10 Mg PO ACHS 30 Days Hydrocodone-Acetaminophen 5-325 mg Tab 1 Tab PO Q4H PRN Fluticasone Nasal [place] 50 Mcg/Act Naspr 2 [place] EACH NARE DAILY Effient (Prasugrel) 10 Mg Tab 10 Mg PO DAILY Duoneb (Ipratropium-Albuterol Neb) 0.5-2.5 Mg/3 Ml Neb 1 Ampule NEB Q6HR NEB PRN Cozaar (Losartan Potassium) 25 Mg Tab 25 Mg PO DAILY [Aspirin Chew] 81 MG Chew 162 Mg PO DAILY Nebulizer 1 Mis Mis 1 Ea .ROUTE DIRECTED Oxygen tank (Oxygen) 1 Ea Tank 2 Liter BLAIRE.CANULA CONTINUOUS Oxygen Concentrator Portable Gaseous 2 L/min via Nasal Cannula Continuous For 99 months Reported Sumatriptan (Sumatriptan Succinate) 50 Mg Tab 50 Mg PO ONCE PRN If a satisfactory response has not been obtained at 2 hours, a second dose may be administered Zofran (Ondansetron HCl) 4 Mg Tab 4 Mg PO Q12HR PRN Gabapentin 300 Mg Cap 300 Mg PO TID Omeprazole 40 Mg Cap 40 Mg PO DAILY Tizanidine (Tizanidine HCl) 4 Mg Cap 4 Mg PO TID Folate (Folic Acid) 1 Mg Tab 1 Mg PO DAILY Ventolin Hfa 18 GM Inh (Albuterol Sulfate) 90 Mcg/Act Aer 1 Puff INH Q4H PRN Symbicort Inh (Budesonide/Formoterol Fumarate) 80-4.5 Mcg/Act Aero 2 Puff INH Q12HR Zyrtec Allergy (Cetirizine HCl) 10 Mg Cap 10 Mg PO DAILY Aleve (Naproxen Sodium) 220 Mg Tab 220 Mg PO BID PRN Benadryl Allergy (Diphenhydramine HCl) 25 Mg Tab 25 Mg PO Q6H PRN Wellbutrin SR 12 HR (Bupropion HCl) 150 Mg Tab 150 Mg PO Q12HR Review of Systems General / Constitutional: Positive: Fever HENT: Positive: Sore Throat, Congestion Respiratory: Positive: Cough, Shortness of Breath, Wheezing Gastrointestinal: No: Abdominal Pain Genitourinary: No: Dysuria Physical Exam Narrative GENERAL: Alert and well-appearing 61-year-old male. No distress. SKIN: Warm and dry. HEAD: Normocephalic. EYES: No scleral icterus. No injection or drainage. NECK: Supple, trachea midline. No JVD or lymphadenopathy. CARDIOVASCULAR: Regular rate and rhythm without murmurs, gallops, or rubs. RESPIRATORY: Breath sounds equal bilaterally. No accessory muscle use. Diffuse coarse breath sounds. GASTROINTESTINAL: Abdomen soft, non-tender, nondistended. MUSCULOSKELETAL: No cyanosis, or edema. BACK: Nontender without obvious deformity. No CVA tenderness. Data Data Last Documented VS Vital Signs Date Time Temp Pulse Resp B/P (MAP) Pulse Ox O2 Delivery O2 Flow Rate FiO2 08/11/17 16:54 20 95 08/11/17 16:38 98.3 80 159/81 (107) Orders Orders Complete Blood Count With Diff (08/11/17 17:27) Basic Metabolic Panel (Bmp) (08/11/17 17:27) B-Type Natriuretic Peptide (08/11/17 17:27) Influenzae A/B Antigen (08/11/17 17:27) Iv Access Insert/Monitor (08/11/17 17:27) Chest, Single Ap (08/11/17 17:27) Methylprednisolone So Succ Inj (Solumedr (08/11/17 17:30) Albuterol-Ipratropium Neb (Duoneb Neb) (08/11/17 17:30) Sodium Chlorid 0.9% 500 Ml Inj (Ns 500 M (08/11/17 18:45) Labs Laboratory Tests Test 08/11/17 17:40 White Blood Count 7.8 TH/MM3 Red Blood Count 4.10 MIL/MM3 Hemoglobin 11.6 GM/DL Hematocrit 34.1 % Mean Corpuscular Volume 83.2 FL Mean Corpuscular Hemoglobin 28.3 PG Mean Corpuscular Hemoglobin Concent 34.1 % Red Cell Distribution Width 14.7 % Platelet Count 482 TH/MM3 Mean Platelet Volume 6.8 FL Neutrophils (%) (Auto) 77.7 % Lymphocytes (%) (Auto) 13.0 % Monocytes (%) (Auto) 6.9 % Eosinophils (%) (Auto) 1.3 % Basophils (%) (Auto) 1.1 % Neutrophils # (Auto) 6.1 TH/MM3 Lymphocytes # (Auto) 1.0 TH/MM3 Monocytes # (Auto) 0.5 TH/MM3 Eosinophils # (Auto) 0.1 TH/MM3 Basophils # (Auto) 0.1 TH/MM3 CBC Comment DIFF FINAL Differential Comment Blood Urea Nitrogen 11 MG/DL Creatinine 0.89 MG/DL Random Glucose 84 MG/DL Calcium Level 8.9 MG/DL Sodium Level 129 MEQ/L Potassium Level 4.0 MEQ/L Chloride Level 95 MEQ/L Carbon Dioxide Level 26.4 MEQ/L Anion Gap 8 MEQ/L Estimat Glomerular Filtration Rate 87 ML/MIN B-Type Natriuretic Peptide 83 PG/ML MDM Medical Decision Making Medical Screen Exam Complete: Yes Emergency Medical Condition: Yes Interpretation(s) Afebrile, normotensive, no tachycardia No leukocytosis Anemia. Hemoglobin trending upward from prior Sodium 129. Patient reports chronic hyponatremia . replaced with 250 cc normal saline today. Instructed to increase sodium intake BNP 89 Chest x-ray: Stable interstitial disease. No acute changes Differential Diagnosis Pneumonia, COPD exacerbation, CHF Narrative Course 61-year-old male here with productive cough and mild worsening of shortness of breath from his baseline. He is well-appearing. No respiratory distress. He was given 125 Solu-Medrol IV and DuoNeb 2. He reports improvement after breathing treatments. All findings discussed with patient and family. He will be treated for COPD exacerbation. He is to follow-up with his primary doctor this week. He verbalizes understanding and agrees to plan. Case was discussed with attending physician Dr. Mendez agrees to treatment plan Diagnosis Primary Impression: COPD exacerbation Referrals: Primary Care Physician Additional Instructions: Medication as directed. Continue to use her nebulizers as directed. Increase your oral sodium intake. Sodium was 129 today. Follow-up with your primary doctor to discuss this week Return if you have new or worsening symptoms Scripts Prednisone (Prednisone) 20 Mg Tab 40 MG PO DAILY, #8 TAB 0 Refills Take 40 mg (2 tablets) daily for 5 days Prov: Mary Bush 08/11/17 Levofloxacin (Levaquin) 500 Mg Tablet 500 MG PO DAILY for Infection for 7 Days, #7 TAB 0 Refills Prov: Mary Bush 08/11/17 Disposition: 01 DISCHARGE HOME Condition: Stable Mary Bush Aug 11, 2017 17:38
[2017-08-11 17:57] LABS: AUTOMATED NEUTROPHIL # 6.1 TH/MM3 (1.8-7.7); BASOPHIL # 0.1 TH/MM3 (0-0.2); BASOPHIL % 1.1 % (0.0-2.0); EOSINOPHIL # 0.1 TH/MM3 (0-0.4); EOSINOPHIL % 1.3 % (0.0-4.0); HEMATOCRIT 34.1 % (39.0-51.0); HEMOGLOBIN 11.6 GM/DL (13.0-17.0); MEAN CELL VOLUME 83.2 FL (80.0-100.0); MEAN CORPUSCULAR HEMOGLOBIN 28.3 PG (27.0-34.0); MEAN CORPUSCULAR HGB CONC 34.1 % (32.0-36.0); MEAN PLATELET VOLUME 6.8 FL (7.0-11.0); MONO % 6.9 % (0.0-8.0); MONOCYTE # 0.5 TH/MM3 (0-0.9); NEUT % 77.7 % (16.0-70.0); PLATELET COUNT 482 TH/MM3 (150-450); RED CELL DISTRIBUTION WIDTH 14.7 % (11.6-17.2); WHITE BLOOD COUNT 7.8 TH/MM3 (4.0-11.0)
[2017-08-11 17:59] LABS: CALCIUM 8.9 MG/DL (8.5-10.1)
[2017-08-11 18:00] LABS: BICARBONATE 26.4 MEQ/L (21.0-32.0)
[2017-08-11 18:03] LABS: CREATININE 0.89 MG/DL (0.60-1.30)
--- NOTE | 2017-08-11 18:17 | RADRPT ---
EXAM DATE/TIME: 08/11/2017 17:35 [facility] COMPARISON: CHEST SINGLE AP, May 06, 2016, 10:28. INDICATIONS : Fever, cough, and congestion. MEDICAL HISTORY : Hypertension. Chronic obstructive pulmonary disease. Congestive heart failure. SURGICAL HISTORY : Coronary artery stent. ENCOUNTER: Initial ACUITY: 3 days PAIN SCORE: 0/10 LOCATION: Bilateral chest FINDINGS: Diffuse interstitial prominence in the peripheral one third of both lungs, similar in appearance to p rior chest x-ray in 2017 taking into account differences in technique. No focal areas of consolidati on. No evidence of pneumothorax. The heart is upper limits normal size. CONCLUSION: Diffuse interstitial disease, similar to prior in April 2016. Jorden Ackerman MD on August 11, 2017 at 18:15 Board Certified Radiologist. This report was verified electronically.
[2017-08-11] MEDS ORDERED: SODIUM CHLORID 0.9% 500 ML INJ 250 ML IV SCH (18:45)
[2017-08-11] MEDS ORDERED: PRED20 PO (18:47)
[2017-08-11] MEDS ORDERED: LEVA500T33 PO (18:47)
[2017-08-11 18:57] VITALS: BP 140/90
== END 2017-08-11 19:03 | disposition home or self-care (01) ==
LOC: PHEFT 16:32
DX: J44.1 Chronic obstructive pulmonary disease with (acute) exacerbation (principal); E87.1 Hypo-osmolality and hyponatremia; I11.0 Hypertensive heart disease with heart failure; I50.9 Heart failure, unspecified; F32.9 Major depressive disorder, single episode, unspecified; Z72.0 Tobacco use
CPT/HCPCS: 71045; 80048; 83880; 85025; 87804; 94640; 94664; 96374; 99284; J2930; J7040

== ENCOUNTER 2017-09-17 21:02 | Emergency (ER) | payer OTHER ==
[~2017-09-17] VITALS: Ht 182.9 cm; Wt 92.4 kg
[~2017-09-17 21:02] MED LIST changes: +LEVA500T33 PO; +PRED20 PO
[2017-09-17 21:15] VITALS: BP 125/57; PULSE 93; RESP 18; TEMP 98.2; O2SAT 94
[2017-09-17] MEDS ORDERED: FERR325T18 PO (21:28)
[2017-09-17] MEDS ORDERED: PROPARACAINE HCL 0.5% OPHT SOLN 15 ML BTL EACH EYE ONE (22:15)
[2017-09-17] MEDS ORDERED: NORC5TAB PO (22:28)
[2017-09-17] MEDS ORDERED: POLY10O LEFT EYE (22:28)
--- NOTE | 2017-09-17 22:29 | PD ---
HPI Chief Complaint: Foreign Body Time Seen by Provider: 21:54 Travel History International Travel<30 days: No Contact w/Intl Traveler<30days: No Traveled to known affect area: No History of Present Illness HPI 61-year-old male complains of foreign body in the left eye. 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 Patient complains of left eye irritation. Patient states that he has been tearing from the left eye. Patient has history recurrent foreign body in the left eye in the past. Patient states that he is allergic to Novocain and lidocaine however injection but not the topical solution. PFSH Past Medical History Hx Anticoagulant Therapy: Yes Arthritis: Yes Autoimmune Disease: No Depression: Yes Cancer: Yes (questionable, grape cluster growth removed age 3) Cardiovascular Problems: Yes Congestive Heart Failure: Yes (EF 45% Echo Apr 2016) COPD: Yes Diminished Hearing: No Endocrine: No Gastrointestinal Disorders: Yes Genitourinary: No Immune Disorder: No Implanted Vascular Access Dvce: No Musculoskeletal: Yes (SEVERAL DISC'S INJURED) Neurologic: Yes Psychiatric: Yes Reproductive: No Respiratory: Yes Migraines: Yes Ulcer: Yes (DUODENAL ) Tetanus Vaccination: < 5 Years Influenza Vaccination: Yes Past Surgical History Abdominal Surgery: Yes (AT AGE 3 FOR CANCER MASS) Coronary Stent: Yes Eye Surgery: Yes (METAL REMOVED) Other Surgery: Yes Social History Alcohol Use: No Tobacco Use: Yes Substance Use: No Allergies-Medications (Allergen,Severity, Reaction): Coded Allergies: diatrizoate meglumine (Unverified Allergy, Severe, Hives, 09/17/17) gadobenic acid (Unverified Allergy, Severe, Hives, 09/17/17) gadodiamide (Unverified Allergy, Severe, Hives, 09/17/17) gadoteridol (Unverified Allergy, Severe, Hives, 09/17/17) iodixanol (Unverified Allergy, Severe, Hives, 09/17/17) iohexol (Unverified Allergy, Severe, Hives, 09/17/17) procaine (Unverified Allergy, Intermediate, VOMITING, 09/17/17) VOMITING AND DIZZINESS lisinopril (Unverified Adverse Reaction, Unknown, Cough, 09/17/17) Reported Meds & Prescriptions Reported Meds & Active Scripts Active Metoclopramide (Metoclopramide HCl) 10 Mg Tab 10 Mg PO ACHS 30 Days Hydrocodone-Acetaminophen 5-325 mg Tab 1 Tab PO Q4H PRN Fluticasone Nasal [place] 50 Mcg/Act Naspr 2 [place] EACH NARE DAILY Effient (Prasugrel) 10 Mg Tab 10 Mg PO DAILY Duoneb (Ipratropium-Albuterol Neb) 0.5-2.5 Mg/3 Ml Neb 1 Ampule NEB Q6HR NEB PRN Cozaar (Losartan Potassium) 25 Mg Tab 25 Mg PO DAILY [Aspirin Chew] 81 MG Chew 162 Mg PO DAILY Nebulizer 1 Mis Mis 1 Ea .ROUTE DIRECTED Oxygen tank (Oxygen) 1 Ea Tank 2 Liter BLAIRE.CANULA CONTINUOUS Oxygen Concentrator Portable Gaseous 2 L/min via Nasal Cannula Continuous For 99 months Reported Ferrous Sulfate 325 Mg (65 Mg Iron) Tablet 325 Mg PO DAILY Sumatriptan (Sumatriptan Succinate) 50 Mg Tab 50 Mg PO ONCE PRN If a satisfactory response has not been obtained at 2 hours, a second dose may be administered Zofran (Ondansetron HCl) 4 Mg Tab 4 Mg PO Q12HR PRN Gabapentin 300 Mg Cap 300 Mg PO TID Omeprazole 40 Mg Cap 40 Mg PO DAILY Tizanidine (Tizanidine HCl) 4 Mg Cap 4 Mg PO TID Ventolin Hfa 18 GM Inh (Albuterol Sulfate) 90 Mcg/Act Aer 1 Puff INH Q4H PRN Symbicort Inh (Budesonide/Formoterol Fumarate) 80-4.5 Mcg/Act Aero 2 Puff INH Q12HR Wellbutrin SR 12 HR (Bupropion HCl) 150 Mg Tab 150 Mg PO Q12HR Review of Systems General / Constitutional: No: Fever Eyes: Positive: Foreign Body Sensation, No: Visual changes HENT: No: Headaches Cardiovascular: No: Chest Pain or Discomfort Respiratory: No: Shortness of Breath Gastrointestinal: No: Abdominal Pain Genitourinary: No: Dysuria Musculoskeletal: No: Pain Skin: No Rash Neurologic: No: Weakness Psychiatric: No: Depression Endocrine: No: Polydipsia Hematologic/Lymphatic: No: Easy Bruising Physical Exam Narrative GENERAL: Well-nourished, well-developed patient. SKIN: Focused skin assessment warm/dry. HEAD: Normocephalic. EYES: Mild erythematous left conjunctiva. Left eye stained with fluorescein staining reveals a small uptake and foreign body on the cornea at 3 o'clock position. NECK: Supple, trachea midline. No JVD or lymphadenopathy. CARDIOVASCULAR: Regular rate and rhythm without murmurs, gallops, or rubs. RESPIRATORY: Breath sounds equal bilaterally. No accessory muscle use. GASTROINTESTINAL: Abdomen soft, non-tender, nondistended. MUSCULOSKELETAL: No cyanosis, or edema. BACK: Nontender without obvious deformity. No CVA tenderness. Data Data Last Documented VS Vital Signs Date Time Temp Pulse Resp B/P (MAP) Pulse Ox O2 Delivery O2 Flow Rate FiO2 09/17/17 21:15 98.2 93 18 125/57 (79) 94 Orders Orders Proparacaine 0.5% Opth Soln (Al[place]aine 0.5 (09/17/17 22:15) MDM Medical Decision Making Medical Screen Exam Complete: Yes Emergency Medical Condition: Yes Differential Diagnosis Differential diagnosis including foreign body, corneal abrasion. Narrative Course 61-year-old male with foreign body left eye. Procedures Procedure Narrative Proparacaine solution applied to left eye. Foreign body was removed with 14- gauge needle. The left eye was irrigated with saline solution. Diagnosis Primary Impression: Foreign body of left eye Qualified Codes: T15.92XA - Foreign body on external eye, part unspecified, left eye, initial encounter Patient Instructions: General Instructions Additional Instructions: Polytrim ophthalmic solution as directed. Hydrocodone as needed for pain. Follow-up with video network engineer if persistent problem. Med/Other Pt SpecificInfo: Prescription(s) given Scripts Polymyxin B-Trimethoprim Opth Drops (Polytrim Opth Drops) 10,000-0.1 Unit/Ml-% Soln 1 DROP LEFT EYE Q6HR for Mgmt Bacterial Infection, #1 BOTTLE 0 Refills Prov: Dwaine Mendez MD 09/17/17 Hydrocodone-Acetaminophen ([place]) 5 Mg-325 Mg Tab 1 TAB PO Q6H Y for PAIN, #10 TAB 0 Refills Prov: Dwaine Mendez MD 09/17/17 Disposition: 01 DISCHARGE HOME Condition: Stable Dwaine Mendez MD Sep 17, 2017 22:29
[2017-09-17 22:32] VITALS: BP 132/69
== END 2017-09-17 22:38 | disposition home or self-care (01) ==
LOC: PHED 21:02
DX: T15.92XA Foreign body on external eye, part unspecified, left eye, initial encounter (principal); M19.90 Unspecified osteoarthritis, unspecified site; F32.9 Major depressive disorder, single episode, unspecified; I50.9 Heart failure, unspecified; J44.9 Chronic obstructive pulmonary disease, unspecified; Z95.5 Presence of coronary angioplasty implant and graft; Z72.0 Tobacco use
CPT/HCPCS: 65220

== ENCOUNTER 2018-01-18 22:05 | Inpatient (IN) ==
[2018-01-18 23:24] LABS: Baso % (Auto) 0.4 % (0.0-2.0); Eos # (Auto) 0.2 th/mm3 (0.0-0.4); Eos % (Auto) 1.5 % (0.0-4.0); Hemoglobin 9.8 gm/dL (13.0-17.0); Lymph # (Auto) 0.8 th/mm3 (1.0-4.8); Lymph % (Auto) 7.8 % (9.0-44.0); Mean Corpuscular HGB Conc 32.6 % (32.0-36.0); Mean Corpuscular Volume 85.8 fL (80.0-100.0); Mean Platelet Volume 6.7 fL (7.0-11.0); Mono # (Auto) 0.6 th/mm3 (0.0-0.9); Mono % (Auto) 6.1 % (0.0-8.0); Neut # (Auto) 8.5 th/mm3 (1.8-7.7); Neut % (Auto) 84.2 % (16.0-70.0); Platelet Count 375 th/mm3 (150-450); Red Blood Count 3.49 mil/mm3 (4.50-5.90); Red Cell Distribution Width 15.3 % (11.6-17.2); White Blood Count 10.1 th/mm3 (4.0-11.0)
[2018-01-18 23:41] LABS: Alanine Aminotransferase 16 U/L (12-78); Albumin 3.3 g/dL (3.4-5.0); Anion Gap 10 meq/L (5-15); Aspartate Aminotransferase 18 U/L (15-37); Blood Urea Nitrogen 15 mg/dL (7-18); Calcium 7.8 mg/dL (8.5-10.1); Carbon Dioxide 26.7 meq/L (21.0-32.0); Chloride 92 meq/L (98-107); Glomerular Filtration Rate 56 mL/min (>89); Glucose,Random 102 mg/dL (74-106); Lipase 117 U/L (73-393); Potassium 3.8 meq/L (3.5-5.1); Sodium 129 meq/L (136-145)
[2018-01-18 23:43] LABS: Alkaline Phosphatase 104 U/L (45-117); Total Protein 6.9 g/dL (6.4-8.2)
--- NOTE | 2018-01-18 23:48 | XR ---
EXAM DATE: 01/18/2018 10:37 PM EDT AGE/SEX: 62 years / Male INDICATIONS: Shortness of breath. CLINICAL DATA: This is the patient's initial encounter. Patient reports that signs and symptoms have been present for 1 day and indicates a pain score of 0/10. MEDICAL/SURGICAL HISTORY: Chronic obstructive pulmonary disease. Myocardial infarction. Perip heral vascular disease. CHF. CAD. Hypertension. None. COMPARISON: [facility], CHEST SINGLE AP, 08/11/2017. [facility], XR CHEST PA AND LAT, 06/28/2016. . FINDINGS: Portable AP view of the chest demonstrates a normal-sized cardiac silhouette. EKG lines overlie the p atient. Lungs are mildly underinflated. There are abnormal interstitial opacities throughout the lung s bilaterally involving both the upper and lower lung zones. No pleural effusion or pneumothorax is i dentified. The bones and soft tissues demonstrate no acute abnormality. CONCLUSION: Stable chest x-ray with chronic diffuse interstitial lung disease. No acute change is appreciated com pared to the July 2017 examination. Electronically signed by: Vito Smith MD 01/18/2018 11:47 PM EDT
--- NOTE | 2018-01-19 00:05 | ED ---
HPI General Chief Complaint: Respiratory Symptoms Stated Complaint: sob/evac Time Seen by Provider: 01/18/18 22:37 History of Present Illness HPI Narrative: Patient is a 62-year-old male who has COPD and CHF chronic obstructive pulmonary disease treated with Nebs at home,, he is on nebs at home, He also has had the feeling of having upper respiratory congestion sore throat for the last week progressively getting more short of breath and now he is having severe shortness of breath for the last day and not responding to his home nebs, Pt also feel his lower legs are more edematous , recently decreased Lasix from 40 to 20 mg PO. In ER complains of SOB wheeze edema lower Related Data Home Medications Medication Instructions Recorded Confirmed albuterol sulfate [Ventolin HFA] 90 mcg INHALATION PRN 01/19/18 01/19/18 aspirin 162.5 mg PO DAILY 01/19/18 01/19/18 budesonide-formoterol [Symbicort] 2 puff INHALATION BID 01/19/18 01/19/18 bupropion HCl [Wellbutrin SR] 150 mg PO DAILY 01/19/18 01/19/18 folic acid 1 mg PO DAILY 01/19/18 01/19/18 furosemide [Lasix] 20 mg PO DAILY 01/19/18 01/19/18 gabapentin 300 mg PO TID 01/19/18 01/19/18 hydrocodone-acetaminophen 1 tab PO Q4-6H PRN 01/19/18 01/19/18 losartan 25 mg PO DAILY 01/19/18 01/19/18 montelukast [Singulair] 10 mg PO QPM 01/19/18 01/19/18 omeprazole 20 mg PO DAILY 01/19/18 01/19/18 ondansetron [Zofran ODT] 4 mg PO Q6-8H PRN 01/19/18 01/19/18 potassium chloride 20 meq PO DAILY 01/19/18 01/19/18 prasugrel [Effient] 10 mg PO DAILY 01/19/18 01/19/18 sumatriptan succinate [Imitrex] 50 mg PO Q2-4H PRN 01/19/18 01/19/18 tizanidine 4 mg PO TID PRN 01/19/18 01/19/18 Allergies Allergy/AdvReac Type Severity Reaction Status Date / Time diatrizoate meglumine Allergy Severe Hives Unverified 09/17/17 21:13 gadobenic acid Allergy Severe Hives Unverified 09/17/17 21:13 gadodiamide Allergy Severe Hives Unverified 09/17/17 21:13 gadoteridol Allergy Severe Hives Unverified 09/17/17 21:13 iodixanol Allergy Severe Hives Unverified 09/17/17 21:13 iohexol Allergy Severe Hives Unverified 09/17/17 21:13 procaine Allergy Intermediate VOMITING Unverified 09/17/17 21:13 lisinopril AdvReac Unknown Cough Unverified 09/17/17 21:13 Review of Systems ROS: all other systems reviewed are negative [facility] Family History Family History Other CAD (coronary artery disease) Cancer Social History Social History Substance History: No History of Abuse Second Hand Smoke Exposure: Yes Smoking Status: Current every day smoker Tobacco Type: Cigarettes How Often Do You Have a Drink Containing Alcohol: Never Recent Travel in [facility] within the Last 8 Weeks: No Immunization History Tetanus Immunization: <5 Years Exam Narrative Exam Narrative: GENERAL: obvious SOB increased RR and wheezing SKIN: Warm and dry. HEAD: Atraumatic. Normocephalic. EYES: Pupils equal and round. No scleral icterus. No injection or drainage. ENT: No nasal bleeding or discharge. Mucous membranes pink and moist. NECK: Trachea midline. No JVD. CARDIOVASCULAR: Regular rate and rhythm. RESPIRATORY: Diffuse wheeze in all field desaturatin to 88 RA GASTROINTESTINAL: Abdomen soft, non-tender, nondistended. Hepatic and splenic margins not palpable. MUSCULOSKELETAL: Extremities slight edema recently decreased lasix to 20 mg from 40 mg NEUROLOGICAL: Awake and alert. No obvious cranial nerve deficits. Motor grossly within normal limits. Five out of 5 muscle strength in the arms and legs. Normal speech. PSYCHIATRIC: Appropriate mood and affect; insight and judgment normal. Course Initial Documented Vital Signs Temperature 98.9 F 01/18/18 22:27 Pulse Rate 93 H 01/18/18 22:27 Respiratory Rate 19 01/18/18 22:27 Blood Pressure 139/75 01/18/18 22:27 Pulse Oximetry 92 L 01/18/18 22:27 Last Documented Vital Signs Temperature 97.4 F L 01/22/18 12:00 Pulse Rate 85 01/22/18 14:13 Respiratory Rate 16 10/11/18 14:13 Blood Pressure 145/77 H 01/22/18 12:00 Pulse Oximetry 96 01/22/18 12:00 Medical Decision Making MDM Narrative Medical decision making narrative: CT after CXR shows significant interstitial disease that pt was unaware of , CT CHEST =Nodule mass in Left upper lobe pt was treated in ED with Nebs and levaquin , he received SoluMedrol from [facility] pt is stable an informed of lung disease admit for investigation of lung disease.. Medical Screen Exam Complete: Yes Emergency Medical Condition: Yes Differential Diagnosis Differential Diagnosis: pt could have PNA CHF PTX COPD exacerbation other Lab Data Result diagrams: 01/20/18 05:45 01/20/18 05:45 Lab Results 01/18/18 01/18/18 01/18/18 Range/Units 23:00 23:00 23:00 WBC 10.1 (4.0-11.0) th/mm3 RBC 3.49 L (4.50-5.90) mil/mm3 Hgb 9.8 L (13.0-17.0) gm/dL Hct 30.0 L (39.0-51.0) % MCV 85.8 (80.0-100.0) fL MCH 28.0 (27.0-34.0) pg MCHC 32.6 (32.0-36.0) % RDW 15.3 (11.6-17.2) % Plt Count 375 (150-450) th/mm3 MPV 6.7 L (7.0-11.0) fL Neut % (Auto) 84.2 H (16.0-70.0) % Lymph % (Auto) 7.8 L (9.0-44.0) % Meigs % (Auto) 6.1 (0.0-8.0) % Eos % (Auto) 1.5 (0.0-4.0) % Baso % (Auto) 0.4 (0.0-2.0) % Neut # (Auto) 8.5 H (1.8-7.7) th/mm3 Lymph # (Auto) 0.8 L (1.0-4.8) th/mm3 Meigs # (Auto) 0.6 (0.0-0.9) th/mm3 Eos # (Auto) 0.2 (0.0-0.4) th/mm3 Baso # (Auto) 0.0 (0.0-0.2) th/mm3 WBC Differential . Differential Comment Auto diff final PT (9.8-11.6) sec INR Ratio APTT (24.3-30.1) sec Puncture Site Patient Temperature O2 Saturation (90-100) % ABG pH (7.380-7.420) ABG pCO2 (38-42) mmHg ABG pO2 (61-120) mmHg ABG HCO3 (22-26) mmol/L ABG O2 Content (12.0-20.0) Vol % ABG Base Excess (-2-2) mmol/L ABG Methemoglobin (0-2) % Jules Test Hemoglobin (12.0-16.0) G/DL Carboxyhemoglobin (0-4) % O2 Delivery Device Liter Flow L/M Critical Value Sodium 129 L (136-145) meq/L Potassium 3.8 (3.5-5.1) meq/L Chloride 92 L (98-107) meq/L Carbon Dioxide 26.7 (21.0-32.0) meq/L Anion Gap 10 (5-15) meq/L BUN 15 (7-18) mg/dL Creatinine 1.30 (0.60-1.30) mg/dL Estimated GFR 56 L (>89) mL/min POC Glucose (68-110) mg/dl Random Glucose 102 (74-106) mg/dL Calcium 7.8 L (8.5-10.1) mg/dL Total Bilirubin 0.3 (0.2-1.0) mg/dL AST 18 (15-37) U/L ALT 16 (12-78) U/L Alkaline Phosphatase 104 (45-117) U/L B-Natriuretic Peptide 616 H (0-100) pg/mL Total Protein 6.9 (6.4-8.2) g/dL Albumin 3.3 L (3.4-5.0) g/dL Lipase 117 (73-393) U/L 01/20/18 01/20/18 01/21/18 Range/Units 05:45 05:45 13:55 WBC 8.5 (4.0-11.0) th/mm3 RBC 4.01 L (4.50-5.90) mil/mm3 Hgb 11.2 L (13.0-17.0) gm/dL Hct 34.2 L (39.0-51.0) % MCV 85.2 (80.0-100.0) fL MCH 28.0 (27.0-34.0) pg MCHC 32.8 (32.0-36.0) % RDW 15.3 (11.6-17.2) % Plt Count 379 (150-450) th/mm3 MPV 6.8 L (7.0-11.0) fL Neut % (Auto) 93.8 H (16.0-70.0) % Lymph % (Auto) 3.6 L (9.0-44.0) % Meigs % (Auto) 2.5 (0.0-8.0) % Eos % (Auto) 0.0 (0.0-4.0) % Baso % (Auto) 0.1 (0.0-2.0) % Neut # (Auto) 8.0 H (1.8-7.7) th/mm3 Lymph # (Auto) 0.3 L (1.0-4.8) th/mm3 Meigs # (Auto) 0.2 (0.0-0.9) th/mm3 Eos # (Auto) 0.0 (0.0-0.4) th/mm3 Baso # (Auto) 0.0 (0.0-0.2) th/mm3 WBC Differential . Differential Comment Auto diff final PT (9.8-11.6) sec INR Ratio APTT (24.3-30.1) sec Puncture Site Left radial Patient Temperature 98.6 O2 Saturation 92 (90-100) % ABG pH 7.41 (7.380-7.420) ABG pCO2 38 (38-42) mmHg ABG pO2 78 (61-120) mmHg ABG HCO3 24 (22-26) mmol/L ABG O2 Content 15.1 (12.0-20.0) Vol % ABG Base Excess 0.0 (-2-2) mmol/L ABG Methemoglobin 0.9 (0-2) % Jules Test Present Hemoglobin 11.6 L (12.0-16.0) G/DL Carboxyhemoglobin 0.3 (0-4) % O2 Delivery Device Nasal cannula Liter Flow 3.00 L/M Critical Value No Sodium 128 L (136-145) meq/L Potassium 4.3 (3.5-5.1) meq/L Chloride 93 L (98-107) meq/L Carbon Dioxide 23.4 (21.0-32.0) meq/L Anion Gap 12 (5-15) meq/L BUN 12 (7-18) mg/dL Creatinine 0.97 (0.60-1.30) mg/dL Estimated GFR 79 L (>89) mL/min POC Glucose (68-110) mg/dl Random Glucose 127 H (74-106) mg/dL Calcium 8.7 D (8.5-10.1) mg/dL Total Bilirubin 0.3 (0.2-1.0) mg/dL AST 18 (15-37) U/L ALT 18 (12-78) U/L Alkaline Phosphatase 116 (45-117) U/L B-Natriuretic Peptide (0-100) pg/mL Total Protein 7.4 (6.4-8.2) g/dL Albumin 3.3 L (3.4-5.0) g/dL Lipase (73-393) U/L 01/21/18 01/22/18 01/22/18 Range/Units 16:34 07:21 14:18 WBC (4.0-11.0) th/mm3 RBC (4.50-5.90) mil/mm3 Hgb (13.0-17.0) gm/dL Hct (39.0-51.0) % MCV (80.0-100.0) fL MCH (27.0-34.0) pg MCHC (32.0-36.0) % RDW (11.6-17.2) % Plt Count (150-450) th/mm3 MPV (7.0-11.0) fL Neut % (Auto) (16.0-70.0) % Lymph % (Auto) (9.0-44.0) % Meigs % (Auto) (0.0-8.0) % Eos % (Auto) (0.0-4.0) % Baso % (Auto) (0.0-2.0) % Neut # (Auto) (1.8-7.7) th/mm3 Lymph # (Auto) (1.0-4.8) th/mm3 Meigs # (Auto) (0.0-0.9) th/mm3 Eos # (Auto) (0.0-0.4) th/mm3 Baso # (Auto) (0.0-0.2) th/mm3 WBC Differential Differential Comment PT (9.8-11.6) sec INR Ratio APTT 26.3 (24.3-30.1) sec Puncture Site Patient Temperature O2 Saturation (90-100) % ABG pH (7.380-7.420) ABG pCO2 (38-42) mmHg ABG pO2 (61-120) mmHg ABG HCO3 (22-26) mmol/L ABG O2 Content (12.0-20.0) Vol % ABG Base Excess (-2-2) mmol/L ABG Methemoglobin (0-2) % Jules Test Hemoglobin (12.0-16.0) G/DL Carboxyhemoglobin (0-4) % O2 Delivery Device Liter Flow L/M Critical Value Sodium (136-145) meq/L Potassium (3.5-5.1) meq/L Chloride (98-107) meq/L Carbon Dioxide (21.0-32.0) meq/L Anion Gap (5-15) meq/L BUN (7-18) mg/dL Creatinine (0.60-1.30) mg/dL Estimated GFR (>89) mL/min POC Glucose 223 H 124 H (68-110) mg/dl Random Glucose (74-106) mg/dL Calcium (8.5-10.1) mg/dL Total Bilirubin (0.2-1.0) mg/dL AST (15-37) U/L ALT (12-78) U/L Alkaline Phosphatase (45-117) U/L B-Natriuretic Peptide (0-100) pg/mL Total Protein (6.4-8.2) g/dL Albumin (3.4-5.0) g/dL Lipase (73-393) U/L 01/22/18 Range/Units 14:18 WBC (4.0-11.0) th/mm3 RBC (4.50-5.90) mil/mm3 Hgb (13.0-17.0) gm/dL Hct (39.0-51.0) % MCV (80.0-100.0) fL MCH (27.0-34.0) pg MCHC (32.0-36.0) % RDW (11.6-17.2) % Plt Count (150-450) th/mm3 MPV (7.0-11.0) fL Neut % (Auto) (16.0-70.0) % Lymph % (Auto) (9.0-44.0) % Meigs % (Auto) (0.0-8.0) % Eos % (Auto) (0.0-4.0) % Baso % (Auto) (0.0-2.0) % Neut # (Auto) (1.8-7.7) th/mm3 Lymph # (Auto) (1.0-4.8) th/mm3 Meigs # (Auto) (0.0-0.9) th/mm3 Eos # (Auto) (0.0-0.4) th/mm3 Baso # (Auto) (0.0-0.2) th/mm3 WBC Differential Differential Comment PT 10.3 (9.8-11.6) sec INR 1.0 Ratio APTT (24.3-30.1) sec Puncture Site Patient Temperature O2 Saturation (90-100) % ABG pH (7.380-7.420) ABG pCO2 (38-42) mmHg ABG pO2 (61-120) mmHg ABG HCO3 (22-26) mmol/L ABG O2 Content (12.0-20.0) Vol % ABG Base Excess (-2-2) mmol/L ABG Methemoglobin (0-2) % Jules Test Hemoglobin (12.0-16.0) G/DL Carboxyhemoglobin (0-4) % O2 Delivery Device Liter Flow L/M Critical Value Sodium (136-145) meq/L Potassium (3.5-5.1) meq/L Chloride (98-107) meq/L Carbon Dioxide (21.0-32.0) meq/L Anion Gap (5-15) meq/L BUN (7-18) mg/dL Creatinine (0.60-1.30) mg/dL Estimated GFR (>89) mL/min POC Glucose (68-110) mg/dl Random Glucose (74-106) mg/dL Calcium (8.5-10.1) mg/dL Total Bilirubin (0.2-1.0) mg/dL AST (15-37) U/L ALT (12-78) U/L Alkaline Phosphatase (45-117) U/L B-Natriuretic Peptide (0-100) pg/mL Total Protein (6.4-8.2) g/dL Albumin (3.4-5.0) g/dL Lipase (73-393) U/L Imaging Data Radiologist's impression: Chest X-Ray 01/18/18 22:37 CONCLUSION: Stable chest x-ray with chronic diffuse interstitial lung disease. No acute change is appreciated compared to the July [address] 01/19/18 00:46 CONCLUSION: 1. Severe emphysema with interstitial lung disease. These changes are stable and may explain the patient's shortness of breath. 2. However, there is a new bilobed mass in the left upper lobe measuring up to 3.2 x 1.8 cm. This is completely new since the April 2016 examination and the appearance is suspicious for a primary pulmonary neoplasm. This nodule should be amenable to image guided percutaneous biopsy, if needed. 3. Stable enlarged pretracheal lymph node and interval enlargement of a prevascular lymph node. 4. Stable left adrenal gland mass measuring 2.1 cm with features characteristic of an adenoma. Discharge Plan Discharge Disposition Patient Disposition: 30 Still Patient Physicians Team ED Provider: Good Beauchamp Primary Care Provider: Bhavin Schuster Attending Provider: Bety Metz Other Providers: Maldonado Moore ; Franky Samaniego ; Alessio Brito Discharge Interventions Interventions: ED Discharge Assessment Last Done: 01/19/18 02:19 Status ED Status: Left Department Discharge Information Discharge Date/Time: 01/19/18 02:25
[2018-01-19] MEDS ORDERED: Bisacodyl 10 MG Supp RECTAL PRN (00:26)
[2018-01-19] MEDS ORDERED: MethylPREDNISolone Sod Succinate Inj 40 MG/ML Vial IV.PUSH SCH (01:00)
--- NOTE | 2018-01-19 01:59 | CT ---
EXAM DATE: 01/19/2018 12:54 AM EDT AGE/SEX: 62 years / Male INDICATIONS: Shortness of breath and chest pain. CLINICAL DATA: This is the patient's initial encounter. Patient reports that signs and symptoms have been present for 1 day and indicates a pain score of 2/10. MEDICAL/SURGICAL HISTORY: Chronic obstructive pulmonary disease. Hypertension. Cardiovascular dis ease. . Coronary stent RADIATION DOSE: 15.98 CTDI (mGy) COMPARISON: [facility], CT THORAX W/O CONTRAST, 05/08/2016. . TECHNIQUE: Multiple contiguous axial images were obtained through the chest without contrast. Image s were obtained in suspended respiration using multiple row detector helical technique. Using automa monserrat exposure control and adjustment of the mA and/or kV according to patient size, radiation dose was kept as low as reasonably achievable to obtain optimal diagnostic quality images. DICOM format imag e data is available electronically for review and comparison. FINDINGS: Lungs: There is severe centrilobular and paraseptal emphysema with subpleural interstitial changes t hroughout. Areas of honeycombing are present bilaterally. In the left upper lobe there is a new bilob ed mass measuring 3.2 x 1.8 cm. No effusion or pneumothorax is identified. Mediastinum: The heart and great vessels demonstrate no acute abnormality. There is an enlarged pre tracheal lymph node measuring 2.0 x 1.8 cm, stable from the prior study. Small lymph nodes throughout the mediastinum remain present with the only other enlarged lymph node being a prevascular lymph nod e in the anterior mediastinum measuring 1.9 x 1.5 cm compared to 1.3 x 1.3 cm previously. Pleurae: No pleural effusion or pleural thickening. Axillae: No lymphadenopathy. Musculoskeletal: The bones and soft tissues demonstrate no acute abnormality. There are degenerativ e changes of the thoracic spine. No concerning lytic or blastic lesion is seen. Other: The visualized upper abdominal structures demonstrate no acute abnormality. There is a low-d ensity left adrenal gland mass measuring 2.1 cm, stable from the prior study. Kidney measurements are negative for. There is an exophytic 4.5 cm low-density lesion at the upper pole left kidney. It has density measurements consistent with a cyst. CONCLUSION: 1. Severe emphysema with interstitial lung disease. These changes are stable and may explain the pat ient's shortness of breath. 2. However, there is a new bilobed mass in the left upper lobe measuring up to 3.2 x 1.8 cm. This is completely new since the April 2016 examination and the appearance is suspicious for a primary pul monary neoplasm. This nodule should be amenable to image guided percutaneous biopsy, if needed. 3. Stable enlarged pretracheal lymph node and interval enlargement of a prevascular lymph node. 4. Stable left adrenal gland mass measuring 2.1 cm with features characteristic of an adenoma. Electronically signed by: Vito Smith MD 01/19/2018 1:58 AM EDT
--- NOTE | 2018-01-19 02:21 | P.HPIM ---
History of Present Illness Primary Care Physician: Bhavin Schuster MD History of Present Illness: This is a 62-year-old male with a PMH of HTN, COPD, Hyperlipidemia and CHF ( Echo 05/06/2016 with EF 45%) who was brought to the ER secondary to SOB. Pt reports recent cold w/ nasal congestion/sore throat and progressive SOB x2 days , minimal relief w/ home Neb. Also notes lower extremity edema bilaterally. Denies chest pain, fever, chills or sick contacts. +productive cough w/ yellow- colored sputum. On arrival, BP 139/75, HR 93, O2 sat 92% on RA, Afebrile. BC unremarkable. Na 129. BNP 616. CXR with stable chronic diffuse interstitial lung disease, no change since July 2017. CT Chest pending. S/p DuoNeb, Solu- Medrol by EMS and Levaquin in ER w/ some improvement, however significant SOB w / ambulation, O2 sat 89% on RA while in ER. - Diagnosis (1) COPD (chronic obstructive pulmonary disease) (2) CHF (congestive heart failure) (3) Hypoxia (4) Hyponatremia (5) Lung mass Review of Systems PAST FAMILY HISTORY: Reviewed. No h/o DM or CAD All other systems reviewed negative except as stated in HPI PMFSH - History History Provided By: Patient - Medical History Medical History: Medical History (Last Updated 01/18/18 @ 22:30 by Julio Heard) CHF (congestive heart failure) COPD (chronic obstructive pulmonary disease) Hypercholesteremia Hypertension - Surgical History Surgical History: Surgical History (Last Updated 01/18/18 @ 22:30 by Julio Heard) Stented coronary artery - Tobacco History Second Hand Smoke Exposure: Yes Tobacco Use In Past 30 Days: Yes Smoking Status: Current every day smoker Tobacco Type: Cigarettes - Alcohol History How Often Do You Have a Drink Containing Alcohol: Never - Immunization History Tetanus Immunization: <5 Years Medications and Allergies Active Medications: Active Medications Al Hydroxide/Mg Hydroxide (Milk Of Magnmarilyn Liq) 30 ml PO Q12H PRN PRN Reason: Mild Constipation Albuterol (Duoneb Neb (Prn)) 1 ampul NEB Q2HR NEB PRN PRN Reason: SOB/WHEEZING Albuterol (Duoneb Neb (Misa)) 1 ampul NEB Q4HR WHILE AWAKE NEB MISA Bisacodyl (Dulcolax Supp) 10 mg RECTAL DAILY PRN PRN Reason: SEVERE CONSITIPATION Budesonide/Formoterol Fumarate (Symbicort 160/4.5 Mcg Inh) 2 puff INH BID [facility] Bupropion HCl (Wellbutrin Sr) 150 mg PO DAILY [facility] Folic Acid (Folic Acid) 1 mg PO DAILY MISA Furosemide (Lasix) 20 mg PO DAILY [facility] Gabapentin (Neurontin) 300 mg PO TID [facility] Levofloxacin/Dextrose (Levaquin 750 Mg Premix Inj) 150 mls @ 100 mls/hr IV.SIG Q24H [facility] Lactulose (Lactulose Liq) 30 ml PO DAILY PRN PRN Reason: SEVERE CONSITIPATION Methylprednisolone Sodium Succinate (Solumedrol Inj) 40 mg IV.PUSH Q6H [facility] Montelukast Sodium (Singulair) 10 mg PO HS [facility] Ondansetron HCl (Zofran Inj) 4 mg IV.PUSH Q6H PRN PRN Reason: NAUSEA OR VOMITING Pantoprazole Sodium (Protonix) 20 mg PO DAILY [facility] Prasugrel (Effient) 10 mg PO DAILY [facility] Senna/Docusate Sodium (Kayla-Colace) 1 tab PO BID [facility] Sennosides (Senokot) 17.2 mg PO Q12H PRN PRN Reason: Moderate Constipation Tizanidine HCl (Zanaflex) 4 mg PO Q8H PRN PRN Reason: MUSCLE SPAMPS Allergies Allergy/AdvReac Type Severity Reaction Status Date / Time diatrizoate meglumine Allergy Severe Hives Unverified 09/17/17 21:13 gadobenic acid Allergy Severe Hives Unverified 09/17/17 21:13 gadodiamide Allergy Severe Hives Unverified 09/17/17 21:13 gadoteridol Allergy Severe Hives Unverified 09/17/17 21:13 iodixanol Allergy Severe Hives Unverified 09/17/17 21:13 iohexol Allergy Severe Hives Unverified 09/17/17 21:13 procaine Allergy Intermediate VOMITING Unverified 09/17/17 21:13 lisinopril AdvReac Unknown Cough Unverified 09/17/17 21:13 Home Medications Medication Instructions Recorded Confirmed Type albuterol sulfate [Ventolin HFA] 90 mcg INHALATION PRN 01/19/18 01/19/18 History aspirin 162.5 mg PO DAILY 01/19/18 01/19/18 History budesonide-formoterol [Symbicort] 2 puff INHALATION BID 01/19/18 01/19/18 History bupropion HCl [Wellbutrin SR] 150 mg PO DAILY 01/19/18 01/19/18 History folic acid 1 mg PO DAILY 01/19/18 01/19/18 History furosemide [Lasix] 20 mg PO DAILY 01/19/18 01/19/18 History gabapentin 300 mg PO TID 01/19/18 01/19/18 History hydrocodone-acetaminophen 1 tab PO Q4-6H PRN 01/19/18 01/19/18 History losartan 25 mg PO DAILY 01/19/18 01/19/18 History montelukast [Singulair] 10 mg PO QPM 01/19/18 01/19/18 History omeprazole 20 mg PO DAILY 01/19/18 01/19/18 History ondansetron [Zofran ODT] 4 mg PO Q6-8H PRN 01/19/18 01/19/18 History potassium chloride 20 meq PO DAILY 01/19/18 01/19/18 History prasugrel [Effient] 10 mg PO DAILY 01/19/18 01/19/18 History sumatriptan succinate [Imitrex] 50 mg PO Q2-4H PRN 01/19/18 01/19/18 History tizanidine 4 mg PO TID PRN 01/19/18 01/19/18 History Exam Vital signs: Vital Signs 01/18/18 22:27 01/18/18 22:53 Temperature 98.9 F Pulse Rate 93 H 89 Respiratory Rate 19 20 Blood Pressure 139/75 Pulse Oximetry 92 L 96 Intake & Output 01/18/18 01/18/18 01/19/18 06:59 18:59 06:59 Intake Total 150 / 150 Balance 150 / 150 Weight 95.254 kg Intake: IV 150 / 150 Levaquin 750 mg Premix Inj 150 150 / 150 ML @ 100 mls/hr IV.SIG ONCE ONE Rx#:[id number] Narrative: PE: GENERAL: Pleasant middle-aged male in no acute distress. Family at bedside. SKIN: Focused skin assessment warm and dry. HEENT: PERRLA, EOMI. No scleral icterus or conjunctival pallor. No lid lag or facial droop. CARDIOVASCULAR: Regular rate and rhythm. No obvious murmurs to auscultation. No chest tenderness to palpation. RESPIRATORY: No obvious rhonchi. +wheezing. Clear to auscultation. Breath sounds equal bilaterally. GASTROINTESTINAL: Abdomen soft, non-tender, nondistended. BS normal. MUSCULOSKELETAL: Extremities without clubbing, cyanosis, or edema. No obvious deformities. Superficial lower extremity abrasions, bandages in place. NEUROLOGICAL: Awake, alert and oriented x4. No focal neurologic deficits. Moving both upper and lower extremities spontaneously. PSYCHIATRIC: Appropriate mood and affect. Insight and judgment normal. Results - Labs CBC & Chem 7: 01/18/18 23:00 01/18/18 23:00 Labs: Short CBC 01/18/18 Range/Units 23:00 WBC 10.1 (4.0-11.0) th/mm3 Hgb 9.8 L (13.0-17.0) gm/dL Hct 30.0 L (39.0-51.0) % Plt Count 375 (150-450) th/mm3 BMP 01/18/18 23:00 Sodium 129 L Potassium 3.8 Chloride 92 L Carbon Dioxide 26.7 BUN 15 Creatinine 1.30 Calcium 7.8 L Liver Function 01/18/18 Range/Units 23:00 Total Bilirubin 0.3 (0.2-1.0) mg/dL AST 18 (15-37) U/L ALT 16 (12-78) U/L Alkaline Phosphatase 104 (45-117) U/L Albumin 3.3 L (3.4-5.0) g/dL - Imaging Impressions Chest X-Ray 01/18/18 22:37 CONCLUSION: Stable chest x-ray with chronic diffuse interstitial lung disease. No acute change is appreciated compared to the July [address] 01/19/18 00:46 CONCLUSION: 1. Severe emphysema with interstitial lung disease. These changes are stable and may explain the patient's shortness of breath. 2. However, there is a new bilobed mass in the left upper lobe measuring up to 3.2 x 1.8 cm. This is completely new since the April 2016 examination and the appearance is suspicious for a primary pulmonary neoplasm. This nodule should be amenable to image guided percutaneous biopsy, if needed. 3. Stable enlarged pretracheal lymph node and interval enlargement of a prevascular lymph node. 4. Stable left adrenal gland mass measuring 2.1 cm with features characteristic of an adenoma. Caprini VTE Risk Assessment Caprini VTE Risk Assessment: No/Low Risk (score <= 1) Caprini Risk Assessment Model: Point Value = 1 Point Value = 2 Point Value = 3 Point Value = 5 Age 41-60 Minor surgery BMI > 25 kg/m2 Swollen legs Varicose veins or History of unexplained or recurrent spontaneous Oral contraceptives or hormone replacement Sepsis (< 1 month) Serious lung disease, including pneumonia (< 1 month) Abnormal pulmonary function Acute myocardial infarction Congestive heart failure (< 1 month) History of inflammatory bowel disease Medical patient at bed rest Age 61-74 Arthroscopic surgery Major open surgery (> 45 min) Laparoscopic surgery (> 45 min) Malignancy Confined to bed (> 72 hours) Immobilizing plaster cast Central venous access Age >= 75 History of VTE Family history of VTE Factor V Leiden Prothrombin [id number] Lupus anticoagulant Anticardiolipin antibodies Elevated serum homocysteine Heparin-induced thrombocytopenia Other congenital or acquired thrombophilia Stroke (< 1 month) Elective arthroplasty Hip, pelvis, or leg fracture Acute spinal cord injury (< 1 month) Prophylaxis Regimen: Total Risk Factor Score Risk Level Prophylaxis Regimen 0-1 Low Early ambulation 2 Moderate Order ONE of the following: *Sequential Compression Device (SCD) *Heparin 5000 units SQ BID 3-4 Higher Order ONE of the following medications: *Heparin 5000 units SQ TID *Enoxaparin/Lovenox 40 mg SQ daily (WT < 150 kg, CrCl > 30 mL/min) *Enoxaparin/Lovenox 30 mg SQ daily (WT < 150 kg, CrCl > 10-29 mL/min) *Enoxaparin/Lovenox 30 mg SQ BID (WT < 150 kg, CrCl > 30 mL/min) AND/OR *Sequential Compression Device (SCD) 5 or more Highest Order ONE of the following medications: *Heparin 5000 units SQ TID (Preferred with Epidurals) *Enoxaparin/Lovenox 40 mg SQ daily (WT < 150 kg, CrCl > 30 mL/min) *Enoxaparin/Lovenox 30 mg SQ daily (WT < 150 kg, CrCl > 10-29 mL/min) *Enoxaparin/Lovenox 30 mg SQ BID (WT < 150 kg, CrCl > 30 mL/min) AND *Sequential Compression Device (SCD) Assessment and Plan - Assessment (1) COPD (chronic obstructive pulmonary disease) Code(s): J44.9 - Chronic obstructive pulmonary disease, unspecified Status: Acute (2) CHF (congestive heart failure) Code(s): I50.9 - Heart failure, unspecified Status: Acute (3) Hypoxia Code(s): R09.02 - Hypoxemia Status: Acute (4) Hyponatremia Code(s): E87.1 - Hypo-osmolality and hyponatremia Status: Acute (5) Lung mass Code(s): R91.8 - Other nonspecific abnormal finding of lung field Status: Acute - Plan A/P: 1. COPD: Chronic Respiratory Failure w/ Acute Exacerbation. Moderate-Severe. S/p Solu-Medrol, DuoNeb w/ some improvement, however persistent wheezing/SOB w / exertion. Continue Solu-Medrol, DuoNeb, Symbicort, Mucinex, Levaquin for empiric PNA. 2. Hypoxia: O2 sat 89% on RA, previously on Home O2, however states he was taken off few months ago, continue w/ O2, re-evaluate at time of d/c for Home O2 needs. 3. Lung Mass: CT Chest w/ new TE mass, 3.2 x 1.8cm, images reviewed. Findings discussed w/ patient and family at bedside. Will consult IR for CT guided lung biopsy of new mass, Oncology consult likely after pathology available. 4. Hyponatremia: Mild. Na 129, previously on NaCl tabs, however taken off due to CHF per , monitor I/O, repeat labs in am. 5. CHF: Acute on Chronic. Systolic. Echo 05/06/16 w/ EF 45%, +lower extremity edema, BNP 616, resume diuretics, monitor I/O. 6. DVT Prophylaxis: On Effient 7. Social work for d/c planning as needed 8. Case discussed w/ ER physician at length, labs/records/imaging reviewed by me.
[2018-01-19] MEDS: Morphine Inj 4 MG/ML Vial IV.PUSH PRN ×5 (02:34→23:18)
[2018-01-19] MEDS: MethylPREDNISolone Sod Succinate Inj 40 MG/ML Vial IV.PUSH SCH ×4 (02:34→20:45)
[2018-01-19] MEDS: buPROPion 150 MG 12 HR Tablet PO SCH (08:11)
[2018-01-19] MEDS: Senna/Docusate Sodium 8.6/50 MG Tablet PO SCH ×2 (08:12→20:45)
[2018-01-19] MEDS: Pantoprazole Sodium 20 MG DR Tablet PO SCH (08:12)
[2018-01-19] MEDS: Budesonide-Formoterol 160/4.5 MCG 6 GM Inhaler INH SCH ×2 (08:12→20:48)
[2018-01-19] MEDS: Folic Acid 1 MG Tablet PO SCH (08:12)
[2018-01-19] MEDS: Gabapentin 300 MG Capsule PO SCH ×3 (08:12→17:57)
[2018-01-19] MEDS: Furosemide 20 MG Tablet PO SCH (08:12)
--- NOTE | 2018-01-19 09:09 | P.PN ---
Subjective Interval history: Follow up for COPD exacerbation, lung mass. The patient reports not much improvement overnight. He reports continued wheezing, shortness of breath, and productive cough with yellow sputum. He also reports feeling hot and feverish, however no documented fevers overnight. Had an episode of sharp chest pain overnight, but denies any currently. He has no other medical complaints at this time. He states multiple family members have history of cancer. Physical Exam Vital signs: Vital Signs 01/18/18 22:27 01/18/18 22:53 01/19/18 02:28 Temperature 98.9 F Pulse Rate 93 H 89 Respiratory Rate 19 20 Blood Pressure 139/75 Pulse Oximetry 92 L 96 94 L 01/19/18 02:29 01/19/18 03:35 01/19/18 04:00 Temperature 98.3 F 98.2 F Pulse Rate 92 H 89 Respiratory Rate 16 17 Blood Pressure 160/77 H 156/71 H Pulse Oximetry 94 L 93 L 89 L 01/19/18 04:05 01/19/18 05:05 01/19/18 08:17 Temperature Pulse Rate 95 H Respiratory Rate 16 18 Blood Pressure Pulse Oximetry 94 L 01/19/18 08:29 Temperature 97.8 F Pulse Rate Respiratory Rate 20 Blood Pressure 159/74 H Pulse Oximetry 96 Intake & Output 01/18/18 01/19/18 01/19/18 18:59 06:59 18:59 Intake Total 150 / 150 Output Total 950 / 950 Balance 150 / 150 -950 / -950 Weight 95.25 kg Intake: IV 150 / 150 Levaquin 750 mg Premix Inj 150 150 / 150 ML @ 100 mls/hr IV.SIG ONCE ONE Rx#:[id number] Output: Urine 950 / 950 Other: Weight On Admission 95.25 kg Narrative: GENERAL: Pleasant middle-aged male in no acute distress. SKIN: Warm and dry. HEENT: PERRLA, EOMI. No scleral icterus or conjunctival pallor. No lid lag or facial droop. CARDIOVASCULAR: Regular rate and rhythm. No obvious murmurs to auscultation. No chest tenderness to palpation. RESPIRATORY: No accessory muscle use. Diffuse wheezing throughout with coarse breath sounds worse at left upper lobe. GASTROINTESTINAL: Abdomen soft, non-tender, nondistended. BS normal. MUSCULOSKELETAL: Extremities without clubbing, cyanosis, or edema. No obvious deformities. Superficial lower extremity abrasions, bandages in place. NEUROLOGICAL: Awake, alert and oriented x4. No focal neurologic deficits. Moving both upper and lower extremities spontaneously. PSYCHIATRIC: Appropriate mood and affect. Insight and judgment normal. Results - Labs CBC & Chem 7: 01/18/18 23:00 01/18/18 23:00 Laboratory Results - last 24 hr 01/18/18 01/18/18 01/18/18 23:00 23:00 23:00 WBC 10.1 RBC 3.49 L Hgb 9.8 L Hct 30.0 L MCV 85.8 MCH 28.0 MCHC 32.6 RDW 15.3 Plt Count 375 MPV 6.7 L Neut % (Auto) 84.2 H Lymph % (Auto) 7.8 L [place] % (Auto) 6.1 Eos % (Auto) 1.5 Baso % (Auto) 0.4 Neut # (Auto) 8.5 H Lymph # (Auto) 0.8 L [place] # (Auto) 0.6 Eos # (Auto) 0.2 Baso # (Auto) 0.0 WBC Differential . Differential Comment Auto diff final Sodium 129 L Potassium 3.8 Chloride 92 L Carbon Dioxide 26.7 Anion Gap 10 BUN 15 Creatinine 1.30 Estimated GFR 56 L Random Glucose 102 Calcium 7.8 L Total Bilirubin 0.3 AST 18 ALT 16 Alkaline Phosphatase 104 B-Natriuretic Peptide 616 H Total Protein 6.9 Albumin 3.3 L Lipase 117 - Imaging Impressions Chest X-Ray 01/18/18 22:37 CONCLUSION: Stable chest x-ray with chronic diffuse interstitial lung disease. No acute change is appreciated compared to the July [address] 01/19/18 00:46 CONCLUSION: 1. Severe emphysema with interstitial lung disease. These changes are stable and may explain the patient's shortness of breath. 2. However, there is a new bilobed mass in the left upper lobe measuring up to 3.2 x 1.8 cm. This is completely new since the April 2016 examination and the appearance is suspicious for a primary pulmonary neoplasm. This nodule should be amenable to image guided percutaneous biopsy, if needed. 3. Stable enlarged pretracheal lymph node and interval enlargement of a prevascular lymph node. 4. Stable left adrenal gland mass measuring 2.1 cm with features characteristic of an adenoma. Assessment and Plan - Assessment (1) COPD (chronic obstructive pulmonary disease) Code(s): J44.9 - Chronic obstructive pulmonary disease, unspecified Status: Acute (2) CHF (congestive heart failure) Code(s): I50.9 - Heart failure, unspecified Status: Acute (3) Hypoxia Code(s): R09.02 - Hypoxemia Status: Acute (4) Hyponatremia Code(s): E87.1 - Hypo-osmolality and hyponatremia Status: Acute (5) Lung mass Code(s): R91.8 - Other nonspecific abnormal finding of lung field Status: Acute - Plan 62-year-old male with a PMH of HTN, COPD, Hyperlipidemia and CHF (Echo 2016 with EF 45%) who was brought to the ER secondary to SOB, wheezing, productive cough w/ yellow-colored sputum. Dyspnea: suspect multifactorial secondary to acute COPD and CHF exacerbations in combination with new lung mass. -Chest CT showed: Severe emphysema with interstitial lung disease. These changes are stable and may explain the patient's shortness of breath. However, there is a new bilobed mass in the left upper lobe measuring up to 3.2 x 1.8 cm. This is completely new since the April 2016 examination and the appearance is suspicious for a primary pulmonary neoplasm. This nodule should be amenable to image guided percutaneous biopsy, if needed. Stable enlarged pretracheal lymph node and interval enlargement of a prevascular lymph node. -See individual treatment below Acute COPD Exacerbation: Moderate-Severe. With hx of Chronic Respiratory Failure , has oxygen at home however has not been using recently. -Continue steroids with IV Solumedrol -Continue bronchodilators with Duonebs scheduled and prn -Continue Levaquin for empiric pneumonia - patient with cough productive of yellow sputum -Check sputum culture -Symbicort bid -Mucinex bid -Incentive spirometer Lung Mass: CT Chest w/ new TE mass, 3.2 x 1.8cm, images reviewed. -Findings discussed w/ patient and family at bedside. -Consult IR for CT guided lung biopsy of new mass, however procedure delayed due to patient being on aspirin 162mg daily -Oncology consult likely after pathology available. Hypoxia: O2 sat 89% on RA, previously on Home O2, however states he hasn't used in a few months -continue w/ O2 as needed to keep O2 sat > 92% -re-evaluate at time of d/c for Home O2 needs Hyponatremia: Mild. Na 129, previously on NaCl tabs, however taken off due to CHF per -monitor I/O, repeat labs in am. CHF: Acute on Chronic. Systolic. Echo 05/06/16 w/ EF 45%, +lower extremity edema, BNP 616, resume diuretics, monitor I/O. DVT Prophylaxis: On Effient
--- NOTE | 2018-01-19 17:04 | ECG ---
Date Performed: 01/18/2018 Time Performed: 22:14:16 PTAGE: 62 years EKG: Sinus rhythm POSSIBLE LEFT ATRIAL ENLARGEMENT INDETERMINATE AXIS PATTERN CONSISTENT WITH PULMONARY DISEASE INCOMP LETE RIGHT BUNDLE BRANCH BLOCK ABNORMAL QRS-T ANGLE ABNORMAL ECG Since previous tracing, no significa nt change noted NO PREVIOUS TRACING DOCTOR: Jo Ann Delgado Interpretating Date/Time 01/19/2018 17:03:07
[2018-01-19] MEDS: Montelukast 10 MG Tablet PO SCH (20:44)
[2018-01-20] MEDS: MethylPREDNISolone Sod Succinate Inj 40 MG/ML Vial IV.PUSH SCH ×4 (01:37→20:05)
[2018-01-20] MEDS: Morphine Inj 4 MG/ML Vial IV.PUSH PRN ×5 (03:18→18:45)
[2018-01-20 07:25] LABS: Baso % (Auto) 0.1 % (0.0-2.0); Hematocrit 34.2 % (39.0-51.0); Hemoglobin 11.2 gm/dL (13.0-17.0); Lymph # (Auto) 0.3 th/mm3 (1.0-4.8); Lymph % (Auto) 3.6 % (9.0-44.0); Mean Corpuscular HGB Conc 32.8 % (32.0-36.0); Mean Corpuscular Volume 85.2 fL (80.0-100.0); Mean Platelet Volume 6.8 fL (7.0-11.0); Mono # (Auto) 0.2 th/mm3 (0.0-0.9); Mono % (Auto) 2.5 % (0.0-8.0); Neut % (Auto) 93.8 % (16.0-70.0); Platelet Count 379 th/mm3 (150-450); Red Blood Count 4.01 mil/mm3 (4.50-5.90); Red Cell Distribution Width 15.3 % (11.6-17.2); White Blood Count 8.5 th/mm3 (4.0-11.0)
[2018-01-20 08:15] LABS: Alanine Aminotransferase 18 U/L (12-78); Albumin 3.3 g/dL (3.4-5.0); Alkaline Phosphatase 116 U/L (45-117); Anion Gap 12 meq/L (5-15); Aspartate Aminotransferase 18 U/L (15-37); Blood Urea Nitrogen 12 mg/dL (7-18); Calcium 8.7 mg/dL (8.5-10.1); Carbon Dioxide 23.4 meq/L (21.0-32.0); Chloride 93 meq/L (98-107); Glomerular Filtration Rate 79 mL/min (>89); Glucose,Random 127 mg/dL (74-106); Potassium 4.3 meq/L (3.5-5.1); Sodium 128 meq/L (136-145); Total Protein 7.4 g/dL (6.4-8.2)
[2018-01-20] MEDS: Gabapentin 300 MG Capsule PO SCH ×4 (08:29→17:26)
[2018-01-20] MEDS: buPROPion 150 MG 12 HR Tablet PO SCH (08:29)
[2018-01-20] MEDS: Folic Acid 1 MG Tablet PO SCH (08:29)
[2018-01-20] MEDS: Pantoprazole Sodium 20 MG DR Tablet PO SCH (08:29)
[2018-01-20] MEDS: Furosemide 20 MG Tablet PO SCH (08:30)
[2018-01-20] MEDS: Senna/Docusate Sodium 8.6/50 MG Tablet PO SCH ×2 (08:30→22:20)
[2018-01-20] MEDS: Budesonide-Formoterol 160/4.5 MCG 6 GM Inhaler INH SCH ×2 (08:30→20:08)
--- NOTE | 2018-01-20 10:11 | P.PNIM ---
Subjective Interval history: f/u; copd exacerbation/ lung mass with mild sob. on oxygen via [place]. says that overall improving slowly. no fever. Physical Exam Vital signs: Vital Signs 01/19/18 11:07 01/19/18 11:55 01/19/18 12:09 Temperature 98.0 F Pulse Rate 74 Respiratory Rate 18 20 18 Blood Pressure 143/68 H Pulse Oximetry 94 L 01/19/18 12:31 01/19/18 15:42 01/19/18 15:54 Temperature 97.7 F Pulse Rate 82 89 Respiratory Rate 16 16 18 Blood Pressure 155/72 H Pulse Oximetry 95 01/19/18 20:00 01/19/18 20:30 01/19/18 20:44 Temperature 98.2 F Pulse Rate 86 92 H Respiratory Rate 18 18 18 Blood Pressure 138/66 Pulse Oximetry 95 97 01/19/18 22:27 01/19/18 23:37 01/19/18 23:52 Temperature Pulse Rate 85 Respiratory Rate 15 15 Blood Pressure Pulse Oximetry 01/20/18 00:00 01/20/18 03:55 01/20/18 05:38 Temperature 97.4 F L 98 F Pulse Rate 94 H 85 Respiratory Rate 18 17 20 Blood Pressure 156/72 H 154/71 H Pulse Oximetry 93 L 93 L 01/20/18 07:28 01/20/18 08:00 01/20/18 08:30 Temperature 97.4 F L Pulse Rate 88 81 Respiratory Rate 17 18 18 Blood Pressure 147/70 H Pulse Oximetry 94 L 96 Intake & Output 01/19/18 01/20/18 01/20/18 18:59 06:59 18:59 Intake Total 150 / 150 990 / 990 Output Total 2725 / 2725 1890 / 1890 Balance -2725 / -2725 150 / 150 -900 / -900 Intake: IV 150 / 150 Levaquin 750 mg Premix Inj 150 150 / 150 ML @ 100 mls/hr IV.SIG Q24H SARITA Rx#:[id number] Oral 990 / 990 Output: Urine 2725 / 2725 1890 / 1890 Other: # Voids 4 - Constitutional mild distress - Routine Respiratory Exam Present: CTA bilaterally - Routine Cardiovascular Exam Present: RRR - Routine Abdominal Exam Present: soft - Routine Extremities Exam Comments: no pedal edema. - Routine Neurological Exam Present: alert, oriented X3 Results - Labs CBC & Chem 7: 01/20/18 05:45 01/20/18 05:45 Laboratory Results - last 24 hr 01/20/18 01/20/18 05:45 05:45 WBC 8.5 RBC 4.01 L Hgb 11.2 L Hct 34.2 L MCV 85.2 MCH 28.0 MCHC 32.8 RDW 15.3 Plt Count 379 MPV 6.8 L Neut % (Auto) 93.8 H Lymph % (Auto) 3.6 L [place] % (Auto) 2.5 Eos % (Auto) 0.0 Baso % (Auto) 0.1 Neut # (Auto) 8.0 H Lymph # (Auto) 0.3 L [place] # (Auto) 0.2 Eos # (Auto) 0.0 Baso # (Auto) 0.0 WBC Differential . Differential Comment Auto diff final Sodium 128 L Potassium 4.3 Chloride 93 L Carbon Dioxide 23.4 Anion Gap 12 BUN 12 Creatinine 0.97 Estimated GFR 79 L Random Glucose 127 H Calcium 8.7 D Total Bilirubin 0.3 AST 18 ALT 18 Alkaline Phosphatase 116 Total Protein 7.4 Albumin 3.3 L Assessment and Plan - Assessment (1) COPD (chronic obstructive pulmonary disease) Code(s): J44.9 - Chronic obstructive pulmonary disease, unspecified Status: Acute (2) CHF (congestive heart failure) Code(s): I50.9 - Heart failure, unspecified Status: Acute (3) Hypoxia Code(s): R09.02 - Hypoxemia Status: Acute (4) Hyponatremia Code(s): E87.1 - Hypo-osmolality and hyponatremia Status: Acute (5) Lung mass Code(s): R91.8 - Other nonspecific abnormal finding of lung field Status: Acute - Plan Dyspnea: suspect multifactorial secondary to acute COPD and CHF exacerbations in combination with new lung mass. -Chest CT showed: Severe emphysema with interstitial lung disease. These changes are stable and may explain the patient's shortness of breath. However, there is a new bilobed mass in the left upper lobe measuring up to 3.2 x 1.8 cm. This is completely new since the April 2016 examination and the appearance is suspicious for a primary pulmonary neoplasm. This nodule should be amenable to image guided percutaneous biopsy, if needed. Stable enlarged pretracheal lymph node and interval enlargement of a prevascular lymph node. -See individual treatment below Acute COPD Exacerbation: Moderate-Severe. With hx of Chronic Respiratory Failure , has oxygen at home however has not been using recently. -Continue steroids with IV Solumedrol -Continue bronchodilators with Duonebs scheduled and prn -Continue Levaquin for empiric pneumonia - patient with cough productive of yellow sputum -Symbicort bid -Mucinex bid -Incentive spirometer Lung Mass: CT Chest w/ new TE mass, 3.2 x 1.8cm, images reviewed. -Findings discussed w/ patient. -Consulted IR for CT guided lung biopsy of new mass, however procedure delayed due to patient being on aspirin 162mg daily -will consult pulmonary ( case was d/w today). Hypoxia: O2 sat 89% on RA, previously on Home O2, however states he hasn't used in a few months -continue w/ O2 as needed to keep O2 sat > 92% -re-evaluate at time of d/c for Home O2 needs Hyponatremia: Mild. Na 129, previously on NaCl tabs, however taken off due to CHF per -monitor I/O, repeat labs in am. CAD- s/p stent placement ( 2017)/ CHF: Acute on Chronic. Systolic. Echo 05/06/16 w/ EF 45%, +lower extremity edema, BNP 616, resumed diuretics, monitor I/O. DVT Prophylaxis: SCD's Discharge Planning: awaiting pulmonary evaluation.
--- NOTE | 2018-01-20 14:17 | P.PNWCN ---
Wound Care Nurse Consult Description: wound consult ordered by for wound management. Communicated with: Charlotte MUIR, Recommendation: 1. Cleanse bilateral lower extremities with antibacterial soap rinse and pat dry. 2. Apply thin even layer of Silvadene BID cover if at work. 3. If wounds weep cover with Maxorb AG cut to fit wound base. Additional information: Patient was seen today for wound management.Patient alert and oriented x4 resting in bed in no acute distress. dressing removed from bilateral lower extremities. patient noted to have diffuse superficial dry abrasion.Cleansed with normals alvin pat dry left open to air.
--- NOTE | 2018-01-20 15:24 | P.PNADD ---
Addendum to Inpatient Note Reason for Addendum: Additional Documentation (case was d/w ; CT-guided biopsy will be cancelled at this time till COPD flare-up has subsided. cardiology will be consulted for cardiac clearance for further w/u on lung mass - per .)
--- NOTE | 2018-01-20 17:44 | MB ---
cc: Emerson Moore MD DATE: 01/20/2018 HISTORY OF PRESENT ILLNESS: Mr. Dugan is a 61-year-old white male whom I first met on 04/2016 when he presented with an acute exacerbation of COPD. He had smoked 1-2 packs per day for over 40 years, although he quit several months before that admission. We saw him back in the office in July and then again in September, but he was then lost to followup. We had tried to reach him in October, but got no response and notified his primary that he was not getting back to us. The patient does have mild obstructive and restrictive lung disease with a severe reduction in diffusion and interstitial fibrosis. Last chest x-ray that we had on him was in 06/2016 with stable coarse interstitial disease. He had a CT scan in April last year when hospitalized that revealed emphysema, interstitial disease and some scattered bullae but nothing to suggest malignancy. The patient presented to the emergency room yesterday with increasing shortness of breath. He admits that he has been smoking again and he has had no interval followup other than with his primary care physician in the last year. He did have a stent placed in April 2016, but has had no followup in that regard. He has been using no specific medication for his lung other than a nebulizer with albuterol and Atrovent, which he has used p.r.n. He has had no chest pain or hemoptysis, just progressive shortness of breath. 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 Probably had some asbestos exposure in the past with brake linings. Also, resumed smoking recently. ADDITIONAL PAST HISTORY: Chronic back pain due to degenerative arthritis, hypertension, history of depression and anxiety. MEDICATIONS: Reviewed in the EMR. ALLERGIES: NOVOCAIN. SOCIAL HISTORY: He is , living with his who is here in the ER with him today. Smoking noted. No excessive alcohol use. No illicit drug use. FAMILY HISTORY: Positive for lung cancer and heart disease. REVIEW OF SYSTEMS: He has had no anginal chest pain. No increased edema. No abdominal complaints, nausea or vomiting. PHYSICAL EXAMINATION: GENERAL: Awake, alert, comfortable at rest. VITAL SIGNS: Afebrile, pulse is 90, blood pressure is 120/70, respirations are 18. HEENT: Sclerae are anicteric. Mucous membranes are moist. NECK: No adenopathy palpable in the neck or supraclavicular region. LUNGS: He does have expiratory wheezes with some minimal scattered congestion. HEART: No harsh murmur. No audible S3. EXTREMITIES: No peripheral edema or cyanosis. STUDIES: CT scan on presentation reveals a new bilobed left upper lobe nodular density suspicious for malignancy, superimposed on chronic emphysematous changes and fibrosis. I reviewed the scans with radiology. He has a pretracheal node and a prevascular node, both of which were present previously and really have not changed. Mr. Dugan presents with what appears to be an acute exacerbation of COPD. He has had no interval followup since I last saw him in 09/2016. I have reviewed the CT scan with him and in light of the problem with the exacerbation and the severity of his emphysema, I have spoken to Dr. Parisi and I would hold off on doing a percutaneous biopsy at present, as it may significantly aggravate his current situation. Once things are stabilized, I think discharging him home with an outpatient PET scan would be helpful because if these lymph nodes are positive on PET, it would be probably safer to proceed with an endobronchial ultrasound to establish a diagnosis by biopsying these lymph nodes rather than a percutaneous biopsy of the left upper lobe nodule. I have reviewed this with the patient. He is agreeable. We will continue current therapy for his exacerbation. Since he has had no followup with regard to the cardiac stents in the last year and a half, I would also suggest having cardiology see him just to ensure that no further evaluation at present is necessary for that and may be reestablished for appropriate followup. Further diagnostic and/or therapeutic intervention will depend on his ongoing clinical course. R. MD BRENDA Conte/daquan/ruslan , 04:00 PM , 04:10 PM
[2018-01-20] MEDS: Montelukast 10 MG Tablet PO SCH (20:04)
[2018-01-21] MEDS: MethylPREDNISolone Sod Succinate Inj 40 MG/ML Vial IV.PUSH SCH ×4 (02:16→20:36)
[2018-01-21] MEDS: buPROPion 150 MG 12 HR Tablet PO SCH (09:43)
[2018-01-21] MEDS: Furosemide 20 MG Tablet PO SCH (09:43)
[2018-01-21] MEDS: Budesonide-Formoterol 160/4.5 MCG 6 GM Inhaler INH SCH ×2 (09:43→20:36)
[2018-01-21] MEDS: Gabapentin 300 MG Capsule PO SCH ×3 (09:44→16:42)
[2018-01-21] MEDS: Senna/Docusate Sodium 8.6/50 MG Tablet PO SCH ×2 (09:44→20:35)
[2018-01-21] MEDS: Pantoprazole Sodium 20 MG DR Tablet PO SCH (09:44)
[2018-01-21] MEDS: Folic Acid 1 MG Tablet PO SCH (09:44)
--- NOTE | 2018-01-21 12:28 | P.PNIM ---
Subjective Interval history: Patient says that shortness of breath continues about the same as yesterday. Denies any chest pain. Physical Exam Vital signs: Vital Signs 01/20/18 15:17 01/20/18 16:00 01/20/18 19:34 Temperature 97.9 F Pulse Rate 93 H 99 H Respiratory Rate 18 16 24 Blood Pressure 137/74 Pulse Oximetry 95 95 01/20/18 19:59 01/20/18 20:00 01/21/18 00:00 Temperature 97.7 F 97.9 F Pulse Rate 86 82 Respiratory Rate 18 17 18 Blood Pressure 140/69 141/73 H Pulse Oximetry 96 97 01/21/18 02:54 01/21/18 04:00 01/21/18 07:47 Temperature 97.4 F L Pulse Rate 90 81 83 Respiratory Rate 18 16 Blood Pressure 157/76 H Pulse Oximetry 94 L 96 01/21/18 08:00 Temperature 97.5 F L Pulse Rate 80 Respiratory Rate 18 Blood Pressure 158/72 H Pulse Oximetry 97 Intake & Output 01/20/18 01/21/18 01/21/18 18:59 06:59 18:59 Intake Total 990 / 990 1110 / 1110 Output Total 1890 / 1890 1900 / 1900 Balance -900 / -900 -790 / -790 Weight 84.4 kg Intake: IV 150 / 150 Levaquin 750 mg Premix Inj 150 150 / 150 ML @ 100 mls/hr IV.SIG Q24H SARITA Rx#:[id number] Oral 990 / 990 960 / 960 Output: Urine 1890 / 1890 1900 / 1900 Other: # Bowel Movements 0 Narrative: GENERAL: Patient sitting up in bed. Appears comfortable. Alert and oriented x4. SKIN: Warm and dry. HEAD: Normocephalic. EYES: No scleral icterus. No injection or drainage. NECK: Supple, trachea midline. No JVD. CARDIOVASCULAR: Regular rate and rhythm without murmurs, gallops, or rubs. RESPIRATORY: Breath sounds equal bilaterally. No accessory muscle use. GASTROINTESTINAL: Abdomen soft, non-tender, nondistended. MUSCULOSKELETAL: No cyanosis, or edema. BACK: Nontender without obvious deformity. No CVA tenderness. Results - Labs CBC & Chem 7: 01/20/18 05:45 01/20/18 05:45 Assessment and Plan - Assessment (1) COPD (chronic obstructive pulmonary disease) Code(s): J44.9 - Chronic obstructive pulmonary disease, unspecified Status: Acute (2) CHF (congestive heart failure) Code(s): I50.9 - Heart failure, unspecified Status: Acute (3) Hypoxia Code(s): R09.02 - Hypoxemia Status: Acute (4) Hyponatremia Code(s): E87.1 - Hypo-osmolality and hyponatremia Status: Acute (5) Lung mass Code(s): R91.8 - Other nonspecific abnormal finding of lung field Status: Acute - Plan /Dyspnea: suspect multifactorial secondary to acute COPD and CHF exacerbations in combination with new lung mass. -Chest CT showed: Severe emphysema with interstitial lung disease. These changes are stable and may explain the patient's shortness of breath. However, there is a new bilobed mass in the left upper lobe measuring up to 3.2 x 1.8 cm. This is completely new since the April 2016 examination and the appearance is suspicious for a primary pulmonary neoplasm. This nodule should be amenable to image guided percutaneous biopsy, if needed. Stable enlarged pretracheal lymph node and interval enlargement of a prevascular lymph node. -See individual treatment below /Acute COPD Exacerbation: Moderate-Severe. With hx of Chronic Respiratory Failure, has oxygen at home however has not been using recently. -Continue steroids with IV Solumedrol -Continue bronchodilators with Duonebs scheduled and prn -Continue Levaquin for empiric pneumonia - patient with cough productive of yellow sputum -Symbicort bid -Mucinex bid -Incentive spirometer = Pulmonology following. Lung mass. Appreciate pulmonology assistance. //Chronic pain. Will add back pain medication. Discussed risks of increasing pain meds in the setting of COPD exacerbation. Patient understands risk. Patient agrees with palliative care consultation. //Lung Mass: CT Chest w/ new TE mass, 3.2 x 1.8cm, images reviewed. -Findings discussed w/ patient. -Consulted IR for CT guided lung biopsy of new mass, however procedure delayed due to patient being on aspirin 162mg daily -will consult pulmonary ( case was d/w today). = Pulmonary following. Will await cardiology clearance for lung biopsy //Hypoxia: O2 sat 89% on RA, previously on Home O2, however states he hasn't used in a few months -continue w/ O2 as needed to keep O2 sat > 92% -re-evaluate at time of d/c for Home O2 needs //Hyponatremia: Mild. Na 129, previously on NaCl tabs, however taken off due to CHF per -monitor I/O, repeat labs in am. = We will place on fluid restrictions for CHF and hyponatremia. //CAD- s/p stent placement ( 2017)/ CHF: Acute on Chronic. Systolic. Echo 05/06/16 w/ EF 45%, +lower extremity edema, BNP 616, resumed diuretics, monitor I/O. = Awaiting cardiology clearance for lung biopsy. //DVT Prophylaxis: SCD's Discussed Condition With: Patient, nurse, at bedside. Discharge Planning: Pending improvement and pulmonology clearance. PT consult ordered and pending.
[2018-01-21 14:00] LABS: ABG PCO2 38 mmHg (38-42); ABG PO2 78 mmHg (61-120)
[2018-01-21] MEDS: Morphine Inj 4 MG/ML Vial IV.PUSH PRN ×2 (14:58→20:34)
--- NOTE | 2018-01-21 16:16 | P.CONPAL ---
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 of very little vegetable/fiber, likely this contributes to motility/constipation --Dyspnea-acute on chronic. Underlying COPD, emphysema. New findings of lung mass concerning for malignancy. Pulmonology following. On steroids, nebulizers, antibiotics. Patient subjectively reports breathing significantly improved during hospital course thus far. Previously on home O2 though has not used this for many months. * Palliative care will continue to follow during hospital course as condition evolves, to assist patient/decision-maker with understanding of medical conditions, weighing benefits/burdens of treatment options, for clarification of goals of treatment. Additionally will assist with any symptoms of palliative concern Appreciation Thank you for the opportunity to participate in the care of Julio Lira [facility]. Attestation Attestation: To help prompt me to consider important information that might be impacting today's encounter and assessment, information from prior notes written by myself or my colleagues may have been "brought forward" into today's note. My signature on this note, however, is an attestation that I personally performed the exam, history, and/or decision-making noted today, and, unless otherwise indicated, the interactions with patient, family, and staff as well as the review of records all occurred today. I also attest that the listed assessment and stated plan reflect my best clinical judgment today based on the combination of historical information, prior notes, and today's exam/ interactions. When time spent is documented, it refers only to time spent today by the signer, or if indicated, combined time spent today by collaborating physician/nurse practitioner.
[2018-01-21] MEDS: Montelukast 10 MG Tablet PO SCH (20:35)
[2018-01-21] MEDS: Gabapentin 400 MG Capsule PO SCH (20:35)
[2018-01-21] MEDS: oxyCODONE/Acetaminophen 10/325 Tablet PO PRN (23:15)
--- NOTE | 2018-01-21 23:36 | MB ---
cc: Roscoe Ponce DO DATE: 01/21/2018 REASON FOR CONSULTATION: Coronary artery disease, preoperative cardiovascular exam. HISTORY OF PRESENT ILLNESS: Julio Dugan is a pleasant 62-year-old male who presented to [facility] due to shortness of breath. He states that for the past 2 days, he has had a cold with nasal congestion and sore throat as well as progressive shortness of breath. He has also noticed more lower extremity edema. He did have some chest pain, but this felt more like he was having trouble expanding his lungs to get a full breath. He denies any fevers or chills. He underwent a CT which showed severe emphysema as well as a left upper lobe mass concerning for primary pulmonary neoplasm. He was seen by Dr. Maldonado Moore from pulmonology for further help with his pulmonary issues, and Dr. Moore asked that I see the patient as the patient did have a history of coronary artery disease and has had no followup with cardiology due to his insurance. In seeing him, he is currently hemodynamically stable and mildly short of breath. He has been diuresed since being in the hospital and is about 4 L negative. PAST MEDICAL HISTORY: 1. Coronary artery disease. 2. Congestive heart failure with a previous ejection fraction of 45% (05/06/2016). 3. Chronic obstructive pulmonary disease. 4. Hyperlipidemia. 5. Hypertension. PAST SURGICAL HISTORY: Cardiac catheterization (05/05/2016): Left main normal. Left circumflex 90% stenosis of the second obtuse marginal, which is an overall small vessel. LAD ostial 50%. Mid to distal LAD 80%. RCA long 70% in the proximal to mid segment and long 70% in the distal segment. He underwent PCI of his mid to distal LAD with a bare-metal stent (3 x 18). ALLERGIES: DIATRIZOATE MEGLUMINE, GADOBENIC ACID, GADODIAMIDE, GADOTERIDOL, IODIXANOL, IOHEXOL, PROCAINE, LISINOPRIL. MEDICATIONS: 1. Symbicort 160/4.5 two puffs b.i.d. 2. Tizanidine 4 mg t.i.d. as needed. 3. Imitrex 50 mg every 2-4 hours as needed. 4. Potassium 20 mEq daily. 5. Omeprazole 20 mg daily. 6. Folic acid 1 mg daily. 7. Hydrocodone/acetaminophen 10/325 every 4-6 hours as needed. 8. Gabapentin 300 mg b.i.d. 9. Wellbutrin 150 mg daily. 10. Effient 10 mg daily. 11. Losartan 25 mg daily. 12. Aspirin 162 mg daily. 13. Albuterol as needed. 14. Singulair 10 mg every night. 15. Zofran 4 mg as needed. 16. Lasix 20 mg daily. FAMILY HISTORY: He denies premature coronary artery disease or sudden cardiac within the family. SOCIAL HISTORY: The patient is a current smoker. He denies alcohol or drug abuse. REVIEW OF SYSTEMS: Fourteen systems were reviewed including osteopathic. Pertinent positives and negatives above. Otherwise negative. PHYSICAL EXAMINATION: VITAL SIGNS: Temperature 97.5, heart rate 80, blood pressure 158/72, respirations 18, pulse oximetry 97% on 3 L. GENERAL: The patient is alert, awake, and oriented, in no acute distress. He appears older than stated age. HEENT: Extraocular muscles intact. Mucous membranes moist. NECK: Supple. No JVD at 45 degrees. No carotid bruits heard bilaterally. Carotid upstroke is brisk in nature. HEART: Regular rate and rhythm. Positive first and second heart sounds with no noted murmurs, gallops, or rubs. LUNGS: Decreased breath sounds bilaterally with positive wheezing. ABDOMEN: Soft, nontender, nondistended. No organomegaly noted. EXTREMITIES: No clubbing, cyanosis, or edema. Femoral and distal pulses are intact bilaterally. NEUROLOGIC: No focal deficits. SKIN: Warm, dry, and intact. OSTEOPATHIC: No kyphoscoliosis, lordosis, or paraspinal tender points. LABORATORY DATA: Hemoglobin 11.2, hematocrit 34.2, platelets 379. Potassium 4.3, BUN 12, creatinine 0.97. Electrocardiogram (01/18/2018): Sinus rhythm, left atrial enlargement, incomplete right bundle branch IMPRESSION: 1. Shortness of breath, most likely multifactorial secondary to chronic obstructive pulmonary disease as well as acute systolic heart failure. 2. Chronic obstructive pulmonary disease/emphysema. 3. Systolic heart failure with previous ejection fraction of 45%. 4. Lung mass, left upper lobe, measuring 3.2 x 1.8 cm. 5. Coronary artery disease with a history of percutaneous coronary intervention to his left anterior descending with residual right coronary artery and left circumflex disease. 6. Hyponatremia. RECOMMENDATIONS: 1. Mr. Dugan presented with shortness of breath, and this is most likely multifactorial between his emphysema, COPD exacerbation, and congestive heart failure. 2. He is being diuresed and is 4 L negative since admission as well as his weight decreasing. 3. He previously underwent PCI with a bare-metal stent and does have some residual coronary artery disease as above. He was on aspirin and Effient, although the patient states that he has not been taking it as he should. 4. He was found to have a left upper lobe mass, and I discussed this with Dr. Moore over the phone. Ultimately before anything can be done from a coronary or pulmonary standpoint, he needs to undergo a biopsy. We will plan on doing a percutaneous biopsy of this, and for that to happen, he will be off his aspirin and Effient. After the biopsy, he needs to be placed back on at least his aspirin. 5. Depending on the workup for his lung mass, if there are any plans for surgery, he would need to undergo intervention. If there are any plans for surgery, I would suggest that he undergo a pharmacologic nuclear stress test to evaluate his coronary anatomy and if positive, possible intervention. 6. If no surgery is planned or there is poor prognosis based on his biopsy, then I would consider treating him medically as best as possible from a coronary artery disease standpoint. 8. I spoke to him for greater than 3 minutes about tobacco cessation. 9. Further recommendations will be made after biopsy results. Thank you for allowing me to see Julio Dugan. If there are any questions, please do not hesitate to call. DO FANTASMA Mcgee/juan , 10:56 PM , 11:13 PM
[2018-01-22] MEDS: Morphine Inj 4 MG/ML Vial IV.PUSH PRN ×5 (01:39→20:39)
[2018-01-22] MEDS: MethylPREDNISolone Sod Succinate Inj 40 MG/ML Vial IV.PUSH SCH ×3 (01:40→20:42)
[2018-01-22] MEDS: Gabapentin 400 MG Capsule PO SCH ×3 (04:12→20:41)
[2018-01-22] MEDS: oxyCODONE/Acetaminophen 10/325 Tablet PO PRN ×5 (04:12→22:09)
[2018-01-22] MEDS: Folic Acid 1 MG Tablet PO SCH (08:28)
[2018-01-22] MEDS: Pantoprazole Sodium 20 MG DR Tablet PO SCH (08:28)
[2018-01-22] MEDS: buPROPion 150 MG 12 HR Tablet PO SCH (08:29)
[2018-01-22] MEDS: Furosemide 20 MG Tablet PO SCH (08:29)
[2018-01-22] MEDS: Budesonide-Formoterol 160/4.5 MCG 6 GM Inhaler INH SCH ×2 (08:30→20:43)
[2018-01-22] MEDS: Senna/Docusate Sodium 8.6/50 MG Tablet PO SCH ×2 (08:41→20:41)
[2018-01-22 15:01] LABS: Prothrombin Time 10.3 sec (9.8-11.6)
--- NOTE | 2018-01-22 15:34 | P.PN ---
Subjective Interval history: He is in bed appears in not acute distress at this time. Says still short of breath however is improved. Coughing white sputum no blood in it. Some wheezing on and off but improved significantly. No fever or chills. No nausea or vomiting eating fairly well. Physical Exam Vital signs: Vital Signs 01/21/18 16:00 01/21/18 19:45 01/21/18 19:53 Temperature 98 F Pulse Rate 89 96 H Respiratory Rate 16 18 18 Blood Pressure 84/50 L Pulse Oximetry 99 93 L 01/21/18 20:00 01/21/18 23:28 01/22/18 04:00 Temperature 98 F 97.7 F 97.6 F Pulse Rate 96 H 83 84 Respiratory Rate 18 18 Blood Pressure 144/77 H 145/75 H 154/78 H Pulse Oximetry 96 95 98 01/22/18 07:43 01/22/18 08:00 01/22/18 12:00 Temperature 97.3 F L 97.4 F L Pulse Rate 71 75 74 Respiratory Rate 16 16 18 Blood Pressure 149/61 H 145/77 H Pulse Oximetry 94 L 96 96 01/22/18 14:13 Temperature Pulse Rate 85 Respiratory Rate 16 Blood Pressure Pulse Oximetry Intake & Output 01/21/18 01/22/18 01/22/18 18:59 06:59 18:59 Intake Total 480 / 480 630 / 630 Output Total 475 / 475 1939 / 1939 Balance 5 / 5 -1310 / -1310 Weight 83 kg Intake: IV 150 / 150 Levaquin 750 mg Premix Inj 150 150 / 150 ML @ 100 mls/hr IV.SIG Q24H [facility] Rx#:[id number] Oral 480 / 480 480 / 480 Output: Urine 475 / 475 1939 Other: # Bowel Movements 1 0 Narrative: GENERAL: Very pleasant 62 yo male, appears in nad. Alert and oriented x4. EYES: No scleral icterus. No injection or drainage. NECK: Supple, trachea midline. No JVD. CARDIOVASCULAR: Regular rate and rhythm without murmurs, gallops, or rubs. RESPIRATORY: Breath sounds decreased bibasilar. No accessory muscle use. GASTROINTESTINAL: Abdomen soft, non-tender, nondistended. MUSCULOSKELETAL: No cyanosis, or edema. BACK: Nontender without obvious deformity. No CVA tenderness. Results - Labs CBC & Chem 7: 01/20/18 05:45 01/20/18 05:45 Laboratory Results - last 24 hr 01/21/18 01/22/18 01/22/18 16:34 07:21 14:18 PT INR APTT 26.3 POC Glucose 223 H 124 H 01/22/18 14:18 PT 10.3 INR 1.0 APTT POC Glucose Assessment and Plan - Assessment (1) COPD (chronic obstructive pulmonary disease) Code(s): J44.9 - Chronic obstructive pulmonary disease, unspecified Status: Acute (2) CHF (congestive heart failure) Code(s): I50.9 - Heart failure, unspecified Status: Acute (3) Hypoxia Code(s): R09.02 - Hypoxemia Status: Acute (4) Hyponatremia Code(s): E87.1 - Hypo-osmolality and hyponatremia Status: Acute (5) Lung mass Code(s): R91.8 - Other nonspecific abnormal finding of lung field Status: Acute - Plan Dyspnea: suspect multifactorial secondary to acute COPD and CHF exacerbations in combination with new lung mass. -Chest CT showed: Severe emphysema with interstitial lung disease. These changes are stable and may explain the patient's shortness of breath. However, there is a new bilobed mass in the left upper lobe measuring up to 3.2 x 1.8 cm. This is completely new since the April 2016 examination and the appearance is suspicious for a primary pulmonary neoplasm. This nodule should be amenable to image guided percutaneous biopsy, if needed. Stable enlarged pretracheal lymph node and interval enlargement of a prevascular lymph node. -See individual treatment below IR consulted for biopsy of lung mass Acute COPD Exacerbation: Moderate-Severe. With hx of Chronic Respiratory Failure , has oxygen at home however has not been using recently. -Continue steroids with IV Solumedrol -Continue bronchodilators with Duonebs scheduled and prn -Continue Levaquin for empiric pneumonia - patient with cough productive of yellow sputum -Symbicort bid -Mucinex bid -Incentive spirometer = Pulmonology following. Lung mass. Appreciate pulmonology assistance. Chronic pain. Will add back pain medication. Discussed risks of increasing pain meds in the setting of COPD exacerbation. Patient understands risk. Patient agrees with palliative care consultation. Lung Mass: CT Chest w/ new TE mass, 3.2 x 1.8cm, images reviewed. -Findings discussed w/ patient. -Consulted IR for CT guided lung biopsy of new mass, however procedure delayed due to patient being on aspirin 162mg daily -will consult pulmonary ( case was d/w today). = Pulmonary following. Cardiology clearance for lung biopsy Hypoxia: O2 sat 89% on RA, previously on Home O2, however states he hasn't used in a few months -continue w/ O2 as needed to keep O2 sat > 92% -re-evaluate at time of d/c for Home O2 needs Hyponatremia: Mild. Na 129, previously on NaCl tabs, however taken off due to CHF per -monitor I/O, repeat labs in am. = We will place on fluid restrictions for CHF and hyponatremia. CAD- s/p stent placement ( 2017)/ CHF: Acute on Chronic. Systolic. Echo 05/06/16 w/ EF 45%, +lower extremity edema, BNP 616, resumed diuretics, monitor I/O. Awaiting cardiology clearance for lung biopsy. DVT Prophylaxis: SCD's Discussed Condition With: Patient, nurse, at bedside. Discharge Planning: Pending improvement and pulmonology clearance. Plan for lung biopsy by IR 01/23 PT consult
--- NOTE | 2018-01-22 18:52 | P.PNCA ---
Subjective Interval history: Feeling much better No chest pain No SOB Medications and Allergies Active Medications: Active Medications Al Hydroxide/Mg Hydroxide (Milk Of Magnesia Liq) 30 ml PO Q12H PRN PRN Reason: Mild Constipation Albuterol (Duoneb Neb (Prn)) 1 ampul NEB Q2HR NEB PRN PRN Reason: SOB/WHEEZING Last Admin: 01/21/18 02:54 Dose: 1 ampul Albuterol (Duoneb Neb (Misa)) 1 ampul NEB Q6HR WHILE AWAKE NEB [facility] Last Admin: 01/22/18 14:13 Dose: 1 ampul Aspirin (Ecotrin) 81 mg PO DAILY [facility] Last Admin: 01/21/18 11:07 Dose: Not Given Bisacodyl (Dulcolax Supp) 10 mg RECTAL DAILY PRN PRN Reason: SEVERE CONSITIPATION Budesonide/Formoterol Fumarate (Symbicort 160/4.5 Mcg Inh) 2 puff INH BID [facility] Last Admin: 01/22/18 08:30 Dose: 2 puff Bupropion HCl (Wellbutrin Sr) 150 mg PO DAILY [facility] Last Admin: 01/22/18 08:29 Dose: 150 mg Fluticasone Propionate (Flonase Nasal [place]) 1 spray NASAL BID [facility] Last Admin: 01/22/18 08:30 Dose: 1 spray Folic Acid (Folic Acid) 1 mg PO DAILY [facility] Last Admin: 01/22/18 08:28 Dose: 1 mg Furosemide (Lasix) 20 mg PO DAILY [facility] Last Admin: 01/22/18 08:29 Dose: 20 mg Gabapentin (Neurontin) 400 mg PO Q8H [facility] Last Admin: 01/22/18 12:49 Dose: 400 mg Levofloxacin/Dextrose (Levaquin 750 Mg Premix Inj) 150 mls @ 100 mls/hr IV.SIG Q24H [facility] Last Infusion: 01/22/18 00:50 Dose: Infused Lactulose (Lactulose Liq) 30 ml PO DAILY PRN PRN Reason: SEVERE CONSITIPATION Methylprednisolone Sodium Succinate (Solumedrol Inj) 40 mg IV.PUSH Q12HR [facility] Montelukast Sodium (Singulair) 10 mg PO HS [facility] Last Admin: 01/21/18 20:35 Dose: 10 mg Morphine Sulfate (Morphine Inj) 2 mg IV.PUSH Q4H PRN PRN Reason: BREAKTHROUGH PAIN Last Admin: 01/22/18 16:13 Dose: 2 mg Ondansetron HCl (Zofran Inj) 4 mg IV.PUSH Q6H PRN PRN Reason: NAUSEA OR VOMITING Oxycodone/Acetaminophen (Percocet 10/325 Mg) 1 tab PO Q4H PRN PRN Reason: PAIN SCALE 6 TO 10 Last Admin: 01/22/18 18:31 Dose: 1 tab Pantoprazole Sodium (Protonix) 20 mg PO DAILY [facility] Last Admin: 01/22/18 08:28 Dose: 20 mg Prasugrel (Effient) 10 mg PO DAILY [facility] Last Admin: 01/21/18 11:08 Dose: Not Given Senna/Docusate Sodium (Kayla-Colace) 1 tab PO BID [facility] Last Admin: 01/22/18 08:41 Dose: Not Given Sennosides (Senokot) 17.2 mg PO Q12H PRN PRN Reason: Moderate Constipation Silver Sulfadiazine (Silvadene 1% Cream (50 Gm)) 1 applicatio TOPICAL BID [facility] Last Admin: 01/22/18 08:30 Dose: 1 applicatio Tizanidine HCl (Zanaflex) 4 mg PO Q8H PRN PRN Reason: MUSCLE SPAMPS Last Admin: 01/21/18 09:44 Dose: 4 mg Allergies Allergy/AdvReac Type Severity Reaction Status Date / Time diatrizoate meglumine Allergy Severe Hives Unverified 09/17/17 21:13 gadobenic acid Allergy Severe Hives Unverified 09/17/17 21:13 gadodiamide Allergy Severe Hives Unverified 09/17/17 21:13 gadoteridol Allergy Severe Hives Unverified 09/17/17 21:13 iodixanol Allergy Severe Hives Unverified 09/17/17 21:13 iohexol Allergy Severe Hives Unverified 09/17/17 21:13 procaine Allergy Intermediate VOMITING Unverified 09/17/17 21:13 lisinopril AdvReac Unknown Cough Unverified 09/17/17 21:13 Home Medications Medication Instructions Recorded Confirmed Type albuterol sulfate [Ventolin HFA] 90 mcg INHALATION PRN 01/19/18 01/19/18 History aspirin 162.5 mg PO DAILY 01/19/18 01/19/18 History budesonide-formoterol [Symbicort] 2 puff INHALATION BID 01/19/18 01/19/18 History bupropion HCl [Wellbutrin SR] 150 mg PO DAILY 01/19/18 01/19/18 History folic acid 1 mg PO DAILY 01/19/18 01/19/18 History furosemide [Lasix] 20 mg PO DAILY 01/19/18 01/19/18 History gabapentin 300 mg PO TID 01/19/18 01/19/18 History hydrocodone-acetaminophen 1 tab PO Q4-6H PRN 01/19/18 01/19/18 History losartan 25 mg PO DAILY 01/19/18 01/19/18 History montelukast [Singulair] 10 mg PO QPM 01/19/18 01/19/18 History omeprazole 20 mg PO DAILY 01/19/18 01/19/18 History ondansetron [Zofran ODT] 4 mg PO Q6-8H PRN 01/19/18 01/19/18 History potassium chloride 20 meq PO DAILY 01/19/18 01/19/18 History prasugrel [Effient] 10 mg PO DAILY 01/19/18 01/19/18 History sumatriptan succinate [Imitrex] 50 mg PO Q2-4H PRN 01/19/18 01/19/18 History tizanidine 4 mg PO TID PRN 01/19/18 01/19/18 History Physical Exam Vital signs: Vital Signs 01/21/18 19:45 01/21/18 19:53 01/21/18 20:00 Temperature 98 F Pulse Rate 96 H 96 H Respiratory Rate 18 18 18 Blood Pressure 144/77 H Pulse Oximetry 93 L 96 01/21/18 23:28 01/22/18 04:00 01/22/18 07:43 Temperature 97.7 F 97.6 F Pulse Rate 83 84 71 Respiratory Rate 18 18 16 Blood Pressure 145/75 H 154/78 H Pulse Oximetry 95 98 94 L 01/22/18 08:00 01/22/18 12:00 01/22/18 14:13 Temperature 97.3 F L 97.4 F L Pulse Rate 75 74 85 Respiratory Rate 16 18 16 Blood Pressure 149/61 H 145/77 H Pulse Oximetry 96 96 01/22/18 16:00 Temperature 98.1 F Pulse Rate 86 Respiratory Rate 18 Blood Pressure 139/98 H Pulse Oximetry 94 L Intake & Output 01/21/18 01/22/18 01/22/18 18:59 06:59 18:59 Intake Total 480 / 480 630 / 630 1620 / 1620 Output Total 475 / 475 1940 / 1940 1500 / 1500 Balance 5 / 5 -1310 / -1310 120 / 120 Weight 83 kg Intake: IV 150 / 150 Levaquin 750 mg Premix Inj 150 150 / 150 ML @ 100 mls/hr IV.SIG Q24H [facility] Rx#:[id number] Oral 480 / 480 480 / 480 1620 / 1620 Output: Urine 475 / 475 1940 / 1940 1500 / 1500 Other: # Bowel Movements 1 0 1 Narrative: GENERAL: Very pleasant 62 yo male, appears in nad. Alert and oriented x4. EYES: No scleral icterus. No injection or drainage. NECK: Supple, trachea midline. No JVD. CARDIOVASCULAR: Regular rate and rhythm without murmurs, gallops, or rubs. RESPIRATORY: Breath sounds decreased bibasilar. No accessory muscle use. GASTROINTESTINAL: Abdomen soft, non-tender, nondistended. MUSCULOSKELETAL: No cyanosis, or edema. BACK: Nontender without obvious deformity. No CVA tenderness. Results 01/20/18 05:45 01/20/18 05:45 Coagulation 01/22/18 01/22/18 Range/Units 14:18 14:18 PT 10.3 (9.8-11.6) sec APTT 26.3 (24.3-30.1) sec Intake and Output 01/22/18 01/22/18 01/22/18 06:59 14:59 22:59 Intake Total 630 / 630 1620 / 1620 Output Total 1940 0 1500 / 1500 Balance -1310 / -1310 120 / 120 Intake: IV 150 / 150 Levaquin 750 mg Premix Inj 150 150 / 150 ML @ 100 mls/hr IV.SIG Q24H [facility] Rx#:[id number] Oral 480 / 480 1620 / 1620 Output: Urine 1940 / 1940 1500 / 1500 Other: # Bowel Movements 0 1 Weight 83 kg Assessment and Plan - Assessment (1) COPD (chronic obstructive pulmonary disease) Code(s): J44.9 - Chronic obstructive pulmonary disease, unspecified Status: Acute (2) CHF (congestive heart failure) Code(s): I50.9 - Heart failure, unspecified Status: Acute (3) Hypoxia Code(s): R09.02 - Hypoxemia Status: Acute (4) Lung mass Code(s): R91.8 - Other nonspecific abnormal finding of lung field Status: Acute (5) Chronic pain Code(s): G89.29 - Other chronic pain Status: Acute (6) Dyspnea Code(s): R06.00 - Dyspnea, unspecified Status: Acute - Plan 1) SOB Multifactorial with COPD and CHF Diuresed well since admission 2) CAD Hx of PCI with BMS to LAD Residual CAD 3) Lung mass Hold ASA/Effient for biopsy tomorrow 4) Depending on the results of the biopsy will need to decide on how to proceed from coronary standpoint Will most likely go with stress test, and then intervention as necessary 5) Tobacco cessation
[2018-01-22] MEDS: Montelukast 10 MG Tablet PO SCH (20:41)
[2018-01-23] MEDS: Morphine Inj 4 MG/ML Vial IV.PUSH PRN ×5 (00:36→19:26)
[2018-01-23] MEDS: oxyCODONE/Acetaminophen 10/325 Tablet PO PRN ×5 (02:18→21:12)
[2018-01-23] MEDS: Gabapentin 400 MG Capsule PO SCH ×3 (05:33→21:05)
[2018-01-23 06:50] LABS: Hematocrit 33.3 % (39.0-51.0); Lymph # (Auto) 0.5 th/mm3 (1.0-4.8); Mean Corpuscular HGB Conc 35.9 % (32.0-36.0); Mean Corpuscular Hemoglobin 29.9 pg (27.0-34.0); Mean Corpuscular Volume 83.2 fL (80.0-100.0); Mean Platelet Volume 6.6 fL (7.0-11.0); Mono # (Auto) 0.7 th/mm3 (0.0-0.9); Mono % (Auto) 8.2 % (0.0-8.0); Neut # (Auto) 7.7 th/mm3 (1.8-7.7); Neut % (Auto) 85.8 % (16.0-70.0); Platelet Count 350 th/mm3 (150-450); Red Blood Count 4.01 mil/mm3 (4.50-5.90)
[2018-01-23 07:20] LABS: Calcium 8.4 mg/dL (8.5-10.1); Carbon Dioxide 25.1 meq/L (21.0-32.0); Potassium 4.1 meq/L (3.5-5.1)
[2018-01-23] MEDS: Folic Acid 1 MG Tablet PO SCH (08:12)
[2018-01-23] MEDS: Senna/Docusate Sodium 8.6/50 MG Tablet PO SCH ×2 (08:12→21:04)
[2018-01-23] MEDS: buPROPion 150 MG 12 HR Tablet PO SCH (08:13)
[2018-01-23] MEDS: MethylPREDNISolone Sod Succinate Inj 40 MG/ML Vial IV.PUSH SCH ×2 (08:14→21:06)
[2018-01-23] MEDS: Pantoprazole Sodium 20 MG DR Tablet PO SCH (08:14)
[2018-01-23] MEDS: Furosemide 20 MG Tablet PO SCH (08:57)
[2018-01-23] MEDS: Budesonide-Formoterol 160/4.5 MCG 6 GM Inhaler INH SCH ×2 (08:58→21:06)
--- NOTE | 2018-01-23 11:35 | P.PNPAL ---
Reason for Visit Reason for visit: a. To assist with evaluation and management of symptoms including:pain b. To assist medical decision maker(s) with: better understanding of current medical conditions; weighing benefits/burdens of medical treatment options; making medical treatment decisions. Subjective Subjective/Interval History: Pt seen today to follow up on comfort, medication adjustments. Stable, parvez NC. S/p cardiology eval. ASA/Effient held for planned IR biopsy today. CV plans possible stress test after bx, and further intervention if indicated and pending clinical course. Having BM, voiding adequately. NPO today , however prev parvez PO well. Seen today in room, no visitors present. 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 He is alert, upright in bed. Oriented, and appropriate, good insight. Awaiting IR biopsy today, wants to get all needed/recommended procedures done as quickly as possible to get to whatever tx options may be possible to help him. He understands plan for poss stress test after biopsy. Review bx results can take 5 -10 days for results, and upon results further treatment options would be able to be explored. He endorses breathing overall much better than at presentation. 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 He endorses occasional cough. No wheezing. No GI complaints, had BM . endorses pain overall much better with change to medications. He endorses pain is still present, but with PRN use and in between use much more comfortable over all. 1300 later call from Pt, he indicates that his biopsy has been postponed until Friday bc of anticoagulants, he wants additioanl information about how long needed to be off anticoags, and if anything else could be done in the meantime as he is NPO. Call to IR-d/w nurse, review pt meds/bx plan, they indicate that needs OFF EFFIENT x 5 days, so cannot do today. Call to Dr Ponce cardiology, review cancelation, npo status, and potential need for stress test. he will try to schedule for stress test today, further interventions pending findings as well as lung bx. call to pt updated on all, call to nurse updated on all. pt to be continued NPO . Objective Vital Signs: Vital Signs 01/22/18 12:00 01/22/18 14:13 01/22/18 16:00 Temperature 97.4 F L 98.1 F Pulse Rate 74 85 86 Respiratory Rate 18 16 18 Blood Pressure 145/77 H 139/98 H Pulse Oximetry 96 94 L 01/22/18 19:38 01/22/18 20:00 01/23/18 00:00 Temperature 96.9 F L 97.5 F L Pulse Rate 84 85 79 Respiratory Rate 20 18 18 Blood Pressure 140/74 156/81 H Pulse Oximetry 93 L 95 94 L 01/23/18 04:00 01/23/18 07:51 01/23/18 08:00 Temperature 97.6 F 97.5 F L Pulse Rate 74 80 79 Respiratory Rate 18 18 Blood Pressure 139/78 153/77 H Pulse Oximetry 96 95 Intake & Output 01/22/18 01/23/18 01/23/18 18:59 06:59 18:59 Intake Total 1620 / 1620 1400 / 1400 Output Total 1500 / 1500 2500 / 2500 Balance 120 / 120 -1100 / -1100 Weight 83.3 kg Intake: IV 150 / 150 Levaquin 750 mg Premix Inj 150 150 / 150 ML @ 100 mls/hr IV.SIG Q24H SARITA Rx#:[id number] Oral 1620 / 1620 1250 / 1250 Output: Urine 1500 / 1500 2500 / 2500 Other: # Bowel Movements 1 Physical Exam: CONSTITUTIONAL/GENERAL: This is an adequately nourished patient, in no apparent distress. TUBES/LINES/DRAINS: Peripheral IV upper extremity. Nasal cannula O2. SKIN: No jaundice, rashes. Several healing abrasions scattered to upper extremities. Few round ulcerations to bilateral legs appear to be healing well now. chronic vascular changes visible to bilateral lower extremities including multiple bulging varicose veins. Skin warm and dry. CARDIOVASCULAR: Regular rate and rhythm, including multiple bulging varicose veins. RESPIRATORY/CHEST: Symmetric, unlabored respirations. Clear to auscultation. Breath sounds equal bilaterally. Somewhat diminished air movement throughout. GASTROINTESTINAL: Abdomen soft, non-tender, nondistended. No hepato-splenomegaly , or palpable masses. No guarding. Bowel sounds present. MUSCULOSKELETAL: Extremities without clubbing, cyanosis, or edema. No joint tenderness or effusion noted. No calf tenderness. NEUROLOGICAL: Awake and alert. Oriented x3, appropriate. Appears to have good insight. Motor and sensory grossly within normal limits. Follows commands. Cognitively sharp. Moves all 4 extremities. PSYCHIATRIC: No obvious anxiety/depression. no apparent hallucinations or other psychotic thought process. Diagnostic Tests Laboratory: Laboratory Results - last 72 hr 01/21/18 01/21/18 01/22/18 13:55 16:34 07:21 WBC RBC Hgb Hct MCV MCH MCHC RDW Plt Count MPV Neut % (Auto) Lymph % (Auto) [place] % (Auto) Eos % (Auto) Baso % (Auto) Neut # (Auto) Lymph # (Auto) [place] # (Auto) Eos # (Auto) Baso # (Auto) WBC Differential Differential Comment PT INR APTT Puncture Site Left radial Patient Temperature 98.6 O2 Saturation 92 ABG pH 7.41 ABG pCO2 38 ABG pO2 78 ABG HCO3 24 ABG O2 Content 15.1 ABG Base Excess 0.0 ABG Methemoglobin 0.9 Jules Test Present Hemoglobin 11.6 L Carboxyhemoglobin 0.3 O2 Delivery Device Nasal cannula Liter Flow 3.00 Critical Value No Sodium Potassium Chloride Carbon Dioxide Anion Gap BUN Creatinine Estimated GFR POC Glucose 223 H 124 H Random Glucose Calcium 01/22/18 01/22/18 01/22/18 14:18 14:18 17:23 WBC RBC Hgb Hct MCV MCH MCHC RDW Plt Count MPV Neut % (Auto) Lymph % (Auto) [place] % (Auto) Eos % (Auto) Baso % (Auto) Neut # (Auto) Lymph # (Auto) [place] # (Auto) Eos # (Auto) Baso # (Auto) WBC Differential Differential Comment PT 10.3 INR 1.0 APTT 26.3 Puncture Site Patient Temperature O2 Saturation ABG pH ABG pCO2 ABG pO2 ABG HCO3 ABG O2 Content ABG Base Excess ABG Methemoglobin Jules Test Hemoglobin Carboxyhemoglobin O2 Delivery Device Liter Flow Critical Value Sodium Potassium Chloride Carbon Dioxide Anion Gap BUN Creatinine Estimated GFR POC Glucose 186 H Random Glucose Calcium 01/23/18 01/23/18 05:09 05:09 WBC 9.0 RBC 4.01 L Hgb 12.0 L Hct 33.3 L MCV 83.2 MCH 29.9 MCHC 35.9 RDW 15.0 Plt Count 350 MPV 6.6 L Neut % (Auto) 85.8 H Lymph % (Auto) 6.0 L [place] % (Auto) 8.2 H Eos % (Auto) 0.0 Baso % (Auto) 0.0 Neut # (Auto) 7.7 Lymph # (Auto) 0.5 L [place] # (Auto) 0.7 Eos # (Auto) 0.0 Baso # (Auto) 0.0 WBC Differential . Differential Comment Auto diff final PT INR APTT Puncture Site Patient Temperature O2 Saturation ABG pH ABG pCO2 ABG pO2 ABG HCO3 ABG O2 Content ABG Base Excess ABG Methemoglobin Jules Test Hemoglobin Carboxyhemoglobin O2 Delivery Device Liter Flow Critical Value Sodium 128 L Potassium 4.1 Chloride 91 L Carbon Dioxide 25.1 Anion Gap 12 BUN 19 H Creatinine 1.02 Estimated GFR 74 L POC Glucose Random Glucose 103 Calcium 8.4 L Result Diagrams: 01/23/18 05:09 01/23/18 05:09 Assessment and Plan - Disease Oriented Problem List (1) COPD (chronic obstructive pulmonary disease) (2) CHF (congestive heart failure) (3) Hypoxia (4) Lung mass (5) Chronic pain Pertinent Non-Medical Issues: Psychosocial: Lives at home with his . 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 . Has adult children he remains in contact with. Spiritual: Legal: Patient currently alert, oriented capacitated and able to make his own decisions. Per [place] statutes his would be appropriate proxy should he become incapacitated. Ethical issues impacting care: No ethical issues Important Contacts: Kyleigh Dugan [phone] Prognosis: This patient presented with acute shortness of breath. He has underlying COPD. He also has underlying cardiovascular disease. He had new findings of lung mass left upper lobe. Concerning for malignancy. Pulmonology following additional diagnostics pending. CV workup also ongoing. Prognosis guarded seems likely he should be able to get through current acute issues as dyspnea is already improving in response to treatment; however long-term prognosis not known at this time. Code Status: Full Code Plan: * Legal decision maker: Patient currently alert oriented and able to make his own decisions per [place] statutes his would be appropriate legal proxy should he become incapacitated. Palliative can offer assistance with completion of advance directive/HCS during this admission should he desire. * Goals: He wishes to proceed with whatever cardiac and lung procedures are indicated to possibly proceed with cancer treatment if that is indicated, or is a reasonable option. Palliative would plan further discussions regarding goals , prognosis, advanced directives etc. going forward as additional clinical / diagnostic information is available. * CODE STATUS: Full code * SYMPTOMS: --pain- reports chronic back pain. On tizanidine, gabapentin, hydrocodone/ acetaminophen at home. Has been on hydrocodone for many years since the . Has been on gabapentin for many years no adjustments recently. In the past has seen orthopedic surgery for his back and has been told that he is not a surgical candidate. He has multiple levels of herniated disks and other arthritis and I suspect stenosis issues that they indicated to him were not amenable to surgical intervention, and would carry a high risk of paralysis. He also describes neuropathic type pain numbness and tingling to his arms and legs. He indicates in general the [place] dosing combined with multiple other [id number] regimens keeps it at a tolerable level where he is able to work and the day however at night he generally does not sleep well due to pain. He supplements [place] with other rgbr-lza-speibfs's taking the maximum allowed Tylenol, Aleve, and is even supplemented with Benadryl to take the edge off. He is also followed in the past with chiropractic, acupuncture, and other holistic medicine practices which offered some relief. He also in the past has had injections etc. with pain management which he indicates offered little relief. Extensive review with him of chronic pain and limitations on ability to obtain stronger opiates in the outpatient setting without pain management. Review with him tolerance development opiates and ongoing need to increase which would be difficult in the outpatient setting. Further explore with him that many providers in the community setting or not able to prescribe these types of medications this is generally limited to hospice and oncology. Possible he may carry an oncology diagnosis or even at some point be deemed appropriate for hospice however we are not at that point. He does express aggressive goals that "he is not dieing yet."While we could certainly aggressively uptitrate his opiates here in the hospital setting my concern would be if he would have access to these medications in the outpatient setting. This may be a possibility if he does have ongoing follow-up with oncology and/or. For now he is amenable to increasing gabapentin as an adjunct for the neuropathic pain, recommend 400 mg PO 3 times daily. He indicates in the past when prescribers have changed from 1 opiate to another he has some relief for a period of time in the past he has had reasonable relief from Percocet. -- Pain "much better" with changes 2 days ago. no further changes at this time. Could consider cont uptitration in gabapentin . --Constipation-chronic, reports generally has a bowel movement once about every 7 days.. This is been chronic. He indicates he follows outpatient with GI for this. +moving bowels this admission// In the past has been on Reglan. Likely this is compounded by chronic opiate use. He indicates he has been told he has decreased GI motility. He has been using natural juices etc. in the outpatient setting . requests resumption of p.o. Reglan//consider Reglan 10 mg p.o. daily. would also recommend he take PO senna SCHEDULED vs PRN. He also reports diet of very little vegetable/fiber, likely this contributes to motility /constipation --Dyspnea-acute on chronic. Underlying COPD, emphysema. New findings of lung mass concerning for malignancy. Pulmonology following. On steroids, nebulizers, antibiotics. Patient subjectively reports breathing significantly improved during hospital course thus far. Previously on home O2 though has not used this for many months. 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 Additionally will assist with any symptoms of palliative concern Attestation Attestation: To help prompt me to consider important information that might be impacting today's encounter and assessment, information from prior notes written by myself or my colleagues may have been "brought forward" into today's note. My signature on this note, however, is an attestation that I personally performed the exam, history, and/or decision-making noted today, and, unless otherwise indicated, the interactions with patient, family, and staff as well as the review of records all occurred today. I also attest that the listed assessment and stated plan reflect my best clinical judgment today based on the combination of historical information, prior notes, and today's exam/ interactions. When time spent is documented, it refers only to time spent today by the signer, or if indicated, combined time spent today by collaborating physician/nurse practitioner.
--- NOTE | 2018-01-23 11:50 | P.PN ---
Subjective Interval history: Is in bed does not appear in acute distress at this time. He is more awake and alert. Was cough white sputum. No chest pain. No shortness of breath at this time. Denies fever or chills. There is plan for stress test today per cardiology. Lung biopsy placed in hold , patient needs to be off aspirin for 5 days prior to LP. Physical Exam Vital signs: Vital Signs 01/22/18 12:00 01/22/18 14:13 01/22/18 16:00 Temperature 97.4 F L 98.1 F Pulse Rate 74 85 86 Respiratory Rate 18 16 18 Blood Pressure 145/77 H 139/98 H Pulse Oximetry 96 94 L 01/22/18 19:38 01/22/18 20:00 01/23/18 00:00 Temperature 96.9 F L 97.5 F L Pulse Rate 84 85 79 Respiratory Rate 18 18 Blood Pressure 140/74 156/81 H Pulse Oximetry 93 L 95 94 L 01/23/18 04:00 01/23/18 07:51 01/23/18 08:00 Temperature 97.6 F 97.5 F L Pulse Rate 74 80 79 Respiratory Rate 18 18 Blood Pressure 139/78 153/77 H Pulse Oximetry 96 95 Intake & Output 01/22/18 01/23/18 01/23/18 18:59 06:59 18:59 Intake Total 1620 / 1620 1400 / 1400 Output Total 1500 / 1500 2500 / 2500 Balance 120 / 120 -1100 / -1100 Weight 83.3 kg Intake: IV 150 / 150 Levaquin 750 mg Premix Inj 150 150 / 150 ML @ 100 mls/hr IV.SIG Q24H SARITA Rx#:[id number] Oral 1620 / 1620 1250 / 1250 Output: Urine 1500 / 1500 2500 / 2500 Other: # Bowel Movements 1 Narrative: GENERAL: Very pleasant 62 yo male, appears in nad. Awake and alert. EYES: No scleral icterus. No injection or drainage. NECK: Supple, trachea midline. No JVD. CARDIOVASCULAR: Regular rate and rhythm without murmurs, gallops, or rubs. RESPIRATORY: Breath sounds decreased bibasilar. No accessory muscle use. GASTROINTESTINAL: Abdomen soft, non-tender, nondistended. MUSCULOSKELETAL: No cyanosis, or edema. BACK: Nontender without obvious deformity. No CVA tenderness. Results - Labs CBC & Chem 7: 01/23/18 05:09 01/23/18 05:09 Laboratory Results - last 24 hr 01/22/18 01/22/18 01/22/18 14:18 14:18 17:23 WBC RBC Hgb Hct MCV MCH MCHC RDW Plt Count MPV Neut % (Auto) Lymph % (Auto) [place] % (Auto) Eos % (Auto) Baso % (Auto) Neut # (Auto) Lymph # (Auto) [place] # (Auto) Eos # (Auto) Baso # (Auto) WBC Differential Differential Comment PT 10.3 INR 1.0 APTT 26.3 Sodium Potassium Chloride Carbon Dioxide Anion Gap BUN Creatinine Estimated GFR POC Glucose 186 H Random Glucose Calcium 01/23/18 01/23/18 05:09 05:09 WBC 9.0 RBC 4.01 L Hgb 12.0 L Hct 33.3 L MCV 83.2 MCH 29.9 MCHC 35.9 RDW 15.0 Plt Count 350 MPV 6.6 L Neut % (Auto) 85.8 H Lymph % (Auto) 6.0 L [place] % (Auto) 8.2 H Eos % (Auto) 0.0 Baso % (Auto) 0.0 Neut # (Auto) 7.7 Lymph # (Auto) 0.5 L [place] # (Auto) 0.7 Eos # (Auto) 0.0 Baso # (Auto) 0.0 WBC Differential . Differential Comment Auto diff final PT INR APTT Sodium 128 L Potassium 4.1 Chloride 91 L Carbon Dioxide 25.1 Anion Gap 12 BUN 19 H Creatinine 1.02 Estimated GFR 74 L POC Glucose Random Glucose 103 Calcium 8.4 L Assessment and Plan - Assessment (1) COPD (chronic obstructive pulmonary disease) Code(s): J44.9 - Chronic obstructive pulmonary disease, unspecified Status: Acute (2) CHF (congestive heart failure) Code(s): I50.9 - Heart failure, unspecified Status: Acute (3) Hypoxia Code(s): R09.02 - Hypoxemia Status: Acute (4) Hyponatremia Code(s): E87.1 - Hypo-osmolality and hyponatremia Status: Acute (5) Lung mass Code(s): R91.8 - Other nonspecific abnormal finding of lung field Status: Acute - Plan Dyspnea: suspect multifactorial secondary to acute COPD and CHF exacerbations in combination with new lung mass. -Chest CT showed: Severe emphysema with interstitial lung disease. These changes are stable and may explain the patient's shortness of breath. However, there is a new bilobed mass in the left upper lobe measuring up to 3.2 x 1.8 cm. This is completely new since the April 2016 examination and the appearance is suspicious for a primary pulmonary neoplasm. This nodule should be amenable to image guided percutaneous biopsy, if needed. Stable enlarged pretracheal lymph node and interval enlargement of a prevascular lymph node. -See individual treatment below IR consulted for biopsy of lung mass Acute COPD Exacerbation: Moderate-Severe. With hx of Chronic Respiratory Failure , has oxygen at home however has not been using recently. -Continue steroids with IV Solumedrol -Continue bronchodilators with Duonebs scheduled and prn -Continue Levaquin for empiric pneumonia - patient with cough productive of yellow sputum -Symbicort bid -Mucinex bid -Incentive spirometer = Pulmonology following. Lung mass. Appreciate pulmonology assistance. Chronic pain. Will add back pain medication. Discussed risks of increasing pain meds in the setting of COPD exacerbation. Patient understands risk. Patient agrees with palliative care consultation. Lung Mass: CT Chest w/ new TE mass, 3.2 x 1.8cm, images reviewed. -Findings discussed w/ patient. -Consulted IR for CT guided lung biopsy of new mass, however procedure delayed due to patient being on aspirin 162mg daily -consult pulmonary ff, ( ). = Pulmonary following. Cardiology clearance for lung biopsy. Plan for stress test 01/23 Hypoxia: O2 sat 89% on RA, previously on Home O2, however states he hasn't used in a few months -continue w/ O2 as needed to keep O2 sat > 92% -re-evaluate at time of d/c for Home O2 needs Hyponatremia: Mild. Na 129, previously on NaCl tabs, however taken off due to CHF per -monitor I/O, repeat labs in am. = We will place on fluid restrictions for CHF and hyponatremia. CAD- s/p stent placement ( 2016)/ CHF: Acute on Chronic. Systolic. Echo 05/06/16 w/ EF 45%, +lower extremity edema, BNP 616, resumed diuretics, monitor I/O. Awaiting cardiology clearance for lung biopsy. DVT Prophylaxis: SCD's Discussed Condition With: Patient, nurse, at bedside. Discharge Planning: Pending improvement and pulmonology clearance. Plan for stress test 01/23 lung biopsy by IR 01/26 as need to be off for 5 days of ASA PT consult
--- NOTE | 2018-01-23 12:09 | P.PN ---
Subjective Interval history: waiting for biopsy of left lung mass. On O2 3 L Has some back pain. Needs cardiac W/u for H/O CAD. Physical Exam Vital signs: Vital Signs 01/22/18 14:13 01/22/18 16:00 01/22/18 19:38 Temperature 98.1 F Pulse Rate 85 86 84 Respiratory Rate 16 18 20 Blood Pressure 139/98 H Pulse Oximetry 94 L 93 L 01/22/18 20:00 01/23/18 00:00 01/23/18 04:00 Temperature 96.9 F L 97.5 F L 97.6 F Pulse Rate 85 79 74 Respiratory Rate 18 18 18 Blood Pressure 140/74 156/81 H 139/78 Pulse Oximetry 95 94 L 96 01/23/18 07:51 01/23/18 08:00 Temperature 97.5 F L Pulse Rate 80 79 Respiratory Rate 21 18 Blood Pressure 153/77 H Pulse Oximetry 95 Intake & Output 01/22/18 01/23/18 01/23/18 18:59 06:59 18:59 Intake Total 1620 / 1620 1400 / 1400 Output Total 1500 / 1500 2500 / 2500 Balance 120 / 120 -1100 / -1100 Weight 83.3 kg Intake: IV 150 / 150 Levaquin 750 mg Premix Inj 150 150 / 150 ML @ 100 mls/hr IV.SIG Q24H SARITA Rx#:[id number] Oral 1620 / 1620 1250 / 1250 Output: Urine 1500 / 1500 2500 / 2500 Other: # Bowel Movements 1 Narrative: GENERAL: Very pleasant 62 yo male, Awake and alert. EYES: No scleral icterus. No injection or drainage. NECK: Supple, trachea midline. No JVD. CARDIOVASCULAR: Regular rate and rhythm without murmurs, gallops, or rubs. RESPIRATORY: Breath sounds decreased with scattered wheeze. No accessory muscle use. GASTROINTESTINAL: Abdomen soft, non-tender, nondistended. MUSCULOSKELETAL: No cyanosis, or edema. BACK: Nontender without obvious deformity. No CVA tenderness. Results - Labs CBC & Chem 7: 01/24/18 05:26 01/24/18 05:26 Laboratory Results - last 24 hr 01/22/18 01/22/18 01/22/18 14:18 14:18 17:23 WBC RBC Hgb Hct MCV MCH MCHC RDW Plt Count MPV Neut % (Auto) Lymph % (Auto) [place] % (Auto) Eos % (Auto) Baso % (Auto) Neut # (Auto) Lymph # (Auto) [place] # (Auto) Eos # (Auto) Baso # (Auto) WBC Differential Differential Comment PT 10.3 INR 1.0 APTT 26.3 Sodium Potassium Chloride Carbon Dioxide Anion Gap BUN Creatinine Estimated GFR POC Glucose 186 H Random Glucose Calcium 01/23/18 01/23/18 05:09 05:09 WBC 9.0 RBC 4.01 L Hgb 12.0 L Hct 33.3 L MCV 83.2 MCH 29.9 MCHC 35.9 RDW 15.0 Plt Count 350 MPV 6.6 L Neut % (Auto) 85.8 H Lymph % (Auto) 6.0 L [place] % (Auto) 8.2 H Eos % (Auto) 0.0 Baso % (Auto) 0.0 Neut # (Auto) 7.7 Lymph # (Auto) 0.5 L [place] # (Auto) 0.7 Eos # (Auto) 0.0 Baso # (Auto) 0.0 WBC Differential . Differential Comment Auto diff final PT INR APTT Sodium 128 L Potassium 4.1 Chloride 91 L Carbon Dioxide 25.1 Anion Gap 12 BUN 19 H Creatinine 1.02 Estimated GFR 74 L POC Glucose Random Glucose 103 Calcium 8.4 L Assessment and Plan - Assessment (1) COPD (chronic obstructive pulmonary disease) Code(s): J44.9 - Chronic obstructive pulmonary disease, unspecified Status: Acute (2) CHF (congestive heart failure) Code(s): I50.9 - Heart failure, unspecified Status: Acute (3) Hypoxia Code(s): R09.02 - Hypoxemia Status: Acute (4) Hyponatremia Code(s): E87.1 - Hypo-osmolality and hyponatremia Status: Acute (5) Lung mass Code(s): R91.8 - Other nonspecific abnormal finding of lung field Status: Acute (6) Chronic pain Code(s): G89.29 - Other chronic pain Status: Acute (7) Constipation Code(s): K59.00 - Constipation, unspecified Status: Acute (8) Dyspnea Code(s): R06.00 - Dyspnea, unspecified Status: Acute (9) Coronary artery disease Code(s): I25.10 - Atherosclerotic heart disease of [place] coronary artery without angina pectoris Status: Acute - Plan 1. For CT needle biopsy of lung mass 2. O2 2 L N/C 3. Continue Levaquin 750 Mg daily 4. Duonebs qid. 5. Chest Xray in am 6. Arrange Home o2 at 2 L.
--- NOTE | 2018-01-23 12:20 | P.PNCA ---
Subjective Interval history: No events overnight Awaiting biopsy Medications and Allergies Active Medications: Active Medications Al Hydroxide/Mg Hydroxide (Milk Of Magnesia Liq) 30 ml PO Q12H PRN PRN Reason: Mild Constipation Albuterol (Duoneb Neb (Prn)) 1 ampul NEB Q2HR NEB PRN PRN Reason: SOB/WHEEZING Last Admin: 01/21/18 02:54 Dose: 1 ampul Albuterol (Duoneb Neb (Misa)) 1 ampul NEB Q6HR WHILE AWAKE NEB [facility] Last Admin: 01/23/18 12:12 Dose: 1 ampul Aspirin (Ecotrin) 81 mg PO DAILY [facility] Last Admin: 01/21/18 11:07 Dose: Not Given Bisacodyl (Dulcolax Supp) 10 mg RECTAL DAILY PRN PRN Reason: SEVERE CONSITIPATION Budesonide/Formoterol Fumarate (Symbicort 160/4.5 Mcg Inh) 2 puff INH BID [facility] Last Admin: 01/23/18 08:58 Dose: 2 puff Bupropion HCl (Wellbutrin Sr) 150 mg PO DAILY [facility] Last Admin: 01/23/18 08:13 Dose: 150 mg Fluticasone Propionate (Flonase Nasal [place]) 1 spray NASAL BID [facility] Last Admin: 01/23/18 08:58 Dose: 1 spray Folic Acid (Folic Acid) 1 mg PO DAILY [facility] Last Admin: 01/23/18 08:12 Dose: 1 mg Furosemide (Lasix) 20 mg PO DAILY [facility] Last Admin: 01/23/18 08:57 Dose: 20 mg Gabapentin (Neurontin) 400 mg PO Q8H [facility] Last Admin: 01/23/18 05:33 Dose: 400 mg Levofloxacin/Dextrose (Levaquin 750 Mg Premix Inj) 150 mls @ 100 mls/hr IV.SIG Q24H [facility] Last Infusion: 01/22/18 23:39 Dose: Infused Lactulose (Lactulose Liq) 30 ml PO DAILY PRN PRN Reason: SEVERE CONSITIPATION Methylprednisolone Sodium Succinate (Solumedrol Inj) 40 mg IV.PUSH Q12HR [facility] Last Admin: 01/23/18 08:14 Dose: 40 mg Montelukast Sodium (Singulair) 10 mg PO HS [facility] Last Admin: 01/22/18 20:41 Dose: 10 mg Morphine Sulfate (Morphine Inj) 2 mg IV.PUSH Q4H PRN PRN Reason: BREAKTHROUGH PAIN Last Admin: 01/23/18 10:35 Dose: 2 mg Ondansetron HCl (Zofran Inj) 4 mg IV.PUSH Q6H PRN PRN Reason: NAUSEA OR VOMITING Oxycodone/Acetaminophen (Percocet 10/325 Mg) 1 tab PO Q4H PRN PRN Reason: PAIN SCALE 6 TO 10 Last Admin: 01/23/18 07:46 Dose: 1 tab Pantoprazole Sodium (Protonix) 20 mg PO DAILY [facility] Last Admin: 01/23/18 08:14 Dose: 20 mg Prasugrel (Effient) 10 mg PO DAILY [facility] Last Admin: 01/21/18 11:08 Dose: Not Given Senna/Docusate Sodium (Kayla-Colace) 1 tab PO BID [facility] Last Admin: 01/23/18 08:12 Dose: Not Given Sennosides (Senokot) 17.2 mg PO Q12H PRN PRN Reason: Moderate Constipation Silver Sulfadiazine (Silvadene 1% Cream (50 Gm)) 1 applicatio TOPICAL BID [facility] Last Admin: 01/23/18 08:59 Dose: 1 applicatio Tizanidine HCl (Zanaflex) 4 mg PO Q8H PRN PRN Reason: MUSCLE SPAMPS Last Admin: 01/21/18 09:44 Dose: 4 mg Allergies Allergy/AdvReac Type Severity Reaction Status Date / Time diatrizoate meglumine Allergy Severe Hives Unverified 09/17/17 21:13 gadobenic acid Allergy Severe Hives Unverified 09/17/17 21:13 gadodiamide Allergy Severe Hives Unverified 09/17/17 21:13 gadoteridol Allergy Severe Hives Unverified 09/17/17 21:13 iodixanol Allergy Severe Hives Unverified 09/17/17 21:13 iohexol Allergy Severe Hives Unverified 09/17/17 21:13 procaine Allergy Intermediate VOMITING Unverified 09/17/17 21:13 lisinopril AdvReac Unknown Cough Unverified 09/17/17 21:13 Home Medications Medication Instructions Recorded Confirmed Type albuterol sulfate [Ventolin HFA] 90 mcg INHALATION PRN 01/19/18 01/19/18 History aspirin 162.5 mg PO DAILY 01/19/18 01/19/18 History budesonide-formoterol [Symbicort] 2 puff INHALATION BID 01/19/18 01/19/18 History bupropion HCl [Wellbutrin SR] 150 mg PO DAILY 01/19/18 01/19/18 History folic acid 1 mg PO DAILY 01/19/18 01/19/18 History furosemide [Lasix] 20 mg PO DAILY 01/19/18 01/19/18 History gabapentin 300 mg PO TID 01/19/18 01/19/18 History hydrocodone-acetaminophen 1 tab PO Q4-6H PRN 01/19/18 01/19/18 History losartan 25 mg PO DAILY 01/19/18 01/19/18 History montelukast [Singulair] 10 mg PO QPM 01/19/18 01/19/18 History omeprazole 20 mg PO DAILY 01/19/18 01/19/18 History ondansetron [Zofran ODT] 4 mg PO Q6-8H PRN 01/19/18 01/19/18 History potassium chloride 20 meq PO DAILY 01/19/18 01/19/18 History prasugrel [Effient] 10 mg PO DAILY 01/19/18 01/19/18 History sumatriptan succinate [Imitrex] 50 mg PO Q2-4H PRN 01/19/18 01/19/18 History tizanidine 4 mg PO TID PRN 01/19/18 01/19/18 History Physical Exam Vital signs: Vital Signs 01/22/18 14:13 01/22/18 16:00 01/22/18 19:38 Temperature 98.1 F Pulse Rate 85 86 84 Respiratory Rate 16 18 20 Blood Pressure 139/98 H Pulse Oximetry 94 L 93 L 01/22/18 20:00 01/23/18 00:00 01/23/18 04:00 Temperature 96.9 F L 97.5 F L 97.6 F Pulse Rate 85 79 74 Respiratory Rate 18 18 18 Blood Pressure 140/74 156/81 H 139/78 Pulse Oximetry 95 94 L 96 01/23/18 07:51 01/23/18 08:00 01/23/18 12:13 Temperature 97.5 F L Pulse Rate 80 79 90 Respiratory Rate 21 18 23 Blood Pressure 153/77 H Pulse Oximetry 95 Intake & Output 01/22/18 01/23/18 01/23/18 18:59 06:59 18:59 Intake Total 1620 / 1620 1400 / 1400 Output Total 1500 / 1500 2500 / 2500 Balance 120 / 120 -1100 / -1100 Weight 83.3 kg Intake: IV 150 / 150 Levaquin 750 mg Premix Inj 150 150 / 150 ML @ 100 mls/hr IV.SIG Q24H [facility] Rx#:[id number] Oral 1620 / 1620 1250 / 1250 Output: Urine 1500 / 1500 2500 / 2500 Other: # Bowel Movements 1 Narrative: GENERAL: Very pleasant 62 yo male, Awake and alert. EYES: No scleral icterus. No injection or drainage. NECK: Supple, trachea midline. No JVD. CARDIOVASCULAR: Regular rate and rhythm without murmurs, gallops, or rubs. RESPIRATORY: Breath sounds decreased with scattered wheeze. No accessory muscle use. GASTROINTESTINAL: Abdomen soft, non-tender, nondistended. MUSCULOSKELETAL: No cyanosis, or edema. BACK: Nontender without obvious deformity. No CVA tenderness. Results 01/23/18 05:09 01/23/18 05:09 Coagulation 01/22/18 01/22/18 Range/Units 14:18 14:18 PT 10.3 (9.8-11.6) sec APTT 26.3 (24.3-30.1) sec CBC 01/23/18 Range/Units 05:09 WBC 9.0 (4.0-11.0) th/mm3 RBC 4.01 L (4.50-5.90) mil/mm3 Hgb 12.0 L (13.0-17.0) gm/dL Hct 33.3 L (39.0-51.0) % Plt Count 350 (150-450) th/mm3 Neut # (Auto) 7.7 (1.8-7.7) th/mm3 Lymph # (Auto) 0.5 L (1.0-4.8) th/mm3 [place] # (Auto) 0.7 (0.0-0.9) th/mm3 Eos # (Auto) 0.0 (0.0-0.4) th/mm3 Baso # (Auto) 0.0 (0.0-0.2) th/mm3 Comprehensive Metabolic Panel 01/23/18 Range/Units 05:09 Sodium 128 L (136-145) meq/L Potassium 4.1 (3.5-5.1) meq/L Chloride 91 L (98-107) meq/L Carbon Dioxide 25.1 (21.0-32.0) meq/L BUN 19 H (7-18) mg/dL Creatinine 1.02 (0.60-1.30) mg/dL Calcium 8.4 L (8.5-10.1) mg/dL Intake and Output 01/22/18 01/23/18 01/23/18 22:59 06:59 14:59 Intake Total 1620 / 1620 1400 / 1400 Output Total 1500 / 1500 2500 / 2500 Balance 120 / 120 -1100 / -1100 Intake: IV 150 / 150 Levaquin 750 mg Premix Inj 150 150 / 150 ML @ 100 mls/hr IV.SIG Q24H [facility] Rx#:[id number] Oral 1620 / 1620 1250 / 1250 Output: Urine 1500 / 1500 2500 / 2500 Other: # Bowel Movements 1 Weight 83.3 kg Assessment and Plan - Assessment (1) COPD (chronic obstructive pulmonary disease) Code(s): J44.9 - Chronic obstructive pulmonary disease, unspecified Status: Acute (2) CHF (congestive heart failure) Code(s): I50.9 - Heart failure, unspecified Status: Acute (3) Hypoxia Code(s): R09.02 - Hypoxemia Status: Acute (4) Lung mass Code(s): R91.8 - Other nonspecific abnormal finding of lung field Status: Acute (5) Chronic pain Code(s): G89.29 - Other chronic pain Status: Acute (6) Dyspnea Code(s): R06.00 - Dyspnea, unspecified Status: Acute - Plan 1) SOB Multifactorial with COPD and CHF Diuresed well since admission 2) CAD Hx of PCI with BMS to LAD Residual CAD 3) Lung mass Hold ASA/Effient for biopsy today 4) Depending on the results of the biopsy will need to decide on how to proceed from coronary standpoint Will most likely go with stress test, and then intervention as necessary 5) Tobacco cessation
[2018-01-23] MEDS ORDERED: Regadenoson Inj 0.4 MG/5 ML Syringe IV.PUSH ONE (16:08)
--- NOTE | 2018-01-23 17:33 | NM ---
EXAM DATE: 01/23/2018 3:35 PM EDT AGE/SEX: 62 years / Male INDICATIONS:Coronary artery disease. Congestive heart failure Substernal chest pain. Preoperative can arance for surgery. CLINICAL DATA: This is the patient's initial encounter. Patient reports that signs and symptoms have been present for 1 day and indicates a pain score of 4/10. MEDICAL/SURGICAL HISTORY: Hypertension. Chronic obstructive pulmonary disease. Coronary artery stent. COMPARISON: No prior exams available for comparison. DOSE: 8.8 mCi Tc 99m Myoview at rest 26.2 mCi [id number] at stress 0.4 mg Lexiscan STRESS SYMPTOMS: Chest tightness, chest pain, and abdominal cramping. EJECTION FRACTION: 54 % TECHNIQUE: The patient underwent pharmacologic stress with infusion of prescribed dose. Continuous ECG tracing was monitored during stress. Gated SPECT imaging was performed after stress and conventi onal SPECT imaging was performed at rest. The examination was performed on a SPECT/CT scanner, both attenuation and non-corrected datasets were reviewed. FINDINGS: Distribution: The maximum perfused segment at stress is in the anterolateral wall. Perfusion Study: There is a fixed defect involving the inferior wall. No reversible defects observe d.. Gated Study: There are intact wall motion and wall thickening without hypokinetic or dyskinetic segm ents. The ejection fraction is calculated at 54%. RISK CATEGORY: Low (<1% Annual Motality Rate) CONCLUSION: 1. Fixed defect involving the inferior wall consistent with prior infarction. 2. No reversible defect observed to suggest acute ischemia. Electronically signed by: Jorden Chakraborty MD 01/23/2018 5:31 PM EDT
[2018-01-23] MEDS: Montelukast 10 MG Tablet PO SCH (21:05)
[2018-01-24] MEDS: Morphine Inj 4 MG/ML Vial IV.PUSH PRN ×4 (01:03→23:35)
[2018-01-24] MEDS: Gabapentin 400 MG Capsule PO SCH ×3 (03:08→21:26)
[2018-01-24] MEDS: oxyCODONE/Acetaminophen 10/325 Tablet PO PRN ×5 (03:08→21:26)
[2018-01-24 06:23] LABS: Baso % (Auto) 0.1 % (0.0-2.0); Hematocrit 36.3 % (39.0-51.0); Hemoglobin 11.9 gm/dL (13.0-17.0); Lymph # (Auto) 0.4 th/mm3 (1.0-4.8); Lymph % (Auto) 4.7 % (9.0-44.0); Mean Corpuscular HGB Conc 32.7 % (32.0-36.0); Mean Corpuscular Hemoglobin 27.8 pg (27.0-34.0); Mean Platelet Volume 6.7 fL (7.0-11.0); Mono # (Auto) 0.5 th/mm3 (0.0-0.9); Mono % (Auto) 6.9 % (0.0-8.0); Neut % (Auto) 88.3 % (16.0-70.0); Platelet Count 359 th/mm3 (150-450); Red Blood Count 4.27 mil/mm3 (4.50-5.90); Red Cell Distribution Width 15.4 % (11.6-17.2); White Blood Count 7.9 th/mm3 (4.0-11.0)
[2018-01-24 06:45] LABS: Calcium 8.2 mg/dL (8.5-10.1); Carbon Dioxide 26.3 meq/L (21.0-32.0); Potassium 4.4 meq/L (3.5-5.1)
[2018-01-24] MEDS: MethylPREDNISolone Sod Succinate Inj 40 MG/ML Vial IV.PUSH SCH ×2 (10:11→21:30)
[2018-01-24] MEDS: Pantoprazole Sodium 20 MG DR Tablet PO SCH (10:11)
[2018-01-24] MEDS: buPROPion 150 MG 12 HR Tablet PO SCH (10:13)
[2018-01-24] MEDS: Folic Acid 1 MG Tablet PO SCH (10:13)
[2018-01-24] MEDS: Furosemide 20 MG Tablet PO SCH (10:13)
[2018-01-24] MEDS: Budesonide-Formoterol 160/4.5 MCG 6 GM Inhaler INH SCH ×2 (10:14→21:29)
[2018-01-24] MEDS: Senna/Docusate Sodium 8.6/50 MG Tablet PO SCH ×2 (10:20→21:26)
--- NOTE | 2018-01-24 10:42 | P.PN ---
Subjective Interval history: Patient is in bed he is coughing on and off white sputum however says coughing is improving. Still with shortness of breath saturating well on 3 L by nasal cannula. No nausea vomiting no diarrhea constipation. Awaiting for biopsy. Stress test with low probability findings discussed with the patient. Physical Exam Vital signs: Vital Signs 01/23/18 12:00 01/23/18 12:13 01/23/18 19:09 Temperature 97.9 F Pulse Rate 75 90 92 H Respiratory Rate 20 23 16 Blood Pressure 149/70 H Pulse Oximetry 98 01/23/18 19:10 01/23/18 19:19 01/24/18 00:00 Temperature 97.7 F 97.6 F Pulse Rate 91 H 84 Respiratory Rate 18 18 Blood Pressure 142/71 H 143/72 H Pulse Oximetry 95 97 97 01/24/18 04:00 01/24/18 08:00 01/24/18 08:37 Temperature 97.7 F 97.4 F L Pulse Rate 80 75 87 Respiratory Rate 17 22 19 Blood Pressure 145/70 H 133/78 Pulse Oximetry 97 97 96 Intake & Output 01/23/18 01/24/18 01/24/18 18:59 06:59 18:59 Intake Total 150 / 150 Balance 150 / 150 Weight 83.2 kg Intake: IV 150 / 150 Levaquin 750 mg Premix Inj 150 150 / 150 ML @ 100 mls/hr IV.SIG Q24H [facility] Rx#:[id number] Other: # Voids 2 # Bowel Movements 0 Narrative: GENERAL: Very pleasant 62 yo male, appears in nad. Awake and alert. EYES: No scleral icterus. No injection or drainage. NECK: Supple, trachea midline. No JVD. CARDIOVASCULAR: Regular rate and rhythm without murmurs, gallops, or rubs. RESPIRATORY: Breath sounds decreased bibasilar. No accessory muscle use. GASTROINTESTINAL: Abdomen soft, non-tender, nondistended. MUSCULOSKELETAL: No cyanosis, or edema. BACK: Nontender without obvious deformity. No CVA tenderness. Results - Labs CBC & Chem 7: 01/24/18 05:26 01/24/18 05:26 Laboratory Results - last 24 hr 01/24/18 01/24/18 05:26 05:26 WBC 7.9 RBC 4.27 L Hgb 11.9 L Hct 36.3 L MCV 85.0 MCH 27.8 MCHC 32.7 RDW 15.4 Plt Count 359 MPV 6.7 L Neut % (Auto) 88.3 H Lymph % (Auto) 4.7 L [place] % (Auto) 6.9 Eos % (Auto) 0.0 Baso % (Auto) 0.1 Neut # (Auto) 7.0 Lymph # (Auto) 0.4 L [place] # (Auto) 0.5 Eos # (Auto) 0.0 Baso # (Auto) 0.0 WBC Differential . Differential Comment Auto diff final Sodium 131 L Potassium 4.4 Chloride 94 L Carbon Dioxide 26.3 Anion Gap 11 BUN 23 H Creatinine 1.05 Estimated GFR 72 L Random Glucose 114 H Calcium 8.2 L - Imaging Impressions Myocardial Perfusion Scan Nuc Med 01/23/18 00:00 CONCLUSION: 1. Fixed defect involving the inferior wall consistent with prior infarction. 2. No reversible defect observed to suggest acute ischemia. Assessment and Plan - Assessment (1) COPD (chronic obstructive pulmonary disease) Code(s): J44.9 - Chronic obstructive pulmonary disease, unspecified Status: Acute (2) CHF (congestive heart failure) Code(s): I50.9 - Heart failure, unspecified Status: Acute (3) Hypoxia Code(s): R09.02 - Hypoxemia Status: Acute (4) Hyponatremia Code(s): E87.1 - Hypo-osmolality and hyponatremia Status: Acute (5) Lung mass Code(s): R91.8 - Other nonspecific abnormal finding of lung field Status: Acute - Plan Dyspnea: suspect multifactorial secondary to acute COPD and CHF exacerbations in combination with new lung mass. -Chest CT showed: Severe emphysema with interstitial lung disease. These changes are stable and may explain the patient's shortness of breath. However, there is a new bilobed mass in the left upper lobe measuring up to 3.2 x 1.8 cm. This is completely new since the April 2016 examination and the appearance is suspicious for a primary pulmonary neoplasm. This nodule should be amenable to image guided percutaneous biopsy, if needed. Stable enlarged pretracheal lymph node and interval enlargement of a prevascular lymph node. -See individual treatment below IR consulted for biopsy of lung mass Acute COPD Exacerbation: Moderate-Severe. With hx of Chronic Respiratory Failure , has oxygen at home however has not been using recently. -Continue steroids with IV Solumedrol -Continue bronchodilators with Duonebs scheduled and prn -Continue Levaquin for empiric pneumonia - patient with cough productive of yellow sputum -Symbicort bid -Mucinex bid -Incentive spirometer = Pulmonology following. Lung mass. Appreciate pulmonology assistance. Chronic pain. Will add back pain medication. Discussed risks of increasing pain meds in the setting of COPD exacerbation. Patient understands risk. Patient agrees with palliative care consultation. Lung Mass: CT Chest w/ new TE mass, 3.2 x 1.8cm, images reviewed. -Findings discussed w/ patient. -Consulted IR for CT guided lung biopsy of new mass, however procedure delayed due to patient being on aspirin 162mg daily -consult pulmonary ff, ( ). = Pulmonary following. Cardiology clearance for lung biopsy. S/p stress test 01/23 , Stress test with low probability findings discussed with the patient. Hypoxia: O2 sat 89% on RA, previously on Home O2, however states he hasn't used in a few months -continue w/ O2 as needed to keep O2 sat > 92% -re-evaluate at time of d/c for Home O2 needs Hyponatremia: Mild. Na 129, previously on NaCl tabs, however taken off due to CHF per -monitor I/O, repeat labs in am. = We will place on fluid restrictions for CHF and hyponatremia. CAD- s/p stent placement ( 2017)/ CHF: Acute on Chronic. Systolic. Echo 05/06/16 w/ EF 45%, +lower extremity edema, BNP 616, resumed diuretics, monitor I/O. DVT Prophylaxis: SCD's Discussed Condition With: Patient, nurse, at bedside. Discharge Planning: Pending improvement and pulmonology clearance. Plan for stress test 01/23 lung biopsy by IR 01/26 as need to be off for 5 days of ASA/ Effient PT consult Awaiting for biopsy 01/26. Stress test with low probability findings discussed with the patient.
--- NOTE | 2018-01-24 15:37 | P.PNCA ---
Subjective Interval history: Breathing better No chest pain Medications and Allergies Active Medications: Active Medications Al Hydroxide/Mg Hydroxide (Milk Of Magnesia Liq) 30 ml PO Q12H PRN PRN Reason: Mild Constipation Albuterol (Duoneb Neb (Prn)) 1 ampul NEB Q2HR NEB PRN PRN Reason: SOB/WHEEZING Last Admin: 01/21/18 02:54 Dose: 1 ampul Albuterol (Duoneb Neb (Misa)) 1 ampul NEB Q6HR WHILE AWAKE NEB [facility] Last Admin: 01/24/18 12:27 Dose: 1 ampul Aspirin (Ecotrin) 81 mg PO DAILY [facility] Last Admin: 01/24/18 10:13 Dose: Not Given Bisacodyl (Dulcolax Supp) 10 mg RECTAL DAILY PRN PRN Reason: SEVERE CONSITIPATION Budesonide/Formoterol Fumarate (Symbicort 160/4.5 Mcg Inh) 2 puff INH BID [facility] Last Admin: 01/24/18 10:14 Dose: 2 puff Bupropion HCl (Wellbutrin Sr) 150 mg PO DAILY [facility] Last Admin: 01/24/18 10:13 Dose: 150 mg Fluticasone Propionate (Flonase Nasal [place]) 1 spray NASAL BID [facility] Last Admin: 01/24/18 10:15 Dose: 1 spray Folic Acid (Folic Acid) 1 mg PO DAILY [facility] Last Admin: 01/24/18 10:13 Dose: 1 mg Furosemide (Lasix) 20 mg PO DAILY [facility] Last Admin: 01/24/18 10:13 Dose: 20 mg Gabapentin (Neurontin) 400 mg PO Q8H [facility] Last Admin: 01/24/18 12:47 Dose: 400 mg Levofloxacin/Dextrose (Levaquin 750 Mg Premix Inj) 150 mls @ 100 mls/hr IV.SIG Q24H [facility] Last Infusion: 01/24/18 01:08 Dose: Infused Lactulose (Lactulose Liq) 30 ml PO DAILY PRN PRN Reason: SEVERE CONSITIPATION Methylprednisolone Sodium Succinate (Solumedrol Inj) 40 mg IV.PUSH Q12HR [facility] Last Admin: 01/24/18 10:11 Dose: 40 mg Montelukast Sodium (Singulair) 10 mg PO HS [facility] Last Admin: 01/23/18 21:05 Dose: 10 mg Morphine Sulfate (Morphine Inj) 2 mg IV.PUSH Q4H PRN PRN Reason: BREAKTHROUGH PAIN Last Admin: 01/24/18 15:11 Dose: 2 mg Ondansetron HCl (Zofran Inj) 4 mg IV.PUSH Q6H PRN PRN Reason: NAUSEA OR VOMITING Oxycodone/Acetaminophen (Percocet 10/325 Mg) 1 tab PO Q4H PRN PRN Reason: PAIN SCALE 6 TO 10 Last Admin: 01/24/18 12:51 Dose: 1 tab Pantoprazole Sodium (Protonix) 20 mg PO DAILY [facility] Last Admin: 01/24/18 10:11 Dose: 20 mg Prasugrel (Effient) 10 mg PO DAILY [facility] Last Admin: 01/24/18 11:21 Dose: Not Given Senna/Docusate Sodium (Kayla-Colace) 1 tab PO BID [facility] Last Admin: 01/24/18 10:20 Dose: Not Given Sennosides (Senokot) 17.2 mg PO Q12H PRN PRN Reason: Moderate Constipation Silver Sulfadiazine (Silvadene 1% Cream (50 Gm)) 1 applicatio TOPICAL BID [facility] Last Admin: 01/24/18 11:22 Dose: 1 applicatio Tizanidine HCl (Zanaflex) 4 mg PO Q8H PRN PRN Reason: MUSCLE SPAMPS Last Admin: 01/21/18 09:44 Dose: 4 mg Allergies Allergy/AdvReac Type Severity Reaction Status Date / Time diatrizoate meglumine Allergy Severe Hives Unverified 09/17/17 21:13 gadobenic acid Allergy Severe Hives Unverified 09/17/17 21:13 gadodiamide Allergy Severe Hives Unverified 09/17/17 21:13 gadoteridol Allergy Severe Hives Unverified 09/17/17 21:13 iodixanol Allergy Severe Hives Unverified 09/17/17 21:13 iohexol Allergy Severe Hives Unverified 09/17/17 21:13 procaine Allergy Intermediate VOMITING Unverified 09/17/17 21:13 lisinopril AdvReac Unknown Cough Unverified 09/17/17 21:13 Home Medications Medication Instructions Recorded Confirmed Type albuterol sulfate [Ventolin HFA] 90 mcg INHALATION PRN 01/19/18 01/19/18 History aspirin 162.5 mg PO DAILY 01/19/18 01/19/18 History budesonide-formoterol [Symbicort] 2 puff INHALATION BID 01/19/18 01/19/18 History bupropion HCl [Wellbutrin SR] 150 mg PO DAILY 01/19/18 01/19/18 History folic acid 1 mg PO DAILY 01/19/18 01/19/18 History furosemide [Lasix] 20 mg PO DAILY 01/19/18 01/19/18 History gabapentin 300 mg PO TID 01/19/18 01/19/18 History hydrocodone-acetaminophen 1 tab PO Q4-6H PRN 01/19/18 01/19/18 History losartan 25 mg PO DAILY 01/19/18 01/19/18 History montelukast [Singulair] 10 mg PO QPM 01/19/18 01/19/18 History omeprazole 20 mg PO DAILY 01/19/18 01/19/18 History ondansetron [Zofran ODT] 4 mg PO Q6-8H PRN 01/19/18 01/19/18 History potassium chloride 20 meq PO DAILY 01/19/18 01/19/18 History prasugrel [Effient] 10 mg PO DAILY 01/19/18 01/19/18 History sumatriptan succinate [Imitrex] 50 mg PO Q2-4H PRN 01/19/18 01/19/18 History tizanidine 4 mg PO TID PRN 01/19/18 01/19/18 History Physical Exam Vital signs: Vital Signs 01/23/18 19:09 01/23/18 19:10 01/23/18 19:19 Temperature 97.7 F Pulse Rate 92 H 91 H Respiratory Rate 16 18 Blood Pressure 142/71 H Pulse Oximetry 95 97 01/24/18 00:00 01/24/18 04:00 01/24/18 08:00 Temperature 97.6 F 97.7 F 97.4 F L Pulse Rate 84 80 75 Respiratory Rate 18 17 22 Blood Pressure 143/72 H 145/70 H 133/78 Pulse Oximetry 97 97 97 01/24/18 08:37 01/24/18 12:00 01/24/18 12:28 Temperature 96.8 F L Pulse Rate 87 77 88 Respiratory Rate 19 23 18 Blood Pressure 152/74 H Pulse Oximetry 96 99 Intake & Output 01/23/18 01/24/18 01/24/18 18:59 06:59 18:59 Intake Total 150 / 150 Output Total 200 / 200 Balance 150 / 150 -200 / -200 Weight 83.2 kg Intake: IV 150 / 150 Levaquin 750 mg Premix Inj 150 150 / 150 ML @ 100 mls/hr IV.SIG Q24H [facility] Rx#:[id number] Output: Urine 200 / 200 Other: # Voids 2 # Bowel Movements 0 Narrative: GENERAL: Very pleasant 62 yo male, appears in nad. Awake and alert. EYES: No scleral icterus. No injection or drainage. NECK: Supple, trachea midline. No JVD. CARDIOVASCULAR: Regular rate and rhythm without murmurs, gallops, or rubs. RESPIRATORY: Breath sounds decreased bibasilar. No accessory muscle use. GASTROINTESTINAL: Abdomen soft, non-tender, nondistended. MUSCULOSKELETAL: No cyanosis, or edema. BACK: Nontender without obvious deformity. No CVA tenderness. Results 01/24/18 05:26 01/24/18 05:26 CBC 01/23/18 01/24/18 Range/Units 05:09 05:26 WBC 9.0 7.9 (4.0-11.0) th/mm3 RBC 4.01 L 4.27 L (4.50-5.90) mil/mm3 Hgb 12.0 L 11.9 L (13.0-17.0) gm/dL Hct 33.3 L 36.3 L (39.0-51.0) % Plt Count 350 359 (150-450) th/mm3 Neut # (Auto) 7.7 7.0 (1.8-7.7) th/mm3 Lymph # (Auto) 0.5 L 0.4 L (1.0-4.8) th/mm3 [place] # (Auto) 0.7 0.5 (0.0-0.9) th/mm3 Eos # (Auto) 0.0 0.0 (0.0-0.4) th/mm3 Baso # (Auto) 0.0 0.0 (0.0-0.2) th/mm3 Comprehensive Metabolic Panel 01/23/18 01/24/18 Range/Units 05:09 05:26 Sodium 128 L 131 L (136-145) meq/L Potassium 4.1 4.4 (3.5-5.1) meq/L Chloride 91 L 94 L (98-107) meq/L Carbon Dioxide 25.1 26.3 (21.0-32.0) meq/L BUN 19 H 23 H (7-18) mg/dL Creatinine 1.02 1.05 (0.60-1.30) mg/dL Calcium 8.4 L 8.2 L (8.5-10.1) mg/dL Intake and Output 01/24/18 01/24/18 01/24/18 06:59 14:59 22:59 Intake Total 150 / 150 Output Total 200 / 200 Balance 150 / 150 -200 / -200 Intake: IV 150 / 150 Levaquin 750 mg Premix Inj 150 150 / 150 ML @ 100 mls/hr IV.SIG Q24H [facility] Rx#:[id number] Output: Urine 200 / 200 Other: Weight 83.2 kg - Imaging and Cardiology Imaging: Impressions Myocardial Perfusion Scan Nuc Med 01/23/18 00:00 CONCLUSION: 1. Fixed defect involving the inferior wall consistent with prior infarction. 2. No reversible defect observed to suggest acute ischemia. Assessment and Plan - Assessment (1) COPD (chronic obstructive pulmonary disease) Code(s): J44.9 - Chronic obstructive pulmonary disease, unspecified Status: Acute (2) CHF (congestive heart failure) Code(s): I50.9 - Heart failure, unspecified Status: Acute (3) Hypoxia Code(s): R09.02 - Hypoxemia Status: Acute (4) Lung mass Code(s): R91.8 - Other nonspecific abnormal finding of lung field Status: Acute (5) Chronic pain Code(s): G89.29 - Other chronic pain Status: Acute (6) Dyspnea Code(s): R06.00 - Dyspnea, unspecified Status: Acute - Plan 1) SOB Multifactorial with COPD and CHF Diuresed well since admission 2) CAD Hx of PCI with BMS to LAD Residual CAD 3) Lung mass Hold ASA/Effient for biopsy planned for Friday 4) Stress test showing inferior fixed defect with normal wall motion, most likely diaphragmatic No ischemia noted No plan for cardiac catheterization 5) Tobacco cessation 6) Await biopsy After biopsy, would restart ASA once stable for his CAD 7) HTN He's been off his Losartan, will restart
--- NOTE | 2018-01-24 18:58 | P.PN ---
Subjective Interval history: Alert and No distress. On O2 2 L. Will have Lung biopsy on friday. Stress test was Neg.Overall better. Physical Exam Vital signs: Vital Signs 01/23/18 19:09 01/23/18 19:10 01/23/18 19:19 Temperature 97.7 F Pulse Rate 92 H 91 H Respiratory Rate 16 18 Blood Pressure 142/71 H Pulse Oximetry 95 97 01/24/18 00:00 01/24/18 04:00 01/24/18 08:00 Temperature 97.6 F 97.7 F 97.4 F L Pulse Rate 84 80 75 Respiratory Rate 18 17 22 Blood Pressure 143/72 H 145/70 H 133/78 Pulse Oximetry 97 97 97 01/24/18 08:37 01/24/18 12:00 01/24/18 12:28 Temperature 96.8 F L Pulse Rate 87 77 88 Respiratory Rate 19 23 18 Blood Pressure 152/74 H Pulse Oximetry 96 99 01/24/18 16:00 Temperature 97.4 F L Pulse Rate 92 H Respiratory Rate 22 Blood Pressure 146/71 H Pulse Oximetry 96 Intake & Output 01/23/18 01/24/18 01/24/18 18:59 06:59 18:59 Intake Total 150 / 150 960 / 960 Output Total 200 / 200 Balance 150 / 150 760 / 760 Weight 83.2 kg Intake: IV 150 / 150 Levaquin 750 mg Premix Inj 150 150 / 150 ML @ 100 mls/hr IV.SIG Q24H [facility] Rx#:[id number] Oral 960 / 960 Output: Urine 200 / 200 Other: # Voids 2 4 # Bowel Movements 0 Narrative: GENERAL: Very pleasant 62 yo male, Awake and alert. EYES: No scleral icterus. No injection or drainage. NECK: Supple, trachea midline. No JVD. CARDIOVASCULAR: Regular rate and rhythm without murmurs, gallops, or rubs. RESPIRATORY: Breath sounds decreased with occ wheeze. No accessory muscle use. GASTROINTESTINAL: Abdomen soft, non-tender, nondistended. MUSCULOSKELETAL: No cyanosis, or edema. BACK: Nontender without obvious deformity. No CVA tenderness. Results - Labs CBC & Chem 7: 01/24/18 05:26 01/24/18 05:26 Laboratory Results - last 24 hr 01/24/18 01/24/18 05:26 05:26 WBC 7.9 RBC 4.27 L Hgb 11.9 L Hct 36.3 L MCV 85.0 MCH 27.8 MCHC 32.7 RDW 15.4 Plt Count 359 MPV 6.7 L Neut % (Auto) 88.3 H Lymph % (Auto) 4.7 L [place] % (Auto) 6.9 Eos % (Auto) 0.0 Baso % (Auto) 0.1 Neut # (Auto) 7.0 Lymph # (Auto) 0.4 L [place] # (Auto) 0.5 Eos # (Auto) 0.0 Baso # (Auto) 0.0 WBC Differential . Differential Comment Auto diff final Sodium 131 L Potassium 4.4 Chloride 94 L Carbon Dioxide 26.3 Anion Gap 11 BUN 23 H Creatinine 1.05 Estimated GFR 72 L Random Glucose 114 H Calcium 8.2 L Assessment and Plan - Assessment (1) COPD (chronic obstructive pulmonary disease) Code(s): J44.9 - Chronic obstructive pulmonary disease, unspecified Status: Acute (2) CHF (congestive heart failure) Code(s): I50.9 - Heart failure, unspecified Status: Acute (3) Hypoxia Code(s): R09.02 - Hypoxemia Status: Acute (4) Hyponatremia Code(s): E87.1 - Hypo-osmolality and hyponatremia Status: Acute (5) Lung mass Code(s): R91.8 - Other nonspecific abnormal finding of lung field Status: Acute (6) Chronic pain Code(s): G89.29 - Other chronic pain Status: Acute (7) Constipation Code(s): K59.00 - Constipation, unspecified Status: Acute (8) Dyspnea Code(s): R06.00 - Dyspnea, unspecified Status: Acute (9) Coronary artery disease Code(s): I25.10 - Atherosclerotic heart disease of [place] coronary artery without angina pectoris Status: Acute - Plan 1. For CT needle biopsy of lung mass on Friday 2. O2 2 L N/C 3. Continue Levaquin 750 Mg daily 4. Duonebs qid. 5. Hold anticoagulants and ASA 6. Arrange Home o2 at 2 L. 7. Continue solumedrol 40 mg IV BID
[2018-01-24] MEDS: Montelukast 10 MG Tablet PO SCH (21:26)
[2018-01-25] MEDS: oxyCODONE/Acetaminophen 10/325 Tablet PO PRN ×6 (01:47→23:34)
[2018-01-25] MEDS: Morphine Inj 4 MG/ML Vial IV.PUSH PRN ×5 (04:20→21:32)
[2018-01-25] MEDS: Gabapentin 400 MG Capsule PO SCH ×3 (04:45→19:52)
[2018-01-25] MEDS: Folic Acid 1 MG Tablet PO SCH (08:20)
[2018-01-25] MEDS: MethylPREDNISolone Sod Succinate Inj 40 MG/ML Vial IV.PUSH SCH ×2 (08:20→21:32)
[2018-01-25] MEDS: Pantoprazole Sodium 20 MG DR Tablet PO SCH (08:20)
[2018-01-25] MEDS: Senna/Docusate Sodium 8.6/50 MG Tablet PO SCH ×2 (08:20→21:40)
[2018-01-25] MEDS: buPROPion 150 MG 12 HR Tablet PO SCH (08:20)
[2018-01-25] MEDS: Furosemide 20 MG Tablet PO SCH (08:21)
[2018-01-25] MEDS: Budesonide-Formoterol 160/4.5 MCG 6 GM Inhaler INH SCH ×2 (10:48→21:36)
--- NOTE | 2018-01-25 15:53 | P.PNCA ---
Subjective Interval history: No events overnight Up to the chair, currently with oxygen off Medications and Allergies Active Medications: Active Medications Al Hydroxide/Mg Hydroxide (Milk Of Magnesia Liq) 30 ml PO Q12H PRN PRN Reason: Mild Constipation Albuterol (Duoneb Neb (Prn)) 1 ampul NEB Q2HR NEB PRN PRN Reason: SOB/WHEEZING Last Admin: 01/21/18 02:54 Dose: 1 ampul Albuterol (Duoneb Neb (Misa)) 1 ampul NEB Q6HR WHILE AWAKE NEB [facility] Last Admin: 01/25/18 14:33 Dose: 1 ampul Aspirin (Ecotrin) 81 mg PO DAILY [facility] Last Admin: 01/24/18 10:13 Dose: Not Given Bisacodyl (Dulcolax Supp) 10 mg RECTAL DAILY PRN PRN Reason: SEVERE CONSITIPATION Budesonide/Formoterol Fumarate (Symbicort 160/4.5 Mcg Inh) 2 puff INH BID [facility] Last Admin: 01/25/18 10:48 Dose: 2 puff Bupropion HCl (Wellbutrin Sr) 150 mg PO DAILY [facility] Last Admin: 01/25/18 08:20 Dose: 150 mg Fluticasone Propionate (Flonase Nasal [place]) 1 spray NASAL BID [facility] Last Admin: 01/25/18 10:48 Dose: 1 spray Folic Acid (Folic Acid) 1 mg PO DAILY [facility] Last Admin: 01/25/18 08:20 Dose: 1 mg Furosemide (Lasix) 20 mg PO DAILY [facility] Last Admin: 01/25/18 08:21 Dose: 20 mg Gabapentin (Neurontin) 400 mg PO Q8H [facility] Last Admin: 01/25/18 12:46 Dose: 400 mg Levofloxacin/Dextrose (Levaquin 750 Mg Premix Inj) 150 mls @ 100 mls/hr IV.SIG Q24H [facility] Last Infusion: 01/25/18 01:05 Dose: Infused Lactulose (Lactulose Liq) 30 ml PO DAILY PRN PRN Reason: SEVERE CONSITIPATION Losartan Potassium (Cozaar) 25 mg PO DAILY [facility] Last Admin: 01/25/18 08:21 Dose: 25 mg Methylprednisolone Sodium Succinate (Solumedrol Inj) 40 mg IV.PUSH Q12HR [facility] Last Admin: 01/25/18 08:20 Dose: 40 mg Montelukast Sodium (Singulair) 10 mg PO HS [facility] Last Admin: 01/24/18 21:26 Dose: 10 mg Morphine Sulfate (Morphine Inj) 2 mg IV.PUSH Q4H PRN PRN Reason: BREAKTHROUGH PAIN Last Admin: 01/25/18 12:46 Dose: 2 mg Ondansetron HCl (Zofran Inj) 4 mg IV.PUSH Q6H PRN PRN Reason: NAUSEA OR VOMITING Oxycodone/Acetaminophen (Percocet 10/325 Mg) 1 tab PO Q4H PRN PRN Reason: PAIN SCALE 6 TO 10 Last Admin: 01/25/18 14:45 Dose: 1 tab Pantoprazole Sodium (Protonix) 20 mg PO DAILY [facility] Last Admin: 01/25/18 08:20 Dose: 20 mg Prasugrel (Effient) 10 mg PO DAILY [facility] Last Admin: 01/24/18 11:21 Dose: Not Given Senna/Docusate Sodium (Kayla-Colace) 1 tab PO BID [facility] Last Admin: 01/25/18 08:20 Dose: Not Given Sennosides (Senokot) 17.2 mg PO Q12H PRN PRN Reason: Moderate Constipation Silver Sulfadiazine (Silvadene 1% Cream (50 Gm)) 1 applicatio TOPICAL BID [facility] Last Admin: 01/25/18 10:47 Dose: 1 applicatio Tizanidine HCl (Zanaflex) 4 mg PO Q8H PRN PRN Reason: MUSCLE SPAMPS Last Admin: 01/21/18 09:44 Dose: 4 mg Allergies Allergy/AdvReac Type Severity Reaction Status Date / Time diatrizoate meglumine Allergy Severe Hives Unverified 09/17/17 21:13 gadobenic acid Allergy Severe Hives Unverified 09/17/17 21:13 gadodiamide Allergy Severe Hives Unverified 09/17/17 21:13 gadoteridol Allergy Severe Hives Unverified 09/17/17 21:13 iodixanol Allergy Severe Hives Unverified 09/17/17 21:13 iohexol Allergy Severe Hives Unverified 09/17/17 21:13 procaine Allergy Intermediate VOMITING Unverified 09/17/17 21:13 lisinopril AdvReac Unknown Cough Unverified 09/17/17 21:13 Home Medications Medication Instructions Recorded Confirmed Type albuterol sulfate [Ventolin HFA] 90 mcg INHALATION PRN 01/19/18 01/19/18 History aspirin 162.5 mg PO DAILY 01/19/18 01/19/18 History budesonide-formoterol [Symbicort] 2 puff INHALATION BID 01/19/18 01/19/18 History bupropion HCl [Wellbutrin SR] 150 mg PO DAILY 01/19/18 01/19/18 History folic acid 1 mg PO DAILY 01/19/18 01/19/18 History furosemide [Lasix] 20 mg PO DAILY 01/19/18 01/19/18 History gabapentin 300 mg PO TID 01/19/18 01/19/18 History hydrocodone-acetaminophen 1 tab PO Q4-6H PRN 01/19/18 01/19/18 History losartan 25 mg PO DAILY 01/19/18 01/19/18 History montelukast [Singulair] 10 mg PO QPM 01/19/18 01/19/18 History omeprazole 20 mg PO DAILY 01/19/18 01/19/18 History ondansetron [Zofran ODT] 4 mg PO Q6-8H PRN 01/19/18 01/19/18 History potassium chloride 20 meq PO DAILY 01/19/18 01/19/18 History prasugrel [Effient] 10 mg PO DAILY 01/19/18 01/19/18 History sumatriptan succinate [Imitrex] 50 mg PO Q2-4H PRN 01/19/18 01/19/18 History tizanidine 4 mg PO TID PRN 01/19/18 01/19/18 History Physical Exam Vital signs: Vital Signs 01/24/18 16:00 01/24/18 19:24 01/24/18 20:00 Temperature 97.4 F L 97.4 F L Pulse Rate 92 H 92 H 91 H Respiratory Rate 22 20 18 Blood Pressure 146/71 H 149/71 H Pulse Oximetry 96 96 93 L 01/25/18 00:00 01/25/18 04:00 01/25/18 08:00 Temperature 97.1 F L 97.7 F 98 F Pulse Rate 83 79 77 Respiratory Rate 18 18 18 Blood Pressure 147/74 H 155/79 H 164/74 H Pulse Oximetry 97 93 L 97 01/25/18 09:18 01/25/18 12:00 01/25/18 14:34 Temperature 97.6 F Pulse Rate 79 90 90 Respiratory Rate 18 18 18 Blood Pressure 128/67 Pulse Oximetry 93 L 90 L Intake & Output 01/24/18 01/25/18 01/25/18 18:59 06:59 18:59 Intake Total 960 / 960 150 / 150 Output Total 200 / 200 Balance 760 / 760 150 / 150 Intake: IV 150 / 150 Levaquin 750 mg Premix Inj 150 150 / 150 ML @ 100 mls/hr IV.SIG Q24H [facility] Rx#:[id number] Oral 960 / 960 Output: Urine 200 / 200 Other: # Voids 4 Narrative: GENERAL: Very pleasant 62 yo male, Awake and alert. EYES: No scleral icterus. No injection or drainage. NECK: Supple, trachea midline. No JVD. CARDIOVASCULAR: Regular rate and rhythm without murmurs, gallops, or rubs. RESPIRATORY: Breath sounds decreased with occ wheeze. No accessory muscle use. GASTROINTESTINAL: Abdomen soft, non-tender, nondistended. MUSCULOSKELETAL: No cyanosis, or edema. BACK: Nontender without obvious deformity. No CVA tenderness. Results 01/24/18 05:26 01/24/18 05:26 CBC 01/24/18 Range/Units 05:26 WBC 7.9 (4.0-11.0) th/mm3 RBC 4.27 L (4.50-5.90) mil/mm3 Hgb 11.9 L (13.0-17.0) gm/dL Hct 36.3 L (39.0-51.0) % Plt Count 359 (150-450) th/mm3 Neut # (Auto) 7.0 (1.8-7.7) th/mm3 Lymph # (Auto) 0.4 L (1.0-4.8) th/mm3 [place] # (Auto) 0.5 (0.0-0.9) th/mm3 Eos # (Auto) 0.0 (0.0-0.4) th/mm3 Baso # (Auto) 0.0 (0.0-0.2) th/mm3 Comprehensive Metabolic Panel 01/24/18 Range/Units 05:26 Sodium 131 L (136-145) meq/L Potassium 4.4 (3.5-5.1) meq/L Chloride 94 L (98-107) meq/L Carbon Dioxide 26.3 (21.0-32.0) meq/L BUN 23 H (7-18) mg/dL Creatinine 1.05 (0.60-1.30) mg/dL Calcium 8.2 L (8.5-10.1) mg/dL Intake and Output 01/25/18 01/25/18 01/25/18 06:59 14:59 22:59 Intake Total 150 / 150 Balance 150 / 150 Intake: IV 150 / 150 Levaquin 750 mg Premix Inj 150 150 / 150 ML @ 100 mls/hr IV.SIG Q24H [facility] Rx#:[id number] - Imaging and Cardiology Imaging: Impressions Myocardial Perfusion Scan Nuc Med 01/23/18 00:00 CONCLUSION: 1. Fixed defect involving the inferior wall consistent with prior infarction. 2. No reversible defect observed to suggest acute ischemia. Assessment and Plan - Assessment (1) COPD (chronic obstructive pulmonary disease) Code(s): J44.9 - Chronic obstructive pulmonary disease, unspecified Status: Acute (2) CHF (congestive heart failure) Code(s): I50.9 - Heart failure, unspecified Status: Acute (3) Hypoxia Code(s): R09.02 - Hypoxemia Status: Acute (4) Lung mass Code(s): R91.8 - Other nonspecific abnormal finding of lung field Status: Acute (5) Chronic pain Code(s): G89.29 - Other chronic pain Status: Acute (6) Dyspnea Code(s): R06.00 - Dyspnea, unspecified Status: Acute - Plan 1) SOB Multifactorial with COPD and CHF Diuresed well since admission Appears compensated 2) CAD Hx of PCI with BMS to LAD Residual CAD 3) Lung mass Hold ASA/Effient for biopsy planned for Friday 4) Stress test showing inferior fixed defect with normal wall motion, most likely diaphragmatic No ischemia noted No plan for cardiac catheterization Continue medical management 5) Tobacco cessation 6) Await biopsy After biopsy, would restart ASA once stable for his CAD 7) HTN Losartan
--- NOTE | 2018-01-25 16:18 | P.PN ---
Subjective Interval history: Breathing better. Keeps O2 off. Will go for CT needle biopsy in am. Physical Exam Vital signs: Vital Signs 01/24/18 19:24 01/24/18 20:00 01/25/18 00:00 Temperature 97.4 F L 97.1 F L Pulse Rate 92 H 91 H 83 Respiratory Rate 20 18 18 Blood Pressure 149/71 H 147/74 H Pulse Oximetry 96 93 L 97 01/25/18 04:00 01/25/18 08:00 01/25/18 09:18 Temperature 97.7 F 98 F Pulse Rate 79 77 79 Respiratory Rate 18 18 18 Blood Pressure 155/79 H 164/74 H Pulse Oximetry 93 L 97 93 L 01/25/18 12:00 01/25/18 14:34 Temperature 97.6 F Pulse Rate 90 90 Respiratory Rate 18 18 Blood Pressure 128/67 Pulse Oximetry 90 L Intake & Output 01/24/18 01/25/18 01/25/18 18:59 06:59 18:59 Intake Total 960 / 960 150 / 150 Output Total 200 / 200 Balance 760 / 760 150 / 150 Intake: IV 150 / 150 Levaquin 750 mg Premix Inj 150 150 / 150 ML @ 100 mls/hr IV.SIG Q24H [facility] Rx#:[id number] Oral 960 / 960 Output: Urine 200 / 200 Other: # Voids 4 Narrative: GENERAL: Mid aged W/M , Awake and alert. EYES: No scleral icterus. No injection or drainage. NECK: Supple, trachea midline. No JVD. CARDIOVASCULAR: Regular rate and rhythm without murmurs, gallops, or rubs. RESPIRATORY: Breath sounds decreased with occ wheeze. No accessory muscle use. GASTROINTESTINAL: Abdomen soft, non-tender, nondistended. MUSCULOSKELETAL: No cyanosis, or edema. BACK: Nontender without obvious deformity. No CVA tenderness. Results - Labs CBC & Chem 7: 01/24/18 05:26 01/24/18 05:26 Assessment and Plan - Assessment (1) COPD (chronic obstructive pulmonary disease) Code(s): J44.9 - Chronic obstructive pulmonary disease, unspecified Status: Acute (2) CHF (congestive heart failure) Code(s): I50.9 - Heart failure, unspecified Status: Acute (3) Hypoxia Code(s): R09.02 - Hypoxemia Status: Acute (4) Hyponatremia Code(s): E87.1 - Hypo-osmolality and hyponatremia Status: Acute (5) Lung mass Code(s): R91.8 - Other nonspecific abnormal finding of lung field Status: Acute (6) Chronic pain Code(s): G89.29 - Other chronic pain Status: Acute (7) Constipation Code(s): K59.00 - Constipation, unspecified Status: Acute (8) Dyspnea Code(s): R06.00 - Dyspnea, unspecified Status: Acute (9) Coronary artery disease Code(s): I25.10 - Atherosclerotic heart disease of [place] coronary artery without angina pectoris Status: Acute - Plan 1. For CT needle biopsy of lung mass on Friday 2. O2 2 L N/C 3. Continue Levaquin 750 Mg daily X 3 4. Duonebs qid. 5. Hold anticoagulants and ASA 6. Arrange Home o2 at 2 L. 7. D/C solumedrol in am.
--- NOTE | 2018-01-25 16:28 | P.PN ---
Subjective Interval history: The patient is at the margin of the bed. Saturating well on nasal cannula. Less wheezing and cough. No blood in sputum. Plan for biopsy of the lung tomorrow. No fever or chills. Physical Exam Vital signs: Vital Signs 01/24/18 19:24 01/24/18 20:00 01/25/18 00:00 Temperature 97.4 F L 97.1 F L Pulse Rate 92 H 91 H 83 Respiratory Rate 20 18 18 Blood Pressure 149/71 H 147/74 H Pulse Oximetry 96 93 L 97 01/25/18 04:00 01/25/18 08:00 01/25/18 09:18 Temperature 97.7 F 98 F Pulse Rate 79 77 79 Respiratory Rate 18 18 18 Blood Pressure 155/79 H 164/74 H Pulse Oximetry 93 L 97 93 L 01/25/18 12:00 01/25/18 14:34 Temperature 97.6 F Pulse Rate 90 90 Respiratory Rate 18 18 Blood Pressure 128/67 Pulse Oximetry 90 L Intake & Output 01/24/18 01/25/18 01/25/18 18:59 06:59 18:59 Intake Total 960 / 960 150 / 150 Output Total 200 / 200 Balance 760 / 760 150 / 150 Intake: IV 150 / 150 Levaquin 750 mg Premix Inj 150 150 / 150 ML @ 100 mls/hr IV.SIG Q24H [facility] Rx#:[id number] Oral 960 / 960 Output: Urine 200 / 200 Other: # Voids 4 Narrative: GENERAL: Very pleasant 62 yo male. Awake and alert does not appear in acute distress.. EYES: No scleral icterus. No injection or drainage. NECK: Supple, trachea midline. No JVD. CARDIOVASCULAR: Regular rate and rhythm without murmurs, gallops, or rubs. RESPIRATORY: Breath sounds decreased with scattered wheezing. No accessory muscle use. Bibasilar crackles worse on the right GASTROINTESTINAL: Abdomen soft, non-tender, nondistended. MUSCULOSKELETAL: No cyanosis, or edema. BACK: Nontender without obvious deformity. No CVA tenderness. Results - Labs CBC & Chem 7: 01/24/18 05:26 01/24/18 05:26 Assessment and Plan - Assessment (1) COPD (chronic obstructive pulmonary disease) Code(s): J44.9 - Chronic obstructive pulmonary disease, unspecified Status: Acute (2) CHF (congestive heart failure) Code(s): I50.9 - Heart failure, unspecified Status: Acute (3) Hypoxia Code(s): R09.02 - Hypoxemia Status: Acute (4) Hyponatremia Code(s): E87.1 - Hypo-osmolality and hyponatremia Status: Acute (5) Lung mass Code(s): R91.8 - Other nonspecific abnormal finding of lung field Status: Acute - Plan Dyspnea: suspect multifactorial secondary to acute COPD and CHF exacerbations in combination with new lung mass. -Chest CT showed: Severe emphysema with interstitial lung disease. These changes are stable and may explain the patient's shortness of breath. However, there is a new bilobed mass in the left upper lobe measuring up to 3.2 x 1.8 cm. This is completely new since the April 2016 examination and the appearance is suspicious for a primary pulmonary neoplasm. This nodule should be amenable to image guided percutaneous biopsy, if needed. Stable enlarged pretracheal lymph node and interval enlargement of a prevascular lymph node. -See individual treatment below IR consulted for biopsy of lung mass Acute COPD Exacerbation: Moderate-Severe. With hx of Chronic Respiratory Failure , has oxygen at home however has not been using recently. -Continue steroids with IV Solumedrol -Continue bronchodilators with Duonebs scheduled and prn -Continue Levaquin for empiric pneumonia - patient with cough productive of yellow sputum -Symbicort bid -Mucinex bid -Incentive spirometer = Pulmonology following. Lung mass. Appreciate pulmonology assistance. Chronic pain. Will add back pain medication. Discussed risks of increasing pain meds in the setting of COPD exacerbation. Patient understands risk. Patient agrees with palliative care consultation. Lung Mass: CT Chest w/ new TE mass, 3.2 x 1.8cm, images reviewed. -Findings discussed w/ patient. -Consulted IR for CT guided lung biopsy of new mass, however procedure delayed due to patient being on aspirin 162mg daily -consult pulmonary ff, ( ). = Pulmonary following. Cardiology clearance for lung biopsy. S/p stress test 01/23 , Stress test with low probability findings discussed with the patient. Hypoxia: O2 sat 89% on RA, previously on Home O2, however states he hasn't used in a few months -continue w/ O2 as needed to keep O2 sat > 92% -re-evaluate at time of d/c for Home O2 needs Hyponatremia: Mild. Na 129, previously on NaCl tabs, however taken off due to CHF per -monitor I/O, repeat labs in am. = We will place on fluid restrictions for CHF and hyponatremia. CAD- s/p stent placement ( 2017)/ CHF: Acute on Chronic. Systolic. Echo 05/06/16 w/ EF 45%, +lower extremity edema, BNP 616, resumed diuretics, monitor I/O. DVT Prophylaxis: SCD's Discussed Condition With: Patient, nurse, at bedside. Discharge Planning: Pending improvement and pulmonology clearance. Plan for stress test 01/23 lung biopsy by IR 01/26 as need to be off for 5 days of ASA/ Effient PT consult Awaiting for biopsy 01/26. Stress test with low probability findings discussed with the patient/family.
[2018-01-25 18:20] LABS: Activated Partial Thrombo Time 23.2 sec (24.3-30.1)
[2018-01-25] MEDS: Montelukast 10 MG Tablet PO SCH (23:35)
[2018-01-26] MEDS: Morphine Inj 4 MG/ML Vial IV.PUSH PRN ×4 (01:50→19:58)
[2018-01-26] MEDS: Gabapentin 400 MG Capsule PO SCH ×3 (03:29→19:58)
[2018-01-26] MEDS: oxyCODONE/Acetaminophen 10/325 Tablet PO PRN ×5 (03:29→22:11)
[2018-01-26 07:42] LABS: Calcium 8.4 mg/dL (8.5-10.1); Carbon Dioxide 25.2 meq/L (21.0-32.0); Potassium 4.2 meq/L (3.5-5.1)
[2018-01-26] MEDS: Folic Acid 1 MG Tablet PO SCH (08:22)
[2018-01-26] MEDS: Furosemide 20 MG Tablet PO SCH (08:22)
[2018-01-26] MEDS: buPROPion 150 MG 12 HR Tablet PO SCH (08:22)
[2018-01-26] MEDS: MethylPREDNISolone Sod Succinate Inj 40 MG/ML Vial IV.PUSH SCH ×2 (08:22→20:01)
[2018-01-26] MEDS: Pantoprazole Sodium 20 MG DR Tablet PO SCH (08:22)
[2018-01-26] MEDS: Senna/Docusate Sodium 8.6/50 MG Tablet PO SCH ×2 (08:23→20:01)
[2018-01-26] MEDS: Budesonide-Formoterol 160/4.5 MCG 6 GM Inhaler INH SCH ×2 (08:23→20:02)
[2018-01-26] MEDS ORDERED: fentaNYL Citrate Inj 250 MCG/5 ML Ampul ONE (08:59)
--- NOTE | 2018-01-26 10:08 | P.PN ---
Subjective Interval history: Patient is resting comfortably in bed. Family with him at bedside. Feels good today, no acute concerns. Breathing is good on O2. Denies chest pain, SOB, headache, vision changes, nausea, vomiting, diarrhea. Physical Exam Vital signs: Vital Signs 01/25/18 12:00 01/25/18 14:34 01/25/18 16:00 Temperature 97.6 F 98.1 F Pulse Rate 90 90 86 Respiratory Rate 18 18 18 Blood Pressure 128/67 155/73 H Pulse Oximetry 90 L 95 01/25/18 19:39 01/25/18 20:00 01/26/18 00:00 Temperature 97.9 F 97.2 F L Pulse Rate 96 H 86 79 Respiratory Rate 24 18 18 Blood Pressure 161/92 H 132/64 Pulse Oximetry 96 94 L 01/26/18 00:05 01/26/18 04:00 01/26/18 04:30 Temperature 98 F Pulse Rate 78 Respiratory Rate 20 18 20 Blood Pressure 145/68 H Pulse Oximetry 95 01/26/18 06:00 01/26/18 07:27 01/26/18 08:00 Temperature 97.4 F L Pulse Rate 80 78 Respiratory Rate 20 16 18 Blood Pressure 138/68 Pulse Oximetry 96 92 L Intake & Output 01/25/18 01/26/18 01/26/18 18:59 06:59 18:59 Intake Total 480 / 480 150 / 150 Balance 480 / 480 150 / 150 Intake: IV 150 / 150 Levaquin 750 mg Premix Inj 150 150 / 150 ML @ 100 mls/hr IV.SIG Q24H [facility] Rx#:[id number] Oral 480 / 480 Other: # Voids 4 Narrative: GENERAL: 62 year old male in NAD, alert and oriented x3 EYES: No scleral icterus. No injection or drainage. NECK: Supple, trachea midline. No JVD. CARDIOVASCULAR: Regular rate and rhythm without murmurs, gallops, or rubs. RESPIRATORY: Breath sounds decreased with scattered wheezes. No accessory muscle use. Slight bibasilar crackles. GASTROINTESTINAL: Abdomen soft, non-tender, nondistended. MUSCULOSKELETAL: No cyanosis, or edema. BACK: Nontender without obvious deformity. No CVA tenderness. Results - Labs CBC & Chem 7: 01/24/18 05:26 01/26/18 06:41 Laboratory Results - last 24 hr 01/25/18 01/26/18 17:28 06:41 PT 10.0 INR 1.0 APTT 23.2 L Sodium 128 L Potassium 4.2 Chloride 93 L Carbon Dioxide 25.2 Anion Gap 10 BUN 23 H Creatinine 0.98 Estimated GFR 78 L Random Glucose 107 H Calcium 8.4 L Assessment and Plan - Plan Dyspnea: suspect multifactorial secondary to acute COPD and CHF exacerbations in combination with new lung mass. -Chest CT showed: Severe emphysema with interstitial lung disease. These changes are stable and may explain the patient's shortness of breath. However, there is a new bilobed mass in the left upper lobe measuring up to 3.2 x 1.8 cm. This is completely new since the April 2016 examination and the appearance is suspicious for a primary pulmonary neoplasm. This nodule should be amenable to image guided percutaneous biopsy, if needed. Stable enlarged pretracheal lymph node and interval enlargement of a prevascular lymph node. -See individual treatment below IR consulted for biopsy of lung mass Acute COPD Exacerbation -Moderate-Severe. -hx of Chronic Respiratory Failure, has oxygen at home however has not been using recently. -Patient improved on 01/26 -D/C IV Solumedrol this am -Continue bronchodilators with Duonebs scheduled and prn -Continue Levaquin for empiric pneumonia - sputum decreased on 01/26 -Symbicort bid -Mucinex bid -Incentive spirometer -Pulmonology following. Appreciate pulmonology assistance. Chronic pain -Will add back pain medication. Discussed risks of increasing pain meds in the setting of COPD exacerbation. Patient understands risk. Patient agrees with palliative care consultation. Lung Mass CT Chest w/ new TE mass, 3.2 x 1.8cm, images reviewed. -Findings discussed w/ patient. -Consulted IR for CT guided lung biopsy of new mass, however procedure delayed due to patient being on aspirin 162mg daily -consult pulmonary ff, ( ). -Pulmonary following. Cardiology clearance for lung biopsy. S/p stress test , Stress test with low probability findings discussed with the patient -lung biopsy today Hypoxia O2 sat 89% on RA, previously on Home O2, however states he hasn't used in a few months -continue w/ O2 as needed to keep O2 sat > 92% -re-evaluate at time of d/c for Home O2 needs -Order O2 challenge s/p lung bx Hyponatremia Mild. Na 129, previously on NaCl tabs, however taken off due to CHF per -monitor I/O, repeat labs in am. -fluid restrictions for CHF and hyponatremia. Stable, 128 on 01/26 CAD s/p stent placement ( 2016)/ CHF: Acute on Chronic. Systolic. Echo 05/06/16 w/ EF 45%, +lower extremity edema, BNP 616, resumed diuretics, monitor I/O. DVT Prophylaxis: SCD's Code Status: Full Discharge Planning: D/C after lung bx on 01/26 and O2 challenge
--- NOTE | 2018-01-26 10:32 | P.RAD ---
Post CT Procedure Prog Note - Procedure Information Procedure Date: 01/26/18 Supervising Radiologist: Jorden Chakraborty Jr, MD Proceduralist/Assist: Maya Estimated blood loss (mL): 0 Anesthesia: Conscious Sedation - Plan of Activity Patient to Unit: ROPU Patient condition: Good See PACS Report for procedural detail/treatment. Biopsy CT left Lung Site: Left upper lobe mass Specimen: Core Biopsy Findings: Small PTX and intraparenchymal hemorrhage on post CT images. Plan: CXR f/u
--- NOTE | 2018-01-26 10:55 | CT ---
EXAM DATE: 01/26/2018 9:05 AM EDT AGE/SEX: 62 years / Male INDICATIONS: Left lung mass CLINICAL DATA: This is the patient's initial encounter. Patient reports that signs and symptoms have been present for 1 day and indicates a pain score of 0/10. MEDICAL/SURGICAL HISTORY: Congestive heart failure. Chronic obstructive pulmonary disease. Hy pertension. Coronary artery stent. COMPARISON: [facility] – [place], CHEST EXPIRATION ONLY, 01/26/2018. . SEDATION TIME (min): BIOPSY SITE: Left lung MEDICATION(S): 4 mg midazolam (Versed) IV 200mcg fentanyl (Sublimaze) IV DEVICE(S): 19 gauge Introducer 20 gauge BARD biopsy needle Four core specimen(s) sent to the laboratory for pathologic evaluation. . . PROCEDURE: CT guided Left lung biopsy Prior to the procedure informed consent was obtained. Any appropriate prior imaging studies were rev iewed. Using automated exposure control and adjustment of the mA and/or kV according to patient size , radiation dose was kept as low as reasonably achievable to obtain optimal diagnostic quality images . DICOM format image data is available electronically for review and comparison. The site was prepped in a sterile fashion. Full sterile technique was used, including cap, mask, dawna rile gloves and gown and a large sterile sheet. Hand hygiene and 2% chlorhexidine and/or betadine/al cohol prep was utilized per protocol for cutaneous antisepsis. The skin and subcutaneous tissues wer e infiltrated with local anesthetic solution. With CT guidance the left upper lobe pulmonary mass was localized. Biopsy was performed using the pre scribed needle as above. A 19-gauge coaxial needle was passed via left anterolateral oblique approach . Through this a 20-gauge Tem[place] needle was utilized for core specimens of the left upper lobe mass. A total of 4 core specimens were obtained. Adequate hemostasis was obtained with compression at the pu ncture site. Follow-up CT scan reveals a small pneumothorax and small volume intraparenchymal hemorrhage. A chest x-ray is pending for follow-up.. Conscious sedation was performed with the prescribed dosages and duration as above in the presence of an independent trained radiology nurse to assist in the monitoring of the patient. EKG and oximetry remained stable throughout the procedure. The patient tolerated the procedure well and there were no complications. The patient was sent to Radiology Outpatient Unit in stable condition. CONCLUSION: 1. Uncomplicated CT guided left upper lobe pulmonary mass biopsy.. Electronically signed by: Jorden Chakraborty MD 01/26/2018 10:54 AM EDT
[2018-01-26] MEDS ORDERED: fentaNYL Citrate Inj 100 MCG/2 ML Ampul ONE (10:57)
--- NOTE | 2018-01-26 11:01 | XR ---
EXAM DATE: 01/26/2018 10:28 AM EDT AGE/SEX: 62 years / Male INDICATIONS: Status post lung biopsy. CLINICAL DATA: This is the patient's initial encounter. Patient reports that signs and symptoms have been present for 1 day and indicates a pain score of 4/10. MEDICAL/SURGICAL HISTORY: . Congestive heart failure. Chronic obstructive pulmonary disease. Hy pertension. Coronary artery stent. COMPARISON: [facility] – [place], CHEST 1V SINGLE AP, 01/18/2018. . FINDINGS: Moderate to large left-sided pneumothorax following lung biopsy. There is some mediastinal shift to t he right. Biopsied mass in the left upper lobe is again noted. Mild diffuse interstitial prominence. Cardiomediastinal contours are stable. Remainder of the exam is unchanged. CONCLUSION: 1. Moderate to large left-sided pneumothorax with early mediastinal shift. Electronically signed by: Otis Mendoza MD 01/26/2018 10:59 AM EDT
--- NOTE | 2018-01-26 11:50 | P.PN ---
Subjective Interval history: Had lung biopsy, patient with no pneumothorax after the biopsy. He is in bed he is with shortness of breath and some chest pain at the chest tube site pain is getting worse with deep inspiration. Pain is fairly controlled at this time as patient received pain medications. No fever or chills. He is not coughing. No nausea or vomiting. Physical Exam Vital signs: Vital Signs 01/25/18 12:00 01/25/18 14:34 01/25/18 16:00 Temperature 97.6 F 98.1 F Pulse Rate 90 90 86 Respiratory Rate 18 18 18 Blood Pressure 128/67 155/73 H Pulse Oximetry 90 L 95 01/25/18 19:39 01/25/18 20:00 01/26/18 00:00 Temperature 97.9 F 97.2 F L Pulse Rate 96 H 86 79 Respiratory Rate 24 18 18 Blood Pressure 161/92 H 132/64 Pulse Oximetry 96 94 L 01/26/18 00:05 01/26/18 04:00 01/26/18 04:30 Temperature 98 F Pulse Rate 78 Respiratory Rate 20 18 20 Blood Pressure 145/68 H Pulse Oximetry 95 01/26/18 06:00 01/26/18 07:27 01/26/18 08:00 Temperature 97.4 F L Pulse Rate 80 78 Respiratory Rate 20 16 18 Blood Pressure 138/68 Pulse Oximetry 96 92 L 01/26/18 10:45 01/26/18 11:30 Temperature 97.5 F L 97.6 F Pulse Rate 85 88 Respiratory Rate 22 20 Blood Pressure 146/77 H Pulse Oximetry 98 91 L Intake & Output 01/25/18 01/26/18 01/26/18 18:59 06:59 18:59 Intake Total 480 / 480 150 / 150 Balance 480 / 480 150 / 150 Intake: IV 150 / 150 Levaquin 750 mg Premix Inj 150 150 / 150 ML @ 100 mls/hr IV.SIG Q24H [facility] Rx#:[id number] Oral 480 / 480 Other: # Voids 4 Narrative: GENERAL: Very pleasant 62 year old male in NAD, alert and oriented x3 CARDIOVASCULAR: Regular rate and rhythm without murmurs, gallops, or rubs. RESPIRATORY: Chest tube in place. Breath sounds decreased with scattered wheezes. No accessory muscle use. Slight bibasilar crackles. GASTROINTESTINAL: Abdomen soft, non-tender, nondistended. MUSCULOSKELETAL: No cyanosis, or edema. BACK: Nontender without obvious deformity. No CVA tenderness. Results - Labs CBC & Chem 7: 01/24/18 05:26 01/26/18 06:41 Laboratory Results - last 24 hr 01/25/18 01/26/18 17:28 06:41 PT 10.0 INR 1.0 APTT 23.2 L Sodium 128 L Potassium 4.2 Chloride 93 L Carbon Dioxide 25.2 Anion Gap 10 BUN 23 H Creatinine 0.98 Estimated GFR 78 L Random Glucose 107 H Calcium 8.4 L - Imaging Impressions Lung Biopsy CT 01/26/18 00:[address] CONCLUSION: 1[address] Uncomplicated CT guided left upper lobe pulmonary mass biopsy.. Chest X-Ray 01/26/18 10:28 CONCLUSION: 1. Moderate to large left-sided pneumothorax with early mediastinal shift. Assessment and Plan - Assessment (1) COPD (chronic obstructive pulmonary disease) Code(s): J44.9 - Chronic obstructive pulmonary disease, unspecified Status: Acute (2) CHF (congestive heart failure) Code(s): I50.9 - Heart failure, unspecified Status: Acute (3) Hypoxia Code(s): R09.02 - Hypoxemia Status: Acute (4) Hyponatremia Code(s): E87.1 - Hypo-osmolality and hyponatremia Status: Acute (5) Lung mass Code(s): R91.8 - Other nonspecific abnormal finding of lung field Status: Acute - Plan Dyspnea: suspect multifactorial secondary to acute COPD and CHF exacerbations in combination with new lung mass. -Chest CT showed: Severe emphysema with interstitial lung disease. These changes are stable and may explain the patient's shortness of breath. However, there is a new bilobed mass in the left upper lobe measuring up to 3.2 x 1.8 cm. This is completely new since the April 2016 examination and the appearance is suspicious for a primary pulmonary neoplasm. This nodule should be amenable to image guided percutaneous biopsy, if needed. Stable enlarged pretracheal lymph node and interval enlargement of a prevascular lymph node. -See individual treatment below IR consulted for biopsy of lung mass Acute COPD Exacerbation: Moderate-Severe. With hx of Chronic Respiratory Failure , has oxygen at home however has not been using recently. -Continue steroids with IV Solumedrol -Continue bronchodilators with Duonebs scheduled and prn -Continue Levaquin for empiric pneumonia - patient with cough productive of yellow sputum -Symbicort bid -Mucinex bid -Incentive spirometer = Pulmonology following. Lung mass. Appreciate pulmonology assistance. Patient with Left upper lobe mass s/p core biopsy by IR on 01/26/18 CXR reviewed with Small PTX and intraparenchymal hemorrhage on post CT images. Plan to repeat CXR, monitor VS closely. Chronic pain. Will add back pain medication. Discussed risks of increasing pain meds in the setting of COPD exacerbation. Patient understands risk. Patient agrees with palliative care consultation. Left upper lung lobe mass: CT Chest w/ new TE mass, 3.2 x 1.8cm, images reviewed. Small Pneumothorax after core biopsy of lung mass -Findings discussed w/ patient. -Consulted IR for CT guided lung biopsy of new mass, however procedure delayed due to patient being on aspirin 162mg daily -consult pulmonary ff, ( ). = Pulmonary following. Cardiology clearance for lung biopsy. S/p stress test 01/23 , Stress test with low probability findings discussed with the patient. Patient with Left upper lobe mass s/p core biopsy by IR on 01/26/18 CXR reviewed with Small PTX and intraparenchymal hemorrhage on post CT images. Plan to repeat CXR, monitor VS closely. Hypoxia: O2 sat 89% on RA, previously on Home O2, however states he hasn't used in a few months -continue w/ O2 as needed to keep O2 sat > 92% -re-evaluate at time of d/c for Home O2 needs Hyponatremia: Mild. Na 129, previously on NaCl tabs, however taken off due to CHF per -monitor I/O, repeat labs in am. = We will place on fluid restrictions for CHF and hyponatremia. CAD- s/p stent placement ( 2017)/ CHF: Acute on Chronic. Systolic. Echo 05/06/16 w/ EF 45%, +lower extremity edema, BNP 616, resumed diuretics, monitor I/O. DVT Prophylaxis: SCD's Discussed Condition With: Patient, nurse, at bedside. Discharge Planning: Pending improvement and pulmonology clearance. Plan for stress test 01/23 lung biopsy by IR 01/26 as need to be off for 5 days of ASA/ Effient PT consult Stress test with low probability findings discussed with the patient/family. Awaiting results of biopsy 01/26. With small PXT afte biopsy plan to repeat CXR and also monitor VS closely Poss DC in 1-2 days if improves , PTX stable and cleared by consultants
--- NOTE | 2018-01-26 13:25 | P.RAD ---
Post Procedure Progress Note - Pre Procedure Diagnosis (1) Pneumothorax, post biopsy, left - Post Procedure Diagnosis (1) Pneumothorax, post biopsy, left - Procedure Information Procedure Date: 01/26/18 Supervising Radiologist: Jorden Chakraborty Jr, MD Proceduralist/Assist: Mei Taveras Anesthesia: Conscious Sedation - Plan of Activity Patient to Unit: ROPU Patient Condition: Good See PACS Report for procedural detail/treatment. Drainage Procedure Fluoroscopy left Chest Tube Non-Tunneled Placement Drainage: Pleurovac Findings: Suction to [id number]
--- NOTE | 2018-01-26 13:44 | P.PNCA ---
Subjective Interval history: Biopsy done Pneumothorax after biopsy s/p chest tube Medications and Allergies Active Medications: Active Medications Al Hydroxide/Mg Hydroxide (Milk Of Magnesia Liq) 30 ml PO Q12H PRN PRN Reason: Mild Constipation Albuterol (Duoneb Neb (Prn)) 1 ampul NEB Q2HR NEB PRN PRN Reason: SOB/WHEEZING Last Admin: 01/21/18 02:54 Dose: 1 ampul Albuterol (Duoneb Neb (Misa)) 1 ampul NEB Q6HR WHILE AWAKE NEB [facility] Last Admin: 01/26/18 07:26 Dose: 1 ampul Aspirin (Ecotrin) 81 mg PO DAILY [facility] Last Admin: 01/24/18 10:13 Dose: Not Given Bisacodyl (Dulcolax Supp) 10 mg RECTAL DAILY PRN PRN Reason: SEVERE CONSITIPATION Budesonide/Formoterol Fumarate (Symbicort 160/4.5 Mcg Inh) 2 puff INH BID [facility] Last Admin: 01/26/18 08:23 Dose: 2 puff Bupropion HCl (Wellbutrin Sr) 150 mg PO DAILY [facility] Last Admin: 01/26/18 08:22 Dose: 150 mg Fluticasone Propionate (Flonase Nasal [place]) 1 spray NASAL BID [facility] Last Admin: 01/26/18 08:23 Dose: 1 spray Folic Acid (Folic Acid) 1 mg PO DAILY [facility] Last Admin: 01/26/18 08:22 Dose: 1 mg Furosemide (Lasix) 20 mg PO DAILY [facility] Last Admin: 01/26/18 08:22 Dose: 20 mg Gabapentin (Neurontin) 400 mg PO Q8H [facility] Last Admin: 01/26/18 12:51 Dose: 400 mg Levofloxacin/Dextrose (Levaquin 750 Mg Premix Inj) 150 mls @ 100 mls/hr IV.SIG Q24H [facility] Last Infusion: 01/26/18 01:05 Dose: Infused Lactulose (Lactulose Liq) 30 ml PO DAILY PRN PRN Reason: SEVERE CONSITIPATION Losartan Potassium (Cozaar) 25 mg PO DAILY [facility] Last Admin: 01/26/18 08:22 Dose: 25 mg Methylprednisolone Sodium Succinate (Solumedrol Inj) 40 mg IV.PUSH Q12HR [facility] Last Admin: 01/26/18 08:22 Dose: 40 mg Montelukast Sodium (Singulair) 10 mg PO HS [facility] Last Admin: 01/25/18 23:35 Dose: 10 mg Morphine Sulfate (Morphine Inj) 2 mg IV.PUSH Q4H PRN PRN Reason: BREAKTHROUGH PAIN Last Admin: 01/26/18 05:57 Dose: 2 mg Ondansetron HCl (Zofran Inj) 4 mg IV.PUSH Q6H PRN PRN Reason: NAUSEA OR VOMITING Oxycodone/Acetaminophen (Percocet 10/325 Mg) 1 tab PO Q4H PRN PRN Reason: PAIN SCALE 6 TO 10 Last Admin: 01/26/18 12:51 Dose: 1 tab Pantoprazole Sodium (Protonix) 20 mg PO DAILY [facility] Last Admin: 01/26/18 08:22 Dose: 20 mg Prasugrel (Effient) 10 mg PO DAILY [facility] Last Admin: 01/24/18 11:21 Dose: Not Given Senna/Docusate Sodium (Kayla-Colace) 1 tab PO BID [facility] Last Admin: 01/26/18 08:23 Dose: Not Given Sennosides (Senokot) 17.2 mg PO Q12H PRN PRN Reason: Moderate Constipation Silver Sulfadiazine (Silvadene 1% Cream (50 Gm)) 1 applicatio TOPICAL BID [facility] Last Admin: 01/26/18 08:23 Dose: 1 applicatio Tizanidine HCl (Zanaflex) 4 mg PO Q8H PRN PRN Reason: MUSCLE SPAMPS Last Admin: 01/21/18 09:44 Dose: 4 mg Allergies Allergy/AdvReac Type Severity Reaction Status Date / Time diatrizoate meglumine Allergy Severe Hives Unverified 09/17/17 21:13 gadobenic acid Allergy Severe Hives Unverified 09/17/17 21:13 gadodiamide Allergy Severe Hives Unverified 09/17/17 21:13 gadoteridol Allergy Severe Hives Unverified 09/17/17 21:13 iodixanol Allergy Severe Hives Unverified 09/17/17 21:13 iohexol Allergy Severe Hives Unverified 09/17/17 21:13 procaine Allergy Intermediate VOMITING Unverified 09/17/17 21:13 lisinopril AdvReac Unknown Cough Unverified 09/17/17 21:13 Home Medications Medication Instructions Recorded Confirmed Type albuterol sulfate [Ventolin HFA] 90 mcg INHALATION PRN 01/19/18 01/19/18 History aspirin 162.5 mg PO DAILY 01/19/18 01/19/18 History budesonide-formoterol [Symbicort] 2 puff INHALATION BID 01/19/18 01/19/18 History bupropion HCl [Wellbutrin SR] 150 mg PO DAILY 01/19/18 01/19/18 History folic acid 1 mg PO DAILY 01/19/18 01/19/18 History furosemide [Lasix] 20 mg PO DAILY 01/19/18 01/19/18 History gabapentin 300 mg PO TID 01/19/18 01/19/18 History hydrocodone-acetaminophen 1 tab PO Q4-6H PRN 01/19/18 01/19/18 History losartan 25 mg PO DAILY 01/19/18 01/19/18 History montelukast [Singulair] 10 mg PO QPM 01/19/18 01/19/18 History omeprazole 20 mg PO DAILY 01/19/18 01/19/18 History ondansetron [Zofran ODT] 4 mg PO Q6-8H PRN 01/19/18 01/19/18 History potassium chloride 20 meq PO DAILY 01/19/18 01/19/18 History prasugrel [Effient] 10 mg PO DAILY 01/19/18 01/19/18 History sumatriptan succinate [Imitrex] 50 mg PO Q2-4H PRN 01/19/18 01/19/18 History tizanidine 4 mg PO TID PRN 01/19/18 01/19/18 History Physical Exam Vital signs: Vital Signs 01/25/18 14:34 01/25/18 16:00 01/25/18 19:39 Temperature 98.1 F Pulse Rate 90 86 96 H Respiratory Rate 18 18 24 Blood Pressure 155/73 H Pulse Oximetry 95 01/25/18 20:00 01/26/18 00:00 01/26/18 00:05 Temperature 97.9 F 97.2 F L Pulse Rate 86 79 Respiratory Rate 18 18 20 Blood Pressure 161/92 H 132/64 Pulse Oximetry 96 94 L 01/26/18 04:00 01/26/18 04:30 01/26/18 06:00 Temperature 98 F Pulse Rate 78 Respiratory Rate 18 20 20 Blood Pressure 145/68 H Pulse Oximetry 95 01/26/18 07:27 01/26/18 08:00 01/26/18 10:45 Temperature 97.4 F L 97.5 F L Pulse Rate 80 78 85 Respiratory Rate 16 18 22 Blood Pressure 138/68 Pulse Oximetry 96 92 L 98 01/26/18 11:30 01/26/18 11:45 01/26/18 12:15 Temperature 97.6 F Pulse Rate 88 75 74 Respiratory Rate 20 16 18 Blood Pressure 146/77 H 134/70 135/79 Pulse Oximetry 91 L 99 98 Intake & Output 01/25/18 01/26/18 01/26/18 18:59 06:59 18:59 Intake Total 480 / 480 150 / 150 Balance 480 / 480 150 / 150 Intake: IV 150 / 150 Levaquin 750 mg Premix Inj 150 150 / 150 ML @ 100 mls/hr IV.SIG Q24H [facility] Rx#:[id number] Oral 480 / 480 Other: # Voids 4 Narrative: GENERAL: Very pleasant 62 year old male in NAD, alert and oriented x3 EYES: No scleral icterus. No injection or drainage. NECK: Supple, trachea midline. No JVD. CARDIOVASCULAR: Regular rate and rhythm without murmurs, gallops, or rubs. RESPIRATORY: Breath sounds decreased with scattered wheezes. No accessory muscle use. Slight bibasilar crackles. GASTROINTESTINAL: Abdomen soft, non-tender, nondistended. MUSCULOSKELETAL: No cyanosis, or edema. BACK: Nontender without obvious deformity. No CVA tenderness. Results 01/24/18 05:26 01/26/18 06:41 Coagulation 01/25/18 Range/Units 17:28 PT 10.0 (9.8-11.6) sec APTT 23.2 L (24.3-30.1) sec Comprehensive Metabolic Panel 01/26/18 Range/Units 06:41 Sodium 128 L (136-145) meq/L Potassium 4.2 (3.5-5.1) meq/L Chloride 93 L (98-107) meq/L Carbon Dioxide 25.2 (21.0-32.0) meq/L BUN 23 H (7-18) mg/dL Creatinine 0.98 (0.60-1.30) mg/dL Calcium 8.4 L (8.5-10.1) mg/dL Intake and Output 01/25/18 01/26/18 01/26/18 22:59 06:59 14:59 Intake Total 480 / 480 150 / 150 Balance 480 / 480 150 / 150 Intake: IV 150 / 150 Levaquin 750 mg Premix Inj 150 150 / 150 ML @ 100 mls/hr IV.SIG Q24H [facility]ISA Rx#:[id number] Oral 480 / 480 Other: # Voids 4 - Imaging and Cardiology Imaging: Impressions Lung Biopsy CT 01/26/18 00:[address] CONCLUSION: [address] Uncom[address] CT guided left upper lobe pulmonary mass biopsy.. Chest X-Ray 01/26/18 10:28 CONCLUSION: 1. Moderate to large left-sided pneumothorax with early mediastinal shift. Assessment and Plan - Assessment (1) COPD (chronic obstructive pulmonary disease) Code(s): J44.9 - Chronic obstructive pulmonary disease, unspecified Status: Acute (2) CHF (congestive heart failure) Code(s): I50.9 - Heart failure, unspecified Status: Acute (3) Hypoxia Code(s): R09.02 - Hypoxemia Status: Acute (4) Lung mass Code(s): R91.8 - Other nonspecific abnormal finding of lung field Status: Acute (5) Chronic pain Code(s): G89.29 - Other chronic pain Status: Acute (6) Dyspnea Code(s): R06.00 - Dyspnea, unspecified Status: Acute - Plan 1) SOB Multifactorial with COPD and CHF Diuresed well since admission Appears compensated 2) CAD Hx of PCI with BMS to LAD Residual CAD 3) Lung mass Hold ASA/Effient for biopsy Plan to restart ASA 4) Stress test showing inferior fixed defect with normal wall motion, most likely diaphragmatic No ischemia noted No plan for cardiac catheterization Continue medical management 5) Tobacco cessation 6) Await biopsy Plan for restart ASA 7) HTN Losartan
--- NOTE | 2018-01-26 13:51 | IR ---
EXAM DATE: 01/26/2018 12:00 AM EDT AGE/SEX: 62 years / Male INDICATIONS: Patient presents with left pneumothorax post lung biopsy. CLINICAL DATA: This is the patient's initial encounter. Patient reports that signs and symptoms have been present for 1 day and indicates a pain score of 8/10. MEDICAL/SURGICAL HISTORY: Congestive heart failure. Chronic obstructive pulmonary disease. Hy percholesterolemia. HTN Coronary artery stent. COMPARISON: No prior exams available for comparison. FLUORO TIME (min): 2.58 IMAGE SERIES: 4 ACCESS SITE: SEDATION TIME (min): 30 MEDICATION(S): 2mg midazolam (Versed) IV 100mcg fentanyl (Sublimaze) IV DEVICE(S): 10 [place] non-locking catheter [place] . . PROCEDURE: 1. Fluoroscopically guided chest tube placement. 2. Conscious sedation with continuous EKG and oximetry monitoring. The risks, benefits and alternatives to the procedure were explained and verbal and written consent w as obtained. The site was prepped in sterile fashion. Full sterile technique was used, including ca p, mask, sterile gloves and gown and a large sterile sheet. Hand hygiene and 2% chlorhexidine and/or betadine/alcohol prep was utilized per protocol for cutaneous antisepsis. The skin and subcutaneous tissues were infiltrated with local anesthetic solution. With fluoroscopic guidance the chest was punctured between the second and third interspace and the pr escribed catheter was placed. Attempts were made to pass the catheter into the apex but this was unsu ccessful. The catheter was sutured in place laterally within the left upper hemithorax. Wall suction was applied. Post procedure images demonstrate satisfactory position of the tube. The catheter was sutured in place and a Percu-Stay was applied. Conscious sedation was performed with the prescribed dosages and duration as above in the presence of an independent trained radiology nurse to assist in the monitoring of the patient. EKG and oximetry remained stable throughout the procedure. The patient tolerated the procedure well and there were n o complications. The patient was sent to post anesthesia recovery in stable condition. CONCLUSION: 1. Uncomplicated chest tube placement as above. Resolution of the left-sided pneumothorax. Electronically signed by: Jorden Chakraborty MD 01/26/2018 1:50 PM EDT
--- NOTE | 2018-01-26 17:04 | P.PNPAL ---
Reason for Visit Reason for visit: a. To assist with evaluation and management of symptoms including:pain b. To assist medical decision maker(s) with: better understanding of current medical conditions; weighing benefits/burdens of medical treatment options; making medical treatment decisions. Subjective Subjective/Interval History: Pt seen today to follow up on comfort. S/p CT guided TE biopsy- post imaging + pneumothorax, chest tube placed by IR. Otherwise procedure well tolerated. S/p stress testing per cardio Friday, = inferior fixed defect with normal wall motion, most likely diaphragmatic, No ischemia noted, No plan for cardiac catheterization-- rec.cont with medical management. Planned for resumption of anticoagulants today post procedure. Seen today in room w , daughter present. Lethargic, somnolent. indicates procedure didn't go as he'd like due to post op pneumo-, CT. Review this is potential complication, and is very treatable. He endorses pain at CT site with cough/deep breathe. Pain otherwise prev well controlled w PRN. no n/v. Breathing overall better than in prior days though endorses now painful w CT, and more of a cough today, productive white sputum. w questions RE need for home O2, path results, CT function etc. Review for home o2 would need MD ordered test, and then CM would assist w order through insurer if indicated. Review path can take 5-10 days. Review chest tube function , pleur evac function and post CXR and water seal etc to determine readiness for d/c of CT. All questions answered, they are hopeful he can be d/c home in a few days. Goals remain aggressive. . Objective Vital Signs: Vital Signs 01/25/18 19:39 01/25/18 20:00 01/26/18 00:00 Temperature 97.9 F 97.2 F L Pulse Rate 96 H 86 79 Respiratory Rate 24 18 18 Blood Pressure 161/92 H 132/64 Pulse Oximetry 96 94 L 01/26/18 00:05 01/26/18 04:00 01/26/18 04:30 Temperature 98 F Pulse Rate 78 Respiratory Rate 20 18 20 Blood Pressure 145/68 H Pulse Oximetry 95 01/26/18 06:00 01/26/18 07:27 01/26/18 08:00 Temperature 97.4 F L Pulse Rate 80 78 Respiratory Rate 20 16 18 Blood Pressure 138/68 Pulse Oximetry 96 92 L 01/26/18 10:45 01/26/18 11:30 01/26/18 11:45 Temperature 97.5 F L 97.6 F Pulse Rate 85 88 75 Respiratory Rate 22 20 16 Blood Pressure 146/77 H 134/70 Pulse Oximetry 98 91 L 99 01/26/18 12:15 Temperature Pulse Rate 74 Respiratory Rate 18 Blood Pressure 135/79 Pulse Oximetry 98 Intake & Output 01/25/18 01/26/18 01/26/18 18:59 06:59 18:59 Intake Total 480 / 480 150 / 150 Balance 480 / 480 150 / 150 Intake: IV 150 / 150 Levaquin 750 mg Premix Inj 150 150 / 150 ML @ 100 mls/hr IV.SIG Q24H SARITA Rx#:[id number] Oral 480 / 480 Other: # Voids 4 Physical Exam: CONSTITUTIONAL/GENERAL: This is an adequately nourished patient, in no apparent distress. TUBES/LINES/DRAINS: Peripheral IV upper extremity. Nasal cannula O2. SKIN: No jaundice, rashes. Several healing abrasions scattered to upper extremities. Few round ulcerations to bilateral legs appear to be healing well now. chronic vascular changes visible to bilateral lower extremities including multiple bulging varicose veins. Skin warm and dry. CARDIOVASCULAR: Regular rate and rhythm, including multiple bulging varicose veins. RESPIRATORY/CHEST: Symmetric, unlabored respirations. Clear to auscultation. Breath sounds equal bilaterally. Somewhat diminished air movement throughout. Few scattered rhonchi right upper. Faint expiratory wheeze left near chest tube area. GASTROINTESTINAL: Abdomen soft, non-tender, nondistended. No hepato-splenomegaly , or palpable masses. No guarding. Bowel sounds present. MUSCULOSKELETAL: Extremities without clubbing, cyanosis, or edema. No joint tenderness or effusion noted. No calf tenderness. NEUROLOGICAL: Lethargic, flat. Oriented and appropriate upon arousal. Appears to have good insight. Motor and sensory grossly within normal limits. Follows commands. Cognitively sharp. Moves all 4 extremities. PSYCHIATRIC: No obvious anxiety/depression. Somewhat flat/lethargic today. Diagnostic Tests Laboratory: Laboratory Results - last 72 hr 01/24/18 01/24/18 01/25/18 05:26 05:26 17:28 WBC 7.9 RBC 4.27 L Hgb 11.9 L Hct 36.3 L MCV 85.0 MCH 27.8 MCHC 32.7 RDW 15.4 Plt Count 359 MPV 6.7 L Neut % (Auto) 88.3 H Lymph % (Auto) 4.7 L Phillips % (Auto) 6.9 Eos % (Auto) 0.0 Baso % (Auto) 0.1 Neut # (Auto) 7.0 Lymph # (Auto) 0.4 L Phillips # (Auto) 0.5 Eos # (Auto) 0.0 Baso # (Auto) 0.0 WBC Differential . Differential Comment Auto diff final PT 10.0 INR 1.0 APTT 23.2 L Sodium 131 L Potassium 4.4 Chloride 94 L Carbon Dioxide 26.3 Anion Gap 11 BUN 23 H Creatinine 1.05 Estimated GFR 72 L Random Glucose 114 H Calcium 8.2 L 01/26/18 06:41 WBC RBC Hgb Hct MCV MCH MCHC RDW Plt Count MPV Neut % (Auto) Lymph % (Auto) Phillips % (Auto) Eos % (Auto) Baso % (Auto) Neut # (Auto) Lymph # (Auto) Phillips # (Auto) Eos # (Auto) Baso # (Auto) WBC Differential Differential Comment PT INR APTT Sodium 128 L Potassium 4.2 Chloride 93 L Carbon Dioxide 25.2 Anion Gap 10 BUN 23 H Creatinine 0.98 Estimated GFR 78 L Random Glucose 107 H Calcium 8.4 L Result Diagrams: 01/24/18 05:26 01/26/18 06:41 Imaging: Impressions Chest Tube Insertion 01/26/18 00:00 CONCLUSION: 1. Uncomplicated chest tube placement as above. Resolution of the left-sided pneumothorax. Lung Biopsy CT 01/26/18 00:00 CONCLUSION: 1. Uncomplicated CT guided left upper lobe pulmonary mass biopsy.. Chest X-Ray 01/26/18 10:28 CONCLUSION: 1. Moderate to large left-sided pneumothorax with early mediastinal shift. Procedures: 01/26/[address] guided lung bx, post chest tube for pneumothorax Assessment and Plan - Disease Oriented Problem List (1) COPD (chronic obstructive pulmonary disease) (2) CHF (congestive heart failure) (3) Hypoxia (4) Lung mass (5) Chronic pain Pertinent Non-Medical Issues: Psychosocial: Lives at home with his . 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 . Has adult children he remains in contact with. Spiritual: Legal: Patient currently alert, oriented capacitated and able to make his own decisions. Per [place] statutes his would be appropriate proxy should he become incapacitated. Ethical issues impacting care: No ethical issues Important Contacts: Kyleigh Dugan [phone] Prognosis: This patient presented with acute shortness of breath. He has underlying COPD. He also has underlying cardiovascular disease. He had new findings of lung mass left upper lobe. Concerning for malignancy. Pulmonology following additional diagnostics pending. CV workup also ongoing. Prognosis guarded seems likely he should be able to get through current acute issues as dyspnea is already improving in response to treatment; however long-term prognosis not known at this time. Code Status: Full Code Plan: * Legal decision maker: Patient currently alert oriented and able to make his own decisions per [place] statutes his would be appropriate legal proxy should he become incapacitated. Palliative can offer assistance with completion of advance directive/HCS during this admission should he desire. * Goals: He wishes to proceed with whatever cardiac and lung procedures are indicated to possibly proceed with cancer treatment if that is indicated, or is a reasonable option. Palliative would plan further discussions regarding goals , prognosis, advanced directives etc. going forward as additional clinical / diagnostic information is available. * CODE STATUS: Full code * SYMPTOMS: --pain- reports chronic back pain. On tizanidine, gabapentin, hydrocodone/ acetaminophen at home. Has been on hydrocodone for many years since the . Has been on gabapentin for many years no adjustments recently. In the past has seen orthopedic surgery for his back and has been told that he is not a surgical candidate. He has multiple levels of herniated disks and other arthritis and I suspect stenosis issues that they indicated to him were not amenable to surgical intervention, and would carry a high risk of paralysis. He also describes neuropathic type pain numbness and tingling to his arms and legs. He indicates in general the [place] dosing combined with multiple other undi-iny-xrzemup regimens keeps it at a tolerable level where he is able to work and the day however at night he generally does not sleep well due to pain. He supplements [place] with other yzhs-[id number]-nmwcnaz's taking the maximum allowed Tylenol, Aleve, and is even supplemented with Benadryl to take the edge off. He is also followed in the past with chiropractic, acupuncture, and other holistic medicine practices which offered some relief. He also in the past has had injections etc. with pain management which he indicates offered little relief. Extensive review with him of chronic pain and limitations on ability to obtain stronger opiates in the outpatient setting without pain management. Review with him tolerance development opiates and ongoing need to increase which would be difficult in the outpatient setting. Further explore with him that many providers in the community setting or not able to prescribe these types of medications this is generally limited to hospice and oncology. Possible he may carry an oncology diagnosis or even at some point be deemed appropriate for hospice however we are not at that point. He does express aggressive goals that "he is not dieing yet."While we could certainly aggressively uptitrate his opiates here in the hospital setting my concern would be if he would have access to these medications in the outpatient setting. This may be a possibility if he does have ongoing follow-up with oncology and/or. For now he is amenable to increasing gabapentin as an adjunct for the neuropathic pain, recommend 400 mg PO 3 times daily. He indicates in the past when prescribers have changed from 1 opiate to another he has some relief for a period of time in the past he has had reasonable relief from Percocet. -- Pain "much better" with changes last week, however now with new Chest tube pain, which is mechanical , temporary. no further changes at this time, could consider slight increase 1-2mg in PRN morphine temporarily with Chest tube. . Could consider cont uptitration in gabapentin . --Constipation-chronic, reports generally has a bowel movement once about every 7 days.. This is been chronic. He indicates he follows outpatient with GI for this. +moving bowels this admission// In the past has been on Reglan. Likely this is compounded by chronic opiate use. He indicates he has been told he has decreased GI motility. He has been using natural juices etc. in the outpatient setting . requests resumption of p.o. Reglan//consider Reglan 10 mg p.o. daily. would also recommend he take PO senna SCHEDULED vs PRN. He also reports diet of very little vegetable/fiber, likely this contributes to motility /constipation --Dyspnea-acute on chronic. Underlying COPD, emphysema. New findings of lung mass concerning for malignancy. Pulmonology following. On steroids, nebulizers, antibiotics. Patient subjectively reports breathing significantly improved during hospital course thus far. Previously on home O2 though has not used this for many months. Could require manager terminal home O2- likely will require O2 walk test to determine if needs O2 at d/c. * Palliative care will continue to follow during hospital course as condition evolves, to assist patient/decision-maker with understanding of medical conditions, weighing benefits/burdens of treatment options, for clarification of goals of treatment. Additionally will assist with any symptoms of palliative concern Attestation Attestation: To help prompt me to consider important information that might be impacting today's encounter and assessment, information from prior notes written by myself or my colleagues may have been "brought forward" into today's note. My signature on this note, however, is an attestation that I personally performed the exam, history, and/or decision-making noted today, and, unless otherwise indicated, the interactions with patient, family, and staff as well as the review of records all occurred today. I also attest that the listed assessment and stated plan reflect my best clinical judgment today based on the combination of historical information, prior notes, and today's exam/ interactions. When time spent is documented, it refers only to time spent today by the signer, or if indicated, combined time spent today by collaborating physician/nurse practitioner.
[2018-01-26] MEDS: Montelukast 10 MG Tablet PO SCH (20:01)
[2018-01-26] MEDS: Melatonin 5 MG Tablet PO PRN (22:11)
[2018-01-27] MEDS: Morphine Inj 4 MG/ML Vial IV.PUSH PRN ×6 (01:07→22:28)
[2018-01-27] MEDS: oxyCODONE/Acetaminophen 10/325 Tablet PO PRN ×5 (03:20→20:40)
[2018-01-27] MEDS: Gabapentin 400 MG Capsule PO SCH ×3 (03:20→20:40)
[2018-01-27] MEDS: Furosemide 20 MG Tablet PO SCH (08:00)
[2018-01-27] MEDS: Folic Acid 1 MG Tablet PO SCH (08:00)
[2018-01-27] MEDS: Pantoprazole Sodium 20 MG DR Tablet PO SCH (08:00)
[2018-01-27] MEDS: Senna/Docusate Sodium 8.6/50 MG Tablet PO SCH ×2 (08:00→20:40)
[2018-01-27] MEDS: buPROPion 150 MG 12 HR Tablet PO SCH (08:00)
[2018-01-27] MEDS: MethylPREDNISolone Sod Succinate Inj 40 MG/ML Vial IV.PUSH SCH (08:02)
[2018-01-27] MEDS: Budesonide-Formoterol 160/4.5 MCG 6 GM Inhaler INH SCH ×2 (08:03→20:42)
--- NOTE | 2018-01-27 10:00 | P.PN ---
Subjective Interval history: Patient is resting comfortably in bed s/p lung biopsy. The pain medicine is helping a little bit. He is fluid restricted and is asking if he can have a bit more to drink. Otherwise, no acute concerns, denies chest pain, SOB, nausea , vomiting, diarrhea, headache, SOB. Physical Exam Vital signs: Vital Signs 01/26/18 10:45 01/26/18 11:30 01/26/18 11:45 Temperature 97.5 F L 97.6 F Pulse Rate 85 88 75 Respiratory Rate 22 20 16 Blood Pressure 146/77 H 134/70 Pulse Oximetry 98 91 L 99 01/26/18 12:15 01/26/18 16:00 01/26/18 20:00 Temperature 97.8 F 97.5 F L Pulse Rate 74 82 94 H Respiratory Rate 18 18 18 Blood Pressure 135/79 141/66 H 152/74 H Pulse Oximetry 98 92 L 94 L 01/27/18 00:00 01/27/18 03:23 01/27/18 08:00 Temperature 97.2 F L 98.0 F 97.6 F Pulse Rate 77 73 70 Respiratory Rate 20 20 20 Blood Pressure 134/72 148/74 H 153/73 H Pulse Oximetry 94 L 96 97 Intake & Output 01/26/18 01/27/18 01/27/18 18:59 06:59 18:59 Intake Total 480 / 480 150 / 150 Output Total 1400 / 1400 810 / 810 Balance -920 / -920 -660 / -660 Weight 85 kg Intake: IV 150 / 150 Levaquin 750 mg Premix Inj 150 150 / 150 ML @ 100 mls/hr IV.SIG Q24H SARITA Rx#:[id number] Oral 480 / 480 Output: Urine 1400 / 1400 800 / 800 Chest Tube Drainage #1 Left Upper Anterior Other: # Bowel Movements 0 Narrative: GENERAL: 62 year old male in NAD, alert and oriented x3 CARDIOVASCULAR: Regular rate and rhythm without murmurs, gallops, or rubs. RESPIRATORY: Chest tube in place. Breath sounds decreased with scattered wheezes. No accessory muscle use. Slight bibasilar crackles. GASTROINTESTINAL: Abdomen soft, non-tender, nondistended. MUSCULOSKELETAL: No cyanosis, or edema. BACK: Nontender without obvious deformity. No CVA tenderness. Results - Labs CBC & Chem 7: 01/24/18 05:26 01/26/18 06:41 - Imaging Impressions Chest Tube Insertion 01/26/18 00:00 CONCLUSION: 1. Uncomplicated chest tube placement as above. Resolution of the left-sided pneumothorax. Lung Biopsy CT 01/26/18 00:00 CONCLUSION: 1. Uncomplicated CT guided left upper lobe pulmonary mass biopsy.. Chest X-Ray 01/26/18 10:28 CONCLUSION: 1. Moderate to large left-sided pneumothorax with early mediastinal shift. Assessment and Plan - Plan Dyspnea: suspect multifactorial secondary to acute COPD and CHF exacerbations in combination with new lung mass. -Chest CT showed: Severe emphysema with interstitial lung disease. These changes are stable and may explain the patient's shortness of breath. However, there is a new bilobed mass in the left upper lobe measuring up to 3.2 x 1.8 cm. This is completely new since the April 2016 examination and the appearance is suspicious for a primary pulmonary neoplasm. This nodule should be amenable to image guided percutaneous biopsy, if needed. Stable enlarged pretracheal lymph node and interval enlargement of a prevascular lymph node. -See individual treatment below IR consulted for biopsy of lung mass Acute COPD Exacerbation -Moderate-Severe. -hx of Chronic Respiratory Failure, has oxygen at home however has not been using recently. -Patient improved on 01/26 -D/C IV Solumedrol this am -Continue bronchodilators with Duonebs scheduled and prn -Continue Levaquin for empiric pneumonia - sputum decreased on 01/26 -Symbicort bid -Mucinex bid -Incentive spirometer -Pulmonology following. Appreciate pulmonology assistance. Chronic pain -Will add back pain medication. Discussed risks of increasing pain meds in the setting of COPD exacerbation. Patient understands risk. Patient agrees with palliative care consultation. Lung Mass CT Chest w/ new TE mass, 3.2 x 1.8cm, images reviewed. -Findings discussed w/ patient. -Consulted IR for CT guided lung biopsy of new mass, however procedure delayed due to patient being on aspirin 162mg daily -consult pulmonary ff, ( ). -Pulmonary following. Cardiology clearance for lung biopsy. S/p stress test , Stress test with low probability findings discussed with the patient -lung biopsy yesterday, complicated by pneumo. - Hypoxia O2 sat 89% on RA, previously on Home O2, however states he hasn't used in a few months -continue w/ O2 as needed to keep O2 sat > 92% -re-evaluate at time of d/c for Home O2 needs -Order O2 challenge s/p lung bx Hyponatremia Mild. Na 129, previously on NaCl tabs, however taken off due to CHF per -monitor I/O, repeat labs in am. -fluid restrictions for CHF and hyponatremia. Stable, 128 on 01/26 CAD s/p stent placement ( 2016)/ CHF: Acute on Chronic. Systolic. Echo 05/06/16 w/ EF 45%, +lower extremity edema, BNP 616, resumed diuretics, monitor I/O. DVT Prophylaxis: SCD's Discharge Planning: D/C pending improvement and O2 challenge
--- NOTE | 2018-01-27 11:34 | XR ---
EXAM DATE: 01/27/2018 10:44 AM EDT AGE/SEX: 62 years / Male INDICATIONS: Status post chest tube placement. CLINICAL DATA: This is the patient's subsequent encounter. Patient reports that signs and symptoms h ave been present for 2 days and indicates a pain score of 3/10. MEDICAL/SURGICAL HISTORY: . Congestive heart failure. Chronic obstructive pulmonary disease. Hy pertension. Coronary artery stent. COMPARISON: [facility] – [place], CHEST EXPIRATION ONLY, 01/26/2018. . FINDINGS: Interval placement of left-sided apical chest tube. No significant residual pneumothorax. Redemonstra tion of biopsied mass in the left upper lobe. Diffuse interstitial prominence. Stable cardiomediastin al contours. Small amount of subcutaneous emphysema in the left chest wall. CONCLUSION: 1. Well-positioned left apical chest tube without significant pneumothorax. Electronically signed by: Otis Mendoza MD 01/27/2018 11:32 AM EDT
--- NOTE | 2018-01-27 14:51 | P.PN ---
Subjective Interval history: With some chest pain at the chest tube site. CT still with significant drainage. Patient is more sob. Wet cough. No fever or chills. No n/v/d/c. Physical Exam Vital signs: Vital Signs 01/26/18 16:00 01/26/18 20:00 01/27/18 00:00 Temperature 97.8 F 97.5 F L 97.2 F L Pulse Rate 82 94 H 77 Respiratory Rate 18 18 20 Blood Pressure 141/66 H 152/74 H 134/72 Pulse Oximetry 92 L 94 L 94 L 01/27/18 03:23 01/27/18 08:00 01/27/18 10:10 Temperature 98.0 F 97.6 F Pulse Rate 73 70 Respiratory Rate 20 20 18 Blood Pressure 148/74 H 153/73 H Pulse Oximetry 96 97 01/27/18 12:00 Temperature 97.9 F Pulse Rate 88 Respiratory Rate 20 Blood Pressure 132/71 Pulse Oximetry 94 L Intake & Output 01/26/18 01/27/18 01/27/18 18:59 06:59 18:59 Intake Total 480 / 480 150 / 150 Output Total 1400 / 1400 810 / 810 Balance -920 / -920 -660 / -660 Weight 85 kg Intake: IV 150 / 150 Levaquin 750 mg Premix Inj 150 150 / 150 ML @ 100 mls/hr IV.SIG Q24H SARITA Rx#:[id number] Oral 480 / 480 Output: Urine 1400 / 1400 800 / 800 Chest Tube Drainage #1 Left Upper Anterior Other: # Bowel Movements 0 Narrative: GENERAL: 62 year old male in NAD, alert and oriented x3 CARDIOVASCULAR: Regular rate and rhythm without murmurs, gallops, or rubs. RESPIRATORY: Chest tube in place. Breath sounds decreased with scattered wheezes. No accessory muscle use. Slight bibasilar crackles. GASTROINTESTINAL: Abdomen soft, non-tender, nondistended. MUSCULOSKELETAL: No cyanosis, or edema. BACK: Nontender without obvious deformity. No CVA tenderness. Results - Labs CBC & Chem 7: 01/24/18 05:26 01/26/18 06:41 - Imaging Impressions Chest X-Ray 01/27/18 10:44 CONCLUSION: 1. Well-positioned left apical chest tube without significant pneumothorax. Assessment and Plan - Assessment (1) COPD (chronic obstructive pulmonary disease) Code(s): J44.9 - Chronic obstructive pulmonary disease, unspecified Status: Acute (2) CHF (congestive heart failure) Code(s): I50.9 - Heart failure, unspecified Status: Acute (3) Hypoxia Code(s): R09.02 - Hypoxemia Status: Acute (4) Hyponatremia Code(s): E87.1 - Hypo-osmolality and hyponatremia Status: Acute (5) Lung mass Code(s): R91.8 - Other nonspecific abnormal finding of lung field Status: Acute - Plan Dyspnea: suspect multifactorial secondary to acute COPD and CHF exacerbations in combination with new lung mass. -Chest CT showed: Severe emphysema with interstitial lung disease. These changes are stable and may explain the patient's shortness of breath. However, there is a new bilobed mass in the left upper lobe measuring up to 3.2 x 1.8 cm. This is completely new since the April 2016 examination and the appearance is suspicious for a primary pulmonary neoplasm. This nodule should be amenable to image guided percutaneous biopsy, if needed. Stable enlarged pretracheal lymph node and interval enlargement of a prevascular lymph node. -See individual treatment below IR consulted for biopsy of lung mass Acute COPD Exacerbation: Moderate-Severe. With hx of Chronic Respiratory Failure , has oxygen at home however has not been using recently. -Continue steroids with IV Solumedrol -Continue bronchodilators with Duonebs scheduled and prn -Continue Levaquin for empiric pneumonia - patient with cough productive of yellow sputum -Symbicort bid -Mucinex bid -Incentive spirometer = Pulmonology following. Lung mass. Appreciate pulmonology assistance. Patient with Left upper lobe mass s/p core biopsy by IR on 01/26/18 CXR reviewed with Small PTX and intraparenchymal hemorrhage on post CT images. Plan to repeat CXR, monitor VS closely. Chronic pain. Will add back pain medication. Discussed risks of increasing pain meds in the setting of COPD exacerbation. Patient understands risk. Patient agrees with palliative care consultation. Left upper lung lobe mass: CT Chest w/ new TE mass, 3.2 x 1.8cm, images reviewed. Small Pneumothorax after core biopsy of lung mass -Findings discussed w/ patient. -Consulted IR for CT guided lung biopsy of new mass, however procedure delayed due to patient being on aspirin 162mg daily -consult pulmonary ff, ( ). = Pulmonary following. Cardiology clearance for lung biopsy. S/p stress test 01/23 , Stress test with low probability findings discussed with the patient. Patient with Left upper lobe mass s/p core biopsy by IR on 01/26/18 CXR reviewed with Small PTX and intraparenchymal hemorrhage on post CT images. Plan to repeat CXR, monitor VS closely. Hypoxia: O2 sat 89% on RA, previously on Home O2, however states he hasn't used in a few months -continue w/ O2 as needed to keep O2 sat > 92% -re-evaluate at time of d/c for Home O2 needs Hyponatremia: Mild. Na 129, previously on NaCl tabs, however taken off due to CHF per -monitor I/O, repeat labs in am. = We will place on fluid restrictions for CHF and hyponatremia. CAD- s/p stent placement ( 2017)/ CHF: Acute on Chronic. Systolic. Echo 05/06/16 w/ EF 45%, +lower extremity edema, BNP 616, resumed diuretics, monitor I/O. DVT Prophylaxis: SCD's Discussed Condition With: Patient, nurse, at bedside. Discharge Planning: Pending improvement and pulmonology clearance. Plan for stress test 01/23 lung biopsy by IR 01/26 as need to be off for 5 days of ASA/ Effient PT consult Stress test with low probability findings discussed with the patient/family. Awaiting results of biopsy 01/26. With small PXT afte biopsy plan to repeat CXR and also monitor VS closely Poss DC in 1-2 days if improves , PTX stable and cleared by consultants
[2018-01-27] MEDS: predniSONE 20 MG Tablet PO SCH (20:40)
[2018-01-27] MEDS: Melatonin 5 MG Tablet PO PRN (20:40)
[2018-01-27] MEDS: Montelukast 10 MG Tablet PO SCH (20:41)
--- NOTE | 2018-01-28 00:18 | P.PNCA ---
Subjective Interval history: Chest tube in place More SOB, no chest pain Medications and Allergies Active Medications: Active Medications Al Hydroxide/Mg Hydroxide (Milk Of Magnesia Liq) 30 ml PO Q12H PRN PRN Reason: Mild Constipation Albuterol (Duoneb Neb (Prn)) 1 ampul NEB Q2HR NEB PRN PRN Reason: SOB/WHEEZING Last Admin: 01/21/18 02:54 Dose: 1 ampul Albuterol (Duoneb Neb (Misa)) 1 ampul NEB BID NEB MISA Aspirin (Ecotrin) 81 mg PO DAILY [facility] Last Admin: 01/27/18 08:03 Dose: Not Given Bisacodyl (Dulcolax Supp) 10 mg RECTAL DAILY PRN PRN Reason: SEVERE CONSITIPATION Budesonide/Formoterol Fumarate (Symbicort 160/4.5 Mcg Inh) 2 puff INH BID [facility] Last Admin: 01/27/18 20:42 Dose: 2 puff Bupropion HCl (Wellbutrin Sr) 150 mg PO DAILY [facility] Last Admin: 01/27/18 08:00 Dose: 150 mg Fluticasone Propionate (Flonase Nasal [place]) 1 spray NASAL BID [facility] Last Admin: 01/27/18 20:42 Dose: 1 spray Folic Acid (Folic Acid) 1 mg PO DAILY [facility] Last Admin: 01/27/18 08:00 Dose: 1 mg Furosemide (Lasix) 20 mg PO DAILY [facility] Last Admin: 01/27/18 08:00 Dose: 20 mg Gabapentin (Neurontin) 400 mg PO Q8H [facility] Last Admin: 01/27/18 20:40 Dose: 400 mg Levofloxacin/Dextrose (Levaquin 750 Mg Premix Inj) 150 mls @ 100 mls/hr IV.SIG Q24H [facility] Last Admin: 01/27/18 22:28 Dose: 100 mls/hr Lactulose (Lactulose Liq) 30 ml PO DAILY PRN PRN Reason: SEVERE CONSITIPATION Losartan Potassium (Cozaar) 25 mg PO DAILY [facility] Last Admin: 01/27/18 08:00 Dose: 25 mg Melatonin (Melatonin) 5 mg PO HS PRN PRN Reason: insomnia Last Admin: 01/27/18 20:40 Dose: 5 mg Montelukast Sodium (Singulair) 10 mg PO HS [facility] Last Admin: 01/27/18 20:41 Dose: 10 mg Morphine Sulfate (Morphine Inj) 2 mg IV.PUSH Q4H PRN PRN Reason: BREAKTHROUGH PAIN Last Admin: 01/27/18 22:28 Dose: 2 mg Ondansetron HCl (Zofran Inj) 4 mg IV.PUSH Q6H PRN PRN Reason: NAUSEA OR VOMITING Oxycodone/Acetaminophen (Percocet 10/325 Mg) 1 tab PO Q4H PRN PRN Reason: PAIN SCALE 6 TO 10 Last Admin: 01/27/18 20:40 Dose: 1 tab Pantoprazole Sodium (Protonix) 20 mg PO DAILY [facility] Last Admin: 01/27/18 08:00 Dose: 20 mg Prasugrel (Effient) 10 mg PO DAILY [facility] Last Admin: 01/24/18 11:21 Dose: Not Given Prednisone (Deltasone) 20 mg PO BID [facility] Last Admin: 01/27/18 20:40 Dose: 20 mg Senna/Docusate Sodium (Kayla-Colace) 1 tab PO BID [facility] Last Admin: 01/27/18 20:40 Dose: 1 tab Sennosides (Senokot) 17.2 mg PO Q12H PRN PRN Reason: Moderate Constipation Silver Sulfadiazine (Silvadene 1% Cream (50 Gm)) 1 applicatio TOPICAL BID [facility] Last Admin: 01/27/18 20:42 Dose: 1 applicatio Tizanidine HCl (Zanaflex) 4 mg PO Q8H PRN PRN Reason: MUSCLE SPAMPS Last Admin: 01/27/18 20:41 Dose: 4 mg Allergies Allergy/AdvReac Type Severity Reaction Status Date / Time diatrizoate meglumine Allergy Severe Hives Unverified 09/17/17 21:13 gadobenic acid Allergy Severe Hives Unverified 09/17/17 21:13 gadodiamide Allergy Severe Hives Unverified 09/17/17 21:13 gadoteridol Allergy Severe Hives Unverified 09/17/17 21:13 iodixanol Allergy Severe Hives Unverified 09/17/17 21:13 iohexol Allergy Severe Hives Unverified 09/17/17 21:13 procaine Allergy Intermediate VOMITING Unverified 09/17/17 21:13 lisinopril AdvReac Unknown Cough Unverified 09/17/17 21:13 Home Medications Medication Instructions Recorded Confirmed Type albuterol sulfate [Ventolin HFA] 90 mcg INHALATION PRN 01/19/18 01/19/18 History aspirin 162.5 mg PO DAILY 01/19/18 01/19/18 History budesonide-formoterol [Symbicort] 2 puff INHALATION BID 01/19/18 01/19/18 History bupropion HCl [Wellbutrin SR] 150 mg PO DAILY 01/19/18 01/19/18 History folic acid 1 mg PO DAILY 01/19/18 01/19/18 History furosemide [Lasix] 20 mg PO DAILY 01/19/18 01/19/18 History gabapentin 300 mg PO TID 01/19/18 01/19/18 History hydrocodone-acetaminophen 1 tab PO Q4-6H PRN 01/19/18 01/19/18 History losartan 25 mg PO DAILY 01/19/18 01/19/18 History montelukast [Singulair] 10 mg PO QPM 01/19/18 01/19/18 History omeprazole 20 mg PO DAILY 01/19/18 01/19/18 History ondansetron [Zofran ODT] 4 mg PO Q6-8H PRN 01/19/18 01/19/18 History potassium chloride 20 meq PO DAILY 01/19/18 01/19/18 History prasugrel [Effient] 10 mg PO DAILY 01/19/18 01/19/18 History sumatriptan succinate [Imitrex] 50 mg PO Q2-4H PRN 01/19/18 01/19/18 History tizanidine 4 mg PO TID PRN 01/19/18 01/19/18 History Physical Exam Vital signs: Vital Signs 01/27/18 03:23 01/27/18 08:00 01/27/18 10:10 Temperature 98.0 F 97.6 F Pulse Rate 73 70 Respiratory Rate 20 20 18 Blood Pressure 148/74 H 153/73 H Pulse Oximetry 96 97 01/27/18 12:00 01/27/18 16:00 01/27/18 20:00 Temperature 97.9 F 97.8 F 97.9 F Pulse Rate 88 79 84 Respiratory Rate 20 19 19 Blood Pressure 132/71 143/73 H 146/70 H Pulse Oximetry 94 L 94 L 92 L 01/27/18 20:40 Temperature Pulse Rate 88 Respiratory Rate 20 Blood Pressure Pulse Oximetry 93 L Intake & Output 01/27/18 01/27/18 01/28/18 06:59 18:59 06:59 Intake Total 150 / 150 480 / 480 Output Total 810 / 810 900 / 900 Balance -660 / -660 -420 / -420 -10 / -10 Weight 85 kg Intake: IV 150 / 150 Levaquin 750 mg Premix Inj 150 150 / 150 ML @ 100 mls/hr IV.SIG Q24H [facility] Rx#:[id number] Oral 480 / 480 Output: Urine 800 / 800 900 / 900 Chest Tube Drainage #1 Left Upper Anterior Narrative: GENERAL: 62 year old male in NAD, alert and oriented x3 CARDIOVASCULAR: Regular rate and rhythm without murmurs, gallops, or rubs. RESPIRATORY: Chest tube in place. Breath sounds decreased with scattered wheezes. No accessory muscle use. Slight bibasilar crackles. GASTROINTESTINAL: Abdomen soft, non-tender, nondistended. MUSCULOSKELETAL: No cyanosis, or edema. BACK: Nontender without obvious deformity. No CVA tenderness. Results 01/24/18 05:26 01/26/18 06:41 Comprehensive Metabolic Panel 01/26/18 Range/Units 06:41 Sodium 128 L (136-145) meq/L Potassium 4.2 (3.5-5.1) meq/L Chloride 93 L (98-107) meq/L Carbon Dioxide 25.2 (21.0-32.0) meq/L BUN 23 H (7-18) mg/dL Creatinine 0.98 (0.60-1.30) mg/dL Calcium 8.4 L (8.5-10.1) mg/dL Intake and Output 01/27/18 01/27/18 01/28/18 14:59 22:59 06:59 Intake Total 480 / 480 Output Total 910 / 910 Balance -430 / -430 Intake: Oral 480 / 480 Output: Urine 900 / 900 Chest Tube Drainage #1 Left Upper Anterior - Imaging and Cardiology Imaging: Impressions Chest Tube Insertion 01/26/18 00:00 CONCLUSION: 1. Uncomplicated chest tube placement as above. Resolution of the left-sided pneumothorax. Lung Biopsy CT 01/26/18 00:00 CONCLUSION: 1. Uncomplicated CT guided left upper lobe pulmonary mass biopsy.. Chest X-Ray 01/26/18 10:28 CONCLUSION: 1. Moderate to large left-sided pneumothorax with early mediastinal shift. Chest X-Ray 01/27/18 10:44 CONCLUSION: 1. Well-positioned left apical chest tube without significant pneumothorax. Assessment and Plan - Assessment (1) COPD (chronic obstructive pulmonary disease) Code(s): J44.9 - Chronic obstructive pulmonary disease, unspecified Status: Acute (2) CHF (congestive heart failure) Code(s): I50.9 - Heart failure, unspecified Status: Acute (3) Hypoxia Code(s): R09.02 - Hypoxemia Status: Acute (4) Lung mass Code(s): R91.8 - Other nonspecific abnormal finding of lung field Status: Acute (5) Chronic pain Code(s): G89.29 - Other chronic pain Status: Acute (6) Dyspnea Code(s): R06.00 - Dyspnea, unspecified Status: Acute - Plan 1) SOB Multifactorial with COPD and CHF Diuresed well since admission Appears compensated 2) CAD Hx of PCI with BMS to LAD Residual CAD 3) Lung mass Hold ASA/Effient for biopsy Plan to restart ASA when possible 4) Stress test showing inferior fixed defect with normal wall motion, most likely diaphragmatic No ischemia noted No plan for cardiac catheterization Continue medical management 5) Tobacco cessation 6) Await biopsy Plan for restart ASA 7) HTN Losartan
[2018-01-28] MEDS: oxyCODONE/Acetaminophen 10/325 Tablet PO PRN ×5 (03:34→20:29)
[2018-01-28] MEDS: Gabapentin 400 MG Capsule PO SCH ×3 (03:34→20:29)
[2018-01-28] MEDS: Morphine Inj 4 MG/ML Vial IV.PUSH PRN ×5 (05:30→22:32)
[2018-01-28] MEDS: predniSONE 20 MG Tablet PO SCH ×2 (08:54→20:29)
[2018-01-28] MEDS: buPROPion 150 MG 12 HR Tablet PO SCH (08:54)
[2018-01-28] MEDS: Folic Acid 1 MG Tablet PO SCH (08:54)
[2018-01-28] MEDS: Senna/Docusate Sodium 8.6/50 MG Tablet PO SCH ×2 (08:54→20:29)
[2018-01-28] MEDS: Pantoprazole Sodium 20 MG DR Tablet PO SCH (08:54)
[2018-01-28] MEDS: Furosemide 20 MG Tablet PO SCH (08:55)
[2018-01-28] MEDS: Budesonide-Formoterol 160/4.5 MCG 6 GM Inhaler INH SCH ×2 (08:55→20:31)
[2018-01-28] MEDS ORDERED: predniSONE 20 MG Tablet PO SCH (09:00)
--- NOTE | 2018-01-28 09:51 | XR ---
EXAM DATE: 01/28/2018 8:04 AM EDT AGE/SEX: 62 years / Male INDICATIONS: Pneumothorax. Left side chest tube. CLINICAL DATA: This is the patient's subsequent encounter. Patient reports that signs and symptoms h ave been present for 4 - 6 days and indicates a pain score of 0/10. MEDICAL/SURGICAL HISTORY: . Congestive heart failure. Chronic obstructive pulmonary disease. Hy percholesterolemia. . Coronary artery stent. COMPARISON: [facility] – [place], CHEST 1V SINGLE AP, 01/27/2018. . FINDINGS: A left apical pigtail thoracostomy tube is stable. There is no evidence of pneumothorax. Diffuse coar se interstitial prominence is again noted, unchanged. No evidence of effusion. Cardiac contours are s table CONCLUSION: No pneumothorax Electronically signed by: Vito Manning MD 01/28/2018 9:49 AM EDT
--- NOTE | 2018-01-28 11:32 | P.PN ---
Subjective Interval history: Patient resting comfortably in bed. Pain is very well controlled. Breathing well. Denies SOB, chest pain, nausea, vomiting Physical Exam Vital signs: Vital Signs 01/27/18 12:00 01/27/18 16:00 01/27/18 20:00 Temperature 97.9 F 97.8 F 97.9 F Pulse Rate 88 79 84 Respiratory Rate 20 19 19 Blood Pressure 132/71 143/73 H 146/70 H Pulse Oximetry 94 L 94 L 92 L 01/27/18 20:40 01/28/18 00:00 01/28/18 04:00 Temperature 98.1 F 98.1 F Pulse Rate 88 72 73 Respiratory Rate 20 17 19 Blood Pressure 137/85 139/83 Pulse Oximetry 93 L 98 98 01/28/18 07:47 01/28/18 08:00 Temperature 97.4 F L Pulse Rate 73 76 Respiratory Rate 18 20 Blood Pressure 124/67 Pulse Oximetry 96 98 Intake & Output 01/27/18 01/28/18 01/28/18 18:59 06:59 18:59 Intake Total 480 / 480 150 / 150 Output Total 900 / 900 Balance -420 / -420 140 / 140 Weight 84.6 kg Intake: IV 150 / 150 Levaquin 750 mg Premix Inj 150 150 / 150 ML @ 100 mls/hr IV.SIG Q24H [facility] Rx#:[id number] Oral 480 / 480 Output: Urine 900 / 900 Chest Tube Drainage #1 Left Upper Anterior Narrative: GENERAL: 62 year old male in NAD, alert and oriented x3 CARDIOVASCULAR: Regular rate and rhythm without murmurs, gallops, or rubs. RESPIRATORY: Chest tube in place. Breath sounds decreased with scattered wheezes. No accessory muscle use. Slight bibasilar crackles. GASTROINTESTINAL: Abdomen soft, non-tender, nondistended. MUSCULOSKELETAL: No cyanosis, or edema. BACK: Nontender without obvious deformity. No CVA tenderness. Results - Labs CBC & Chem 7: 01/24/18 05:26 01/26/18 06:41 - Imaging Impressions Chest X-Ray 01/27/18 10:44 CONCLUSION: 1. Well-positioned left apical chest tube without significant pneumothorax. Chest X-Ray 01/28/18 08:04 CONCLUSION: No pneumothorax Assessment and Plan - Plan Dyspnea: suspect multifactorial secondary to acute COPD and CHF exacerbations in combination with new lung mass. -Chest CT showed: Severe emphysema with interstitial lung disease. These changes are stable and may explain the patient's shortness of breath. However, there is a new bilobed mass in the left upper lobe measuring up to 3.2 x 1.8 cm. This is completely new since the April 2016 examination and the appearance is suspicious for a primary pulmonary neoplasm. This nodule should be amenable to image guided percutaneous biopsy, if needed. Stable enlarged pretracheal lymph node and interval enlargement of a prevascular lymph node. -See individual treatment below IR consulted for biopsy of lung mass Acute COPD Exacerbation -Moderate-Severe. -hx of Chronic Respiratory Failure, has oxygen at home however has not been using recently. -Patient improved on 01/26 -D/C IV Solumedrol this am -Continue bronchodilators with Duonebs scheduled and prn -Continue Levaquin for empiric pneumonia - sputum decreased on 01/26 -Symbicort bid -Mucinex bid -Incentive spirometer -Pulmonology following. Appreciate pulmonology assistance. Chronic pain -Will add back pain medication. Discussed risks of increasing pain meds in the setting of COPD exacerbation. Patient understands risk. Patient agrees with palliative care consultation. Lung Mass CT Chest w/ new TE mass, 3.2 x 1.8cm, images reviewed. -Findings discussed w/ patient. -Consulted IR for CT guided lung biopsy of new mass, however procedure delayed due to patient being on aspirin 162mg daily -consult pulmonary ff, ( ). -Pulmonary following. Cardiology clearance for lung biopsy. S/p stress test , Stress test with low probability findings discussed with the patient -lung biopsy yesterday, complicated by pneumo. Hypoxia O2 sat 89% on RA, previously on Home O2, however states he hasn't used in a few months -continue w/ O2 as needed to keep O2 sat > 92% -re-evaluate at time of d/c for Home O2 needs -Order O2 challenge s/p lung bx Hyponatremia Mild. Na 129, previously on NaCl tabs, however taken off due to CHF per -monitor I/O, repeat labs in am. -fluid restrictions for CHF and hyponatremia. Stable, 128 on 01/26 CAD s/p stent placement ( 2016)/ CHF: Acute on Chronic. Systolic. Echo 05/06/16 w/ EF 45%, +lower extremity edema, BNP 616, resumed diuretics, monitor I/O. DVT Prophylaxis: SCD's Code Status: full Discharge Planning: Awaiting results of biopsy 01/26. With small PXT afte biopsy plan to repeat CXR and also monitor VS closely Poss DC in 1-2 days if improves , PTX stable and cleared by consultants
--- NOTE | 2018-01-28 12:40 | XR ---
EXAM DATE: 01/28/2018 11:38 AM EDT AGE/SEX: 62 years / Male INDICATIONS: Check chest tube placement. CLINICAL DATA: This is the patient's initial encounter. Patient reports that signs and symptoms have been present for 4 - 6 days and indicates a pain score of 10/10. MEDICAL/SURGICAL HISTORY: Hypercholesterolemia. chf, copd . coronary artery stent COMPARISON: [facility] – [place], CHEST EXPIRATION ONLY, 01/28/2018. . FINDINGS: There is significant increase in left-sided pneumothorax with chest tube again noted projecting over the left fifth and fourth posterior rib interspace. Increase in subcutaneous air along the left hemit horax and neck. There is approximated 7 cm of pleural separation at the left lung base with pneumotho rax extending to the apex, approximately 4.8 cm of apical separation. There is patchy fibrotic change and parenchymal infiltrate right lung. Heart size normal. CONCLUSION: Large left-sided pneumothorax is now seen. A chest tube is present and unchanged in position. Electronically signed by: Kurtis Gray MD 01/28/2018 12:38 PM EDT
--- NOTE | 2018-01-28 14:27 | XR ---
EXAM DATE: 01/28/2018 1:45 PM EDT AGE/SEX: 62 years / Male INDICATIONS: Evaluate pneumothorax, check tube position. CLINICAL DATA: This is the patient's initial encounter. Patient reports that signs and symptoms have been present for 3 days and indicates a pain score of 0/10. MEDICAL/SURGICAL HISTORY: Congestive heart failure. Chronic obstructive pulmonary disease. Hy pertension. Coronary artery stent. COMPARISON: [facility] – [place], CHEST EXPIRATION ONLY, 01/28/2018. . FINDINGS: Left pigtail thoracostomy tube remains in place. Pneumothorax is resolved. Moderate simultaneous emph ysema persists. Diffuse interstitial changes again noted. Cardiac contours are unchanged. CONCLUSION: Pneumothorax resolved Electronically signed by: Vito Manning MD 01/28/2018 2:26 PM EDT
--- NOTE | 2018-01-28 17:02 | P.PN ---
Subjective Interval history: Feels a little bit better today less chest pain. Less cough. No fever or chills. Chest tube noted kinked IR evaluated the patient and and now is functioning well. Saturating well on nasal cannula. No nausea or vomiting no diarrhea or constipation. Did sleep better last night. Continue melatonin. Physical Exam Vital signs: Vital Signs 01/27/18 20:00 01/27/18 20:40 01/28/18 00:00 Temperature 97.9 F 98.1 F Pulse Rate 84 88 72 Respiratory Rate 19 20 17 Blood Pressure 146/70 H 137/85 Pulse Oximetry 92 L 93 L 98 01/28/18 04:00 01/28/18 07:47 01/28/18 08:00 Temperature 98.1 F 97.4 F L Pulse Rate 73 73 76 Respiratory Rate 19 18 20 Blood Pressure 139/83 124/67 Pulse Oximetry 98 96 98 01/28/18 12:00 Temperature 98.2 F Pulse Rate 105 H Respiratory Rate 18 Blood Pressure 130/71 Pulse Oximetry 92 L Intake & Output 01/27/18 01/28/18 01/28/18 18:59 06:59 18:59 Intake Total 480 / 480 150 / 150 Output Total 900 / 900 Balance -420 / -420 140 / 140 Weight 84.6 kg Intake: IV 150 / 150 Levaquin 750 mg Premix Inj 150 150 / 150 ML @ 100 mls/hr IV.SIG Q24H [facility] Rx#:[id number] Oral 480 / 480 Output: Urine 900 / 900 Chest Tube Drainage #1 Left Upper Anterior Narrative: GENERAL: 62 year old male in NAD, alert and oriented x3 CARDIOVASCULAR: Regular rate and rhythm without murmurs, gallops, or rubs. RESPIRATORY: Chest tube in place. Breath sounds decreased with scattered wheezes. No accessory muscle use. Slight bibasilar crackles. GASTROINTESTINAL: Abdomen soft, non-tender, nondistended. MUSCULOSKELETAL: No cyanosis, or edema. BACK: Nontender without obvious deformity. No CVA tenderness. Results - Labs CBC & Chem 7: 01/24/18 05:26 01/26/18 06:41 - Imaging Impressions Chest X-Ray 01/28/18 08:04 CONCLUSION: No pneumothorax Chest X-Ray 01/28/18 11:38 CONCLUSION: Large left-sided pneumothorax is now seen. A chest tube is present and unchanged in position. Chest X-Ray 01/28/18 13:45 CONCLUSION: Pneumothorax resolved Assessment and Plan - Assessment (1) COPD (chronic obstructive pulmonary disease) Code(s): J44.9 - Chronic obstructive pulmonary disease, unspecified Status: Acute (2) CHF (congestive heart failure) Code(s): I50.9 - Heart failure, unspecified Status: Acute (3) Hypoxia Code(s): R09.02 - Hypoxemia Status: Acute (4) Hyponatremia Code(s): E87.1 - Hypo-osmolality and hyponatremia Status: Acute (5) Lung mass Code(s): R91.8 - Other nonspecific abnormal finding of lung field Status: Acute - Plan Dyspnea: suspect multifactorial secondary to acute COPD and CHF exacerbations in combination with new lung mass. -Chest CT showed: Severe emphysema with interstitial lung disease. These changes are stable and may explain the patient's shortness of breath. However, there is a new bilobed mass in the left upper lobe measuring up to 3.2 x 1.8 cm. This is completely new since the April 2016 examination and the appearance is suspicious for a primary pulmonary neoplasm. This nodule should be amenable to image guided percutaneous biopsy, if needed. Stable enlarged pretracheal lymph node and interval enlargement of a prevascular lymph node. -See individual treatment below IR consulted for biopsy of lung mass Acute COPD Exacerbation: Moderate-Severe. With hx of Chronic Respiratory Failure , has oxygen at home however has not been using recently. -Continue steroids with IV Solumedrol -Continue bronchodilators with Duonebs scheduled and prn -Continue Levaquin for empiric pneumonia - patient with cough productive of yellow sputum -Symbicort bid -Mucinex bid -Incentive spirometer = Pulmonology following. Lung mass. Appreciate pulmonology assistance. Patient with Left upper lobe mass s/p core biopsy by IR on 01/26/18 CXR reviewed with Small PTX and intraparenchymal hemorrhage on post CT images. Plan to repeat CXR, monitor VS closely. Chronic pain. Will add back pain medication. Discussed risks of increasing pain meds in the setting of COPD exacerbation. Patient understands risk. Patient agrees with palliative care consultation. Left upper lung lobe mass: CT Chest w/ new TE mass, 3.2 x 1.8cm, images reviewed. Small Pneumothorax after core biopsy of lung mass -Findings discussed w/ patient. -Consulted IR for CT guided lung biopsy of new mass, however procedure delayed due to patient being on aspirin 162mg daily -consult pulmonary ff, ( ). = Pulmonary following. Cardiology clearance for lung biopsy. S/p stress test 01/23 , Stress test with low probability findings discussed with the patient. Patient with Left upper lobe mass s/p core biopsy by IR on 01/26/18 CXR reviewed with Small PTX and intraparenchymal hemorrhage on post CT images. Repeat CXR reviewed, monitor VS closely. Remove chest tube per IR/pulm recs Hypoxia: O2 sat 89% on RA, previously on Home O2, however states he hasn't used in a few months -continue w/ O2 as needed to keep O2 sat > 92% -re-evaluate at time of d/c for Home O2 needs Hyponatremia: Mild. Na 129, previously on NaCl tabs, however taken off due to CHF per -monitor I/O, repeat labs in am. = We will place on fluid restrictions for CHF and hyponatremia. CAD- s/p stent placement ( 2017)/ CHF: Acute on Chronic. Systolic. Echo 05/06/16 w/ EF 45%, +lower extremity edema, BNP 616, resumed diuretics, monitor I/O. DVT Prophylaxis: SCD's Discussed Condition With: Patient, nurse, at bedside. Discharge Planning: Pending improvement and pulmonology clearance. Plan for stress test 01/23 lung biopsy by IR 01/26 as need to be off for 5 days of ASA/ Effient PT consult Stress test with low probability findings discussed with the patient/family. Awaiting results of biopsy 01/26. With small PXT afte biopsy plan to repeat CXR and also monitor VS closely DC when improves , when Chest tubes removed and PTX stable and cleared by consultants
[2018-01-28] MEDS: Melatonin 5 MG Tablet PO PRN (20:29)
[2018-01-28] MEDS: Montelukast 10 MG Tablet PO SCH (20:29)
[2018-01-29] MEDS: oxyCODONE/Acetaminophen 10/325 Tablet PO PRN ×6 (00:27→22:54)
--- NOTE | 2018-01-29 00:39 | P.PNCA ---
Subjective Interval history: No events overnight Feeling better than yesterday Medications and Allergies Active Medications: Active Medications Al Hydroxide/Mg Hydroxide (Milk Of Magnesia Liq) 30 ml PO Q12H PRN PRN Reason: Mild Constipation Albuterol (Duoneb Neb (Prn)) 1 ampul NEB Q2HR NEB PRN PRN Reason: SOB/WHEEZING Last Admin: 01/21/18 02:54 Dose: 1 ampul Albuterol (Duoneb Neb (Misa)) 1 ampul NEB BID NEB [facility] Last Admin: 01/28/18 20:29 Dose: 1 ampul Aspirin (Ecotrin) 81 mg PO DAILY [facility] Last Admin: 01/28/18 08:53 Dose: 81 mg Bisacodyl (Dulcolax Supp) 10 mg RECTAL DAILY PRN PRN Reason: SEVERE CONSITIPATION Budesonide/Formoterol Fumarate (Symbicort 160/4.5 Mcg Inh) 2 puff INH BID [facility] Last Admin: 01/28/18 20:31 Dose: 2 puff Bupropion HCl (Wellbutrin Sr) 150 mg PO DAILY [facility] Last Admin: 01/28/18 08:54 Dose: 150 mg Fluticasone Propionate (Flonase Nasal [place]) 1 spray NASAL BID [facility] Last Admin: 01/28/18 20:30 Dose: 1 spray Folic Acid (Folic Acid) 1 mg PO DAILY [facility] Last Admin: 01/28/18 08:54 Dose: 1 mg Furosemide (Lasix) 20 mg PO DAILY [facility] Last Admin: 01/28/18 08:55 Dose: 20 mg Gabapentin (Neurontin) 400 mg PO Q8H [facility] Last Admin: 01/28/18 20:29 Dose: 400 mg Levofloxacin/Dextrose (Levaquin 750 Mg Premix Inj) 150 mls @ 100 mls/hr IV.SIG Q24H [facility] Last Infusion: 01/29/18 00:28 Dose: Infused Lactulose (Lactulose Liq) 30 ml PO DAILY PRN PRN Reason: SEVERE CONSITIPATION Losartan Potassium (Cozaar) 25 mg PO DAILY [facility] Last Admin: 01/28/18 08:53 Dose: 25 mg Melatonin (Melatonin) 5 mg PO HS PRN PRN Reason: insomnia Last Admin: 01/28/18 20:29 Dose: 5 mg Montelukast Sodium (Singulair) 10 mg PO HS [facility] Last Admin: 01/28/18 20:29 Dose: 10 mg Morphine Sulfate (Morphine Inj) 2 mg IV.PUSH Q4H PRN PRN Reason: BREAKTHROUGH PAIN Last Admin: 01/28/18 22:32 Dose: 2 mg Ondansetron HCl (Zofran Inj) 4 mg IV.PUSH Q6H PRN PRN Reason: NAUSEA OR VOMITING Oxycodone/Acetaminophen (Percocet 10/325 Mg) 1 tab PO Q4H PRN PRN Reason: PAIN SCALE 6 TO 10 Last Admin: 01/29/18 00:27 Dose: 1 tab Pantoprazole Sodium (Protonix) 20 mg PO DAILY [facility] Last Admin: 01/28/18 08:54 Dose: 20 mg Prasugrel (Effient) 10 mg PO DAILY [facility] Last Admin: 01/24/18 11:21 Dose: Not Given Prednisone (Deltasone) 20 mg PO BID [facility] Last Admin: 01/28/18 20:29 Dose: 20 mg Senna/Docusate Sodium (Kayla-Colace) 1 tab PO BID [facility] Last Admin: 01/28/18 20:29 Dose: 1 tab Sennosides (Senokot) 17.2 mg PO Q12H PRN PRN Reason: Moderate Constipation Silver Sulfadiazine (Silvadene 1% Cream (50 Gm)) 1 applicatio TOPICAL BID [facility] Last Admin: 01/28/18 20:31 Dose: 1 applicatio Tizanidine HCl (Zanaflex) 4 mg PO Q8H PRN PRN Reason: MUSCLE SPAMPS Last Admin: 01/28/18 20:29 Dose: 4 mg Allergies Allergy/AdvReac Type Severity Reaction Status Date / Time diatrizoate meglumine Allergy Severe Hives Unverified 09/17/17 21:13 gadobenic acid Allergy Severe Hives Unverified 09/17/17 21:13 gadodiamide Allergy Severe Hives Unverified 09/17/17 21:13 gadoteridol Allergy Severe Hives Unverified 09/17/17 21:13 iodixanol Allergy Severe Hives Unverified 09/17/17 21:13 iohexol Allergy Severe Hives Unverified 09/17/17 21:13 procaine Allergy Intermediate VOMITING Unverified 09/17/17 21:13 lisinopril AdvReac Unknown Cough Unverified 09/17/17 21:13 Home Medications Medication Instructions Recorded Confirmed Type albuterol sulfate [Ventolin HFA] 90 mcg INHALATION PRN 01/19/18 01/19/18 History aspirin 162.5 mg PO DAILY 01/19/18 01/19/18 History budesonide-formoterol [Symbicort] 2 puff INHALATION BID 01/19/18 01/19/18 History bupropion HCl [Wellbutrin SR] 150 mg PO DAILY 01/19/18 01/19/18 History folic acid 1 mg PO DAILY 01/19/18 01/19/18 History furosemide [Lasix] 20 mg PO DAILY 01/19/18 01/19/18 History gabapentin 300 mg PO TID 01/19/18 01/19/18 History hydrocodone-acetaminophen 1 tab PO Q4-6H PRN 01/19/18 01/19/18 History losartan 25 mg PO DAILY 01/19/18 01/19/18 History montelukast [Singulair] 10 mg PO QPM 01/19/18 01/19/18 History omeprazole 20 mg PO DAILY 01/19/18 01/19/18 History ondansetron [Zofran ODT] 4 mg PO Q6-8H PRN 01/19/18 01/19/18 History potassium chloride 20 meq PO DAILY 01/19/18 01/19/18 History prasugrel [Effient] 10 mg PO DAILY 01/19/18 01/19/18 History sumatriptan succinate [Imitrex] 50 mg PO Q2-4H PRN 01/19/18 01/19/18 History tizanidine 4 mg PO TID PRN 01/19/18 01/19/18 History Physical Exam Vital signs: Vital Signs 01/28/18 04:00 01/28/18 07:47 01/28/18 08:00 Temperature 98.1 F 97.4 F L Pulse Rate 73 73 76 Respiratory Rate 19 18 20 Blood Pressure 139/83 124/67 Pulse Oximetry 98 96 98 01/28/18 12:00 01/28/18 16:00 01/28/18 20:00 Temperature 98.2 F 98.1 F 97.9 F Pulse Rate 105 H 88 90 Respiratory Rate 18 19 18 Blood Pressure 130/71 141/75 H 145/76 H Pulse Oximetry 92 L 95 94 L 01/28/18 20:30 Temperature Pulse Rate 90 Respiratory Rate 25 H Blood Pressure Pulse Oximetry 97 Intake & Output 01/28/18 01/28/18 01/29/18 06:59 18:59 06:59 Intake Total 150 / 150 150 / 150 Output Total 925 / 925 Balance 140 / 140 -925 / -925 150 / 150 Weight 84.6 kg Intake: IV 150 / 150 150 / 150 Levaquin 750 mg Premix Inj 150 150 / 150 150 / 150 ML @ 100 mls/hr IV.SIG Q24H [facility] Rx#:[id number] Output: Urine 925 / 925 Chest Tube Drainage #1 Left Upper Anterior Narrative: GENERAL: 62 year old male in NAD, alert and oriented x3 CARDIOVASCULAR: Regular rate and rhythm without murmurs, gallops, or rubs. RESPIRATORY: Chest tube in place. Breath sounds decreased with scattered wheezes. No accessory muscle use. Slight bibasilar crackles. GASTROINTESTINAL: Abdomen soft, non-tender, nondistended. MUSCULOSKELETAL: No cyanosis, or edema. BACK: Nontender without obvious deformity. No CVA tenderness. Results 01/24/18 05:26 01/26/18 06:41 Intake and Output 01/28/18 01/28/18 01/29/18 14:59 22:59 06:59 Intake Total 150 / 150 Output Total 925 / 925 Balance -925 / -925 150 / 150 Intake: IV 150 / 150 Levaquin 750 mg Premix Inj 150 150 / 150 ML @ 100 mls/hr IV.SIG Q24H [facility] Rx#:[id number] Output: Urine 925 / 925 - Imaging and Cardiology Imaging: Impressions Chest X-Ray 01/27/18 10:44 CONCLUSION: 1. Well-positioned left apical chest tube without significant pneumothorax. Chest X-Ray 01/28/18 08:04 CONCLUSION: No pneumothorax Chest X-Ray 01/28/18 11:38 CONCLUSION: Large left-sided pneumothorax is now seen. A chest tube is present and unchanged in position. Chest X-Ray 01/28/18 13:45 CONCLUSION: Pneumothorax resolved Assessment and Plan - Assessment (1) COPD (chronic obstructive pulmonary disease) Code(s): J44.9 - Chronic obstructive pulmonary disease, unspecified Status: Acute (2) CHF (congestive heart failure) Code(s): I50.9 - Heart failure, unspecified Status: Acute (3) Hypoxia Code(s): R09.02 - Hypoxemia Status: Acute (4) Lung mass Code(s): R91.8 - Other nonspecific abnormal finding of lung field Status: Acute (5) Chronic pain Code(s): G89.29 - Other chronic pain Status: Acute (6) Dyspnea Code(s): R06.00 - Dyspnea, unspecified Status: Acute - Plan 1) SOB Multifactorial with COPD and CHF Diuresed well since admission Appears compensated 2) CAD Hx of PCI with BMS to LAD Residual CAD 3) Lung mass Hold ASA/Effient for biopsy ASA restarted 4) Stress test showing inferior fixed defect with normal wall motion, most likely diaphragmatic No ischemia noted No plan for cardiac catheterization Continue medical management 5) Tobacco cessation 6) Await biopsy 7) HTN Losartan 8) No further cardiovascular work up Will see PRN, call with questions
[2018-01-29] MEDS: Morphine Inj 4 MG/ML Vial IV.PUSH PRN ×5 (02:38→20:47)
[2018-01-29] MEDS: Gabapentin 400 MG Capsule PO SCH ×3 (04:20→20:46)
[2018-01-29 04:38] LABS: Baso % (Auto) 0.2 % (0.0-2.0); Eos # (Auto) 0.1 th/mm3 (0.0-0.4); Eos % (Auto) 0.5 % (0.0-4.0); Hematocrit 34.3 % (39.0-51.0); Hemoglobin 11.6 gm/dL (13.0-17.0); Lymph # (Auto) 0.4 th/mm3 (1.0-4.8); Lymph % (Auto) 3.8 % (9.0-44.0); Mean Corpuscular Hemoglobin 28.7 pg (27.0-34.0); Mean Corpuscular Volume 84.4 fL (80.0-100.0); Mean Platelet Volume 6.7 fL (7.0-11.0); Mono # (Auto) 0.6 th/mm3 (0.0-0.9); Mono % (Auto) 5.8 % (0.0-8.0); Neut # (Auto) 9.3 th/mm3 (1.8-7.7); Neut % (Auto) 89.7 % (16.0-70.0); Platelet Count 329 th/mm3 (150-450); Red Blood Count 4.06 mil/mm3 (4.50-5.90); Red Cell Distribution Width 15.1 % (11.6-17.2); White Blood Count 10.4 th/mm3 (4.0-11.0)
[2018-01-29 05:04] LABS: Carbon Dioxide 26.7 meq/L (21.0-32.0); Potassium 3.9 meq/L (3.5-5.1)
[2018-01-29] MEDS: Furosemide 20 MG Tablet PO SCH (09:08)
[2018-01-29] MEDS: Pantoprazole Sodium 20 MG DR Tablet PO SCH (09:08)
[2018-01-29] MEDS: Folic Acid 1 MG Tablet PO SCH (09:08)
[2018-01-29] MEDS: predniSONE 20 MG Tablet PO SCH ×2 (09:08→20:46)
[2018-01-29] MEDS: buPROPion 150 MG 12 HR Tablet PO SCH (09:08)
[2018-01-29] MEDS: Senna/Docusate Sodium 8.6/50 MG Tablet PO SCH ×2 (09:09→20:48)
[2018-01-29] MEDS: Budesonide-Formoterol 160/4.5 MCG 6 GM Inhaler INH SCH ×2 (09:10→20:47)
--- NOTE | 2018-01-29 10:11 | XR ---
EXAM DATE: 01/29/2018 9:45 AM EDT AGE/SEX: 62 years / Male INDICATIONS: Evaluate for pneumothorax. Short of breath. CLINICAL DATA: This is the patient's subsequent encounter. Patient reports that signs and symptoms h ave been present for 2 weeks and indicates a pain score of 0/10. MEDICAL/SURGICAL HISTORY: . Congestive heart failure. Chronic obstructive pulmonary disease. Hy percholesterolemia. HTN . Coronary artery stent. COMPARISON: [facility], CHEST 1V SINGLE AP, 01/28/2018. . FINDINGS: Stable left apical chest tube with no significant residual pneumothorax. There is slightly improved s ubcutaneous at the same in the left chest wall and lower neck. New subcutaneous emphysema in the righ t lower neck. Persistent diffuse interstitial prominence. Cardiomediastinal are within normal limits. Remainder of the exam is unchanged. CONCLUSION: 1. Stable left apical chest tube without significant pneumothorax. 2. Slightly improved left chest wall with new right chest wall subcutaneous emphysema. Electronically signed by: Otis Mendoza MD 01/29/2018 10:10 AM EDT
--- NOTE | 2018-01-29 12:21 | P.PN ---
Subjective Interval history: Patient has had two episodes of hemoptysis s/p lung biopsy. Feels better today , breathing well on O2. Saturating well. Pain post procedure well controlled. No SOB, chest pain, nausea, vomiting, dizziness, headache, vision changes. Physical Exam Vital signs: Vital Signs 01/28/18 16:00 01/28/18 20:00 01/28/18 20:30 Temperature 98.1 F 97.9 F Pulse Rate 88 90 90 Respiratory Rate 19 18 25 H Blood Pressure 141/75 H 145/76 H Pulse Oximetry 95 94 L 97 01/29/18 00:00 01/29/18 04:00 01/29/18 07:34 Temperature 97.3 F L 97.9 F Pulse Rate 81 74 93 H Respiratory Rate 16 16 18 Blood Pressure 135/78 146/83 H Pulse Oximetry 97 97 97 01/29/18 08:00 Temperature 97.9 F Pulse Rate 69 Respiratory Rate 23 Blood Pressure 142/69 H Pulse Oximetry 100 Intake & Output 01/28/18 01/29/18 01/29/18 18:59 06:59 18:59 Intake Total 150 / 150 Output Total 925 / 925 1200 / 1200 Balance -925 / -925 -1050 / -1050 Weight 85.1 kg Intake: IV 150 / 150 Levaquin 750 mg Premix Inj 150 150 / 150 ML @ 100 mls/hr IV.SIG Q24H [facility] Rx#:[id number] Output: Urine 925 / 925 1200 / 1200 Chest Tube Drainage 0 / 0 #1 Left Upper Anterior 0 / 0 Narrative: GENERAL: 62 year old male in NAD, alert and oriented x3 CARDIOVASCULAR: Regular rate and rhythm without murmurs, gallops, or rubs. RESPIRATORY: Chest tube in place. Breath sounds decreased with scattered wheezes. No accessory muscle use. Slight bibasilar crackles. GASTROINTESTINAL: Abdomen soft, non-tender, nondistended. MUSCULOSKELETAL: No cyanosis, or edema. BACK: Nontender without obvious deformity. No CVA tenderness. Results - Labs CBC & Chem 7: 01/29/18 04:14 01/29/18 04:14 Laboratory Results - last 24 hr 01/29/18 01/29/18 04:14 04:14 WBC 10.4 RBC 4.06 L Hgb 11.6 L Hct 34.3 L MCV 84.4 MCH 28.7 MCHC 34.0 RDW 15.1 Plt Count 329 MPV 6.7 L Neut % (Auto) 89.7 H Lymph % (Auto) 3.8 L [place] % (Auto) 5.8 Eos % (Auto) 0.5 Baso % (Auto) 0.2 Neut # (Auto) 9.3 H Lymph # (Auto) 0.4 L [place] # (Auto) 0.6 Eos # (Auto) 0.1 Baso # (Auto) 0.0 WBC Differential . Differential Comment Auto diff final Sodium 128 L Potassium 3.9 Chloride 92 L Carbon Dioxide 26.7 Anion Gap 9 BUN 28 H Creatinine 0.98 Estimated GFR 78 L Random Glucose 123 H Calcium 8.0 L - Imaging Impressions Chest X-Ray 01/28/18 11:38 CONCLUSION: Large left-sided pneumothorax is now seen. A chest tube is present and unchanged in position. Chest X-Ray 01/28/18 13:45 CONCLUSION: Pneumothorax resolved Chest X-Ray 01/29/18 09:45 CONCLUSION: 1. Stable left apical chest tube without significant pneumothorax. 2. Slightly improved left chest wall with new right chest wall subcutaneous emphysema. Assessment and Plan - Plan Dyspnea: suspect multifactorial secondary to acute COPD and CHF exacerbations in combination with new lung mass. -Chest CT showed: Severe emphysema with interstitial lung disease. These changes are stable and may explain the patient's shortness of breath. However, there is a new bilobed mass in the left upper lobe measuring up to 3.2 x 1.8 cm. This is completely new since the April 2016 examination and the appearance is suspicious for a primary pulmonary neoplasm. This nodule should be amenable to image guided percutaneous biopsy, if needed. Stable enlarged pretracheal lymph node and interval enlargement of a prevascular lymph node. -See individual treatment below IR consulted for biopsy of lung mass Acute COPD Exacerbation -Moderate-Severe. -hx of Chronic Respiratory Failure, has oxygen at home however has not been using recently. -Patient improved on 01/26 -D/C IV Solumedrol this am -Continue bronchodilators with Duonebs scheduled and prn -Continue Levaquin for empiric pneumonia - sputum decreased on 01/26 -Symbicort bid -Mucinex bid -Incentive spirometer -Pulmonology following. Appreciate pulmonology assistance. Chronic pain -Will add back pain medication. Discussed risks of increasing pain meds in the setting of COPD exacerbation. Patient understands risk. Patient agrees with palliative care consultation. Lung Mass CT Chest w/ new TE mass, 3.2 x 1.8cm, images reviewed. -Findings discussed w/ patient. -Consulted IR for CT guided lung biopsy of new mass, however procedure delayed due to patient being on aspirin 162mg daily -consult pulmonary ff, ( ). -Pulmonary following. Cardiology clearance for lung biopsy. S/p stress test , Stress test with low probability findings discussed with the patient -lung biopsy yesterday, complicated by pneumo. Hypoxia O2 sat 89% on RA, previously on Home O2, however states he hasn't used in a few months -continue w/ O2 as needed to keep O2 sat > 92% -re-evaluate at time of d/c for Home O2 needs -Order O2 challenge s/p lung bx Hyponatremia Mild. Na 129, previously on NaCl tabs, however taken off due to CHF per -monitor I/O, repeat labs in am. -fluid restrictions for CHF and hyponatremia. Stable, 128 on 01/26 CAD s/p stent placement ( 2017)/ CHF: Acute on Chronic. Systolic. Echo 05/06/16 w/ EF 45%, +lower extremity edema, BNP 616, resumed diuretics, monitor I/O. DVT Prophylaxis: SCD's Discharge Planning: Awaiting results of biopsy 01/26. With small PXT after biopsy plan to repeat CXR and also monitor VS closely Poss DC in 1-2 days if improves , chest tubes removed and cleared by consultants
--- NOTE | 2018-01-29 16:13 | P.PN ---
Subjective Interval history: The patient is in bed says he has some cough and noticed streaks of blood with coughing. With shortness of breath however is not worse than yesterday. No chest pain at this time. No nausea vomiting no diarrhea constipation. Physical Exam Vital signs: Vital Signs 01/28/18 20:00 01/28/18 20:30 01/29/18 00:00 Temperature 97.9 F 97.3 F L Pulse Rate 90 90 81 Respiratory Rate 18 25 H 16 Blood Pressure 145/76 H 135/78 Pulse Oximetry 94 L 97 97 01/29/18 04:00 01/29/18 07:34 01/29/18 08:00 Temperature 97.9 F 97.9 F Pulse Rate 74 93 H 69 Respiratory Rate 16 18 23 Blood Pressure 146/83 H 142/69 H Pulse Oximetry 97 97 100 01/29/18 12:00 Temperature 98.1 F Pulse Rate 82 Respiratory Rate 23 Blood Pressure 122/61 Pulse Oximetry 95 Intake & Output 01/28/18 01/29/18 01/29/18 18:59 06:59 18:59 Intake Total 150 / 150 Output Total 925 / 925 1200 / 1200 Balance -925 / -925 -1050 / -1050 Weight 85.1 kg Intake: IV 150 / 150 Levaquin 750 mg Premix Inj 150 150 / 150 ML @ 100 mls/hr IV.SIG Q24H [facility] Rx#:[id number] Output: Urine 925 / 925 1200 / 1200 Chest Tube Drainage 0 / 0 #1 Left Upper Anterior 0 / 0 Other: Date of Last Bowel Movement 01/29/18 Narrative: GENERAL: 62 year old male in NAD, alert and oriented x3 CARDIOVASCULAR: Regular rate and rhythm without murmurs, gallops, or rubs. RESPIRATORY: Chest tube in place. Breath sounds decreased with scattered wheezes. No accessory muscle use. Slight bibasilar crackles. GASTROINTESTINAL: Abdomen soft, non-tender, nondistended. MUSCULOSKELETAL: No cyanosis, or edema. BACK: Nontender without obvious deformity. No CVA tenderness. Results - Labs CBC & Chem 7: 01/29/18 04:14 01/29/18 04:14 Laboratory Results - last 24 hr 01/29/18 01/29/18 04:14 04:14 WBC 10.4 RBC 4.06 L Hgb 11.6 L Hct 34.3 L MCV 84.4 MCH 28.7 MCHC 34.0 RDW 15.1 Plt Count 329 MPV 6.7 L Neut % (Auto) 89.7 H Lymph % (Auto) 3.8 L [place] % (Auto) 5.8 Eos % (Auto) 0.5 Baso % (Auto) 0.2 Neut # (Auto) 9.3 H Lymph # (Auto) 0.4 L [place] # (Auto) 0.6 Eos # (Auto) 0.1 Baso # (Auto) 0.0 WBC Differential . Differential Comment Auto diff final Sodium 128 L Potassium 3.9 Chloride 92 L Carbon Dioxide 26.7 Anion Gap 9 BUN 28 H Creatinine 0.98 Estimated GFR 78 L Random Glucose 123 H Calcium 8.0 L - Imaging Impressions Chest X-Ray 01/29/18 09:45 CONCLUSION: 1. Stable left apical chest tube without significant pneumothorax. 2. Slightly improved left chest wall with new right chest wall subcutaneous emphysema. Assessment and Plan - Assessment (1) COPD (chronic obstructive pulmonary disease) Code(s): J44.9 - Chronic obstructive pulmonary disease, unspecified Status: Acute (2) CHF (congestive heart failure) Code(s): I50.9 - Heart failure, unspecified Status: Acute (3) Hypoxia Code(s): R09.02 - Hypoxemia Status: Acute (4) Hyponatremia Code(s): E87.1 - Hypo-osmolality and hyponatremia Status: Acute (5) Lung mass Code(s): R91.8 - Other nonspecific abnormal finding of lung field Status: Acute - Plan Dyspnea: suspect multifactorial secondary to acute COPD and CHF exacerbations in combination with new lung mass. -Chest CT showed: Severe emphysema with interstitial lung disease. These changes are stable and may explain the patient's shortness of breath. However, there is a new bilobed mass in the left upper lobe measuring up to 3.2 x 1.8 cm. This is completely new since the April 2016 examination and the appearance is suspicious for a primary pulmonary neoplasm. This nodule should be amenable to image guided percutaneous biopsy, if needed. Stable enlarged pretracheal lymph node and interval enlargement of a prevascular lymph node. -See individual treatment below IR consulted for biopsy of lung mass Acute COPD Exacerbation: Moderate-Severe. With hx of Chronic Respiratory Failure , has oxygen at home however has not been using recently. -Taper steroids -Continue bronchodilators with Duonebs scheduled and prn -Continue Levaquin for empiric pneumonia - patient with cough productive of yellow sputum -Symbicort bid -Mucinex bid -Incentive spirometer = Pulmonology following. Lung mass. Appreciate pulmonology assistance. Patient with Left upper lobe mass s/p core biopsy by IR on 01/26/18 CXR reviewed with Small PTX and intraparenchymal hemorrhage on post CT images.Repeat CXR reassuring, monitor VS closely. Chronic pain. Will add back pain medication. Discussed risks of increasing pain meds in the setting of COPD exacerbation. Patient understands risk. Patient agrees with palliative care consultation. Left upper lung lobe mass: CT Chest w/ new TE mass, 3.2 x 1.8cm, images reviewed. Small Pneumothorax after core biopsy of lung mass -Findings discussed w/ patient. -Consulted IR for CT guided lung biopsy of new mass, however procedure delayed due to patient being on aspirin 162mg daily -consult pulmonary ff, ( ). = Pulmonary following. Cardiology clearance for lung biopsy. S/p stress test 01/23 , Stress test with low probability findings discussed with the patient. Patient with Left upper lobe mass s/p core biopsy by IR on 01/26/18 CXR reviewed with Small PTX and intraparenchymal hemorrhage on post CT images. Repeat CXR reviewed reassuring, monitor VS closely. Patient had coiled chest tube reevaluated by IR , chest tube is functioning after manipulation by IR on 01/28 With hemoptysis Remove chest tube per IR/pulm recs Hypoxia: O2 sat 89% on RA, previously on Home O2, however states he hasn't used in a few months -continue w/ O2 as needed to keep O2 sat > 92% -re-evaluate at time of d/c for Home O2 needs Hyponatremia: Mild. Na 129, previously on NaCl tabs, however taken off due to CHF per -monitor I/O, repeat labs in am. = We will place on fluid restrictions for CHF and hyponatremia. CAD- s/p stent placement ( 2017)/ CHF: Acute on Chronic. Systolic. Echo 05/06/16 w/ EF 45%, +lower extremity edema, BNP 616, resumed diuretics, monitor I/O. DVT Prophylaxis: SCD's Discussed Condition With: Patient, nurse, at bedside. Discharge Planning: Pending improvement and pulmonology clearance. Plan for stress test 01/23 lung biopsy by IR 01/26 as need to be off for 5 days of ASA/ Effient PT consult Stress test with low probability findings discussed with the patient/family. Awaiting results of biopsy 01/26. With small PXT afte biopsy , repeat CXR and also monitor VS closely. Coiled CT reassesed by IR and working after manipulation. DC when improves , when Chest tubes removed and PTX stable and cleared by consultants With hemoptysis
[2018-01-29] MEDS: Montelukast 10 MG Tablet PO SCH (20:46)
[2018-01-29] MEDS: Melatonin 5 MG Tablet PO PRN (20:48)
[2018-01-30] MEDS: oxyCODONE/Acetaminophen 10/325 Tablet PO PRN ×5 (03:47→21:45)
[2018-01-30] MEDS: Gabapentin 400 MG Capsule PO SCH ×3 (03:47→20:00)
[2018-01-30] MEDS: Morphine Inj 4 MG/ML Vial IV.PUSH PRN ×4 (06:23→19:56)
[2018-01-30 07:30] LABS: Anion Gap 8 meq/L (5-15); Blood Urea Nitrogen 22 mg/dL (7-18); Calcium 8.3 mg/dL (8.5-10.1); Carbon Dioxide 25.9 meq/L (21.0-32.0); Chloride 95 meq/L (98-107); Glomerular Filtration Rate Greater Than 89 mL/min (>89); Glucose,Random 111 mg/dL (74-106); Potassium 4.2 meq/L (3.5-5.1); Sodium 129 meq/L (136-145)
[2018-01-30] MEDS: Folic Acid 1 MG Tablet PO SCH (08:36)
[2018-01-30] MEDS: buPROPion 150 MG 12 HR Tablet PO SCH (08:37)
[2018-01-30] MEDS: predniSONE 20 MG Tablet PO SCH ×2 (08:37→20:00)
[2018-01-30] MEDS: Pantoprazole Sodium 20 MG DR Tablet PO SCH (08:37)
[2018-01-30] MEDS: Furosemide 20 MG Tablet PO SCH (08:38)
[2018-01-30] MEDS: Senna/Docusate Sodium 8.6/50 MG Tablet PO SCH ×2 (08:39→23:15)
[2018-01-30] MEDS: Budesonide-Formoterol 160/4.5 MCG 6 GM Inhaler INH SCH ×2 (08:39→20:02)
--- NOTE | 2018-01-30 09:31 | P.PN ---
Subjective Interval history: No hemoptysis in the morning Feels some improvement want regular diet without fluid restriction however patient Na si into a lower side, patient says he always has low Na Patient denies sob at this time however he s on O2 supplement and doesn't have at home Otherwise no complaints. Patient still with CT in place Dr Palmer PASTOR will reeval patient and will decide of CT comes out When CT are out plan to do walk test patient will likely need O2 at home Discussed with Dr Oscar roberts , he will f/up with him as OP 1- week to call clinic for appointment, patient will have further work up as OP including PET scan as biopsy path shows fibrosis Note : Do not give any anticoagulation at DC ( DC ASA and effient) as patient with hemoptysis and hemothorax Physical Exam Vital signs: Vital Signs 01/29/18 12:00 01/29/18 16:00 01/29/18 19:17 Temperature 98.1 F 97.8 F Pulse Rate 82 89 88 Respiratory Rate 23 22 18 Blood Pressure 122/61 117/59 L Pulse Oximetry 95 95 01/29/18 20:00 01/30/18 00:00 01/30/18 04:00 Temperature 98.3 F 97.2 F L 97.3 F L Pulse Rate 90 76 71 Respiratory Rate 18 18 18 Blood Pressure 138/78 125/78 138/83 Pulse Oximetry 97 99 97 01/30/18 07:00 01/30/18 07:56 01/30/18 08:00 Temperature 97.3 F L Pulse Rate 84 78 Respiratory Rate 16 Blood Pressure 130/70 Pulse Oximetry 97 99 Intake & Output 01/29/18 01/30/18 01/30/18 18:59 06:59 18:59 Intake Total 1989 Output Total 1450 / 1450 Balance 540 / 540 Weight 85.1 kg Intake: IV 150 / 150 Levaquin 750 mg Premix Inj 150 150 / 150 ML @ 100 mls/hr IV.SIG Q24H SARITA Rx#:[id number] Oral 1840 / 1840 Output: Urine 1450 / 1450 Chest Tube Drainage 0 / 0 #1 Left Upper Anterior 0 / 0 Other: # Voids 3 Date of Last Bowel Movement 01/29/18 01/29/18 # Bowel Movements 1 Narrative: GENERAL: 62 year old male in NAD, alert and oriented x3 CARDIOVASCULAR: Regular rate and rhythm without murmurs, gallops, or rubs. RESPIRATORY: Chest tube in place. Breath sounds decreased with scattered wheezes. No accessory muscle use. Slight bibasilar crackles. GASTROINTESTINAL: Abdomen soft, non-tender, nondistended. MUSCULOSKELETAL: No cyanosis, or edema. BACK: Nontender without obvious deformity. No CVA tenderness. Results - Labs CBC & Chem 7: 01/29/18 04:14 01/30/18 06:12 Laboratory Results - last 24 hr 01/30/18 06:12 Sodium 129 L Potassium 4.2 Chloride 95 L Carbon Dioxide 25.9 Anion Gap 8 BUN 22 H Creatinine 0.86 Estimated GFR Greater than 89 Random Glucose 111 H Calcium 8.3 L - Imaging Impressions Chest X-Ray 01/29/18 09:45 CONCLUSION: 1. Stable left apical chest tube without significant pneumothorax. 2. Slightly improved left chest wall with new right chest wall subcutaneous emphysema. Assessment and Plan - Assessment (1) COPD (chronic obstructive pulmonary disease) Code(s): J44.9 - Chronic obstructive pulmonary disease, unspecified Status: Acute (2) CHF (congestive heart failure) Code(s): I50.9 - Heart failure, unspecified Status: Acute (3) Hypoxia Code(s): R09.02 - Hypoxemia Status: Acute (4) Hyponatremia Code(s): E87.1 - Hypo-osmolality and hyponatremia Status: Acute (5) Lung mass Code(s): R91.8 - Other nonspecific abnormal finding of lung field Status: Acute - Plan Dyspnea: suspect multifactorial secondary to acute COPD and CHF exacerbations in combination with new lung mass. -Chest CT showed: Severe emphysema with interstitial lung disease. These changes are stable and may explain the patient's shortness of breath. However, there is a new bilobed mass in the left upper lobe measuring up to 3.2 x 1.8 cm. This is completely new since the April 2016 examination and the appearance is suspicious for a primary pulmonary neoplasm. This nodule should be amenable to image guided percutaneous biopsy, if needed. Stable enlarged pretracheal lymph node and interval enlargement of a prevascular lymph node. -See individual treatment below IR consulted for biopsy of lung mass Acute COPD Exacerbation: Moderate-Severe. With hx of Chronic Respiratory Failure , has oxygen at home however has not been using recently. -Taper steroids -Continue bronchodilators with Duonebs scheduled and prn -Continue Levaquin for empiric pneumonia - patient with cough productive of yellow sputum -Symbicort bid -Mucinex bid -Incentive spirometer = Pulmonology following. Lung mass. Appreciate pulmonology assistance. Patient with Left upper lobe mass s/p core biopsy by IR on 01/26/18 CXR reviewed with Small PTX and intraparenchymal hemorrhage on post CT images.Repeat CXR reassuring, monitor VS closely. Chronic pain. Will add back pain medication. Discussed risks of increasing pain meds in the setting of COPD exacerbation. Patient understands risk. Patient agrees with palliative care consultation. Left upper lung lobe mass: CT Chest w/ new TE mass, 3.2 x 1.8cm, images reviewed. Small Pneumothorax after core biopsy of lung mass -Findings discussed w/ patient. -Consulted IR for CT guided lung biopsy of new mass, however procedure delayed due to patient being on aspirin 162mg daily -consult pulmonary ff, ( ). = Pulmonary following. Cardiology clearance for lung biopsy. S/p stress test 01/23 , Stress test with low probability findings discussed with the patient. Patient with Left upper lobe mass s/p core biopsy by IR on 01/26/18 CXR reviewed with Small PTX and intraparenchymal hemorrhage on post CT images. Repeat CXR reviewed reassuring, monitor VS closely. Patient had coiled chest tube reevaluated by IR , chest tube is functioning after manipulation by IR on 01/28 With hemoptysis Remove chest tube per IR/pulm recs Hypoxia: O2 sat 89% on RA, previously on Home O2, however states he hasn't used in a few months -continue w/ O2 as needed to keep O2 sat > 92% -re-evaluate at time of d/c for Home O2 needs Hyponatremia: Mild. Na 129, previously on NaCl tabs, however taken off due to CHF per -monitor I/O, repeat labs in am. = We will place on fluid restrictions for CHF and hyponatremia. CAD- s/p stent placement ( 2017)/ CHF: Acute on Chronic. Systolic. Echo 05/06/16 w/ EF 45%, +lower extremity edema, BNP 616, resumed diuretics, monitor I/O. DVT Prophylaxis: SCD's Discussed Condition With: Patient, nurse, at bedside. Discharge Planning: Pending improvement and pulmonology clearance. Plan for stress test 01/23 lung biopsy by IR 01/26 as need to be off for 5 days of ASA/ Effient PT consult Stress test with low probability findings discussed with the patient/family. Awaiting results of biopsy 01/26. With small PXT afte biopsy , repeat CXR and also monitor VS closely. Coiled CT reassesed by IR and working after manipulation. DC when improves , when Chest tubes removed and PTX stable and cleared by consultants Patient also noted with hemoptysis Patient still with CT in place Dr Palmer PASTOR will reeval patient and will decide of CT comes out When CT are out plan to do walk test patient will likely need O2 at home Discussed with Dr Oscar roberts , he will f/up with him as OP 1- week to call clinic for appointment, patient will have further work up as OP including PET scan as biopsy path shows fibrosis Note : Do not give any anticoagulation at DC ( DC ASA and effient) as patient with hemoptysis and hemothorax
--- NOTE | 2018-01-30 10:51 | P.PN ---
Subjective Interval history: No new episodes of hemoptysis since yesterday. He is feeling well. Xray and possible chest D/C today. Patient denies fever, chills, chest pain, SOB, nausea , vomiting. Physical Exam Vital signs: Vital Signs 01/29/18 12:00 01/29/18 16:00 01/29/18 19:17 Temperature 98.1 F 97.8 F Pulse Rate 82 89 88 Respiratory Rate 23 22 18 Blood Pressure 122/61 117/59 L Pulse Oximetry 95 95 01/29/18 20:00 01/30/18 00:00 01/30/18 04:00 Temperature 98.3 F 97.2 F L 97.3 F L Pulse Rate 90 76 71 Respiratory Rate 18 18 18 Blood Pressure 138/78 125/78 138/83 Pulse Oximetry 97 99 97 01/30/18 07:00 01/30/18 07:56 01/30/18 08:00 Temperature 97.3 F L Pulse Rate 84 78 Respiratory Rate 16 Blood Pressure 130/70 Pulse Oximetry 97 99 Intake & Output 01/29/18 01/30/18 01/30/18 18:59 06:59 18:59 Intake Total 1989 Output Total 1450 / 1450 Balance 540 / 540 Weight 85.1 kg Intake: IV 150 / 150 Levaquin 750 mg Premix Inj 150 150 / 150 ML @ 100 mls/hr IV.SIG Q24H SARITA Rx#:[id number] Oral 1840 / 1840 Output: Urine 1450 / 1450 Chest Tube Drainage 0 / 0 #1 Left Upper Anterior 0 / 0 Other: # Voids 3 Date of Last Bowel Movement 01/29/18 01/29/18 # Bowel Movements 1 Narrative: GENERAL: 62 year old male in NAD, alert and oriented x3 CARDIOVASCULAR: Regular rate and rhythm without murmurs, gallops, or rubs. RESPIRATORY: Chest tube in place. Breath sounds decreased with scattered wheezes. No accessory muscle use. Slight bibasilar crackles. GASTROINTESTINAL: Abdomen soft, non-tender, nondistended. MUSCULOSKELETAL: No cyanosis, or edema. BACK: Nontender without obvious deformity. No CVA tenderness. Results - Labs CBC & Chem 7: 01/29/18 04:14 01/30/18 06:12 Laboratory Results - last 24 hr 01/30/18 06:12 Sodium 129 L Potassium 4.2 Chloride 95 L Carbon Dioxide 25.9 Anion Gap 8 BUN 22 H Creatinine 0.86 Estimated GFR Greater than 89 Random Glucose 111 H Calcium 8.3 L Assessment and Plan - Plan Dyspnea: suspect multifactorial secondary to acute COPD and CHF exacerbations in combination with new lung mass. -Chest CT showed: Severe emphysema with interstitial lung disease. These changes are stable and may explain the patient's shortness of breath. However, there is a new bilobed mass in the left upper lobe measuring up to 3.2 x 1.8 cm. This is completely new since the April 2016 examination and the appearance is suspicious for a primary pulmonary neoplasm. This nodule should be amenable to image guided percutaneous biopsy, if needed. Stable enlarged pretracheal lymph node and interval enlargement of a prevascular lymph node. -See individual treatment below IR consulted for biopsy of lung mass Acute COPD Exacerbation -Moderate-Severe. -hx of Chronic Respiratory Failure, has oxygen at home however has not been using recently. -Patient improved on 01/26 -D/C IV Solumedrol this am -Continue bronchodilators with Duonebs scheduled and prn -Continue Levaquin for empiric pneumonia - sputum decreased on 01/26 -Symbicort bid -Mucinex bid -Incentive spirometer -Pulmonology following. Appreciate pulmonology assistance. - CXR and possible chest tube removal today 01/30 Chronic pain -Will add back pain medication. Discussed risks of increasing pain meds in the setting of COPD exacerbation. Patient understands risk. Patient agrees with palliative care consultation. Lung Mass CT Chest w/ new TE mass, 3.2 x 1.8cm, images reviewed. -Findings discussed w/ patient. -Consulted IR for CT guided lung biopsy of new mass, however procedure delayed due to patient being on aspirin 162mg daily -consult pulmonary ff, ( ). -Pulmonary following. Cardiology clearance for lung biopsy. S/p stress test , Stress test with low probability findings discussed with the patient -lung biopsy yesterday, complicated by pneumo. Hypoxia O2 sat 89% on RA, previously on Home O2, however states he hasn't used in a few months -continue w/ O2 as needed to keep O2 sat > 92% -re-evaluate at time of d/c for Home O2 needs -Order O2 challenge s/p lung bx Hyponatremia Mild. Na 129, previously on NaCl tabs, however taken off due to CHF per -monitor I/O, repeat labs in am. -fluid restrictions for CHF and hyponatremia. Stable, 128 on 01/26 CAD s/p stent placement ( 2017)/ CHF: Acute on Chronic. Systolic. Echo 05/06/16 w/ EF 45%, +lower extremity edema, BNP 616, resumed diuretics, monitor I/O. DVT Prophylaxis: SCD's Discharge Planning: Awaiting results of biopsy 01/26. With small PXT after biopsy plan to repeat CXR and also monitor VS closely Poss DC in 1-2 days if improves , chest tubes removed and cleared by consultants
--- NOTE | 2018-01-30 12:59 | P.PNPAL ---
Reason for Visit Reason for visit: a. To assist with evaluation and management of symptoms including:pain b. To assist medical decision maker(s) with: better understanding of current medical conditions; weighing benefits/burdens of medical treatment options; making medical treatment decisions. Subjective Subjective/Interval History: Pt seen today to follow up on comfort. S/p CT guided TE biopsy- post imaging + pneumothorax, chest tube placed by IR. Otherwise procedure well tolerated. F/up CXR pending for poss d/c chest tube, and then d/c home. 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 Pt reports planned for out pt PET scan to assess for any other areas of concern. Seen today in room, [employer] completing VS. Alert, oriented and appropriate. Indicates feeling well overall. Appetite good. Denies GI complaints, reports last BM Friday- but this is normal patter for him". Enc him to use PRNs. Endorses his pain is "OK", generally better controlled on Percocet regimen, however pain is still always present. Review limitations in out patient access for chronic pain medications. He indicates that current dosing is adequate. He is looking forward to discharge back home. He indicates he is relieved pathology findings negative for cancer. Gently explore that even if neg for CA, still has significant lung disease, which will be expected to cont to progress and may limit activity tolerance. Explore he may require [facility] O2, and regular follow up for pulmonary conditions. All questions answered, hopeful he can be d/c home today or tomorrow. Goals remain aggressive. . Objective Vital Signs: Vital Signs 01/29/18 16:00 01/29/18 19:17 01/29/18 20:00 Temperature 97.8 F 98.3 F Pulse Rate 89 88 90 Respiratory Rate 22 18 18 Blood Pressure 117/59 L 138/78 Pulse Oximetry 95 97 01/30/18 00:00 01/30/18 04:00 01/30/18 07:00 Temperature 97.2 F L 97.3 F L Pulse Rate 76 71 84 Respiratory Rate 18 18 16 Blood Pressure 125/78 138/83 Pulse Oximetry 99 97 01/30/18 07:56 01/30/18 08:00 01/30/18 12:00 Temperature 97.3 F L 98.7 F Pulse Rate 78 97 H Respiratory Rate 23 Blood Pressure 130/70 126/59 L Pulse Oximetry 97 99 98 Intake & Output 01/29/18 01/30/18 01/30/18 18:59 06:59 18:59 Intake Total 1989 Output Total 1450 / 1450 Balance 540 / 540 Weight 85.1 kg Intake: IV 150 / 150 Levaquin 750 mg Premix Inj 150 150 / 150 ML @ 100 mls/hr IV.SIG Q24H SARITA Rx#:[id number] Oral 1840 / 1840 Output: Urine 1450 / 1450 Chest Tube Drainage 0 / 0 #1 Left Upper Anterior 0 / 0 Other: # Voids 3 Date of Last Bowel Movement 01/29/18 01/29/18 # Bowel Movements 1 Physical Exam: CONSTITUTIONAL/GENERAL: This is an adequately nourished patient, in no apparent distress. TUBES/LINES/DRAINS: Peripheral IV upper extremity. Nasal cannula O2. SKIN: No jaundice, rashes. Several healing abrasions scattered to upper extremities. prev noted lesions to lower legs now well healed. chronic vascular changes visible to bilateral lower extremities including multiple bulging varicose veins. Skin warm and dry. CARDIOVASCULAR: Regular rate and rhythm, including multiple bulging varicose veins. RESPIRATORY/CHEST: Symmetric, unlabored respirations. Clear to auscultation. Breath sounds equal bilaterally. Somewhat diminished air movement throughout. on 3 L NC. GASTROINTESTINAL: Abdomen soft, non-tender, nondistended. No hepato-splenomegaly , or palpable masses. No guarding. Bowel sounds present. MUSCULOSKELETAL: Extremities without clubbing, cyanosis, or edema. No joint tenderness or effusion noted. No calf tenderness. NEUROLOGICAL: alert, oriented and appropriate . + good insight. Motor and sensory grossly within normal limits. Follows commands. Cognitively sharp. Moves all 4 extremities. PSYCHIATRIC: No obvious anxiety/depression. Diagnostic Tests Laboratory: Laboratory Results - last 72 hr 01/29/18 01/29/18 01/30/18 04:14 04:14 06:12 WBC 10.4 RBC 4.06 L Hgb 11.6 L Hct 34.3 L MCV 84.4 MCH 28.7 MCHC 34.0 RDW 15.1 Plt Count 329 MPV 6.7 L Neut % (Auto) 89.7 H Lymph % (Auto) 3.8 L Foard % (Auto) 5.8 Eos % (Auto) 0.5 Baso % (Auto) 0.2 Neut # (Auto) 9.3 H Lymph # (Auto) 0.4 L Foard # (Auto) 0.6 Eos # (Auto) 0.1 Baso # (Auto) 0.0 WBC Differential . Differential Comment Auto diff final Sodium 128 L 129 L Potassium 3.9 4.2 Chloride 92 L 95 L Carbon Dioxide 26.7 25.9 Anion Gap 9 8 BUN 28 H 22 H Creatinine 0.98 0.86 Estimated GFR 78 L Greater than 89 Random Glucose 123 H 111 H Calcium 8.0 L 8.3 L Result Diagrams: 01/29/18 04:14 01/30/18 06:12 Imaging: Impressions Chest X-Ray 01/28/18 13:45 CONCLUSION: Pneumothorax resolved Chest X-Ray 01/29/18 09:45 CONCLUSION: 1. Stable left apical chest tube without significant pneumothorax. 2. Slightly improved left chest wall with new right chest wall subcutaneous emphysema. 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 . Has adult children he remains in contact with. Spiritual: Legal: Patient currently alert, oriented capacitated and able to make his own decisions. Per [place] statutes his would be appropriate proxy should he become incapacitated. Ethical issues impacting care: No ethical issues Important Contacts: Kyleigh Kailee [phone] Prognosis: This patient presented with acute shortness of breath. He has underlying COPD. He also has underlying cardiovascular disease. He had new findings of lung mass left upper lobe. Concerning for malignancy. Pulmonology following additional diagnostics pending. CV workup also ongoing. Prognosis guarded seems likely he should be able to get through current acute issues as dyspnea is already improving in response to treatment; however long-term prognosis not known at this time. Code Status: Full Code Plan: * Legal decision maker: Patient currently alert oriented and able to make his own decisions per [place] statutes his would be appropriate legal proxy should he become incapacitated. Palliative can offer assistance with completion of advance directive/HCS during this admission should he desire. * Goals: goals remain aggressive he is hopeful to d/c home soon once chest tube d/c. * CODE STATUS: Full code * SYMPTOMS: --pain- reports chronic back pain. On tizanidine, gabapentin, hydrocodone/ acetaminophen at home. Has been on hydrocodone for many years since the . Has been on gabapentin for many years no adjustments recently. In the past has seen orthopedic surgery for his back and has been told that he is not a surgical candidate. He has multiple levels of herniated disks and other arthritis and I suspect stenosis issues that they indicated to him were not amenable to surgical intervention, and would carry a high risk of paralysis. He also describes neuropathic type pain numbness and tingling to his arms and legs. -- Pain "much better" with changes last week, however now with new Chest tube pain, which is mechanical , temporary. no further changes at this time recommended. Could consider cont uptitration in gabapentin . --Constipation-chronic, reports generally has a bowel movement once about every 7 days.. This is been chronic. He indicates he follows outpatient with GI for this. +moving bowels this admission// In the past has been on Reglan. Likely this is compounded by chronic opiate use. He indicates he has been told he has decreased GI motility. He has been using natural juices etc. in the outpatient setting . requests resumption of p.o. Reglan//consider Reglan 10 mg p.o. daily. would also recommend he take PO senna SCHEDULED vs PRN. He also reports diet of very little vegetable/fiber, likely this contributes to motility /constipation --Dyspnea-acute on chronic. Underlying COPD, emphysema. New findings of lung mass concerning for malignancy. Pulmonology following. On steroids, nebulizers, antibiotics. Patient subjectively reports breathing significantly improved during hospital course thus far. Previously on home O2 though has not used this for many months. Could require long term care phlebotomist home O2- likely will require O2 walk test to determine if needs O2 at d/c. * Palliative care will continue to follow during hospital course as condition evolves, to assist patient/decision-maker with understanding of medical conditions, weighing benefits/burdens of treatment options, for clarification of goals of treatment. Additionally will assist with any symptoms of palliative concern Attestation Attestation: To help prompt me to consider important information that might be impacting today's encounter and assessment, information from prior notes written by myself or my colleagues may have been "brought forward" into today's note. My signature on this note, however, is an attestation that I personally performed the exam, history, and/or decision-making noted today, and, unless otherwise indicated, the interactions with patient, family, and staff as well as the review of records all occurred today. I also attest that the listed assessment and stated plan reflect my best clinical judgment today based on the combination of historical information, prior notes, and today's exam/ interactions. When time spent is documented, it refers only to time spent today by the signer, or if indicated, combined time spent today by collaborating physician/nurse practitioner.
--- NOTE | 2018-01-30 17:16 | XR ---
EXAM DATE: 01/30/2018 4:30 PM EDT AGE/SEX: 62 years / Male INDICATIONS: Chest tube on water seal. Evaluate for pneumothorax. CLINICAL DATA: This is the patient's subsequent encounter. Patient reports that signs and symptoms h ave been present for 1 day and indicates a pain score of Nonresponsive. MEDICAL/SURGICAL HISTORY: . Congestive heart failure. Chronic obstructive pulmonary disease. Hy percholesterolemia. HTN Coronary artery stent. COMPARISON: [facility], CHEST 1V SINGLE AP, 01/29/2018. . FINDINGS: A single frontal expiratory view of the chest was performed. The lungs are symmetrically aerated and clear. Chronic interstitial changes bilaterally. No evidence of pneumothorax. Subcutaneous air. Me diastinal structures are in the midline. CONCLUSION: No pneumothorax. Electronically signed by: Jorden Chakraborty MD 01/30/2018 5:14 PM EDT
--- NOTE | 2018-01-30 17:34 | XR ---
EXAM DATE: 01/30/2018 5:00 PM EDT AGE/SEX: 62 years / Male INDICATIONS: Status post chest tube removal. CLINICAL DATA: This is the patient's initial encounter. Patient reports that signs and symptoms have been present for 1 day and indicates a pain score of 0/10. MEDICAL/SURGICAL HISTORY: Congestive heart failure. Chronic obstructive pulmonary disease. Hy pertension. Coronary artery stent. COMPARISON: [facility] [place] [facility] [place], [place]/30/2018. . FINDINGS: The left-sided chest tube has been removed. There is continued air in the subcutaneous fat. I do not see any residual pneumothorax of the left lung. Widespread diffuse interstitial lung disease. Heart a nd mediastinum unremarkable CONCLUSION: Left chest tube has been removed without resultant or significant residual pneumothorax. Electronically signed by: Damaso Pickard MD 01/30/2018 5:33 PM EDT
[2018-01-30] MEDS: Montelukast 10 MG Tablet PO SCH (20:00)
[2018-01-31] MEDS: Morphine Inj 4 MG/ML Vial IV.PUSH PRN ×6 (01:10→23:26)
[2018-01-31] MEDS: oxyCODONE/Acetaminophen 10/325 Tablet PO PRN ×5 (02:48→20:50)
[2018-01-31] MEDS: Gabapentin 400 MG Capsule PO SCH ×3 (05:13→20:00)
[2018-01-31 08:42] LABS: Baso % (Auto) 0.1 % (0.0-2.0); Eos # (Auto) 0.1 th/mm3 (0.0-0.4); Eos % (Auto) 0.9 % (0.0-4.0); Hematocrit 33.5 % (39.0-51.0); Hemoglobin 10.8 gm/dL (13.0-17.0); Lymph # (Auto) 0.5 th/mm3 (1.0-4.8); Lymph % (Auto) 5.3 % (9.0-44.0); Mean Corpuscular HGB Conc 32.3 % (32.0-36.0); Mean Corpuscular Hemoglobin 27.8 pg (27.0-34.0); Mean Corpuscular Volume 86.1 fL (80.0-100.0); Mean Platelet Volume 6.8 fL (7.0-11.0); Mono # (Auto) 0.8 th/mm3 (0.0-0.9); Mono % (Auto) 8.2 % (0.0-8.0); Neut % (Auto) 85.5 % (16.0-70.0); Platelet Count 298 th/mm3 (150-450); Red Blood Count 3.89 mil/mm3 (4.50-5.90); Red Cell Distribution Width 14.9 % (11.6-17.2); White Blood Count 9.3 th/mm3 (4.0-11.0)
[2018-01-31 08:55] LABS: Anion Gap 8 meq/L (5-15); Blood Urea Nitrogen 18 mg/dL (7-18); Carbon Dioxide 28.1 meq/L (21.0-32.0); Chloride 95 meq/L (98-107); Glomerular Filtration Rate Greater Than 89 mL/min (>89); Glucose,Random 97 mg/dL (74-106); Sodium 131 meq/L (136-145)
[2018-01-31] MEDS: Furosemide 20 MG Tablet PO SCH (09:09)
[2018-01-31] MEDS: Folic Acid 1 MG Tablet PO SCH (09:09)
[2018-01-31] MEDS: buPROPion 150 MG 12 HR Tablet PO SCH (09:10)
[2018-01-31] MEDS: predniSONE 20 MG Tablet PO SCH ×2 (09:10→20:01)
[2018-01-31] MEDS: Pantoprazole Sodium 20 MG DR Tablet PO SCH (09:10)
[2018-01-31] MEDS: Budesonide-Formoterol 160/4.5 MCG 6 GM Inhaler INH SCH ×2 (09:11→20:01)
[2018-01-31] MEDS: Senna/Docusate Sodium 8.6/50 MG Tablet PO SCH ×2 (09:11→20:00)
--- NOTE | 2018-01-31 12:37 | XR ---
EXAM DATE: 01/31/2018 12:00 AM EDT AGE/SEX: 62 years / Male INDICATIONS: . Shortness of breath. CLINICAL DATA: This is the patient's subsequent encounter. Patient reports that signs and symptoms h ave been present for 2 days and indicates a pain score of 0/10. MEDICAL/SURGICAL HISTORY: . Congestive heart failure. Chronic obstructive pulmonary disease. Hy pertension. . Coronary artery stent. COMPARISON: . FINDINGS: Resistant subcutaneous emphysema is noted bilaterally. No definite recurrent pneumothorax is noted. D iffuse increased interstitial markings are unchanged. The heart is stable. CONCLUSION: 1. Persistent subcutaneous emphysema bilaterally. 2. No definite recurrent pneumothorax identified. 3. Stable diffuse increased interstitial markings bilaterally. Electronically signed by: Balbir Pollock MD 01/31/2018 12:36 PM EDT
--- NOTE | 2018-01-31 12:45 | MD ---
cc: Emerson Moore MD DATE OF DISCHARGE: HISTORY OF PRESENT ILLNESS: Mr. Dugan is a 61-year-old white male who presented with shortness of breath and was admitted for further evaluation with a left upper lobe mass, history of coronary artery disease with stents and COPD. HOSPITAL COURSE: Hospital course was uncomplicated from a breathing standpoint. He was seen by cardiology who felt that his cardiovascular status was stable. In fact, he had a nuclear stress test, which was negative for active ischemia. He will followup as an outpatient. Chronic obstructive pulmonary disease was stable on aerosolized bronchodilators, oxygen and IV corticosteroids, but he was noted on CT scan to have a new left upper lobe mass. This was biopsied as it is very suspicious for malignancy, but the pathology report revealed no malignant cells, simply fibrosis and inflammation. He had a pneumothorax after the biopsy. Radiology placed a chest tube and I spoke to them today. They are pending removal of that if his x-ray is fine. I have spoken to he and his and explained to them that, although the biopsy was negative, I am still concerned about the possibility of malignancy given the fact that this is a new lesion and is quite irregular. Once the tube has been removed and he is stable, he will be discharged home. I have asked him to call me next week, as I will be away for the weekend, so that I can arrange for an outpatient PET CT and pulmonary functions. Further diagnostic and/or therapeutic intervention will depend on the results of these additional studies once he is discharged. MD BRENDA Sinha/jasper , 03:31 PM , 03:36 PM
--- NOTE | 2018-01-31 14:41 | P.DCO ---
- Diagnosis (1) COPD (chronic obstructive pulmonary disease) Status: Acute (2) Lung mass Status: Acute - Home Health Nursing Order: Medical education, Signs/symptoms of disease process, Oxygen administration education, Nursing assessment with vital signs - Case Management Consult Yes - Certification I have seen patient Julio Dugan on 01/31/18. My clinical findings support the need for the requested home health care services because: Patient has SOB, Deconditioned with increased weakness I certify that my clinical findings support that this patient is homebound because: Hx COPD - exertion dyspnea/weakness
--- NOTE | 2018-01-31 14:56 | P.DS ---
Date of admission: 01/20/18 13:21 Primary care physician: Bhavin Schuster MD Attending physician on discharge: Marnie Gay Anticipated date of discharge: 02/01/18 Brief History from admission: This is a 62-year-old male with a PMH of HTN, COPD, Hyperlipidemia and CHF ( Echo 05/06/2016 with EF 45%) who was brought to the ER secondary to SOB. Pt reports recent cold w/ nasal congestion/sore throat and progressive SOB x2 days , minimal relief w/ home Neb. Also notes lower extremity edema bilaterally. Denies chest pain, fever, chills or sick contacts. +productive cough w/ yellow- colored sputum. On arrival, BP 139/75, HR 93, O2 sat 92% on RA, Afebrile. BC unremarkable. Na 129. BNP 616. CXR with stable chronic diffuse interstitial lung disease, no change since July 2017. CT Chest pending. S/p DuoNeb, Solu- Medrol by EMS and Levaquin in ER w/ some improvement, however significant SOB w / ambulation, O2 sat 89% on RA while in ER. Patient update on day of discharge: Patient not DC'd until 02/04 DS: Diagnosis - Discharge Diagnosis (1) COPD (chronic obstructive pulmonary disease) Status: Acute (2) Lung mass Status: Acute DS: Medications - Discharge Medications Prescriptions: ipratropium-albuterol 1 amp NEB BID NEB 30 Days ml prednisone See Label Instructions .ROUTE .COMPLEX #8 tab DS: Summary Hospital Course: Dyspnea: suspect multifactorial secondary to acute COPD and CHF exacerbations in combination with new lung mass. -Chest CT showed: Severe emphysema with interstitial lung disease. These changes are stable and may explain the patient's shortness of breath. However, there is a new bilobed mass in the left upper lobe measuring up to 3.2 x 1.8 cm. This is completely new since the April 2016 examination and the appearance is suspicious for a primary pulmonary neoplasm. This nodule should be amenable to image guided percutaneous biopsy, if needed. Stable enlarged pretracheal lymph node and interval enlargement of a prevascular lymph node. -See individual treatment below IR consulted for biopsy of lung mass Acute COPD Exacerbation: Moderate-Severe. With hx of Chronic Respiratory Failure , has oxygen at home however has not been using recently. -Taper steroids -Continue bronchodilators with Duonebs scheduled and prn -Continue Levaquin for empiric pneumonia - patient with cough productive of yellow sputum -Symbicort bid -Mucinex bid -Incentive spirometer = Pulmonology following. Lung mass. Appreciate pulmonology assistance. Patient with Left upper lobe mass s/p core biopsy by IR on 01/26/18 CXR reviewed with Small PTX and intraparenchymal hemorrhage on post CT images.Repeat CXR reassuring, monitor VS closely. Chronic pain. Will add back pain medication. Discussed risks of increasing pain meds in the setting of COPD exacerbation. Patient understands risk. Patient agrees with palliative care consultation. Left upper lung lobe mass: CT Chest w/ new TE mass, 3.2 x 1.8cm, images reviewed. Small Pneumothorax after core biopsy of lung mass -Findings discussed w/ patient. -Consulted IR for CT guided lung biopsy of new mass, however procedure delayed due to patient being on aspirin 162mg daily -consult pulmonary ff, ( ). = Pulmonary following. Cardiology clearance for lung biopsy. S/p stress test 01/23 , Stress test with low probability findings discussed with the patient. Patient with Left upper lobe mass s/p core biopsy by IR on 01/26/18 - Pathology revealed: LUNG, LEFT, NEEDLE BIOPSY: - 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 CXR reviewed with Small PTX and intraparenchymal hemorrhage on post CT images. Repeat CXR reviewed reassuring, monitor VS closely. Patient had coiled chest tube reevaluated by IR , chest tube is functioning after manipulation by IR on 01/28 With hemoptysis chest tube removed 01/30 Chest X-Ray 01/31/18 00:00 1. Persistent subcutaneous emphysema bilaterally. 2. No definite recurrent pneumothorax identified. 3. Stable diffuse increased interstitial markings bilaterally. Patient evaluated by myself and Dr. Gay - Dr. Gay cleared for DC in AM (02/01) Hypoxia: - patient completed walk test and will requir home oxygen concentrator and tanks Hyponatremia: Mild. Na 129, previously on NaCl tabs, however taken off due to CHF per -monitor I/O, repeat labs 01/31 Na 131 = will continue fluid restrictions for CHF and hyponatremia. CAD- s/p stent placement ( 2016)/ CHF: Acute on Chronic. Systolic. Echo 05/06/16 w/ EF 45%, +lower extremity edema, BNP 616, resumed diuretics, monitor I/O. DVT Prophylaxis: SCD's Discussed Condition With: Patient, nurse, family member at bedside and supervising physician Dr. Gay Discharge Planning: Per Dr Oscar roberts , he will f/up with him as OP 1- week to call clinic for appointment, patient will have further work up as OP including PET scan as biopsy path shows fibrosis Note : Do not give any anticoagulation at DC ( DC ASA and effient) as patient with hemoptysis and hemothorax - Time Spent with Patient Total time spent providing and/or coordinating discharge services: Greater than 30 minutes - Quality: VTE Deep Vein Thrombosis/Pulmonary Embolism Present on Admission: No Exam Vital signs: Vital Signs 01/30/18 15:53 01/30/18 16:00 01/30/18 19:50 Temperature 97.7 F Pulse Rate 94 H 84 Respiratory Rate 22 16 Blood Pressure 123/59 L Pulse Oximetry 98 98 95 Pulse Oximetry [Exertion on Room Air] Pulse Oximetry [Exertion with Oxygen] Pulse Oximetry [Resting on Room Air] Pulse Oximetry [Resting with Oxygen] 01/30/18 20:00 01/30/18 22:30 01/31/18 00:00 Temperature 97.6 F 97.8 F Pulse Rate 82 75 Respiratory Rate 18 19 18 Blood Pressure 144/69 H 142/70 H Pulse Oximetry 95 95 Pulse Oximetry [Exertion on Room Air] Pulse Oximetry [Exertion with Oxygen] Pulse Oximetry [Resting on Room Air] Pulse Oximetry [Resting with Oxygen] 01/31/18 04:00 01/31/18 08:00 01/31/18 08:40 Temperature 97.7 F 97.7 F Pulse Rate 75 76 75 Respiratory Rate 18 17 18 Blood Pressure 157/73 H 144/85 H Pulse Oximetry 97 98 97 Pulse Oximetry [Exertion on Room Air] Pulse Oximetry [Exertion with Oxygen] Pulse Oximetry [Resting on Room Air] Pulse Oximetry [Resting with Oxygen] 01/31/18 12:40 01/31/18 12:43 Temperature Pulse Rate 75 Respiratory Rate 22 Blood Pressure Pulse Oximetry Pulse Oximetry [Exertion on Room Air] 87 L Pulse Oximetry [Exertion with Oxygen] 92 L Pulse Oximetry [Resting on Room Air] 96 Pulse Oximetry [Resting with Oxygen] 98 Intake & Output 10/01/31/18 01/31/18 18:59 06:59 18:59 Intake Total 240 / 240 390 / 390 Balance 240 / 240 390 / 390 Weight 85.1 kg Intake: IV 150 / 150 Levaquin 750 mg Premix Inj 150 150 / 150 ML @ 100 mls/hr IV.SIG Q24H SARITA Rx#:[id number] Oral 240 / 240 240 / 240 Other: # Voids 3 3 Date of Last Bowel Movement 01/29/18 Narrative: GENERAL: 62 year old male in NAD, alert and oriented x3 CARDIOVASCULAR: Regular rate and rhythm RESPIRATORY: Breath sounds decreased with Slight bibasilar crackles. No accessory muscle use. GASTROINTESTINAL: Abdomen soft, non-tender, nondistended. MUSCULOSKELETAL: No cyanosis, or edema. BACK: Nontender without obvious deformity. No CVA tenderness. Results Procedures completed during hospitalization: s/p core biopsy by IR on 01/26/18 - Pathology revealed: LUNG, LEFT, NEEDLE BIOPSY: - 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 CT placed for pneumothorax s/p lung bx, cT removed 01/30 Labs on day of discharge: Labs from last 24 hours 01/31/18 01/31/18 07:38 07:38 WBC 9.3 RBC 3.89 L Hgb 10.8 L Hct 33.5 L MCV 86.1 MCH 27.8 MCHC 32.3 RDW 14.9 Plt Count 298 MPV 6.8 L Neut % (Auto) 85.5 H Lymph % (Auto) 5.3 L [place] % (Auto) 8.2 H Eos % (Auto) 0.9 Baso % (Auto) 0.1 Neut # (Auto) 8.0 H Lymph # (Auto) 0.5 L [place] # (Auto) 0.8 Eos # (Auto) 0.1 Baso # (Auto) 0.0 WBC Differential . Differential Comment Auto diff final Sodium 131 L Potassium 4.0 Chloride 95 L Carbon Dioxide 28.1 Anion Gap 8 BUN 18 Creatinine 0.83 Estimated GFR Greater than 89 Random Glucose 97 Calcium 8.0 L - Impressions ITS Impressions Chest CT 01/19/18 00:46 CONCLUSION: 1. Severe emphysema with interstitial lung disease. These changes are stable and may explain the patient's shortness of breath. 2. However, there is a new bilobed mass in the left upper lobe measuring up to 3.2 x 1.8 cm. This is completely new since the April 2016 examination and the appearance is suspicious for a primary pulmonary neoplasm. This nodule should be amenable to image guided percutaneous biopsy, if needed. 3. Stable enlarged pretracheal lymph node and interval enlargement of a prevascular lymph node. 4. Stable left adrenal gland mass measuring 2.1 cm with features characteristic of an adenoma. Myocardial Perfusion Scan Nuc Med 01/23/18 00:00 CONCLUSION: 1. Fixed defect involving the inferior wall consistent with prior infarction. 2. No reversible defect observed to suggest acute ischemia. Chest Tube Insertion 01/26/18 00:00 CONCLUSION: 1. Uncomplicated chest tube placement as above. Resolution of the left-sided pneumothorax. Lung Biopsy CT 01/26/18 00:00 CONCLUSION: 1. Uncomplicated CT guided left upper lobe pulmonary mass biopsy.. Chest X-Ray 01/31/18 00:00 CONCLUSION: 1. Persistent subcutaneous emphysema bilaterally. 2. No definite recurrent pneumothorax identified. 3. Stable diffuse increased interstitial markings bilaterally. Discharge Plan - Discharge Disposition Patient Disposition: W/Home Health Service - Discharge Condition Condition: Stable - Discharge Order Discharge Orders: Discharge Order (Routine); Ordered 02/01/18 Ordered By: Magalys Bonilla - Discharge Details Anticipated Discharge Date: 02/01/18 Discharge Comment: August discharge when O2 arrangements completed. - Physicians Team Primary Care Provider: Bhavin Schuster Attending Provider: Bijan Duong Other Providers: Maldonado Moore MD ; Franky Samaniego MD ; Alessio Brito MD ; Vito Monterroso MD
--- NOTE | 2018-01-31 14:59 | P.PN ---
Subjective Interval history: Patient sitting up in chair in NAD seen with family member Patient reports anxiety regarding DC home after his hospitalization Patient seen by myself and Dr. Gay Physical Exam Vital signs: Vital Signs 01/30/18 15:53 01/30/18 16:00 01/30/18 19:50 Temperature 97.7 F Pulse Rate 94 H 84 Respiratory Rate 22 16 Blood Pressure 123/59 L Pulse Oximetry 98 98 95 Pulse Oximetry [Exertion on Room Air] Pulse Oximetry [Exertion with Oxygen] Pulse Oximetry [Resting on Room Air] Pulse Oximetry [Resting with Oxygen] 01/30/18 20:00 01/30/18 22:30 01/31/18 00:00 Temperature 97.6 F 97.8 F Pulse Rate 82 75 Respiratory Rate 18 19 18 Blood Pressure 144/69 H 142/70 H Pulse Oximetry 95 95 Pulse Oximetry [Exertion on Room Air] Pulse Oximetry [Exertion with Oxygen] Pulse Oximetry [Resting on Room Air] Pulse Oximetry [Resting with Oxygen] 01/31/18 04:00 01/31/18 08:00 01/31/18 08:40 Temperature 97.7 F 97.7 F Pulse Rate 75 76 75 Respiratory Rate 18 17 18 Blood Pressure 157/73 H 144/85 H Pulse Oximetry 97 98 97 Pulse Oximetry [Exertion on Room Air] Pulse Oximetry [Exertion with Oxygen] Pulse Oximetry [Resting on Room Air] Pulse Oximetry [Resting with Oxygen] 01/31/18 12:40 01/31/18 12:43 Temperature Pulse Rate 75 Respiratory Rate 22 Blood Pressure Pulse Oximetry Pulse Oximetry [Exertion on Room Air] 87 L Pulse Oximetry [Exertion with Oxygen] 92 L Pulse Oximetry [Resting on Room Air] 96 Pulse Oximetry [Resting with Oxygen] 98 Intake & Output 01/30/18 01/31/18 01/31/18 18:59 06:59 18:59 Intake Total 240 / 240 390 / 390 Balance 240 / 240 390 / 390 Weight 85.1 kg Intake: IV 150 / 150 Levaquin 750 mg Premix Inj 150 150 / 150 ML @ 100 mls/hr IV.SIG Q24H SARITA Rx#:[id number] Oral 240 / 240 240 / 240 Other: # Voids 3 3 Date of Last Bowel Movement 01/29/18 Narrative: GENERAL: 62 year old male in NAD, alert and oriented x3 CARDIOVASCULAR: Regular rate and rhythm RESPIRATORY: Breath sounds decreased with Slight bibasilar crackles. No accessory muscle use. GASTROINTESTINAL: Abdomen soft, non-tender, nondistended. MUSCULOSKELETAL: No cyanosis, or edema. BACK: Nontender without obvious deformity. No CVA tenderness. Results - Labs CBC & Chem 7: 01/31/18 07:38 01/31/18 07:38 Laboratory Results - last 24 hr 01/31/18 01/31/18 07:38 07:38 WBC 9.3 RBC 3.89 L Hgb 10.8 L Hct 33.5 L MCV 86.1 MCH 27.8 MCHC 32.3 RDW 14.9 Plt Count 298 MPV 6.8 L Neut % (Auto) 85.5 H Lymph % (Auto) 5.3 L [place] % (Auto) 8.2 H Eos % (Auto) 0.9 Baso % (Auto) 0.1 Neut # (Auto) 8.0 H Lymph # (Auto) 0.5 L [place] # (Auto) 0.8 Eos # (Auto) 0.1 Baso # (Auto) 0.0 WBC Differential . Differential Comment Auto diff final Sodium 131 L Potassium 4.0 Chloride 95 L Carbon Dioxide 28.1 Anion Gap 8 BUN 18 Creatinine 0.83 Estimated GFR Greater than 89 Random Glucose 97 Calcium 8.0 L - Imaging Impressions Chest X-Ray 01/30/18 16:30 CONCLUSION: No pneumothorax. Chest X-Ray 01/30/18 17:00 CONCLUSION: Left chest tube has been removed without resultant or significant residual pneumothorax. Chest X-Ray 01/31/18 00:00 CONCLUSION: 1. Persistent subcutaneous emphysema bilaterally. 2. No definite recurrent pneumothorax identified. 3. Stable diffuse increased interstitial markings bilaterally. - Procedures s/p core biopsy by IR on 01/26/18 - Pathology revealed: LUNG, LEFT, NEEDLE BIOPSY: - 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 CT placed for pneumothorax s/p lung bx, cT removed 01/30 Assessment and Plan - Assessment (1) COPD (chronic obstructive pulmonary disease) Code(s): J44.9 - Chronic obstructive pulmonary disease, unspecified Status: Acute Plan: Dyspnea: suspect multifactorial secondary to acute COPD and CHF exacerbations in combination with new lung mass. -Chest CT showed: Severe emphysema with interstitial lung disease. These changes are stable and may explain the patient's shortness of breath. However, there is a new bilobed mass in the left upper lobe measuring up to 3.2 x 1.8 cm. This is completely new since the April 2016 examination and the appearance is suspicious for a primary pulmonary neoplasm. This nodule should be amenable to image guided percutaneous biopsy, if needed. Stable enlarged pretracheal lymph node and interval enlargement of a prevascular lymph node. -See individual treatment below IR consulted for biopsy of lung mass Acute COPD Exacerbation: Moderate-Severe. With hx of Chronic Respiratory Failure , has oxygen at home however has not been using recently. -Taper steroids -Continue bronchodilators with Duonebs scheduled and prn -Continue Levaquin for empiric pneumonia - patient with cough productive of yellow sputum -Symbicort bid -Mucinex bid -Incentive spirometer = Pulmonology following. Lung mass. Appreciate pulmonology assistance. Patient with Left upper lobe mass s/p core biopsy by IR on 01/26/18 CXR reviewed with Small PTX and intraparenchymal hemorrhage on post CT images.Repeat CXR reassuring, monitor VS closely. Chronic pain. Will add back pain medication. Discussed risks of increasing pain meds in the setting of COPD exacerbation. Patient understands risk. Patient agrees with palliative care consultation. Left upper lung lobe mass: CT Chest w/ new TE mass, 3.2 x 1.8cm, images reviewed. Small Pneumothorax after core biopsy of lung mass -Findings discussed w/ patient. -Consulted IR for CT guided lung biopsy of new mass, however procedure delayed due to patient being on aspirin 162mg daily -consult pulmonary ff, ( ). = Pulmonary following. Cardiology clearance for lung biopsy. S/p stress test 01/23 , Stress test with low probability findings discussed with the patient. Patient with Left upper lobe mass s/p core biopsy by IR on 01/26/18 - Pathology revealed: LUNG, LEFT, NEEDLE BIOPSY: - 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 CXR reviewed with Small PTX and intraparenchymal hemorrhage on post CT images. Repeat CXR reviewed reassuring, monitor VS closely. Patient had coiled chest tube reevaluated by IR , chest tube is functioning after manipulation by IR on 01/28 With hemoptysis chest tube removed 01/30 Chest X-Ray 01/31/18 00:00 1. Persistent subcutaneous emphysema bilaterally. 2. No definite recurrent pneumothorax identified. 3. Stable diffuse increased interstitial markings bilaterally. Patient evaluated by myself and Dr. Gay - Dr. Gay cleared for DC in AM (02/01) Hypoxia: - patient completed walk test and will requir home oxygen concentrator and tanks Hyponatremia: Mild. Na 129, previously on NaCl tabs, however taken off due to CHF per -monitor I/O, repeat labs 01/31 Na 131 = will continue fluid restrictions for CHF and hyponatremia. CAD- s/p stent placement ( 2017)/ CHF: Acute on Chronic. Systolic. Echo 05/06/16 w/ EF 45%, +lower extremity edema, BNP 616, resumed diuretics, monitor I/O. DVT Prophylaxis: SCD's Discussed Condition With: Patient, nurse, family member at bedside and supervising physician Dr. Gay Discharge Planning: Per Dr Oscar roberts , he will f/up with him as OP 1- week to call clinic for appointment, patient will have further work up as OP including PET scan as biopsy path shows fibrosis Note : Do not give any anticoagulation at DC ( DC ASA and effient) as patient with hemoptysis and hemothorax (2) Lung mass Code(s): R91.8 - Other nonspecific abnormal finding of lung field Status: Acute
[2018-01-31] MEDS: Montelukast 10 MG Tablet PO SCH (20:01)
[2018-01-31] MEDS: Melatonin 5 MG Tablet PO PRN (20:01)
[2018-02-01] MEDS: oxyCODONE/Acetaminophen 10/325 Tablet PO PRN ×6 (00:52→22:07)
[2018-02-01] MEDS: Morphine Inj 4 MG/ML Vial IV.PUSH PRN ×5 (03:04→20:14)
[2018-02-01] MEDS: Gabapentin 400 MG Capsule PO SCH ×3 (05:05→20:14)
[2018-02-01 09:02] LABS: Anion Gap 8 meq/L (5-15); Blood Urea Nitrogen 17 mg/dL (7-18); Calcium 8.2 mg/dL (8.5-10.1); Carbon Dioxide 27.1 meq/L (21.0-32.0); Chloride 95 meq/L (98-107); Glomerular Filtration Rate Greater Than 89 mL/min (>89); Glucose,Random 99 mg/dL (74-106); Potassium 3.8 meq/L (3.5-5.1); Sodium 130 meq/L (136-145)
[2018-02-01] MEDS: Pantoprazole Sodium 20 MG DR Tablet PO SCH (09:19)
[2018-02-01] MEDS: Furosemide 20 MG Tablet PO SCH (09:19)
[2018-02-01] MEDS: buPROPion 150 MG 12 HR Tablet PO SCH (09:19)
[2018-02-01] MEDS: predniSONE 20 MG Tablet PO SCH ×2 (09:19→20:30)
[2018-02-01] MEDS: Folic Acid 1 MG Tablet PO SCH (09:20)
[2018-02-01] MEDS: Budesonide-Formoterol 160/4.5 MCG 6 GM Inhaler INH SCH ×2 (09:20→20:19)
[2018-02-01] MEDS: Senna/Docusate Sodium 8.6/50 MG Tablet PO SCH ×2 (09:20→20:14)
--- NOTE | 2018-02-01 12:45 | P.PNIM ---
Subjective Interval history: Follow up: Acute COPD Exacerbation, Left upper lung lobe mass, Small Pneumothorax after core biopsy of lung mass and hyponatremia patient reports feeling better today offers no new concerns/complaints Physical Exam Vital signs: Vital Signs 01/31/18 12:43 01/31/18 16:00 01/31/18 19:31 Temperature 97.3 F L Pulse Rate 75 79 83 Respiratory Rate 22 18 18 Blood Pressure 147/86 H Pulse Oximetry 97 97 01/31/18 20:00 02/01/18 00:00 02/01/18 04:00 Temperature 97.7 F 97.3 F L 97.8 F Pulse Rate 100 H 77 73 Respiratory Rate 20 18 18 Blood Pressure 170/87 H 139/81 142/83 H Pulse Oximetry 97 98 99 02/01/18 08:00 Temperature 97.2 F L Pulse Rate 68 Respiratory Rate 20 Blood Pressure 170/91 H Pulse Oximetry 99 Intake & Output 01/31/18 02/01/18 02/01/18 18:59 06:59 18:59 Intake Total 560 / 560 Output Total 450 / 450 Balance 560 / 560 -450 / -450 Weight 85.5 kg Intake: Oral 560 / 560 Output: Urine 450 / 450 Other: # Voids 4 1 Date of Last Bowel Movement 01/29/18 Narrative: GENERAL: 62 year old male in NAD, alert and oriented x3 CARDIOVASCULAR: Regular rate and rhythm RESPIRATORY: Breath sounds decreased. No accessory muscle use. GASTROINTESTINAL: Abdomen soft, non-tender, nondistended. MUSCULOSKELETAL: No cyanosis, or edema. BACK: Nontender without obvious deformity. No CVA tenderness. Results - Labs CBC & Chem 7: 01/31/18 07:38 02/01/18 07:23 Laboratory Results - last 24 hr 02/01/18 07:23 Sodium 130 L Potassium 3.8 Chloride 95 L Carbon Dioxide 27.1 Anion Gap 8 BUN 17 Creatinine 0.80 Estimated GFR Greater than 89 Random Glucose 99 Calcium 8.2 L - Procedures s/p core biopsy by IR on 01/26/18 - Pathology revealed: LUNG, LEFT, NEEDLE BIOPSY: - 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 CT placed for pneumothorax s/p lung bx, cT removed 01/30 Assessment and Plan - Assessment (1) COPD (chronic obstructive pulmonary disease) Code(s): J44.9 - Chronic obstructive pulmonary disease, unspecified Status: Acute Plan: Dyspnea: suspect multifactorial secondary to acute COPD and CHF exacerbations in combination with new lung mass. -Chest CT showed: Severe emphysema with interstitial lung disease. These changes are stable and may explain the patient's shortness of breath. However, there is a new bilobed mass in the left upper lobe measuring up to 3.2 x 1.8 cm. This is completely new since the April 2016 examination and the appearance is suspicious for a primary pulmonary neoplasm. This nodule should be amenable to image guided percutaneous biopsy, if needed. Stable enlarged pretracheal lymph node and interval enlargement of a prevascular lymph node. -See individual treatment below IR consulted for biopsy of lung mass Acute COPD Exacerbation: Moderate-Severe. With hx of Chronic Respiratory Failure , has oxygen at home however has not been using recently. -Taper steroids -Continue bronchodilators with Duonebs scheduled and prn -Continue Levaquin for empiric pneumonia - patient with cough productive of yellow sputum -Symbicort bid -Mucinex bid -Incentive spirometer = Pulmonology following. Lung mass. Appreciate pulmonology assistance. Patient with Left upper lobe mass s/p core biopsy by IR on 01/26/18 CXR reviewed with Small PTX and intraparenchymal hemorrhage on post CT images.Repeat CXR reassuring, monitor VS closely. Chronic pain. Will add back pain medication. Discussed risks of increasing pain meds in the setting of COPD exacerbation. Patient understands risk. Patient agrees with palliative care consultation. Left upper lung lobe mass: CT Chest w/ new TE mass, 3.2 x 1.8cm, images reviewed. Small Pneumothorax after core biopsy of lung mass -Findings discussed w/ patient. -Consulted IR for CT guided lung biopsy of new mass, however procedure delayed due to patient being on aspirin 162mg daily -consult pulmonary ff, ( ). = Pulmonary following. Cardiology clearance for lung biopsy. S/p stress test 01/23 , Stress test with low probability findings discussed with the patient. Patient with Left upper lobe mass s/p core biopsy by IR on 01/26/18 - Pathology revealed: LUNG, LEFT, NEEDLE BIOPSY: - 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 CXR reviewed with Small PTX and intraparenchymal hemorrhage on post CT images. Repeat CXR reviewed reassuring, monitor VS closely. Patient had coiled chest tube reevaluated by IR , chest tube is functioning after manipulation by IR on 01/28 With hemoptysis chest tube removed 01/30 Chest X-Ray 01/31/18 00:00 1. Persistent subcutaneous emphysema bilaterally. 2. No definite recurrent pneumothorax identified. 3. Stable diffuse increased interstitial markings bilaterally. Patient evaluated by myself and Dr. Gay - Dr. Gay cleared for DC in AM (02/01) Hypoxia: - patient completed walk test and will requir home oxygen concentrator and tanks Hyponatremia: Mild. Na 129, previously on NaCl tabs, however taken off due to CHF per -monitor I/O, repeat labs 01/31 Na 131 = will continue fluid restrictions for CHF and hyponatremia. CAD- s/p stent placement ( 2017)/ CHF: Acute on Chronic. Systolic. Echo 05/06/16 w/ EF 45%, +lower extremity edema, BNP 616, resumed diuretics, monitor I/O. DVT Prophylaxis: SCD's Discussed Condition With: Patient, nurse, family member at bedside and supervising physician Dr. Gay Discharge Planning: Per Dr Oscar roberts , he will f/up with him as OP 1- week to call clinic for appointment, patient will have further work up as OP including PET scan as biopsy path shows fibrosis Note : Do not give any anticoagulation at DC ( DC ASA and effient) as patient with hemoptysis and hemothorax DC order written 02/01 - Patient unable to be DC'd, he will need home oxygen, case management working to arrange home oxygen reports oxygen may not be available till Friday (2) Lung mass Code(s): R91.8 - Other nonspecific abnormal finding of lung field Status: Acute
[2018-02-01] MEDS: Montelukast 10 MG Tablet PO SCH (20:14)
[2018-02-01] MEDS: Melatonin 5 MG Tablet PO PRN (22:08)
[2018-02-02] MEDS: oxyCODONE/Acetaminophen 10/325 Tablet PO PRN ×6 (02:16→23:20)
[2018-02-02] MEDS: Morphine Inj 4 MG/ML Vial IV.PUSH PRN ×2 (04:30→08:49)
[2018-02-02] MEDS: Gabapentin 400 MG Capsule PO SCH ×3 (04:30→21:28)
[2018-02-02] MEDS: predniSONE 20 MG Tablet PO SCH ×2 (08:37→21:29)
[2018-02-02] MEDS: Furosemide 20 MG Tablet PO SCH (08:37)
[2018-02-02] MEDS: Pantoprazole Sodium 20 MG DR Tablet PO SCH (08:37)
[2018-02-02] MEDS: Budesonide-Formoterol 160/4.5 MCG 6 GM Inhaler INH SCH ×2 (08:38→21:29)
[2018-02-02] MEDS: Folic Acid 1 MG Tablet PO SCH (08:38)
[2018-02-02] MEDS: buPROPion 150 MG 12 HR Tablet PO SCH (08:38)
[2018-02-02] MEDS: Senna/Docusate Sodium 8.6/50 MG Tablet PO SCH ×2 (08:38→21:28)
--- NOTE | 2018-02-02 13:07 | P.PN ---
Subjective Interval history: Follow up on patient with [facility]. Patient seen and examined. Patient is awaiting oxygen to be approved so he can be discharged home. He states he feels fine. He is asking if he can take a shower. He would like to continue on IV Morphine while he is here. He does not voice any new complaints. He says if he was at home he would go to work. Physical Exam Vital signs: Vital Signs 02/01/18 16:00 02/01/18 19:38 02/01/18 20:00 Temperature 97.4 F L 97.8 F Pulse Rate 79 87 Respiratory Rate 20 18 Blood Pressure 133/88 134/69 Pulse Oximetry 98 96 97 02/02/18 00:00 02/02/18 04:00 02/02/18 08:00 Temperature 97.6 F 97.6 F 97.5 F L Pulse Rate 77 70 75 Respiratory Rate 18 18 17 Blood Pressure 123/72 141/81 H 144/65 H Pulse Oximetry 99 99 98 02/02/18 12:00 Temperature 97.1 F L Pulse Rate 83 Respiratory Rate 17 Blood Pressure 139/65 Pulse Oximetry 97 Intake & Output 02/01/18 02/02/18 02/02/18 18:59 06:59 18:59 Intake Total 480 / 480 Balance 480 / 480 Weight 86.3 kg Intake: Oral 480 / 480 Other: # Voids 4 3 Date of Last Bowel Movement 01/29/18 02/01/18 # Bowel Movements 0 Narrative: GENERAL: WDWN male patient, INAD. Awake and alert. Appears comfortable on oxygen. Family is at the bedside. SKIN: Warm and dry. s/p core biopsy of left sided lung mass, area healing well , no e/o infection HEENT: Atraumatic. Normocephalic. Pupils equal and round. No scleral icterus. No injection or drainage. No nasal bleeding or discharge. Mucous membranes pink and moist. NECK: Trachea midline. CARDIOVASCULAR: Regular rate and rhythm. RESPIRATORY: No accessory muscle use. Fair air entry. Faint bibasilar crackles noted. No wheezing noted. GASTROINTESTINAL: Abdomen soft, non-tender, nondistended. Hepatic and splenic margins not palpable. MUSCULOSKELETAL: Extremities without clubbing, cyanosis, or edema. No obvious deformities. NEUROLOGICAL: Awake and alert. No obvious cranial nerve deficits. Motor grossly within normal limits. Able to move all extremities. Normal speech. PSYCHIATRIC: Calm and cooperative. Results - Labs CBC & Chem 7: 01/31/18 07:38 02/01/18 07:23 - Procedures s/p core biopsy by IR on 01/26/18 - Pathology revealed: LUNG, LEFT, NEEDLE BIOPSY: - 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 CT placed for pneumothorax s/p lung bx, cT removed 01/30 Assessment and Plan - Assessment (1) COPD (chronic obstructive pulmonary disease) Code(s): J44.9 - Chronic obstructive pulmonary disease, unspecified Status: Acute Plan: Dyspnea: suspect multifactorial secondary to acute COPD and CHF exacerbations in combination with new lung mass. -Chest CT showed: Severe emphysema with interstitial lung disease. These changes are stable and may explain the patient's shortness of breath. However, there is a new bilobed mass in the left upper lobe measuring up to 3.2 x 1.8 cm. This is completely new since the April 2016 examination and the appearance is suspicious for a primary pulmonary neoplasm. This nodule should be amenable to image guided percutaneous biopsy, if needed. Stable enlarged pretracheal lymph node and interval enlargement of a prevascular lymph node. -See individual treatment below IR consulted for biopsy of lung mass Acute COPD Exacerbation: Moderate-Severe. With hx of Chronic Respiratory Failure , has oxygen at home however has not been using recently. -Taper steroids -Continue bronchodilators with Duonebs scheduled and prn -Continue Levaquin for empiric pneumonia - patient with cough productive of yellow sputum -Symbicort bid -Mucinex bid -Incentive spirometer = Pulmonology following. Lung mass. Appreciate pulmonology assistance. Patient with Left upper lobe mass s/p core biopsy by IR on 01/26/18 CXR reviewed with Small PTX and intraparenchymal hemorrhage on post CT images.Repeat CXR reassuring, monitor VS closely. Chronic pain. Will add back pain medication. Discussed risks of increasing pain meds in the setting of COPD exacerbation. Patient understands risk. Patient agrees with palliative care consultation. Left upper lung lobe mass: CT Chest w/ new TE mass, 3.2 x 1.8cm, images reviewed. Small Pneumothorax after core biopsy of lung mass -Findings discussed w/ patient. -Consulted IR for CT guided lung biopsy of new mass, however procedure delayed due to patient being on aspirin 162mg daily -consult pulmonary ff, ( ). = Pulmonary following. Cardiology clearance for lung biopsy. S/p stress test 01/23 , Stress test with low probability findings discussed with the patient. Patient with Left upper lobe mass s/p core biopsy by IR on 01/26/18 - Pathology revealed: LUNG, LEFT, NEEDLE BIOPSY: - 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 CXR reviewed with Small PTX and intraparenchymal hemorrhage on post CT images. Repeat CXR reviewed reassuring, monitor VS closely. Patient had coiled chest tube reevaluated by IR , chest tube is functioning after manipulation by IR on 01/28 With hemoptysis chest tube removed 01/30 Chest X-Ray 01/31/18 00:00 1. Persistent subcutaneous emphysema bilaterally. 2. No definite recurrent pneumothorax identified. 3. Stable diffuse increased interstitial markings bilaterally. Patient evaluated by myself and Dr. Gay - Dr. Gay cleared for DC in AM (02/01) Hypoxia: - patient completed walk test and will requir home oxygen concentrator and tanks Hyponatremia: Mild. Na 129, previously on NaCl tabs, however taken off due to CHF per -monitor I/O, repeat labs 01/31 Na 131 = will continue fluid restrictions for CHF and hyponatremia. CAD- s/p stent placement ( 2017)/ CHF: Acute on Chronic. Systolic. Echo 05/06/16 w/ EF 45%, +lower extremity edema, BNP 616, resumed diuretics, monitor I/O. DVT Prophylaxis: SCD's Discussed Condition With: Patient, nurse, family member at bedside and supervising physician Dr. Gay Discharge Planning: Per Dr Moore pulm , he will f/up with him as OP 1- week to call clinic for appointment, patient will have further work up as OP including PET scan as biopsy path shows fibrosis Note : Do not give any anticoagulation at DC ( DC ASA and effient) as patient with hemoptysis and hemothorax DC order written 02/01 - Patient unable to be DC'd, he will need home oxygen, case management working to arrange home oxygen reports oxygen may not be available till Friday (2) Lung mass Code(s): R91.8 - Other nonspecific abnormal finding of lung field Status: Acute - Plan Patient has been discharged. Discharge held pending home oxygen. No interval change. Dyspnea: suspect multifactorial secondary to acute COPD and CHF exacerbations in combination with new lung mass. Chest CT showed: Severe emphysema with interstitial lung disease. These changes are stable and may explain the patient's shortness of breath. However, there is a new bilobed mass in the left upper lobe measuring up to 3.2 x 1.8 cm. This is completely new since the April 2016 examination and the appearance is suspicious for a primary pulmonary neoplasm. This nodule should be amenable to image guided percutaneous biopsy, if needed. Stable enlarged pretracheal lymph node and interval enlargement of a prevascular lymph node. -IR consulted for biopsy of lung mass, see below Acute COPD Exacerbation: Moderate-Severe. With hx of Chronic Respiratory Failure , has oxygen at home however has not been using recently. -Taper steroids -Continue bronchodilators with Duonebs scheduled and prn -Continue Levaquin for empiric pneumonia - patient with cough productive of yellow sputum -Symbicort bid -Mucinex bid -Incentive spirometer = Pulmonology following. Lung mass. Appreciate pulmonology assistance. Patient with Left upper lobe mass s/p core biopsy by IR on 01/26/18 CXR reviewed with Small PTX and intraparenchymal hemorrhage on post CT images. Repeat CXR reassuring, monitor VS closely. Chronic back pain patient states he has 6 ruptured disc in his back -Eforsce reviewed. Patient received [place] 5/325mg #10 on 09/18/17. Previous to that, patient filled 20 [place] 5/325mg on 06/08/16 -d/c IV Morphine Left upper lung lobe mass: CT Chest w/ new TE mass, 3.2 x 1.8cm, images reviewed. Small Pneumothorax after core biopsy of lung mass -Findings discussed w/ patient. -Consulted IR for CT guided lung biopsy of new mass, however procedure delayed due to patient being on aspirin 162mg daily -consult pulmonary. Dr. Moore. = Pulmonary following. Cardiology clearance for lung biopsy. S/p stress test 01/23 , Stress test with low probability findings discussed with the patient. Patient with Left upper lobe mass s/p core biopsy by IR on 01/26/18 - Pathology revealed: LUNG, LEFT, NEEDLE BIOPSY: - 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 CXR reviewed with Small PTX and intraparenchymal hemorrhage on post CT images. Repeat CXR reviewed reassuring, monitor VS closely. Patient had coiled chest tube reevaluated by IR , chest tube is functioning after manipulation by IR on 01/28 With hemoptysis chest tube removed 01/30 Chest X-Ray 01/31/18 00:00 1. Persistent subcutaneous emphysema bilaterally. 2. No definite recurrent pneumothorax identified. 3. Stable diffuse increased interstitial markings bilaterally. -Patient cleared for discharge by Dr. Moore. Patient to follow up as outpatient for PET scan (although bx neg for malignancy high suspicion of malignancy) and PFTs Hypoxia: - patient completed walk test and will require home oxygen concentrator and tanks. Awaiting insurance approval for oxygen at home. Hyponatremia: Mild. Na 129, previously on NaCl tabs, however taken off due to CHF per -monitor I/O, repeat labs 01/31 Na 131 = will continue fluid restrictions for CHF and hyponatremia. CAD- s/p stent placement (2017) CHF: Acute on Chronic. Systolic. Resolved, compensated. Echo 05/06/16 w/ EF 45%, +lower extremity edema, BNP 616, resumed diuretics, monitor I/O. DVT Prophylaxis: SCD's Code Status: Full Discussed Condition With: patient, family at bedside, nursing staff
[2018-02-02] MEDS: Montelukast 10 MG Tablet PO SCH (21:28)
[2018-02-02] MEDS: Melatonin 5 MG Tablet PO PRN (21:29)
[2018-02-03] MEDS: Gabapentin 400 MG Capsule PO SCH ×3 (04:37→20:43)
[2018-02-03] MEDS: oxyCODONE/Acetaminophen 10/325 Tablet PO PRN ×5 (04:37→20:42)
[2018-02-03] MEDS: Pantoprazole Sodium 20 MG DR Tablet PO SCH (08:31)
[2018-02-03] MEDS: Folic Acid 1 MG Tablet PO SCH (08:31)
[2018-02-03] MEDS: Budesonide-Formoterol 160/4.5 MCG 6 GM Inhaler INH SCH ×2 (08:31→20:44)
[2018-02-03] MEDS: Senna/Docusate Sodium 8.6/50 MG Tablet PO SCH ×2 (08:31→20:43)
[2018-02-03] MEDS: predniSONE 20 MG Tablet PO SCH ×2 (08:31→20:43)
[2018-02-03] MEDS: buPROPion 150 MG 12 HR Tablet PO SCH (08:31)
[2018-02-03] MEDS: Furosemide 20 MG Tablet PO SCH (08:31)
--- NOTE | 2018-02-03 11:34 | IR ---
EXAM DATE: 02/03/2018 5:00 PM EDT AGE/SEX: 62 years / Male INDICATIONS: COMPARISON: No prior exams available for comparison. DEVICE(S): PROCEDURE: 1. Chest tube removal. The previously placed chest tube was easily removed in one piece and Vaseline gauze and sterile dress ing was applied. Chest radiograph is to be obtained. CONCLUSION: 1. Uncomplicated left chest tube removal. Electronically signed by: Jorden Chakraborty MD 02/03/2018 11:32 AM EDT
[2018-02-03] MEDS ORDERED: Loratadine 10 MG Tablet PO ONE (14:15)
--- NOTE | 2018-02-03 15:19 | P.PNIM ---
Subjective Interval history: O2 arrangements for discharge with oxygen at home are pending. Patient's discharge on 02/01/2018. No new complaints today. Physical Exam Vital signs: Vital Signs 02/02/18 16:00 02/02/18 20:00 02/03/18 00:00 Temperature 97.1 F L 98 F 97.5 F L Pulse Rate 84 93 H 68 Respiratory Rate 17 16 16 Blood Pressure 147/72 H 145/69 H 144/70 H Pulse Oximetry 98 96 99 02/03/18 04:00 02/03/18 08:00 02/03/18 12:00 Temperature 97.6 F 97.6 F 97.8 F Pulse Rate 72 70 72 Respiratory Rate 16 19 Blood Pressure 135/69 143/69 H 140/66 Pulse Oximetry 98 98 98 Intake & Output 02/02/18 02/03/18 02/03/18 18:59 06:59 18:59 Intake Total 960 / 960 120 / 120 Output Total 1200 / 1200 Balance -240 / -240 120 / 120 Weight 85.2 kg Intake: Oral 960 / 960 120 / 120 Output: Urine 1200 / 1200 Other: # Voids 4 Date of Last Bowel Movement 02/02/18 # Bowel Movements 0 1 Narrative: GENERAL: NAD, A&Ox3 HEAD: Normocephalic. NECK: Supple, trachea midline. No lymphadenopathy. EYES: No scleral icterus. No injection or drainage. CARDIOVASCULAR: Regular rate and rhythm without murmurs, gallops, or rubs. RESPIRATORY: Breath sounds equal bilaterally. No accessory muscle use. GASTROINTESTINAL: Abdomen soft, non-tender, nondistended. MUSCULOSKELETAL: No cyanosis, or edema. SKIN: Warm and dry. NEURO: No focal neurological deficits. Results - Labs CBC & Chem 7: 01/31/18 07:38 02/01/18 07:23 - Imaging Impressions Tunnelled Chest Tube Removal 01/30/18 17:00 CONCLUSION: 1. Uncomplicated left chest tube removal. - Procedures s/p core biopsy by IR on 01/26/18 - Pathology revealed: LUNG, LEFT, NEEDLE BIOPSY: - 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 CT placed for pneumothorax s/p lung bx, cT removed 01/30 Assessment and Plan - Assessment (1) COPD (chronic obstructive pulmonary disease) Code(s): J44.9 - Chronic obstructive pulmonary disease, unspecified Status: Acute Plan: Dyspnea: suspect multifactorial secondary to acute COPD and CHF exacerbations in combination with new lung mass. -Chest CT showed: Severe emphysema with interstitial lung disease. These changes are stable and may explain the patient's shortness of breath. However, there is a new bilobed mass in the left upper lobe measuring up to 3.2 x 1.8 cm. This is completely new since the April 2016 examination and the appearance is suspicious for a primary pulmonary neoplasm. This nodule should be amenable to image guided percutaneous biopsy, if needed. Stable enlarged pretracheal lymph node and interval enlargement of a prevascular lymph node. -See individual treatment below IR consulted for biopsy of lung mass Acute COPD Exacerbation: Moderate-Severe. With hx of Chronic Respiratory Failure , has oxygen at home however has not been using recently. -Taper steroids -Continue bronchodilators with Duonebs scheduled and prn -Continue Levaquin for empiric pneumonia - patient with cough productive of yellow sputum -Symbicort bid -Mucinex bid -Incentive spirometer = Pulmonology following. Lung mass. Appreciate pulmonology assistance. Patient with Left upper lobe mass s/p core biopsy by IR on 01/26/18 CXR reviewed with Small PTX and intraparenchymal hemorrhage on post CT images.Repeat CXR reassuring, monitor VS closely. Chronic pain. Will add back pain medication. Discussed risks of increasing pain meds in the setting of COPD exacerbation. Patient understands risk. Patient agrees with palliative care consultation. Left upper lung lobe mass: CT Chest w/ new TE mass, 3.2 x 1.8cm, images reviewed. Small Pneumothorax after core biopsy of lung mass -Findings discussed w/ patient. -Consulted IR for CT guided lung biopsy of new mass, however procedure delayed due to patient being on aspirin 162mg daily -consult pulmonary ff, ( ). = Pulmonary following. Cardiology clearance for lung biopsy. S/p stress test 01/23 , Stress test with low probability findings discussed with the patient. Patient with Left upper lobe mass s/p core biopsy by IR on 01/26/18 - Pathology revealed: LUNG, LEFT, NEEDLE BIOPSY: - 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 CXR reviewed with Small PTX and intraparenchymal hemorrhage on post CT images. Repeat CXR reviewed reassuring, monitor VS closely. Patient had coiled chest tube reevaluated by IR , chest tube is functioning after manipulation by IR on 01/28 With hemoptysis chest tube removed 01/30 Chest X-Ray 01/31/18 00:00 1. Persistent subcutaneous emphysema bilaterally. 2. No definite recurrent pneumothorax identified. 3. Stable diffuse increased interstitial markings bilaterally. Patient evaluated by myself and Dr. Gay - Dr. Gay cleared for DC in AM (02/01) Hypoxia: - patient completed walk test and will requir home oxygen concentrator and tanks Hyponatremia: Mild. Na 129, previously on NaCl tabs, however taken off due to CHF per -monitor I/O, repeat labs 01/31 Na 131 = will continue fluid restrictions for CHF and hyponatremia. CAD- s/p stent placement ( 2016)/ CHF: Acute on Chronic. Systolic. Echo 05/06/16 w/ EF 45%, +lower extremity edema, BNP 616, resumed diuretics, monitor I/O. DVT Prophylaxis: SCD's Discussed Condition With: Patient, nurse, family member at bedside and supervising physician Dr. Gay Discharge Planning: Per Dr Oscar roberts , he will f/up with him as OP 1- week to call clinic for appointment, patient will have further work up as OP including PET scan as biopsy path shows fibrosis Note : Do not give any anticoagulation at DC ( DC ASA and effient) as patient with hemoptysis and hemothorax DC order written 02/01 - Patient unable to be DC'd, he will need home oxygen, case management working to arrange home oxygen reports oxygen may not be available till Friday (2) Lung mass Code(s): R91.8 - Other nonspecific abnormal finding of lung field Status: Acute - Plan 62-year-old male admitted secondary to COPD exacerbation with hyponatremia COPD exacerbation Improved Antibiotics completed Sinus congestion Antihistamine started Chronic hypoxia Dyspnea Home oxygen arranged for hypoxia Chronic back pain Continue baseline pain treatments Left upper lobe mass Status post biopsy Status post chest tube Chest tube removed on 01/30/2018 Follows an outpatient Hyponatremia Improving Continue to monitor Coronary artery disease History of coronary stents CHF Continue baseline treatments DVT prophylaxis SCDs Discharge planning Discharge pending approval for oxygen at home and delivery of oxygen to house
[2018-02-03] MEDS: Montelukast 10 MG Tablet PO SCH (20:43)
[2018-02-04] MEDS: oxyCODONE/Acetaminophen 10/325 Tablet PO PRN ×3 (00:30→08:22)
[2018-02-04] MEDS: Gabapentin 400 MG Capsule PO SCH (04:28)
[2018-02-04] MEDS: Senna/Docusate Sodium 8.6/50 MG Tablet PO SCH (08:22)
[2018-02-04] MEDS: Furosemide 20 MG Tablet PO SCH (08:22)
[2018-02-04] MEDS: Folic Acid 1 MG Tablet PO SCH (08:22)
[2018-02-04] MEDS: Pantoprazole Sodium 20 MG DR Tablet PO SCH (08:23)
[2018-02-04] MEDS: predniSONE 20 MG Tablet PO SCH (08:23)
[2018-02-04] MEDS: buPROPion 150 MG 12 HR Tablet PO SCH (08:23)
[2018-02-04] MEDS: Budesonide-Formoterol 160/4.5 MCG 6 GM Inhaler INH SCH (08:24)
[2018-02-04 09:46] VITALS: BP 146/73; PULSE 89; RESP 20; TEMP 97.3; O2SAT 96
--- NOTE | 2018-02-04 11:31 | P.DS ---
Date of admission: 01/20/18 13:21 Primary care physician: Bhavin Schuster MD Anticipated date of discharge: 02/01/18 Brief History from admission: This is a 62-year-old male with a PMH of HTN, COPD, Hyperlipidemia and CHF ( Echo 05/06/2016 with EF 45%) who was brought to the ER secondary to SOB. Pt reports recent cold w/ nasal congestion/sore throat and progressive SOB x2 days , minimal relief w/ home Neb. Also notes lower extremity edema bilaterally. Denies chest pain, fever, chills or sick contacts. +productive cough w/ yellow- colored sputum. On arrival, BP 139/75, HR 93, O2 sat 92% on RA, Afebrile. BC unremarkable. Na 129. BNP 616. CXR with stable chronic diffuse interstitial lung disease, no change since July 2017. CT Chest pending. S/p DuoNeb, Solu- Medrol by EMS and Levaquin in ER w/ some improvement, however significant SOB w / ambulation, O2 sat 89% on RA while in ER. DS: Diagnosis - Discharge Diagnosis (1) COPD (chronic obstructive pulmonary disease) Status: Acute (2) Lung mass Status: Acute DS: Medications - Discharge Medications Prescriptions: ipratropium-albuterol 1 amp NEB BID NEB 30 Days ml prednisone See Label Instructions .ROUTE .COMPLEX #8 tab DS: Summary Hospital Course: Mr. Dugan is a 62-year-old male. He was admitted secondary to CHF and COPD exacerbations. CHF was stabilized. COPD exacerbation has caused lingering hypoxia. He was found to have a left-sided chest mass. Biopsy was performed. He subsequently had a small pneumothorax and chest tube was placed. Chest tube was removed on 01/30/2018. Patient has been improving since then. He has stabilized. He does continue to require oxygen. Home health oxygen orders were placed and patient was discharged on 02/01/2018. Arrangements for oxygen are ready as of a.m. of 02/04/2018 and patient is medically stable for discharge as of 02/01/2018 so patient is discharged on 02/04/2018. - Time Spent with Patient Total time spent providing and/or coordinating discharge services: Less than 30 minutes - Quality: VTE Deep Vein Thrombosis/Pulmonary Embolism Present on Admission: No Exam Vital signs: Vital Signs 02/03/18 12:00 02/03/18 16:00 02/03/18 17:14 Temperature 97.8 F 97.9 F Pulse Rate 72 70 Respiratory Rate 19 18 Blood Pressure 140/66 136/64 Pulse Oximetry 98 98 Pulse Oximetry [Exertion on Room Air] 87 L Pulse Oximetry [Exertion with Oxygen] 95 Pulse Oximetry [Resting on Room Air] 93 L Pulse Oximetry [Resting with Oxygen] 97 02/03/18 20:00 02/04/18 00:00 02/04/18 04:00 Temperature 97.3 F L 97.4 F L 97.7 F Pulse Rate 92 H 76 77 Respiratory Rate 18 18 18 Blood Pressure 126/69 133/68 136/66 Pulse Oximetry 98 97 99 Pulse Oximetry [Exertion on Room Air] Pulse Oximetry [Exertion with Oxygen] Pulse Oximetry [Resting on Room Air] Pulse Oximetry [Resting with Oxygen] 02/04/18 08:00 Temperature 97.3 F L Pulse Rate 89 Respiratory Rate 20 Blood Pressure 146/73 H Pulse Oximetry 96 Pulse Oximetry [Exertion on Room Air] Pulse Oximetry [Exertion with Oxygen] Pulse Oximetry [Resting on Room Air] Pulse Oximetry [Resting with Oxygen] Intake & Output 02/03/18 02/04/18 02/04/18 18:59 06:59 18:59 Intake Total 520 / 520 0 / 0 Output Total 1600 / 1600 Balance -1080 / -1080 0 / 0 Weight 83.7 kg Intake: Oral 520 / 520 0 / 0 Output: Urine 1600 / 1600 Other: # Voids 5 # Bowel Movements 1 0 Results Procedures completed during hospitalization: s/p core biopsy by IR on 01/26/18 - Pathology revealed: LUNG, LEFT, NEEDLE BIOPSY: - 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 CT placed for pneumothorax s/p lung bx, cT removed 01/30 - Impressions ITS Impressions Chest CT 01/19/18 00:46 CONCLUSION: 1. Severe emphysema with interstitial lung disease. These changes are stable and may explain the patient's shortness of breath. 2. However, there is a new bilobed mass in the left upper lobe measuring up to 3.2 x 1.8 cm. This is completely new since the April 2016 examination and the appearance is suspicious for a primary pulmonary neoplasm. This nodule should be amenable to image guided percutaneous biopsy, if needed. 3. Stable enlarged pretracheal lymph node and interval enlargement of a prevascular lymph node. 4. Stable left adrenal gland mass measuring 2.1 cm with features characteristic of an adenoma. Myocardial Perfusion Scan Nuc Med 01/23/18 00:00 CONCLUSION: 1. Fixed defect involving the inferior wall consistent with prior infarction. 2. No reversible defect observed to suggest acute ischemia. Chest Tube Insertion 01/26/18 00:00 CONCLUSION: 1. Uncomplicated chest tube placement as above. Resolution of the left-sided pneumothorax. Lung Biopsy CT 01/26/18 00:00 CONCLUSION: 1. Uncomplicated CT guided left upper lobe pulmonary mass biopsy.. Tunnelled Chest Tube Removal 01/30/18 17:00 CONCLUSION: 1. Uncomplicated left chest tube removal. Chest X-Ray 01/31/18 00:00 CONCLUSION: 1. Persistent subcutaneous emphysema bilaterally. 2. No definite recurrent pneumothorax identified. 3. Stable diffuse increased interstitial markings bilaterally. Discharge Plan - Discharge Disposition Patient Disposition: W/Home Health Service - Discharge Condition Condition: Stable - Discharge Order Discharge Orders: Discharge Order (Routine); Ordered 02/01/18 Ordered By: Magalsy Bonilla - Discharge Details Anticipated Discharge Date: 02/01/18 Discharge Comment: August discharge when O2 arrangements completed. - Physicians Team Primary Care Provider: Bhavin Schuster Attending Provider: Bijan Duong Other Providers: Maldonado Moore MD ; Franky Samaniego MD ; Alessio Brito MD ; Vito Monterroso MD
[2018-02-04] MEDS ORDERED: Loratadine 10 MG Tablet PO SCH (21:00)
== END 2018-02-04 09:50 | disposition home health service (06) ==
LOC: NEPC 22:05 → NEDA 22:05 → NEPGCP 01-19 02:16 → N04 01-20 20:27
PROVIDERS: ADMIT Hospitalist; ATTEND Hospitalist